=== PATIENT | female | born 1935 | race Caucasian/White ===

== ENCOUNTER 2016-11-23 20:03 | Inpatient (IN) ==
--- NOTE | 2016-11-23 20:34 | Emergency Department Note ---
Disposition Clinical Impression: Hyperkalemia, Hypoglycemia Syncope Qualifiers: Syncope type: unspecified Qualified Code(s): R55 - Syncope and collapse Closed head injury Qualifiers: Encounter type: initial encounter Qualified Code(s): S09.90XA - Unspecified injury of head, initial encounter Urinary tract infection Qualifiers: Urinary tract infection type: site unspecified Hematuria presence: without hematuria Qualified Code(s): N39.0 - Urinary tract infection, site not specified Disposition: Admitted As Inpatient Condition: Good Time of Disposition: 22:48 Fall HPI - General Chief Complaint: ED Fall Stated Complaint: fall Time Seen by Provider: 11/23/16 20:08 Source: patient, EMS Mode of arrival: ambulatory Limitations: no limitations Nursing Notes Reviewed: Yes Vital Signs Reviewed: Yes - History of Present Illness HPI Narrative: Patient presents emergency room by EMS for evaluation of a fall at home. Patient is a poor historian of the event here today. She has a large hematoma in the left side of her scalp. She denied any loss of consciousness EMS. She is unable to tell us the story of the events prior to and then directly after her fall. Otherwise patient has been stable throughout transport by EMS here to the emergency room. 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 From: standing Fall Witnessed: no Place Fall Occurred: home Loss of Consciousness: unsure Prolonged Down Time?: unclear Context: unknown Location of injury: head Location of injury - extremities: Left: shoulder Severity: moderate Severity scale (1-10): 4 Associated symptoms (after fall): Reports: headache - Related Data Home Medications Medication Instructions Recorded Confirmed Fluoxetine 05/19/16 Furosemide 05/19/16 GlyBURIDE 05/19/16 Isosorbide DInitrate 05/19/16 Levothyroxine 05/19/16 Lisinopril 05/19/16 Pravastatin Sodium 05/19/16 05/19/16 Previous Rx's Medication Instructions Recorded TraMADol [Ultram] 50 mg PO QID PRN #16 tablet 05/19/16 Allergies Allergy/AdvReac Type Severity Reaction Status Date / Time No Known Allergies Allergy Verified 05/19/16 14:53 All systems ED: reviewed and negative except as stated. Neurological: Reports: headache Fall PMH - Past Medical History Medical history: Reports: diabetes, hyperlipidemia, hypertension, thyroid disease Psychiatric history: Reports: depression - Social History Smoking Status: Former smoker Alcohol use: Reports: occasionally Drug use: Reports: none Physical Exam - General Limitations: no limitations General appearance: alert - Head Head exam: normocephalic - Eye Eye exam: Present: normal appearance, PERRL, EOMI - Neck Neck exam: Present: normal inspection, full ROM, trachea midline. Absent: tenderness, lymphadenopathy - Chest Chest inspection: Present: normal inspection, symmetric chest wall rise - Respiratory Respiratory exam: Present: normal lung sounds bilaterally - Cardiovascular Cardiovascular exam: Present: regular rate, normal rhythm, normal heart sounds - Extremities Exam Extremities exam: Present: normal inspection, full ROM. Absent: tenderness, pedal edema - Back Exam Back exam: Present: normal inspection, full ROM - Neurological Exam Neurological exam: Present: alert, oriented X3, CN II-XII intact, normal gait - Skin Skin exam: Present: warm, dry, intact, normal color Course Course Narrative: Patient seen and examined at the time of arrival. See history of present illness. 81-year-old female presents by EMS for a fall at home. Unknown whether is mechanical or syncopal. Accu-Chek on presentation was 50. Patient is on long-acting medication. Of note she has multiple other complaints. She has a large hematoma to the anterior aspect of left frontal head. Pupils appear symmetric with no pain with movement or deformity to the orbital ridges or bony anatomy. No midline tenderness to cervical thoracic or lumbar spine patient moves all 4 extremities purpose. She does have tenderness left shoulder. She has had a previous shoulder surgery. No gross deformity or injury. Pulses are intact. Patient is alert and oriented at this point. Is concerned that she is on aspirin with the dramatic head injury. CT of the head cervical spine and facial bones ordered. Unknown whether this is syncopal or hypoglycemic event. Patient had full syncopal workup including EKG troponin chest x-ray and labs and ECG imaging artifact previously discussed. Otherwise patient has no other acute findings. Lungs are clear heart is regular. She has scaling and dry skin to the lower extremities but no acute signs of deformity or injury. She was ambulatory in the emergency room on presentation by EMS. We will continue him on his workup and treatment course are completed. - Reevaluation(s) Reevaluation #1: CT imaging of the head and neck in excellent facial bones is negative. Patient is comfortable in the bed. Repeat Accu-Chek was 88. Labs all seem unremarkable at this time except for elevated potassium. Does not appear to be a hemolyzed sample. Because of the patient's new idioventricular delay as well as elevated potassium I have concern for possible conduction or electrophysiology related issue. Patient also has a new urinary tract infection. Multiple issues at this time are presenting themselves during patient treatment course. She is concerning secondary to syncopal event head injury infectious etiology as well as electrolyte and electrophysiology related issue on her EKG. I discussed this in great detail with the patient and offered admission. She is accommodating to this at this point. IV Rocephin ordered for urinary tract infection. I discussed the patient with the hospitalist Dr. matthew. Review the patient's presentation symptoms medical history and concern for syncopal event with other underlying etiology. His only recommendation at this time was normal saline at 100 mL per hour and potassium binding medication Kayexalate to be ordered at this time. Patient is stable comfortable with our plan has no other complaints or symptoms at this point. Will continue monitoring the emergency room to the admission process is completed. Time: 22:46 Vital Signs Temperature 97.4 F L 11/23/16 20:06 Pulse Rate 70 11/23/16 20:06 Respiratory Rate 20 11/23/16 20:06 Blood Pressure 170/111 11/23/16 20:06 O2 Sat by Pulse Oximetry 96 11/23/16 20:06 Temperature 97.4 F L 11/23/16 20:06 Pulse Rate 68 11/23/16 21:30 Respiratory Rate 20 11/23/16 21:30 Blood Pressure 147/80 11/23/16 21:30 O2 Sat by Pulse Oximetry 96 11/23/16 21:30 Oxygen Delivery Oxygen Delivery Nasal Cannula Fall - MDM Narrative Medical decision making narrative: Syncope, closed head injury, fall, elevated potassium, EKG abnormality - Medical Records Medical records reviewed: Yes I reviewed the patient's medical records. - Lab Data Lab results reviewed: Yes I reviewed the patient's lab results. Result diagrams: 11/23/16 21:13 11/23/16 21:13 Lab Results 11/23/16 11/23/16 11/23/16 Range/Units 20:14 21:13 21:13 WBC 7.7 (4.3-11.1) K/mcL RBC 4.37 (3.82-4.97) M/mcL Hgb 13.1 (11.5-15.4) g/dL Hct 42.5 (35.3-44.9) % MCV 97.3 (83.0-100.0) fL MCH 30.0 (28.0-33.3) pg MCHC 30.8 L (31.6-35.5) g/dL RDW 15.5 H (11.5-14.5) % Plt Count 182 (140-400) K/mcL MPV 11.2 (9.4-12.4) fL Immature Gran % 0.3 (0-4) % Seg Neutrophils % 86.7 % Lymphocytes % 5.3 % Monocytes % 6.7 % Eosinophils % 0.5 % Basophils % 0.5 % Neutrophils # 6.7 (1.6-8.9) K/mcL Lymphocytes # 0.4 L (0.6-4.6) K/mcL Monocytes # 0.5 (0.0-1.3) K/mcL Eosinophils # 0.0 (0.0-0.6) K/mcL Basophils # 0.0 (0.0-0.2) K/mcL PT 10.6 (9.4-12.1) Seconds INR 1.0 APTT 29.6 (26.0-36.0) Seconds Sodium (136-145) mEq/L Potassium (3.5-4.5) mEq/L Chloride (98-109) mEq/L Carbon Dioxide (19-29) mEq/L BUN (7-20) mg/dL Creatinine (0.57-1.11) mg/dL Est GFR ( Amer) (> 60) Est GFR (Non-Af Amer) (> 60) BUN/Creatinine Ratio (6-26) Glucose (70-99) mg/dL POC Glucose 52 L (58-89) Calculated Osmolality (280-300) Calcium (8.6-10.8) mg/dL Troponin I (0-0.03) ng/mL Urine Color (Yellow) Urine Clarity (Clear) Urine pH (5.0-8.0) pH Units Ur Specific Willow (1.010-1.025) Urine Protein (Neg-Trace) mg/dL Urine Glucose (UA) (Normal) mg/dL Urine Ketones (Negative) mg/dL Urine Blood (Negative) Urine Nitrite (Negative) Urine Bilirubin (Negative) Urine Urobilinogen (Normal) mg/dL Ur Leukocyte Esterase (Negative) Urine Microscopic RBC (0-3) per hpf Urine Microscopic WBC (0-3) per hpf Ur Squamous Epith Cells (None-Few) per lpf Urine Bacteria (None-Few) per hpf Hyaline Casts (None-Few) per lpf Urine Mucus (Few) Ur Culture Indicated? (NO) 11/23/16 11/23/16 11/23/16 Range/Units 21:13 21:13 21:52 WBC (4.3-11.1) K/mcL RBC (3.82-4.97) M/mcL Hgb (11.5-15.4) g/dL Hct (35.3-44.9) % MCV (83.0-100.0) fL MCH (28.0-33.3) pg MCHC (31.6-35.5) g/dL RDW (11.5-14.5) % Plt Count (140-400) K/mcL MPV (9.4-12.4) fL Immature Gran % (0-4) % Seg Neutrophils % % Lymphocytes % % Monocytes % % Eosinophils % % Basophils % % Neutrophils # (1.6-8.9) K/mcL Lymphocytes # (0.6-4.6) K/mcL Monocytes # (0.0-1.3) K/mcL Eosinophils # (0.0-0.6) K/mcL Basophils # (0.0-0.2) K/mcL PT (9.4-12.1) Seconds INR APTT (26.0-36.0) Seconds Sodium 144 (136-145) mEq/L Potassium 6.0 H (3.5-4.5) mEq/L Chloride 107 (98-109) mEq/L Carbon Dioxide 28 (19-29) mEq/L BUN 53 H (7-20) mg/dL Creatinine 1.50 H (0.57-1.11) mg/dL Est GFR ( Amer) 40 L (> 60) Est GFR (Non-Af Amer) 33 L (> 60) BUN/Creatinine Ratio 35 H (6-26) Glucose 102 H (70-99) mg/dL POC Glucose (58-89) Calculated Osmolality 313 H (280-300) Calcium 9.1 (8.6-10.8) mg/dL Troponin I 0.02 (0-0.03) ng/mL Urine Color Yellow (Yellow) Urine Clarity Cloudy A (Clear) Urine pH 6.0 (5.0-8.0) pH Units Ur Specific Willow 1.020 (1.010-1.025) Urine Protein 100 H (Neg-Trace) mg/dL Urine Glucose (UA) Normal (Normal) mg/dL Urine Ketones Negative (Negative) mg/dL Urine Blood Small H (Negative) Urine Nitrite Positive A (Negative) Urine Bilirubin Negative (Negative) Urine Urobilinogen Normal (Normal) mg/dL Ur Leukocyte Esterase Small H (Negative) Urine Microscopic RBC 0-3 (0-3) per hpf Urine Microscopic WBC 15-30 H (0-3) per hpf Ur Squamous Epith Cells Many H (None-Few) per lpf Urine Bacteria Many H (None-Few) per hpf Hyaline Casts None Seen (None-Few) per lpf Urine Mucus Few (Few) Ur Culture Indicated? YES A (NO) 11/23/16 Range/Units 22:21 WBC (4.3-11.1) K/mcL RBC (3.82-4.97) M/mcL Hgb (11.5-15.4) g/dL Hct (35.3-44.9) % MCV (83.0-100.0) fL MCH (28.0-33.3) pg MCHC (31.6-35.5) g/dL RDW (11.5-14.5) % Plt Count (140-400) K/mcL MPV (9.4-12.4) fL Immature Gran % (0-4) % Seg Neutrophils % % Lymphocytes % % Monocytes % % Eosinophils % % Basophils % % Neutrophils # (1.6-8.9) K/mcL Lymphocytes # (0.6-4.6) K/mcL Monocytes # (0.0-1.3) K/mcL Eosinophils # (0.0-0.6) K/mcL Basophils # (0.0-0.2) K/mcL PT (9.4-12.1) Seconds INR APTT (26.0-36.0) Seconds Sodium (136-145) mEq/L Potassium (3.5-4.5) mEq/L Chloride (98-109) mEq/L Carbon Dioxide (19-29) mEq/L BUN (7-20) mg/dL Creatinine (0.57-1.11) mg/dL Est GFR ( Amer) (> 60) Est GFR (Non-Af Amer) (> 60) BUN/Creatinine Ratio (6-26) Glucose (70-99) mg/dL POC Glucose 88 (58-89) Calculated Osmolality (280-300) Calcium (8.6-10.8) mg/dL Troponin I (0-0.03) ng/mL Urine Color (Yellow) Urine Clarity (Clear) Urine pH (5.0-8.0) pH Units Ur Specific Willow (1.010-1.025) Urine Protein (Neg-Trace) mg/dL Urine Glucose (UA) (Normal) mg/dL Urine Ketones (Negative) mg/dL Urine Blood (Negative) Urine Nitrite (Negative) Urine Bilirubin (Negative) Urine Urobilinogen (Normal) mg/dL Ur Leukocyte Esterase (Negative) Urine Microscopic RBC (0-3) per hpf Urine Microscopic WBC (0-3) per hpf Ur Squamous Epith Cells (None-Few) per lpf Urine Bacteria (None-Few) per hpf Hyaline Casts (None-Few) per lpf Urine Mucus (Few) Ur Culture Indicated? (NO) - Radiology Data Radiology results reviewed: Yes I reviewed the patient's radiology results. - EKG Data EKG attestation: Yes I reviewed and interpreted this EKG. EKG shows normal: sinus rhythm, axis, QRS complexes, ST-T waves Rate: normal Rhythm: NSR When compared to previous EKG there are: changes noted (Patient has new idioventricular but delayed no acute changes otherwise.) Interpretation: other (Patient has what appears to be new idioventricular conduction delay that is different from previous EKG on . No acute signs of ST segment elevation or myocardial infarction) Critical Care Time Critical Care Time: Yes Total Critical Care Time: 35 Attestation: Independent of procedures and medical management Attestation Statement - Attestation Attestation: I examined this patient and my medical decision-making was reviewed with the UTILITY WORKER DRIVER/PA/Advanced Practice Nurse/Resident Physician. I agree with the documented findings, disposition and treatment plan as described except to the extent set forth below. Patient presents to the emergency department with a chief complaint of a fall. Patient states that she was sitting on the toilet and "just fell." She does not remember it. Denies any chest pain or palpitations. No dizziness. The pain in the left side of her face and left arm. On examination she has a large area of swelling and ecchymosis around the left eye. Extraocular motion is intact. Tenderness over the left shoulder with no deformity. Plan. Pain control and imaging. Syncope workup. CTs unremarkable. Patient is hyperkalemic. Kayexalate is given. UTI. Admitted to medicine.
[2016-11-23 21:23] LABS: Basophils % 0.5 %; Eosinophils % 0.5 %; Hematocrit 42.5 % (35.3-44.9); Hemoglobin 13.1 g/dL (11.5-15.4); Immature Granulocytes % 0.3 % (0-4); Lymphocytes # 0.4 K/mcL (0.6-4.6); Lymphocytes % 5.3 %; Mean Corpuscular HGB Conc 30.8 g/dL (31.6-35.5); Mean Corpuscular Volume 97.3 fL (83.0-100.0); Mean Platelet Volume 11.2 fL (9.4-12.4); Monocytes # 0.5 K/mcL (0.0-1.3); Monocytes % 6.7 %; Neutrophils # 6.7 K/mcL (1.6-8.9); Platelet Count 182 K/mcL (140-400); Red Blood Count 4.37 M/mcL (3.82-4.97); Red Cell Distribution Width 15.5 % (11.5-14.5); Segmented Neutrophils % 86.7 %
[2016-11-23 21:29] LABS: Prothrombin Time 10.6 Seconds (9.4-12.1)
[2016-11-23 21:31] LABS: Activated Partial Thrombo Time 29.6 Seconds (26.0-36.0)
[2016-11-23 21:35] LABS: Calcium 9.1 mg/dL (8.6-10.8)
[2016-11-23 22:06] LABS: Bilirubin,Urine Negative (Negative); Blood,Urine Small (Negative); Clarity,Urine Cloudy (Clear); Color,Urine Yellow (Yellow); Glucose,Urine (UA) Normal (Normal); Ketones,Urine Negative (Negative); Leukocyte Esterase,Urine Small (Negative); Nitrite,Urine Positive (Negative); Protein,Urine 100 mg/dL (Neg-Trace); Urobilinogen,Urine Normal (Normal)
[2016-11-23 22:10] LABS: Bacteria,Urine Many per hpf (None-Few); Hyaline Casts,Urine None Seen per lpf (None-Few); Squamous Epithelial Cell,Urine Many per lpf (None-Few); WBC,Urine 15-30 per hpf (0-3)
[2016-11-23 22:14] LABS: Mucus,Urine Few (Few); RBC,Urine 0-3 per hpf (0-3)
[2016-11-23] MEDS ORDERED: 0.9 % Sodium Chloride 1,000 ML IVC SCH (22:45)
[2016-11-23] MEDS ORDERED: D5% in 0.9% NACL 1,000 ML IVC SCH (23:00)
[2016-11-24] MEDS ORDERED: traMADol 50 MG TABLET PO ONE (02:46)
[2016-11-24 04:58] LABS: Calcium 8.9 mg/dL (8.6-10.8); Potassium 4.6 mEq/L (3.5-4.5)
[2016-11-24] MEDS ORDERED: Acetaminophen 325 MG TABLET PO PRN (06:25)
[2016-11-24] MEDS ORDERED: Naloxone 0.4 MG/ML INJ IVP PRN (06:25)
--- NOTE | 2016-11-24 06:33 | Internal Med History&Physical ---
Date of Encounter: 11/24/16 Time of Encounter: 03:00 Assessment and Plan (1) Urinary tract infection Current visit: Yes Status: Acute Urinalysis is abnormal. Urine culture pending. Empirically treat with the ceftriaxone. Qualifiers: Urinary tract infection type: site unspecified Hematuria presence: without hematuria Qualified Code(s): N39.0 - Urinary tract infection, site not specified (2) Syncope Current visit: Yes Status: Acute Possibly due to hypoglycemia versus UTI. No Loss of consciousness reported. PT evaluation. check troponin Qualifiers: Syncope type: unspecified Qualified Code(s): R55 - Syncope and collapse (3) Hypoglycemia Current visit: Yes Status: Acute Patient denies missing meals or changing her diet. WIll hold hypoglycemic meds. Pt is now on IV D5W infusion and Q1H accuchecks. When the glucose level is stable, can switch to QACHS accuchecks and D/C D5W. Consider sliding scale insulin, when the blood glucose level is stable. Need to reduce the dose of home meds at D/C. check A1C (4) Hyperkalemia Current visit: Yes Status: Acute Likely secondary to CKD and lisinopril. Pt was given keyexalate in the ER and is also on D5W infusion. Monitor potassium level. Hold lisinopril (5) CKD (chronic kidney disease) stage 3, GFR 30-59 ml/min Current visit: Yes Status: Chronic Monitor renal function. avoid nephrotoxics. (6) Diabetes mellitus Current visit: Yes Status: Chronic On hyperglycemic medications, due to hypoglycemia. Check A1C and consider reducing the dose of oral hypoglycemics at discharge time. Qualifiers: Diabetes mellitus type: type 2 Diabetes mellitus complication status: with unspecified complications Diabetes mellitus exterminator insulin use: without fdc use Qualified Code(s): E11.8 - Type 2 diabetes mellitus with unspecified complications (7) Hypertension Current visit: Yes Status: Chronic BP stable at this time. Hold lisinopril due to hyperkalemia Qualifiers: Hypertension type: essential hypertension Qualified Code(s): I10 - Essential (primary) hypertension (8) Hypothyroidism Current visit: Yes Status: Chronic Continue synthoid Qualifiers: Hypothyroidism type: unspecified Qualified Code(s): E03.9 - Hypothyroidism , unspecified (9) Left arm pain Current visit: Yes Status: Acute Related to fall. Shoulder X-ray was negative for fracture. Will obtain the X- ray of the left elbow, to exclude injury to the lower humerus (10) Contusion Current visit: Yes Status: Acute Qualifiers: Encounter type: initial encounter Contusion area: head Contusion of head detail: orbital tissues Laterality: left Qualified Code(s): S05.12XA - Contusion of eyeball and orbital tissues, left eye, initial encounter Internal Medicine - H&P: HPI Chief complaint: Fall at home Admitted From: Emergency Dept Plans for Post Hospital Care: Home History of present illness: Ms. Pastor is a 81 year old female with history of diabetes, hyperlipidemia, hypertension, hypothyroidism presented to emergency room by EMS for evaluation of a fall at home. Patient apparently had a fall in the bathroom. She does not remember what happened before the fall. At the time of the fall she felt like she saw stars. She does not think she lost consciousness. She was not able to get up and had to crawl to the phone, to call for help. Fire squad was called in per their note - she had hematoma about the left eye. She was brought to the emergency department, imaging showed no acute fractures. She was apparently hypoglycemic, with blood glucose in the 50s. She had abnormal urinalysis in the emergency department and was given ceftriaxone. She had persistent hypoglycemia and hyperkalemia she is admitted to the hospitalist service for further w/u and management. Patient reports a left frontal pain, sharp 6/10, non radiating. Denies focal weakness of extremities. She also reports pain in the left arm, 8/10, with reduced movement due to pain. She denies chest pain, shortness of breath, cough , expectation, fever, chills, nausea, vomiting, abdominal pain, dysuria or hematuria. She reports frequent urination and some incontinence which has been chronic. Denies changes in bowel habits. Past Med Surg Social Fam HX - Past Medical History Medical history: diabetes, hyperlipidemia, hypertension, thyroid disease Psychiatric history: depression - Social History Smoking Status: Former smoker Smokeless Tobacco Status: No Alcohol use: occasionally Drug use: none - Family History Mother Living Status: Age at : 97 Cause of : Natural Hx Family Cardiac Disorders: No Hx Family Respiratory Disorders: No Hx Family Cancer: No Hx Family GI Disorders: Yes Hx Family Genitourinary Disorders: No Hx Family Endocrine Disorder: No Hx Family Musculoskeletal Disorders: No Hx Family Neuromuscular Disorders: No Hx Family Neurologic Disorders: No Hx Family HEENT Disorders: No Hx Family Autoimmune Disorders: No Hx Family Reproductive Disorders: No Hx Family Psychosocial Disorders: No Hx Family Medical Disorders: No Father Living Status: Age at : 70 Hx Family Cardiac Disorders: Yes Hx Family Respiratory Disorders: No Hx Family Cancer: No Hx Family GI Disorders: No Hx Family Genitourinary Disorders: No Hx Family Endocrine Disorder: Yes (DM) Hx Family Musculoskeletal Disorders: No Hx Family Neuromuscular Disorders: No Hx Family Neurologic Disorders: No Hx Family HEENT Disorders: No Hx Family Autoimmune Disorders: No Hx Family Reproductive Disorders: No Hx Family Psychosocial Disorders: No Hx Family Medical Disorders: No Internal Medicine - H&P: Meds Fluoxetine 05/19/16 [History] Furosemide 05/19/16 [History] GlyBURIDE 05/19/16 [History] Isosorbide DInitrate 05/19/16 [History] Levothyroxine 05/19/16 [History] Lisinopril 05/19/16 [History] Pravastatin Sodium 05/19/16 [History] TraMADol [Ultram] 50 mg PO QID PRN #16 tablet 05/19/16 [Rx] Allergies No Known Allergies Allergy (Verified 05/19/16 14:53) All Systems PM: A 10-system review of systems was performed and is negative for pertinent findings except as documented above in the HPI. - Constitutional Vitals: Temp Pulse Resp BP Pulse Ox 99.0 F 86 18 127/51 92 11/24/16 04:02 11/24/16 04:02 11/24/16 04:02 11/24/16 04:02 11/24/16 04:02 Exam: General: In mild distress at the time of my evaluation HEENT: Oral mucosa is moist. There is contusion over the left balaji-orbital area Neck: No obvious neck swellings Lungs: Clear to auscultation Cardiac: Regular rate and rhythm. Systolic murmur present Abdomen: Soft, non tender. Bowel sounds present Genitourinary: No rodriguez catheter Neurological: Alert and oriented. No gross localizing deficits Psych: Not aggressive or agitated Extremities: B/L leg edema; chronic erythema present Skin: No generalized rash Internal Med - H&P Results - Labs CBC & Chem 7: 11/23/16 21:13 11/24/16 04:09 Labs: BMP 11/24/16 04:09 Sodium 140 Potassium 4.6 H D Chloride 104 Carbon Dioxide 27 BUN 47 H Creatinine 1.27 H Glucose 97 Calcium 8.9 - EKG Data -: EKG Interpreted by Myself EKG shows normal: sinus rhythm - EKG Data EKG comments: Q wave in III; QTc: 478 ms 11/24/16 06:33 - Impressions ITS Impressions Chest X-Ray 11/23/16 20:10 IMPRESSION: 1. No acute cardiopulmonary abnormality. 2. Stable small chronic right pleural effusion versus chronic pleural thickening with right base atelectasis. D/ / Fercho Mooney MD / Fercho Mooney MD Interpreting Provider: Fercho Mooney MD Cervical Spine CT 11/23/16 20:11 IMPRESSION: Limited exam due to patient body habitus. Minimal anterolisthesis at C4-5 may be degenerative. No gross acute fracture. D/ / Andrew Cain MD / Andrew Cain MD Interpreting Provider: Andrew Cain MD Head CT 11/23/16 20:11 IMPRESSION: 1. No acute intracranial abnormality. 2. Left frontal scalp hematoma. D/ / Carlo Gomez MD / Carlo Gomez MD Interpreting Provider: Carlo Gomez MD Shoulder X-Ray 11/23/16 20:12 IMPRESSION: 1. No acute osseous abnormality of the left shoulder. 2. Prior left shoulder arthroplasty with intact hardware. D/ / Fercho Mooney MD / Fercho Mooney MD Interpreting Provider: Fercho Mooney MD Face CT 11/23/16 20:24 IMPRESSION: 1. No acute maxillofacial fracture or intraorbital injury. 2. Left supraorbital soft tissue hematoma. D/ / Fercho Mooney MD / Fercho Mooney MD Interpreting Provider: Fercho Mooney MD
[2016-11-24] MEDS ORDERED: traMADol 50 MG TABLET PO PRN (07:07)
[2016-11-24 07:15] LABS: Basophils % 0.6 %; Eosinophils # 0.3 K/mcL (0.0-0.6); Eosinophils % 3.9 %; Hematocrit 41.5 % (35.3-44.9); Immature Granulocytes % 0.3 % (0-4); Lymphocytes # 0.6 K/mcL (0.6-4.6); Lymphocytes % 9.1 %; Mean Corpuscular HGB Conc 31.3 g/dL (31.6-35.5); Mean Corpuscular Hemoglobin 30.2 pg (28.0-33.3); Mean Corpuscular Volume 96.3 fL (83.0-100.0); Mean Platelet Volume 11.5 fL (9.4-12.4); Monocytes # 0.8 K/mcL (0.0-1.3); Neutrophils # 5.3 K/mcL (1.6-8.9); Platelet Count 181 K/mcL (140-400); Red Blood Count 4.31 M/mcL (3.82-4.97); Red Cell Distribution Width 15.4 % (11.5-14.5); Segmented Neutrophils % 75.1 %
[2016-11-24 07:52] LABS: Thyroid Stimulating Hormone 1.023 mcIU/mL (0.350-4.840)
[2016-11-24 07:53] LABS: Hemoglobin A1C 5.5 %
[2016-11-24] MEDS ORDERED: *HR* Morphine 2 MG/ML SYRINGE IVP PRN (13:01)
--- NOTE | 2016-11-24 13:08 | Event Note ---
Date of Encounter: 11/24/16 Time of Encounter: 10:00 Patient seen and examined. On examination, patient sitting upright in her wheelchair conversing with her daughter. Patient complaining of severe pain to her left upper arm and left elbow area. Left arm neurovascularly intact. She has a large hematoma to left periorbital region. No vision changes, EOMI. PERRLA. Chest x-ray negative. Cervical spine CT negative. Head CT negative. Shoulder x-ray negative. Face CT negative. Elbow x-ray unremarkable. Urinary tract infection noted, continue ceftriaxone with sensitivities pending. Patient stating her pain is currently uncontrolled, we will give her dose of IV pain medication now, then continue oral medications as she needs them. Glucose has been stable since admission. Patient is alert and oriented 3 and is requesting to go home. She needs to be observed overnight to ensure glucose stability and to wait for her urine sensitivity results. Renal functioning stable at the low end of her normal so we will hold her lisinopril today. The rest of her home medications have been resumed. OT and PT consultations are pending. Likely cause of her fall/syncopal episode hypoglycemia compounded with urinary tract infection. Possible discharge tomorrow pending clinical outcomes. ITS Impressions Chest X-Ray 11/23/16 20:10 IMPRESSION: 1. No acute cardiopulmonary abnormality. 2. Stable small chronic right pleural effusion versus chronic pleural thickening with right base atelectasis. D/ / Fercho Mooney MD / Fercho Mooney MD Interpreting Provider: Fercho Mooney MD Cervical Spine CT 11/23/16 20:11 IMPRESSION: Limited exam due to patient body habitus. Minimal anterolisthesis at C4-5 may be degenerative. No gross acute fracture. D/ / Andrew Cain MD / Andrew Cain MD Interpreting Provider: Andrew Cain MD Head CT 11/23/16 20:11 IMPRESSION: 1. No acute intracranial abnormality. 2. Left frontal scalp hematoma. D/ / Carlo Gomez MD / Carlo Gomez MD Interpreting Provider: Carlo Gomez MD Shoulder X-Ray 11/23/16 20:12 IMPRESSION: 1. No acute osseous abnormality of the left shoulder. 2. Prior left shoulder arthroplasty with intact hardware. D/ / Fercho Mooney MD / Fercho Mooney MD Interpreting Provider: Fercho Mooney MD Face CT 11/23/16 20:24 IMPRESSION: 1. No acute maxillofacial fracture or intraorbital injury. 2. Left supraorbital soft tissue hematoma. D/ / Fercho Mooney MD / Fercho Mooney MD Interpreting Provider: Fercho Mooney MD Elbow X-Ray 11/24/16 06:48 IMPRESSION: 1. No convincing acute osseous finding to account for patient's left elbow pain. Linear lucency in the distal humerus, seen on one view only, is favored to be artifact. If patient has persistent left elbow pain, consider CT for further evaluation. 2. Moderate radiocapitellar degenerative changes. D/ / Usama Garsia MD / Usama Garsia MD Interpreting Provider: Usama Garsia MD
[2016-11-24] MEDS ORDERED: Dextrose Gel 15 GM PO PRN ×2 (13:26)
[2016-11-24] MEDS ORDERED: D5% in Water 1,000 ML IVC PRN (13:26)
[2016-11-24] MEDS ORDERED: *HR* Dextrose 50 % in Water (Syg) 50 ML SYRINGE IVP PRN (13:26)
[2016-11-24] MEDS: FLUoxetine 20 MG CAPSULE PO SCH ×2 (13:38→22:20)
[2016-11-24] MEDS: hydroCHLOROthiazide 25 MG TABLET PO SCH (13:38)
[2016-11-24] MEDS: Aspirin Enteric Coated 81 MG Tablet PO SCH (13:38)
[2016-11-24] MEDS: Furosemide 20 MG TABLET PO SCH (13:38)
[2016-11-24] MEDS: *HR* HYDROcodone/Acet 5/325 mg TABLET PO PRN ×2 (13:39→19:51)
[2016-11-24] MEDS: Insulin LISPRO 300 UNITS/3 ML VIAL SQ SCH (16:48)
--- NOTE | 2016-11-24 18:28 | Electrocardiograph Report ---
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
[2016-11-24] MEDS ORDERED: Insulin LISPRO 300 UNITS/3 ML VIAL SQ SCH (21:00)
[2016-11-25] MEDS: *HR* HYDROcodone/Acet 5/325 mg TABLET PO PRN (04:17)
[2016-11-25 05:59] LABS: Calcium 8.5 mg/dL (8.6-10.8); Potassium 4.5 mEq/L (3.5-4.5)
[2016-11-25] MEDS: Insulin LISPRO 300 UNITS/3 ML VIAL SQ SCH (08:40)
[2016-11-25] MEDS: FLUoxetine 20 MG CAPSULE PO SCH (08:48)
[2016-11-25] MEDS: Aspirin Enteric Coated 81 MG Tablet PO SCH (08:48)
[2016-11-25] MEDS: Furosemide 20 MG TABLET PO SCH (08:48)
[2016-11-25] MEDS: hydroCHLOROthiazide 25 MG TABLET PO SCH (08:48)
[2016-11-25] MEDS ORDERED: Isosorbide MONOnitrate (24 HR) 30 MG TAB.ER.24H PO SCH (09:00)
--- NOTE | 2016-11-25 10:32 | Discharge Summary ---
Date of Encounter: 11/25/16 Time of Encounter: 10:29 - Discharge Diagnosis (1) Hypoglycemia Priority: Primary Status: Acute (2) Closed head injury Priority: Primary Status: Acute Qualifiers: Encounter type: initial encounter Qualified Code(s): S09.90XA - Unspecified injury of head, initial encounter (3) CKD (chronic kidney disease) stage 3, GFR 30-59 ml/min Priority: Secondary Status: Chronic (4) Diabetes mellitus Priority: Secondary Status: Chronic Qualifiers: Diabetes mellitus type: type 2 Diabetes mellitus complication status: with unspecified complications Diabetes mellitus residential insulin use: without residential use Qualified Code(s): E11.8 - Type 2 diabetes mellitus with unspecified complications - Discharge Medications Home Medications: FLUoxetine HCl [Prozac] 20 mg PO BID 05/19/16 [History] Furosemide [Lasix] 20 mg PO DAILY 05/19/16 [History] Isosorbide DInitrate [Isosorbide Dinitrate] 30 mg PO DAILY 05/19/16 [History] Levothyroxine [Synthroid] 50 mcg PO DAILY 05/19/16 [History] Pravastatin Sodium 10 mg PO DAILY 05/19/16 [History] Aspirin Enteric Coated [Aspirin EC] 81 mg PO DAILY 11/24/16 [History] Hydrochlorothiazide 25 mg PO DAILY 11/24/16 [History] Allergies/Adverse Reactions: Allergies No Known Allergies Allergy (Verified 05/19/16 14:53) Date of admission: 11/24/16 06:33 Primary care physician: Goran Hicks MD Consults: 11/24/16 11:26 Consult to [employer] History Teacher [CONS] Routine Reason for SW Consult: rehab vs. home health. Pt currently has private aid services. 11/24/16 11:57 Consult to Occupational Therapy [CONS] Routine Comment: Evaluate, develop and implement POC - Patient Status Disposition: Home Health Service Condition: Good Functional capacity at discharge: uses cane/walker Overall status at discharge: patient is progressing back to baseline - Discharge Instructions Instructions: Urinary Tract Infection in Women (DC), Low Fat Diet (DC), Potassium Content of Foods List (DC), Seasoning Without Salt (DC), Syncope (DC) , Meal Planning with Diabetes Exchanges (DC), DASH Eating Plan (DC), Low Sodium Diet (DC) Follow Up With: Goran Hicks MD [Primary Care Provider] - 12/02/16 10:00 am () Additional Instructions: stop taking glyburide. check blood sugars before meals and at bedtime, bring numbers to doctors appointment check blood pressure twice daily, same time every day diet: low potassium, diabetic, low salt, low fat. - Diet and Activity Activity: ambulate only with your walker Diet: diabetic diet, low fat, low cholesterol, low salt diet, other (low potassium) Interval History: pt declines rehab placement. she agrees with PT/OT at home. she is doing okay and is eager to go home. Hospital course: Ms. Pastor is a 81 year old female with a past medical history of diabetes, hypertension and hypothyroidism who presented after a fall at home. Patient glucose level was 50s on admission. Her fall was likely secondary to hypoglycemia. Her home medication glyburide was stopped. She was instructed to check her blood sugars 4 times a day at home, make a log and bring it to her primary care physician appointment. Our physical therapist team recommended rehabilitation placement however patient declined. Plan: Follow-up with primary care physician in one week. Check blood sugars 4 times a day. Check blood pressure twice daily. - Time Spent with Patient Total time spent providing and/or coordinating discharge services: - Constitutional Vitals: Temp Pulse Resp BP Pulse Ox 97.9 F 71 17 132/78 92 11/25/16 07:30 11/25/16 07:30 11/25/16 07:30 11/25/16 07:30 11/25/16 07:30
--- NOTE | 2016-11-25 10:36 | Physician Discharge Referral ---
Home Health/Hosp Referral Info Transfer to: Home Health Attending Provider: perry Provider in Charge Post Discharge: PCP - Diagnosis (1) Syncope Status: Acute (2) Closed head injury Status: Acute (3) Hypoglycemia Status: Acute (4) Hyperkalemia Status: Acute (5) CKD (chronic kidney disease) stage 3, GFR 30-59 ml/min Status: Chronic (6) Diabetes mellitus Status: Chronic (7) Hypothyroidism Status: Chronic (8) Left arm pain Status: Acute - Respiratory Orders Smoking Cessation: Smoking cessation has been advised. For more information, call the [place] Tobacco Quit Line at 5-228-OGGF-NOW. - Diet/Nutrition Diet/Nutrition Orders: No Added Salt (JT), Cardiac, No Concentrated Sweets ( low potassium) - Activity Activity Orders: Walker - Services Needed Following services are medically necessary services: Home Health Aide, Physical Therapy, Occupational Therapy - Transfer Medications Home Medications: FLUoxetine HCl [Prozac] 20 mg PO BID 05/19/16 [History] Furosemide [Lasix] 20 mg PO DAILY 05/19/16 [History] Isosorbide DInitrate [Isosorbide Dinitrate] 30 mg PO DAILY 05/19/16 [History] Levothyroxine [Synthroid] 50 mcg PO DAILY 05/19/16 [History] Pravastatin Sodium 10 mg PO DAILY 05/19/16 [History] Aspirin Enteric Coated [Aspirin EC] 81 mg PO DAILY 11/24/16 [History] Hydrochlorothiazide 25 mg PO DAILY 11/24/16 [History] Allergies/Adverse Reactions: Allergies No Known Allergies Allergy (Verified 05/19/16 14:53) Certification: Further, I certify that my clinical findings support that this patient is homebound (i.e. absences from home require considerable and taxing effort and are for medical reasons or muslim services or infrequently or short duration when for other reasons) because: Homebound Reason: Patient requires assistance of a person or device to safely leave home, Leaving home requires considerable and taxing effort due to condition Attestation: My signature below is to certify that this patient is under my care and that I, or nurse practitioner, or a physician's therapist's assistant working with me, has a face-to -face encounter with this patient.
[2016-11-25 11:38] VITALS: BP 132/78
== END 2016-11-25 11:30 | disposition home health service (06) | DRG 638 ==
LOC: 3BNU 20:03 → EMEROO 20:03 → 3BNU 23:08
PROVIDERS: ADMIT Internal Medicine; ATTEND Nurse Practitioner Family

== ENCOUNTER 2017-08-15 22:26 | Inpatient (IN) ==
[~2017-08-15 22:26] MED LIST: *HR* Midazolam HCl 2 MG/2 ML VIAL IV ONE
[2017-08-15] MEDS ORDERED: methylPREDNISolone 125 MG/2 ML VIAL IVP ONE (22:28)
[2017-08-15] MEDS ORDERED: *HR* EPINEPHrine 1 MG/10 ML SYRINGE IVP ONE (22:28)
[2017-08-15] MEDS ORDERED: Famotidine 20 MG/2 ML VIAL IVP ONE (22:28)
[2017-08-15] MEDS ORDERED: Ketamine *HR* 500 MG/10 ML MDV IVP ONE (22:36)
[2017-08-15] MEDS ORDERED: *HR* Propofol 500 MG/50 ML BOTTLE IVP ONE (22:42)
[2017-08-15] MEDS ORDERED: Ketamine *HR* 500 MG/10 ML MDV ONE (22:42)
[2017-08-15] MEDS ORDERED: Lidocaine -MPF 4% 5 ML AMPUL INFILT ONE (22:45)
[2017-08-15 22:47] LABS: Basophils % 0.4 %; Eosinophils # 0.4 K/mcL (0.0-0.6); Hematocrit 47.4 % (35.3-44.9); Hemoglobin 14.9 g/dL (11.5-15.4); Immature Granulocytes % 0.4 % (0-4); Lymphocytes # 1.4 K/mcL (0.6-4.6); Lymphocytes % 15.5 %; Mean Corpuscular HGB Conc 31.4 g/dL (31.6-35.5); Mean Corpuscular Volume 98.5 fL (83.0-100.0); Monocytes # 0.7 K/mcL (0.0-1.3); Monocytes % 7.6 %; Neutrophils # 6.5 K/mcL (1.6-8.9); Platelet Count 199 K/mcL (140-400); Red Blood Count 4.81 M/mcL (3.82-4.97); Red Cell Distribution Width 14.2 % (11.5-14.5); Segmented Neutrophils % 72.1 %
[2017-08-15] MEDS ORDERED: Propofol 500 MG/50 ML INFUS..BTL ONE (22:47)
--- NOTE | 2017-08-15 22:50 | Emergency Department Note ---
Disposition Clinical Impression: Angioedema Qualifiers: Encounter type: initial encounter Qualified Code(s): T78.3XXA - Angioneurotic edema, initial encounter Respiratory failure Qualifiers: Chronicity: acute Respiratory failure complication: hypercapnia Qualified Code( s): J96.02 - Acute respiratory failure with hypercapnia Disposition: Admitted As Inpatient Condition: Critical Time of Disposition: 23:09 SOB HPI - General Chief Complaint: ED Shortness of Breath/Dyspnea Stated Complaint: ABISAI Time Seen by Provider: 08/15/17 22:28 Source: EMS Limitations: no limitations Nursing Notes Reviewed: Yes Vital Signs Reviewed: Yes - History of Present Illness 81-year-old female brought in by EMS, unable to talk but was able to write some of the history questions, they found her with her tongue swollen, difficulty breathing the placed on oxygen that she was having an allergic reaction or anaphylaxis. The patient had swollen tongue. She was given 1 mg of epinephrine no IV access was obtained in route. Patient was writing down that she said the tongue swelling started at 7 PM. She did not take any new medications but after she started having swelling she did take 2 baby aspirin as prescribed. She states that her neck started swelling getting worse, and she was more short of breath, indolence was called to pick her up, she states that she is not sure if she fell. Again mostly history is taken by her writing on a piece paper and she has poor handwriting. There is a history is obtained from EMS. 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 Severity: mild Improves with: nothing Worsens with: nothing Known history of: diabetes, other (HTN no ACEI use) Associated symptoms: Reports: chest pain, cough Treatment prior to arrival: oxygen, other (Epinephrine) Cough present: No - Related Data Home Medications Medication Instructions Recorded Confirmed FLUoxetine HCl [Prozac] 20 mg PO BID 05/19/16 11/24/16 Furosemide [Lasix] 20 mg PO DAILY 05/19/16 11/24/16 Isosorbide DInitrate [Isosorbide 30 mg PO DAILY 05/19/16 11/24/16 Dinitrate] Levothyroxine [Synthroid] 50 mcg PO DAILY 05/19/16 11/24/16 Pravastatin Sodium 10 mg PO DAILY 05/19/16 11/24/16 Aspirin Enteric Coated [Aspirin EC] 81 mg PO DAILY 11/24/16 11/24/16 hydroCHLOROthiazide 25 mg PO DAILY 11/24/16 11/24/16 [Hydrochlorothiazide] Allergies Allergy/AdvReac Type Severity Reaction Status Date / Time No Known Allergies Allergy Verified 05/19/16 14:53 Limitations: ROS unobtainable due to patients medical condition Past Medical History - Past Medical History Attestation: Yes The following information was validated with the patient. Source: patient Medical history: Reports: diabetes, hyperlipidemia, hypertension, thyroid disease Psychiatric history: Reports: depression - Social History Smoking Status: Former smoker Smokeless Tobacco Status: No Alcohol use: Reports: occasionally Drug use: Reports: none Physical Exam Constitutional: Obese female in acute respiratory distress sudden 75% on nonrebreather Eyes: PERRLA, sclera anicteric ENT & Mouth: severely enlarged tongue with left sided hematoma with some bleeding, Mallampati IV, unable to visualize uvula, MM dry, Neck: normal inspection, neck is edematous Resp: Coarse rhonchi bilaterally CV: tachycardia, no m/g/r +3 edema GI: normal inspection, soft, no guarding or rigidity Neuro: A&O3, CNII-XII grossly intact, DHILLON Skin: +3 pitting lower extremities - General Limitations: no limitations General appearance: alert, in distress Course Course Narrative: 22:30 81-year-old female in severe respiratory distress with angioedema, unclear ZONIA inhibitor related or not, although her medical history does not show an ZONIA inhibitor. She was initially hypoxic in the 70% range, with placed on a vent on a nonrebreather as well as nasal cannula maximum flow, we then alerted anesthesia who arrived in the emergency department please see their documentation as well as, H1 and H2 blockers were prescribed famotidine, Benadryl 550 mg was given, additional 1 mg of epinephrine was given, it was clear that this was to be emergent airway, the RSI and intubation materials were prepared at bedside, cricothyrotomy was also repaired at bedside although she would very poor landmarks given very edematous neck. 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 Diaz patient for admission to the ICU, she was hemodynamic stable on propofol drip did require 5 g of vecuronium for additional paralysis and propofolo gtt titrated to affect. She was transferred to the ICU in hemodynamically stable but serious condition, intubated, Pressley placed, x-ray confirmed good placement, propofol drip, ICU transfer completed safely with patient stable throughout. at ));45 Vital Signs Temperature 97.9 F 08/15/17 22:27 Pulse Rate 98 08/15/17 22:27 Respiratory Rate 30 08/15/17 22:27 Blood Pressure 197/120 08/15/17 22:27 O2 Sat by Pulse Oximetry 98 08/15/17 22:27 Temperature 97.9 F 08/15/17 22:27 Pulse Rate 89 08/16/17 00:19 Respiratory Rate 14 08/16/17 00:19 Blood Pressure 120/64 08/16/17 00:19 O2 Sat by Pulse Oximetry 100 08/16/17 00:19 Oxygen Delivery Oxygen Delivery Ventilator Shortness of Breath/Dyspnea - Differential Diagnosis Likely: acute exacerbation of chronic obstructive airways disease, congestive heart failure - Medical Records Medical records reviewed: Yes I reviewed the patient's medical records. - Lab Data Lab results reviewed: Yes I reviewed the patient's lab results. Result diagrams: 08/15/17 23:36 Lab Results 08/15/17 08/15/17 08/15/17 Range/Units 22:40 22:40 22:40 WBC 9.0 (4.3-11.1) K/mcL RBC 4.81 (3.82-4.97) M/mcL Hgb 14.9 (11.5-15.4) g/dL Hct 47.4 H (35.3-44.9) % MCV 98.5 (83.0-100.0) fL MCH 31.0 (28.0-33.3) pg MCHC 31.4 L (31.6-35.5) g/dL RDW 14.2 (11.5-14.5) % Plt Count 199 (140-400) K/mcL MPV 11.0 (9.4-12.4) fL Immature Gran % 0.4 (0-4) % Seg Neutrophils % 72.1 % Lymphocytes % 15.5 % Monocytes % 7.6 % Eosinophils % 4.0 % Basophils % 0.4 % Neutrophils # 6.5 (1.6-8.9) K/mcL Lymphocytes # 1.4 (0.6-4.6) K/mcL Monocytes # 0.7 (0.0-1.3) K/mcL Eosinophils # 0.4 (0.0-0.6) K/mcL Basophils # 0.0 (0.0-0.2) K/mcL Lactic Acid 2.0 (0.5-2.2) mmol/L Troponin I < 0.03 (< 0.04) ng/mL B-Natriuretic Peptide (Less than 100) pg/mL 08/15/17 Range/Units 22:40 WBC (4.3-11.1) K/mcL RBC (3.82-4.97) M/mcL Hgb (11.5-15.4) g/dL Hct (35.3-44.9) % MCV (83.0-100.0) fL MCH (28.0-33.3) pg MCHC (31.6-35.5) g/dL RDW (11.5-14.5) % Plt Count (140-400) K/mcL MPV (9.4-12.4) fL Immature Gran % (0-4) % Seg Neutrophils % % Lymphocytes % % Monocytes % % Eosinophils % % Basophils % % Neutrophils # (1.6-8.9) K/mcL Lymphocytes # (0.6-4.6) K/mcL Monocytes # (0.0-1.3) K/mcL Eosinophils # (0.0-0.6) K/mcL Basophils # (0.0-0.2) K/mcL Lactic Acid (0.5-2.2) mmol/L Troponin I (< 0.04) ng/mL B-Natriuretic Peptide 173 H (Less than 100) pg/mL - Radiology Data Radiology results reviewed: Yes I reviewed the patient's radiology results. Chest X-Ray 08/15/17 22:28 IMPRESSION: Appropriate positioning of endotracheal tube. Asymmetric ground-glass opacities in the right lower lung zone may represent pulmonary edema or ARDS. D/ / Carlo Gomez MD / Carlo Gomez MD Interpreting Provider: Carlo Gomez MD - EKG Data EKG attestation: Yes I reviewed and interpreted this EKG. EKG results narrative: Sinus tachycardia rate of 107 CA 158 QRS 114 QTC 433 no evidence of ischemic changes sinus tachycardia unchanged from previous EKG in November 2016 EKG shows normal: Reports: sinus rhythm
--- NOTE | 2017-08-15 22:53 | Emergency Department Note ---
START Narrative - START START: I examined this patient and my medical decision-making was reviewed with the emergency medicine resident. I agree with the documented findings, disposition and treatment plan as described except to the extent set forth below. Patient seen with emergency medicine resident Dr. Jimi Trujillo, Please see a copy of his note for details of the H&P, ED evaluation, management and disposition. I have independently evaluated the patient and confirmed appropriate portions of the history and physical exam. Briefly: A 81-year-old female brought in by EMS for "anaphylaxis and tongue swelling". Patient unable to give us any verbal information she has a prophylactic neck with angioedema tongue protruding out of mouth 1 mg epinephrine given in field and in the ED with the quick emergent bedside assessment we knew that airway management was critical anesthesia was patient emergently arrived at bedside within 2 minutes. Using fiber optic scope fiberoptic intubation with her said a week which was confirmed on first pass. Patient to be admitted to the intensive care unit for anaphylaxis/angioedema/ respiratory failure. Labs and chest x-ray are pending. Hospitalist has been paged. We have provided 45 minutes of critical care services for this patient.
[2017-08-15] MEDS ORDERED: Glycopyrrolate 0.2 MG/ML VIAL IVP ONE (23:00)
--- NOTE | 2017-08-15 23:03 | Anesthesia Procedures ---
Date of Encounter: 08/15/17 Time of Encounter: 22:40 Procedures: Anesthesia - Intubation Time out performed: No (emergency) Sedative: Ketamine, Versed Amount Sedative given: ketamine 100 mg total, versed 2 mg Paralytic: other (none) Laryngoscope: fiber optic ET Tube Size: 7 ET tube uncuffed: No Tube secured depth (cm): 24 Tube secured location: lips Tube Placement Confirmation: visualized tube passing through cords, equal breath sounds bilaterally, confirmation by capnometry Patient tolerated procedure: other (patient lost conciousness prior to intubation; patient was apneic prior to sedation (patient was imminently decompensating prior to all medications being available); hypertensive with intubation) Additional comments: Patient was in severe respiratory distress in ED. Neck and tongue were severely swollen. Patient was drooling. No ENT coverage was available. Patient started obstructing and deteriorating immediately. Ketamine 50 mg and midazolam 1 mg were administered just prior to attempting FOB. Jovan Smith immediately visualized vocal cords and was able to pass ETT through cords. Bilateral breath sounds were auscultated. Patient was hypertensive pre- and post- intubated. Otherwise, patient tolerated the procedure reasonable well given the emergent and less than ideal circumstances.
[2017-08-15] MEDS ORDERED: 0.9 % Sodium Chloride 500 ML IVC ONE (23:33)
[2017-08-15] MEDS ORDERED: 0.9 % Sodium Chloride 500 ML ONE (23:33)
[2017-08-15] MEDS ORDERED: *HR* Vecuronium 10 MG VIAL IVP ONE (23:40)
[2017-08-15 23:44] LABS: Basophils % 0.4 %; Eosinophils # 0.2 K/mcL (0.0-0.6); Eosinophils % 1.6 %; Hematocrit 44.2 % (35.3-44.9); Hemoglobin 13.7 g/dL (11.5-15.4); Immature Granulocytes % 0.3 % (0-4); Immature Platelets 5.8 % (1.1-6.1); Lymphocytes # 0.8 K/mcL (0.6-4.6); Lymphocytes % 7.5 %; Mean Platelet Volume 10.8 fL (9.4-12.4); Monocytes # 0.6 K/mcL (0.0-1.3); Monocytes % 5.7 %; Neutrophils # 9.4 K/mcL (1.6-8.9); Platelet Count 176 K/mcL (140-400); Red Blood Count 4.42 M/mcL (3.82-4.97); Segmented Neutrophils % 84.5 %
[2017-08-15] MEDS ORDERED: *HR* Vecuronium 10 MG VIAL ONE (23:45)
[2017-08-15] MEDS ORDERED: Naloxone 0.4 MG/ML INJ IVP PRN (23:53)
[2017-08-15] MEDS ORDERED: Acetaminophen 325 MG TABLET PO PRN (23:53)
[2017-08-15] MEDS ORDERED: Lacri-Lube 3.5 GM TUBE BOTH EYES PRN (23:58)
[2017-08-16] MEDS ORDERED: D5% in Water 1,000 ML IVC PRN (00:03)
[2017-08-16] MEDS ORDERED: Dextrose Gel 15 GM/37.5 ML TUBE PO PRN ×2 (00:03)
[2017-08-16] MEDS ORDERED: *HR* Dextrose 50 % in Water (Syg) 50 ML SYRINGE IVP PRN (00:03)
[2017-08-16] MEDS: Propofol 500 MG/50 ML INFUS..BTL IVC SCH ×5 (00:17→12:10)
[2017-08-16 00:22] LABS: ABG Base Excess 3 mEq/L (-2 to 3); ABG HCO3 33 mEq/L (21-27); ABG Oxygen Saturation 100 % (95-98); ABG PCO2 77 mmHg (35-45); ABG PH 7.24 pH Units (7.32-7.45); ABG PO2 310 mmHg (85-104); ABG TCO2 35 mEq/L (20-26)
[2017-08-16 00:28] LABS: Calcium 8.2 mg/dL (8.6-10.3); Potassium 4.3 mEq/L (3.5-5.1)
[2017-08-16] MEDS: Lacri-Lube 3.5 GM TUBE BOTH EYES SCH ×6 (01:22→20:51)
--- NOTE | 2017-08-16 01:36 | Internal Med History&Physical ---
Date of Encounter: 08/16/17 Time of Encounter: 01:25 Assessment and Plan (1) Acute respiratory failure with hypercapnia Current visit: Yes Status: Acute Patient is currently intubated and mechanically ventilated. High risk for complications. We will continue sedation with propofol. Monitor vital signs closely. Treat underlying conditions. (2) Angioedema Current visit: Yes Status: Acute Uncertain etiology. Will treat symptomatically with intravenous steroids, H1 and H2 blockers. Monitor vital signs closely. Qualifiers: Encounter type: initial encounter Qualified Code(s): T78.3XXA - Angioneurotic edema, initial encounter (3) CKD (chronic kidney disease) stage 3, GFR 30-59 ml/min Current visit: Yes Status: Chronic Creatinine is at baseline. Avoid nephrotoxic agents if possible. (4) Diabetes mellitus Current visit: Yes Status: Chronic Patient has history of prediabetes. Most recent A1c was 5.7%. We will monitor blood sugars. Expect rising blood sugars due to steroid use. Place on low correctional insulin coverage. Qualifiers: Diabetes mellitus type: type 2 Diabetes mellitus complication status: with unspecified complications Diabetes mellitus detention insulin use: without detention use Qualified Code(s): E11.8 - Type 2 diabetes mellitus with unspecified complications (5) Hypertension Current visit: Yes Status: Chronic Well-controlled at this time. Patient takes hydrochlorothiazide at home. We will hold for now. Given her chronic kidney disease, this medication may need to be stopped. Resume Lasix in a.m. if patient's blood pressure remains normal. Qualifiers: Hypertension type: essential hypertension Qualified Code(s): I10 - Essential (primary) hypertension Internal Medicine - H&P: HPI Chief complaint: Angioedema Admitted From: Emergency Dept Plans for Post Hospital Care: Home History of present illness: Ms. Pastor is a 81 year old female patient with history of hypertension, hyperlipidemia, thyroid disease and prediabetes was evaluated in the ER after being brought by EMS with complaints of swelling of her mouth and tongue. Patient is currently not able to provide history as she is intubated and sedated. History has been obtained through review of ED records. Patient apparently began to have swelling of her tongue at around 7 PM. She had not been started on any new medications. She is not on any ZONIA inhibitor or ARB. No new medications. She did take some aspirin when her symptoms first started. In the ER, she was noted to be dyspneic and was struggling to breathe and so was intubated. She is presently intubated and is on mechanical ventilation and sedation. Past Med Surg Social Fam HX - Past Medical History Source: old records reviewed Medical history: diabetes, hyperlipidemia, hypertension, thyroid disease Psychiatric history: depression - Social History Smoking Status: Former smoker Smokeless Tobacco Status: No Alcohol use: occasionally Drug use: none - Family History Mother Living Status: Hx Family Cardiac Disorders: No Hx Family Respiratory Disorders: No Hx Family Cancer: No Hx Family GI Disorders: Yes Hx Family Endocrine Disorder: No Hx Family Neuromuscular Disorders: No Hx Family Neurologic Disorders: No Hx Family HEENT Disorders: No Hx Family Autoimmune Disorders: No Father Living Status: Hx Family Cardiac Disorders: Yes Hx Family Respiratory Disorders: No Hx Family Cancer: No Hx Family GI Disorders: No Hx Family Endocrine Disorder: Yes (DM) Hx Family Neuromuscular Disorders: No Hx Family Neurologic Disorders: No Hx Family HEENT Disorders: No Hx Family Autoimmune Disorders: No Internal Medicine - H&P: Meds FLUoxetine HCl [Prozac] 20 mg PO BID 05/19/16 [History] Furosemide [Lasix] 20 mg PO DAILY 05/19/16 [History] Isosorbide DInitrate [Isosorbide Dinitrate] 30 mg PO DAILY 05/19/16 [History] Levothyroxine [Synthroid] 50 mcg PO DAILY 05/19/16 [History] Pravastatin Sodium 10 mg PO DAILY 05/19/16 [History] Aspirin Enteric Coated [Aspirin EC] 81 mg PO DAILY 11/24/16 [History] hydroCHLOROthiazide [Hydrochlorothiazide] 25 mg PO DAILY 11/24/16 [History] 3 Allergy/AdvReac Type Severity Reaction Status Date / Time No Known Allergies Allergy Verified 05/19/16 14:53 ROS unobtainable: due to endotracheal tube, due to mental status All Systems PM: A 10-system review of systems was performed and is negative for pertinent findings except as documented above in the HPI. - Constitutional Vitals: Temp Pulse Resp BP Pulse Ox 97.9 F 89 14 120/64 100 08/15/17 22:27 08/16/17 00:19 08/16/17 00:19 08/16/17 00:19 08/16/17 00:19 General appearance: Present: morbidly obese, severe distress Exam: Patient is currently sedated - ENT Additional comments: ET tube and OG tube are in place. Perioral edema and tongue swelling present. - Respiratory Respiratory exam: Absent: accessory muscle use, rales, rhonchi, wheezes Additional comments: Coarse breath sounds bilaterally - Cardiovascular Cardiovascular exam: Present: RRR, +S1, +S2. Absent: diastolic murmur, gallop, rubs, systolic murmur - GI/Abdominal GI/Abdominal exam: Present: normal bowel sounds, soft, no peritoneal signs. Absent: distended, tenderness - Extremities Exam Extremities exam: Present: pedal edema (Bilateral), warm, radial pulses palpable and symmetrical. Absent: calf tenderness, cyanotic Additional comments: Bilateral stasis dermatitis in lower extremities - Neurological Exam Neurological exam: Present: altered. Absent: facial droop - Skin Skin exam: Present: dry, intact Internal Med - H&P Results - Labs CBC & Chem 7: 08/15/17 23:36 08/15/17 23:36 Labs: Short CBC 08/15/17 Range/Units 23:36 WBC 11.2 H (4.3-11.1) K/mcL Hgb 13.7 (11.5-15.4) g/dL Hct 44.2 (35.3-44.9) % Plt Count 176 (140-400) K/mcL Neutrophils # 9.4 H (1.6-8.9) K/mcL BMP 08/15/17 23:36 Sodium 141 Potassium 4.3 Chloride 106 Carbon Dioxide 27 BUN 36 H Creatinine 1.30 H Glucose 174 H Calcium 8.2 L - ABG Interpretation ABG results: 08/16/17 00:18 ABG pH 7.24 L ABG pCO2 77 H* ABG pO2 310 H ABG HCO3 33 H ABG Total CO2 35 H ABG O2 Saturation 100 H ABG Base Excess 3 - EKG Data -: EKG Interpreted by Myself EKG shows normal: sinus rhythm (With intraventricular conduction delay)
[2017-08-16] MEDS ORDERED: Insulin LISPRO 300 UNITS/3 ML VIAL SQ SCH (06:00)
[2017-08-16] MEDS ORDERED: *HR* Enoxaparin 40 MG/0.4 ML SYRINGE SQ SCH (06:00)
[2017-08-16] MEDS: Famotidine 20 MG/2 ML VIAL IVP SCH ×2 (06:00→18:45)
[2017-08-16] MEDS: Pantoprazole 40 MG VIAL IVP SCH (06:00)
[2017-08-16] MEDS: *HR* Heparin 5,000 UNIT/ML VIAL SQ SCH ×2 (06:03→18:46)
[2017-08-16] MEDS: Insulin LISPRO 300 UNITS/3 ML VIAL SQ SCH ×3 (06:45→18:42)
--- NOTE | 2017-08-16 06:54 | Pulmonology Consult Note ---
Date of Encounter: 08/16/17 Time of Encounter: 06:54 Assessment and Plan (1) Angioedema Current Visit: Yes Status: Acute Patient presenting with acute tongue (throat swelling likely secondary to angioedema and suspected related to ZONIA inhibitor use this is been stopped patient is receiving H1 and H2 blockers along with systemic steroids currently not candidate for extubation because of continued upper airway swelling. Qualifiers: Encounter type: initial encounter Qualified Code(s): T78.3XXA - Angioneurotic edema, initial encounter (2) Respiratory failure Current Visit: Yes Status: Acute Patient had to be emergently intubated for airway management because of angioedema. She is on the vent with was noted hypercapnic respiratory failure for which respiratory rate was increased while on the vent. repeat ABG pending. She does have a mild leukocytosis which I think is related to steroid use without any clear clinical or radiographic evidence of pneumonia. Qualifiers: Chronicity: acute Respiratory failure complication: hypercapnia Qualified Code(s): J96.02 - Acute respiratory failure with hypercapnia (3) CKD (chronic kidney disease) stage 3, GFR 30-59 ml/min Current Visit: Yes Status: Chronic Stable serum creatinine continue to monitor urine output she is on maintenance fluid for this (4) Diabetes mellitus Current Visit: Yes Status: Chronic We will continue to trend glucose suspect steroid-induced hyperglycemia will ensue Qualifiers: Diabetes mellitus type: type 2 Diabetes mellitus complication status: with unspecified complications Diabetes mellitus snf insulin use: without snf use Qualified Code(s): E11.8 - Type 2 diabetes mellitus with unspecified complications (5) Hypertension Current Visit: Yes Status: Chronic Blood pressure stable avoiding use of ZONIA inhibitor in the future Qualifiers: Hypertension type: essential hypertension Qualified Code(s): I10 - Essential (primary) hypertension (6) Hypothyroidism Current Visit: No Status: Chronic She is on home Synthroid Qualifiers: Hypothyroidism type: unspecified Qualified Code(s): E03.9 - Hypothyroidism , unspecified History of Present Illness Consult date: 08/16/17 Requesting physician: Kin Wilkerson Reason for consult: other Chief complaint: Tongue Swelling History of present illness: This is a pleasant 81-year-old patient who was admitted the ICU after noted tongue swelling and throat swelling prompting emergent intubation in the emergency department. There is concern for angioedema. History was obtained from the medical record as the patient is currently intubated and unable to provide complete medical information but per the record she said that she had throat swelling yesterday around 7 PM denies taking any new medication blood medical record says that she is prescribed lisinopril. In route the EMS gave 1 mg epinephrine . Overnight she she was given H1/H2 sari and steroids and has been stable on ventilator and remains alert and able to follow commands. Per the medical record and the patient there is no history of antecedent rash or ingestion of new food prior to symptoms. Her past medical history includes diabetes hyperlipidemia hypertension and hypothyroidism She is a former smoker now in remission Physical history of underlying depression without mention of suicide attempt Family history is noncontributory Past Med Surg Social Fam HX - Past Medical History Medical history: diabetes, hyperlipidemia, hypertension, thyroid disease Psychiatric history: depression - Social History Smoking Status: Former smoker Smokeless Tobacco Status: No Alcohol use: occasionally Drug use: none - Family History Mother Living Status: Hx Family Cardiac Disorders: No Hx Family Respiratory Disorders: No Hx Family Cancer: No Hx Family GI Disorders: Yes Hx Family Endocrine Disorder: No Hx Family Neuromuscular Disorders: No Hx Family Neurologic Disorders: No Hx Family HEENT Disorders: No Hx Family Autoimmune Disorders: No Father Living Status: Hx Family Cardiac Disorders: Yes Hx Family Respiratory Disorders: No Hx Family Cancer: No Hx Family GI Disorders: No Hx Family Endocrine Disorder: Yes (DM) Hx Family Neuromuscular Disorders: No Hx Family Neurologic Disorders: No Hx Family HEENT Disorders: No Hx Family Autoimmune Disorders: No Medications and Allergies FLUoxetine HCl [Prozac] 20 mg PO BID 05/19/16 [History] Furosemide [Lasix] 20 mg PO DAILY 05/19/16 [History] Levothyroxine [Synthroid] 150 mcg PO DAILY 05/19/16 [History] Pravastatin Sodium 10 mg PO DAILY 05/19/16 [History] Aspirin Enteric Coated [Aspirin EC] 81 mg PO DAILY 11/24/16 [History] hydroCHLOROthiazide [Hydrochlorothiazide] 25 mg PO DAILY 11/24/16 [History] Isosorbide MONOnitrate (24 HR) [Imdur] 15 mg PO DAILY 08/16/17 [History] Lisinopril [Zestril] 40 mg PO DAILY 08/16/17 [History] glyBURIDE [GlyBURIDE] 5 mg PO DAILY 08/16/17 [History] 3 Allergy/AdvReac Type Severity Reaction Status Date / Time No Known Allergies Allergy Verified 05/19/16 14:53 All Systems: A 10-system review of systems was performed and is negative for pertinent findings except as documented above in the HPI. Physical Examination Vital Signs: Vital Signs, Last 4 Hours Temp Pulse Resp BP Pulse Ox 08/16/17 06:00 89 16 136/80 98 08/16/17 05:46 79 16 128/66 98 08/16/17 05:22 16 97 08/16/17 05:00 80 08/16/17 04:30 79 18 146/94 100 08/16/17 04:00 98.6 F 08/16/17 03:00 75 16 127/80 96 General appearance: no acute distress (She is receiving sedation event but easily arousable follows all commands) Eyes: nonicteric ENT: other (Tongue is swollen and protuberant as are her lips) Neck: supple Effort: normal Auscultation: bilateral: clear Cardiovascular: regular rate and rhythm Gastrointestinal: normoactive bowel sounds, soft, non-tender Integumentary: normal Extremities: no cyanosis, no edema, no clubbing, pink and warm, other (No evidence of rash or erythema) Musculoskeletal: no deformities normal mental status, non-focal exam mood appropriate Ventilator Settings Ventilator Settings: Ventilator Settings, Last 8 Hours Ventilator Mode VC+ Ventilator Mode VC+ Ventilator Mode VC+ Ventilator Mode VC+ Ventilator Mode VC+ Ventilator Mode VC+ Ventilator Mode VC+ Ventilator Mode VC+ Ventilator Mode VC+ Ventilator Tidal Volume 500 Setting Ventilator Tidal Volume 500 Setting Ventilator Tidal Volume 500 Setting Ventilator Tidal Volume 500 Setting Ventilator Tidal Volume 500 Setting Ventilator Tidal Volume 500 Setting Ventilator Tidal Volume 500 Setting Ventilator Tidal Volume 500 Setting Ventilator Tidal Volume 500 Setting Ventilator Respiratory Rate 16 Setting Ventilator Respiratory Rate 16 Setting Ventilator Respiratory Rate 16 Setting Ventilator Respiratory Rate 16 Setting Ventilator Respiratory Rate 16 Setting Ventilator Respiratory Rate 16 Setting Ventilator Respiratory Rate 16 Setting Ventilator Respiratory Rate 16 Setting Ventilator Respiratory Rate 16 Setting Actual Respiratory Rate 16 Actual Respiratory Rate 16 Actual Respiratory Rate 16 Actual Respiratory Rate 18 Actual Respiratory Rate 16 Actual Respiratory Rate 16 Actual Respiratory Rate 16 Actual Respiratory Rate 16 Actual Respiratory Rate 16 Positive End Expiratory 5 Pressure Positive End Expiratory 5 Pressure Positive End Expiratory 5 Pressure Positive End Expiratory 5 Pressure Positive End Expiratory 5 Pressure Positive End Expiratory 5 Pressure Positive End Expiratory 5 Pressure Positive End Expiratory 5 Pressure Positive End Expiratory 5 Pressure Peak Inspiratory Airway 25 Pressure Peak Inspiratory Airway 28 Pressure Peak Inspiratory Airway 23 Pressure Peak Inspiratory Airway 24 Pressure Peak Inspiratory Airway 28 Pressure Peak Inspiratory Airway 28 Pressure Peak Inspiratory Airway 26 Pressure Peak Inspiratory Airway 28 Pressure Peak Inspiratory Airway 26 Pressure Results - Laboratory Findings CBC and BMP: 08/15/17 23:36 08/15/17 23:36 ABG ABG pH 7.24 pH Units (7.32-7.45) L 08/16/17 00:18 ABG pCO2 77 mmHg (35-45) H* 08/16/17 00:18 ABG pO2 310 mmHg (85-104) H 08/16/17 00:18 ABG O2 Saturation 100 % (95-98) H 08/16/17 00:18 Abnormal lab findings: Abnormal lab results WBC 11.2 K/mcL (4.3-11.1) H 08/15/17 23:36 MCHC 31.0 g/dL (31.6-35.5) L 08/15/17 23:36 Neutrophils # 9.4 K/mcL (1.6-8.9) H 08/15/17 23:36 ABG pH 7.24 pH Units (7.32-7.45) L 08/16/17 00:18 ABG pCO2 77 mmHg (35-45) H* 08/16/17 00:18 ABG pO2 310 mmHg (85-104) H 08/16/17 00:18 ABG HCO3 33 mEq/L (21-27) H 08/16/17 00:18 ABG Total CO2 35 mEq/L (20-26) H 08/16/17 00:18 ABG O2 Saturation 100 % (95-98) H 08/16/17 00:18 BUN 36 mg/dL (8-23) H 08/15/17 23:36 Creatinine 1.30 mg/dL (0.60-1.20) H 08/15/17 23:36 Est GFR ( Amer) 48 (> 60) L 08/15/17 23:36 Est GFR (Non-Af Amer) 39 (> 60) L 08/15/17 23:36 BUN/Creatinine Ratio 28 (6-26) H 08/15/17 23:36 Glucose 174 mg/dL (70-105) H 08/15/17 23:36 Calculated Osmolality 305 (280-300) H 08/15/17 23:36 Calcium 8.2 mg/dL (8.6-10.3) L 08/15/17 23:36 B-Natriuretic Peptide 173 pg/mL (Less than 100) H 08/15/17 22:40 - Diagnostic Findings Chest x-ray: report reviewed, image reviewed - Clinical Findings Intake & Output: Intake & Output 08/15/17 08/15/17 08/16/17 15:59 23:59 07:59 Intake Total 156.2 / 156.2 Output Total 300 / 300 Balance -143.8 / -143.8 Weight 114 kg Consult Discharge Plan - Plan Referrals: Goran Hicks MD [Primary Care Provider] -
[2017-08-16] MEDS ORDERED: methylPREDNISolone 125 MG/2 ML VIAL IVP SCH (08:00)
[2017-08-16] MEDS: Chlorhexidine Rinse 15 ML MOUTHWASH MM SCH ×2 (08:25→20:51)
[2017-08-16 13:23] LABS: ABG Base Excess 5 mEq/L (-2 to 3); ABG HCO3 29 mEq/L (21-27); ABG Oxygen Saturation 97 % (95-98); ABG PCO2 39 mmHg (35-45); ABG PH 7.48 pH Units (7.32-7.45); ABG PO2 83 mmHg (85-104); ABG TCO2 30 mEq/L (20-26); Blood Gas Modality ASSIST CONTROL; Blood Gas PEEP 5 cm H2O; Blood Gas VT 500 cc
[2017-08-16] MEDS: FentaNYL (PF) 1,000 MCG in 0.9 % Sodium Chloride 80 ML IVC SCH (16:13)
[2017-08-16] MEDS: MethylPREDNISolone 40 MG/ML VIAL IVP SCH (18:45)
[2017-08-17] MEDS: Insulin LISPRO 300 UNITS/3 ML VIAL SQ SCH ×4 (01:00→18:18)
[2017-08-17] MEDS: Lacri-Lube 3.5 GM TUBE BOTH EYES SCH ×6 (01:01→20:08)
[2017-08-17 03:25] LABS: Basophils % 0.1 %; Hemoglobin 13.5 g/dL (11.5-15.4); Immature Granulocytes % 0.4 % (0-4); Lymphocytes # 0.4 K/mcL (0.6-4.6); Lymphocytes % 4.5 %; Mean Corpuscular HGB Conc 32.1 g/dL (31.6-35.5); Mean Corpuscular Hemoglobin 30.9 pg (28.0-33.3); Mean Corpuscular Volume 96.1 fL (83.0-100.0); Mean Platelet Volume 11.1 fL (9.4-12.4); Monocytes # 0.7 K/mcL (0.0-1.3); Monocytes % 7.1 %; Neutrophils # 8.3 K/mcL (1.6-8.9); Platelet Count 173 K/mcL (140-400); Red Blood Count 4.37 M/mcL (3.82-4.97); Red Cell Distribution Width 14.1 % (11.5-14.5); Segmented Neutrophils % 87.9 %
[2017-08-17 03:38] LABS: Calcium 8.5 mg/dL (8.6-10.3); Potassium 4.1 mEq/L (3.5-5.1)
[2017-08-17] MEDS: *HR* Heparin 5,000 UNIT/ML VIAL SQ SCH ×2 (05:24→18:14)
[2017-08-17] MEDS: MethylPREDNISolone 40 MG/ML VIAL IVP SCH ×2 (05:24→18:14)
[2017-08-17] MEDS: Famotidine 20 MG/2 ML VIAL IVP SCH ×2 (05:24→18:14)
[2017-08-17] MEDS: Pantoprazole 40 MG VIAL IVP SCH (05:24)
--- NOTE | 2017-08-17 06:48 | Pulmonology Progress Note ---
Date of Encounter: 08/17/17 Time of Encounter: 06:48 Assessment and Plan (1) Angioedema Current Visit: Yes Status: Acute This is likely secondary to lisinopril use. This is been stopped continue steroid and H1/H2 sari. Still has not seen resolution in upper airway swelling precluding extubation Qualifiers: Encounter type: initial encounter Qualified Code(s): T78.3XXA - Angioneurotic edema, initial encounter (2) Respiratory failure Current Visit: Yes Status: Acute Stable gas exchange on vent. Continue to monitor Qualifiers: Chronicity: acute Respiratory failure complication: hypercapnia Qualified Code(s): J96.02 - Acute respiratory failure with hypercapnia (3) CKD (chronic kidney disease) stage 3, GFR 30-59 ml/min Current Visit: Yes Status: Chronic Slight increase in serum creatinine and overnight I started a low dose of maintenance infusion of crystalloid while nothing by mouth on vent (4) Diabetes mellitus Current Visit: Yes Status: Chronic She is on sliding scale coverage with acceptable blood glucose readings Qualifiers: Diabetes mellitus type: type 2 Diabetes mellitus complication status: with unspecified complications Diabetes mellitus clinical sociologist insulin use: without [facility] use Qualified Code(s): E11.8 - Type 2 diabetes mellitus with unspecified complications (5) Hypertension Current Visit: Yes Status: Chronic She is normotensive on sedation Qualifiers: Hypertension type: essential hypertension Qualified Code(s): I10 - Essential (primary) hypertension (6) Hypothyroidism Current Visit: No Status: Chronic Plan to restart home Synthroid Qualifiers: Hypothyroidism type: unspecified Qualified Code(s): E03.9 - Hypothyroidism , unspecified Subjective Principal diagnosis: Angioedema Interval history: Patient had an uneventful night. Continues to have clear evidence of tongue/ lip swelling. Sedation is such that she is very comfortable on the vent but able to open eyes and speak very easily and says that she is comfortable Objective PUL Vital signs: Last Vital Signs Temp 98.4 F 08/17/17 03:00 Pulse 69 08/17/17 06:00 Resp 16 08/17/17 06:00 BP 124/73 08/17/17 06:00 Pulse Ox 98 08/17/17 06:00 General appearance: no acute distress Eyes: nonicteric ENT: other (Lip and tongue edematous and protruding) Neck: no JVD Auscultation: bilateral: clear Cardiovascular: regular rate and rhythm Extremities: other (Chronic changes of lower extremity edema) non-focal exam, pupils equal and round Ventilator Settings Ventilator Settings: Ventilator Settings, Last 8 Hours Ventilator Mode VC+ Ventilator Mode VC+ Ventilator Mode VC+ Ventilator Mode VC+ Ventilator Mode VC+ Ventilator Mode VC+ Ventilator Mode VC+ Ventilator Mode VC+ Ventilator Mode VC+ Ventilator Mode VC+ Ventilator Mode VC+ Ventilator Mode VC+ Ventilator Tidal Volume 500 Setting Ventilator Tidal Volume 500 Setting Ventilator Tidal Volume 500 Setting Ventilator Tidal Volume 500 Setting Ventilator Tidal Volume 500 Setting Ventilator Tidal Volume 500 Setting Ventilator Tidal Volume 500 Setting Ventilator Tidal Volume 500 Setting Ventilator Tidal Volume 500 Setting Ventilator Tidal Volume 500 Setting Ventilator Tidal Volume 500 Setting Ventilator Tidal Volume 500 Setting Ventilator Respiratory Rate 16 Setting Ventilator Respiratory Rate 16 Setting Ventilator Respiratory Rate 16 Setting Ventilator Respiratory Rate 16 Setting Ventilator Respiratory Rate 16 Setting Ventilator Respiratory Rate 16 Setting Ventilator Respiratory Rate 16 Setting Ventilator Respiratory Rate 16 Setting Ventilator Respiratory Rate 16 Setting Ventilator Respiratory Rate 16 Setting Ventilator Respiratory Rate 16 Setting Ventilator Respiratory Rate 16 Setting Actual Respiratory Rate 16 Actual Respiratory Rate 16 Actual Respiratory Rate 16 Actual Respiratory Rate 16 Actual Respiratory Rate 16 Actual Respiratory Rate 16 Actual Respiratory Rate 16 Actual Respiratory Rate 16 Actual Respiratory Rate 16 Actual Respiratory Rate 16 Actual Respiratory Rate 16 Actual Respiratory Rate 16 Positive End Expiratory 5 Pressure Positive End Expiratory 5 Pressure Positive End Expiratory 5 Pressure Positive End Expiratory 5 Pressure Positive End Expiratory 5 Pressure Positive End Expiratory 5 Pressure Positive End Expiratory 5 Pressure Positive End Expiratory 5 Pressure Positive End Expiratory 5 Pressure Positive End Expiratory 5 Pressure Positive End Expiratory 5 Pressure Positive End Expiratory 5 Pressure Peak Inspiratory Airway 29 Pressure Peak Inspiratory Airway 28 Pressure Peak Inspiratory Airway 27 Pressure Peak Inspiratory Airway 30 Pressure Peak Inspiratory Airway 32 Pressure Peak Inspiratory Airway 32 Pressure Peak Inspiratory Airway 33 Pressure Peak Inspiratory Airway 26 Pressure Peak Inspiratory Airway 25 Pressure Peak Inspiratory Airway 25 Pressure Peak Inspiratory Airway 25 Pressure Peak Inspiratory Airway 25 Pressure Results - Laboratory Findings CBC and BMP: 08/17/17 02:44 08/17/17 02:44 ABG ABG pH 7.48 pH Units (7.32-7.45) H 08/16/17 13:20 ABG pCO2 39 mmHg (35-45) 08/16/17 13:20 ABG pO2 83 mmHg (85-104) L 08/16/17 13:20 ABG O2 Saturation 97 % (95-98) 08/16/17 13:20 Abnormal lab findings: Abnormal lab results Lymphocytes # 0.4 K/mcL (0.6-4.6) L 08/17/17 02:44 ABG pH 7.48 pH Units (7.32-7.45) H 08/16/17 13:20 ABG pO2 83 mmHg (85-104) L 08/16/17 13:20 ABG HCO3 29 mEq/L (21-27) H 08/16/17 13:20 ABG Total CO2 30 mEq/L (20-26) H 08/16/17 13:20 ABG Base Excess 5 mEq/L (-2 to 3) H 08/16/17 13:20 BUN 33 mg/dL (8-23) H 08/17/17 02:44 Creatinine 1.50 mg/dL (0.60-1.20) H 08/17/17 02:44 Est GFR ( Amer) 40 (> 60) L 08/17/17 02:44 Est GFR (Non-Af Amer) 33 (> 60) L 08/17/17 02:44 Glucose 148 mg/dL (70-105) H 08/17/17 02:44 POC Glucose 131 (58-89) H 08/16/17 23:12 Calcium 8.5 mg/dL (8.6-10.3) L 08/17/17 02:44 B-Natriuretic Peptide 173 pg/mL (Less than 100) H 08/15/17 22:40 - Microbiology Findings Microbiology Findings: Microbiology, Last 48 Hours 08/16/17 08:34 Blood Culture - Preliminary Peripheral Venipuncture No growth. 08/15/17 23:36 Blood Culture - Preliminary Peripheral Venipuncture No growth. - Clinical Findings Intake & Output: Intake & Output 08/16/17 08/16/17 08/17/17 15:59 23:59 07:59 Intake Total 93.8 / 93.8 100 / 100 100 / 100 Output Total 400 / 400 500 / 500 125 / 125 Balance -306.2 / -306.2 -400 / -400 -25 / -25 Weight 111.4 kg Consult Discharge Plan - Plan Referrals: Goran Hicks MD [Primary Care Provider] -
[2017-08-17] MEDS: Chlorhexidine Rinse 15 ML MOUTHWASH MM SCH ×2 (08:38→20:31)
[2017-08-17 09:32] LABS: ABG Base Excess 3 mEq/L (-2 to 3); ABG HCO3 29 mEq/L (21-27); ABG Oxygen Saturation 99 % (95-98); ABG PCO2 46 mmHg (35-45); ABG PH 7.41 pH Units (7.32-7.45); ABG PO2 158 mmHg (85-104); ABG TCO2 30 mEq/L (20-26)
[2017-08-17] MEDS ORDERED: Ringers Solution, Lactated 1,000 ML ONE (09:54)
[2017-08-17] MEDS: Ringers Solution, Lactated 1,000 ML IVC SCH ×2 (10:00→21:43)
[2017-08-17] MEDS: FentaNYL (PF) 1,000 MCG in 0.9 % Sodium Chloride 80 ML IVC SCH (18:16)
[2017-08-18] MEDS: Lacri-Lube 3.5 GM TUBE BOTH EYES SCH ×7 (00:16→23:33)
[2017-08-18] MEDS: Insulin LISPRO 300 UNITS/3 ML VIAL SQ SCH ×5 (00:16→23:33)
[2017-08-18] MEDS: MethylPREDNISolone 40 MG/ML VIAL IVP SCH (06:10)
[2017-08-18] MEDS: Famotidine 20 MG/2 ML VIAL IVP SCH ×2 (06:10→17:48)
[2017-08-18] MEDS: Pantoprazole 40 MG VIAL IVP SCH (06:10)
[2017-08-18] MEDS: *HR* Heparin 5,000 UNIT/ML VIAL SQ SCH ×2 (06:10→17:49)
[2017-08-18 07:14] LABS: Calcium 8.1 mg/dL (8.6-10.3); Potassium 4.2 mEq/L (3.5-5.1)
[2017-08-18 07:46] LABS: Basophils % 0.1 %; Hematocrit 39.6 % (35.3-44.9); Hemoglobin 12.7 g/dL (11.5-15.4); Immature Granulocytes % 0.1 % (0-4); Lymphocytes # 0.6 K/mcL (0.6-4.6); Lymphocytes % 6.9 %; Mean Corpuscular HGB Conc 32.1 g/dL (31.6-35.5); Mean Corpuscular Hemoglobin 30.3 pg (28.0-33.3); Mean Corpuscular Volume 94.5 fL (83.0-100.0); Mean Platelet Volume 11.5 fL (9.4-12.4); Monocytes # 0.8 K/mcL (0.0-1.3); Monocytes % 9.5 %; Neutrophils # 7.3 K/mcL (1.6-8.9); Platelet Count 160 K/mcL (140-400); Red Blood Count 4.19 M/mcL (3.82-4.97); Red Cell Distribution Width 14.4 % (11.5-14.5); Segmented Neutrophils % 83.4 %
--- NOTE | 2017-08-18 09:11 | Pulmonology Progress Note ---
<Aashish Byrne - Last Filed: 08/18/17 14:07> Date of Encounter: 08/18/17 Time of Encounter: 09:11 Assessment and Plan (1) Respiratory failure Current Visit: Yes Status: Resolved - Resolved - Secondary to angioedema thought to be due to lisinopril use - Swelling has significantly decreased, will attempt extubation this morning. Plan - Currently tolerating 8 L O2 via oxymask with SpO2 in low 90s on reevaluation - May be baseline, has underlying lung disease with known COPD and former smoker , quit 20 years ago - Encouraged sitting up, incentive spirometer - Discontinue protonix as she is already on famotidine. Decrease steroids to prednisone 40mg Qday - Continue to monitor for additional day in ICU Qualifiers: Chronicity: acute Respiratory failure complication: hypercapnia Qualified Code(s): J96.02 - Acute respiratory failure with hypercapnia (2) Angioedema Current Visit: Yes Status: Acute - Observed on arrival, thought to be secondary to lisinopril use - Resolved. - Extubated this AM. - Bedside swallow today then can restart diet. Qualifiers: Encounter type: initial encounter Qualified Code(s): T78.3XXA - Angioneurotic edema, initial encounter (3) Hypertension Current Visit: Yes Status: Chronic - Has been running moderately high since holding lisinopril. - Will continue oral medications as she is able to swallow. - Continue to monitor. Qualifiers: Hypertension type: essential hypertension Qualified Code(s): I10 - Essential (primary) hypertension (4) Hypothyroidism Current Visit: Yes Status: Chronic - Will resume home synthroid once able to tolerate PO meds. Qualifiers: Hypothyroidism type: unspecified Qualified Code(s): E03.9 - Hypothyroidism , unspecified (5) CKD (chronic kidney disease) stage 3, GFR 30-59 ml/min Current Visit: Yes Status: Chronic BUN/Cr at baseline levels. 34/1.24 Plan Continue to monitor Start diet this evening Avoid nephrotoxic medications. Subjective Principal diagnosis: Angioedema Interval history: Pt was seen and examined this morning. At time of interview, she is still intubated however is able to express simple requests and answer yes or no questions. She reports that she feels the same however she feels as if her swelling is much improved. She has no other complaints and feels that she is ready for extubation. Objective PUL Vital signs: Last Vital Signs Temp 98.0 F 08/18/17 07:43 Pulse 57 08/18/17 07:30 Resp 12 08/18/17 07:30 BP 166/98 08/18/17 07:30 Pulse Ox 98 08/18/17 07:30 General appearance: no acute distress, alert Effort: normal Auscultation: bilateral: wheezes, rhonchi Cardiovascular: regular rate and rhythm Gastrointestinal: normoactive bowel sounds, soft, non-tender Integumentary: normal, other (excoriations in skin folds. ) Extremities: no cyanosis, no edema, no clubbing, pink and warm Ventilator Settings Ventilator Settings: Ventilator Settings, Last 8 Hours Ventilator Mode CPAP Ventilator Mode VC+ Ventilator Mode VC+ Ventilator Mode VC+ Ventilator Mode VC+ Ventilator Mode VC+ Ventilator Mode VC+ Ventilator Mode VC+ Ventilator Mode VC+ Ventilator Tidal Volume 500 Setting Ventilator Tidal Volume 500 Setting Ventilator Tidal Volume 500 Setting Ventilator Tidal Volume 500 Setting Ventilator Tidal Volume 500 Setting Ventilator Tidal Volume 500 Setting Ventilator Tidal Volume 500 Setting Ventilator Tidal Volume 500 Setting Ventilator Respiratory Rate 16 Setting Ventilator Respiratory Rate 16 Setting Ventilator Respiratory Rate 16 Setting Ventilator Respiratory Rate 16 Setting Ventilator Respiratory Rate 16 Setting Ventilator Respiratory Rate 16 Setting Ventilator Respiratory Rate 16 Setting Ventilator Respiratory Rate 16 Setting Actual Respiratory Rate 12 Actual Respiratory Rate 16 Actual Respiratory Rate 16 Actual Respiratory Rate 16 Actual Respiratory Rate 16 Actual Respiratory Rate 16 Actual Respiratory Rate 16 Actual Respiratory Rate 16 Actual Respiratory Rate 16 Positive End Expiratory 5 Pressure Positive End Expiratory 5 Pressure Positive End Expiratory 5 Pressure Positive End Expiratory 5 Pressure Positive End Expiratory 5 Pressure Positive End Expiratory 5 Pressure Positive End Expiratory 5 Pressure Positive End Expiratory 5 Pressure Positive End Expiratory 5 Pressure Peak Inspiratory Airway 15 Pressure Peak Inspiratory Airway 32 Pressure Peak Inspiratory Airway 33 Pressure Peak Inspiratory Airway 32 Pressure Peak Inspiratory Airway 36 Pressure Peak Inspiratory Airway 36 Pressure Peak Inspiratory Airway 35 Pressure Peak Inspiratory Airway 32 Pressure Peak Inspiratory Airway 34 Pressure Results - Laboratory Findings CBC and BMP: 08/18/17 06:16 08/18/17 06:16 ABG ABG pH 7.41 pH Units (7.32-7.45) 08/17/17 09:07 ABG pCO2 46 mmHg (35-45) H 08/17/17 09:07 ABG pO2 158 mmHg (85-104) H 08/17/17 09:07 ABG O2 Saturation 99 % (95-98) H 08/17/17 09:07 Abnormal lab findings: Abnormal lab results ABG pCO2 46 mmHg (35-45) H 08/17/17 09:07 ABG pO2 158 mmHg (85-104) H 08/17/17 09:07 ABG HCO3 29 mEq/L (21-27) H 08/17/17 09:07 ABG Total CO2 30 mEq/L (20-26) H 08/17/17 09:07 ABG O2 Saturation 99 % (95-98) H 08/17/17 09:07 BUN 34 mg/dL (8-23) H 08/18/17 06:16 Creatinine 1.24 mg/dL (0.60-1.20) H 08/18/17 06:16 Est GFR ( Amer) 50 (> 60) L 08/18/17 06:16 Est GFR (Non-Af Amer) 42 (> 60) L 08/18/17 06:16 BUN/Creatinine Ratio 27 (6-26) H 08/18/17 06:16 Glucose 116 mg/dL (70-105) H 08/18/17 06:16 POC Glucose 114 (58-89) H 08/18/17 06:13 Calcium 8.1 mg/dL (8.6-10.3) L 08/18/17 06:16 B-Natriuretic Peptide 173 pg/mL (Less than 100) H 08/15/17 22:40 - Microbiology Findings Microbiology Findings: Microbiology, Last 48 Hours 08/16/17 08:34 Blood Culture - Preliminary Peripheral Venipuncture No growth. 08/15/17 23:36 Blood Culture - Preliminary Peripheral Venipuncture No growth. - Clinical Findings Intake & Output: Intake & Output 08/17/17 08/18/17 08/18/17 23:59 07:59 15:59 Intake Total 1300 / 1300 100 / 100 Output Total 450 / 450 400 / 400 Balance 850 / 850 -300 / -300 Weight 106.8 kg Consult Discharge Plan - Plan Referrals: Goran Hicks MD [Primary Care Provider] - <Chanell Noriega - Last Filed: 08/18/17 16:34> Date of Encounter: 08/18/17 Objective PUL Vital signs: Last Vital Signs Temp 98.6 F 08/18/17 16:00 Pulse 80 08/18/17 14:15 Resp 22 08/18/17 14:15 BP 145/79 08/18/17 16:09 Pulse Ox 94 08/18/17 16:09 Results - Laboratory Findings CBC and BMP: 08/18/17 06:16 08/18/17 06:16 ABG ABG pH 7.41 pH Units (7.32-7.45) 08/17/17 09:07 ABG pCO2 46 mmHg (35-45) H 08/17/17 09:07 ABG pO2 158 mmHg (85-104) H 08/17/17 09:07 ABG O2 Saturation 99 % (95-98) H 08/17/17 09:07 Abnormal lab findings: Abnormal lab results ABG pCO2 46 mmHg (35-45) H 08/17/17 09:07 ABG pO2 158 mmHg (85-104) H 08/17/17 09:07 ABG HCO3 29 mEq/L (21-27) H 08/17/17 09:07 ABG Total CO2 30 mEq/L (20-26) H 08/17/17 09:07 ABG O2 Saturation 99 % (95-98) H 08/17/17 09:07 BUN 34 mg/dL (8-23) H 08/18/17 06:16 Creatinine 1.24 mg/dL (0.60-1.20) H 08/18/17 06:16 Est GFR ( Amer) 50 (> 60) L 08/18/17 06:16 Est GFR (Non-Af Amer) 42 (> 60) L 08/18/17 06:16 BUN/Creatinine Ratio 27 (6-26) H 08/18/17 06:16 Glucose 116 mg/dL (70-105) H 08/18/17 06:16 POC Glucose 114 (58-89) H 08/18/17 06:13 Calcium 8.1 mg/dL (8.6-10.3) L 08/18/17 06:16 B-Natriuretic Peptide 173 pg/mL (Less than 100) H 08/15/17 22:40 - Microbiology Findings Microbiology Findings: Microbiology, Last 48 Hours 08/16/17 08:34 Blood Culture - Preliminary Peripheral Venipuncture No growth. 08/15/17 23:36 Blood Culture - Preliminary Peripheral Venipuncture No growth. - Clinical Findings Intake & Output: Intake & Output 08/18/17 08/18/17 08/18/17 07:59 15:59 23:59 Intake Total 100 / 100 1085 / 1085 Output Total 400 / 400 325 / 325 600 / 600 Balance -300 / -300 760 / 760 -600 / -600 Weight 106.8 kg - Attending Attestation I examined this patient and my medical decision-making was reviewed with the Resident Physician. I agree with the documented findings, disposition and treatment plan as described except to the extent set forth below. Patient seen and examined. Labs, radiology, chart personally reviewed. 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 Patient will be on high flow oxygen and suspect underlying lung disease and she may need high resolution CT his chest later on. Incentive spirometry and noninvasive ventilation if her oxygenation deteriorated further then will plan for intubation. Patient needs to stay in ICU for close monitoring and wean off her systemic steroid and bronchodilators. Cardiovascular: stable GI: Nutrition per dietary and GI prophylaxis per routine Heme: DVT prophylaxis per routine ID: Continue antibiotics and plan to de-escalation Renal; urine out put and renal funtion reviewed Endorcine: blood glucose is monitored Lines: all lines checked and no evidence of infections Skin: skin care to prevent pressure ulcers per nursing routine care I spent 35 min of Critical Care time with this patient. It involved decision making of high complexity to assess, manipulate, and support vital organ system failure and/or to prevent further life threatening deterioration of the patient' s condition. The time involved in the performance of separately reportable procedures was not counted toward critical care time.
[2017-08-18] MEDS: Ringers Solution, Lactated 1,000 ML IVC SCH ×2 (11:30→23:36)
--- NOTE | 2017-08-18 16:03 | Electrocardiograph Report ---
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
--- NOTE | 2017-08-18 16:05 | Electrocardiograph Report ---
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
[2017-08-18] MEDS: FLUoxetine 20 MG CAPSULE PO SCH (20:02)
[2017-08-19] MEDS: Lacri-Lube 3.5 GM TUBE BOTH EYES SCH ×2 (03:41→17:08)
[2017-08-19 04:33] LABS: Basophils % 0.3 %; Eosinophils % 0.1 %; Hemoglobin 13.2 g/dL (11.5-15.4); Immature Granulocytes % 0.8 % (0-4); Lymphocytes # 0.8 K/mcL (0.6-4.6); Lymphocytes % 10.6 %; Mean Corpuscular HGB Conc 30.7 g/dL (31.6-35.5); Mean Corpuscular Hemoglobin 30.6 pg (28.0-33.3); Mean Corpuscular Volume 99.8 fL (83.0-100.0); Monocytes % 13.3 %; Neutrophils # 5.8 K/mcL (1.6-8.9); Platelet Count 158 K/mcL (140-400); Red Blood Count 4.31 M/mcL (3.82-4.97); Red Cell Distribution Width 14.6 % (11.5-14.5); Segmented Neutrophils % 74.9 %
[2017-08-19] MEDS: Insulin LISPRO 300 UNITS/3 ML VIAL SQ SCH ×3 (05:37→17:53)
[2017-08-19] MEDS: Famotidine 20 MG/2 ML VIAL IVP SCH (05:37)
[2017-08-19] MEDS: *HR* Heparin 5,000 UNIT/ML VIAL SQ SCH ×2 (05:37→17:54)
[2017-08-19 05:48] LABS: Calcium 8.1 mg/dL (8.6-10.3); Potassium 4.4 mEq/L (3.5-5.1)
--- NOTE | 2017-08-19 08:19 | Pulmonology Progress Note ---
<Aashish Byrne - Last Filed: 08/19/17 10:49> Date of Encounter: 08/19/17 Time of Encounter: 08:19 Assessment and Plan (1) Respiratory failure Current Visit: Yes Status: Resolved - Secondary to angioedema thought to be due to lisinopril use possible underlying lung disease including COPD - Pt states that her PCP told her she may have COPD but has never been formally diagnosed. - Currently tolerating 2L via NC - Swelling has resolved. Plan - Currently tolerating 2 L O2 via NC with SpO2 in mid 90s - May be baseline, has underlying lung disease with known COPD and former smoker , quit 20 years ago - Encouraged sitting up, incentive spirometer - CT chest pending to further evaluate for underlying lung disease. - PT/OT consult. - Discontinue famotidine, steroids, benadryl. Swelling resolved. - Anticipate transfer to med/surg floor today. Qualifiers: Chronicity: acute Respiratory failure complication: hypercapnia Qualified Code(s): J96.02 - Acute respiratory failure with hypercapnia (2) Angioedema Current Visit: Yes Status: Acute - Observed on arrival, thought to be secondary to lisinopril use - Resolved. - Extubated on 08/18/16 - Tolerating diet without complaints. Qualifiers: Encounter type: initial encounter Qualified Code(s): T78.3XXA - Angioneurotic edema, initial encounter (3) Hypertension Current Visit: Yes Status: Chronic - Has been running moderately high since holding lisinopril. - Will continue oral medications. Will need medication adjustment on discharge after stopping lisinopril. - Continue to monitor. Qualifiers: Hypertension type: essential hypertension Qualified Code(s): I10 - Essential (primary) hypertension (4) Hypothyroidism Current Visit: Yes Status: Chronic - Resume home synthroid once able to tolerate PO meds. Qualifiers: Hypothyroidism type: unspecified Qualified Code(s): E03.9 - Hypothyroidism , unspecified (5) CKD (chronic kidney disease) stage 3, GFR 30-59 ml/min Current Visit: Yes Status: Chronic BUN/Cr at baseline levels. 34/1.41 Plan Continue to monitor Avoid nephrotoxic medications. (6) Diabetes mellitus Current Visit: Yes Status: Chronic - BS has been well controlled during admission. - A1c in march of 5.7% - On glyburide at home. - Low dose SSI while inpatient. 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 Subjective Principal diagnosis: Angioedema Interval history: Pt was seen and examined this morning. Patient states she isshort of breath this morning after tolerating 2 L of oxygen via nasal cannula without complication yesterday. She was also complaining of a mild headache this morning however she does state that she drinks a lot of coffee and has not had any in multiple days. During time of interview, patient was currently receiving breathing treatment and was encouraged to take deep breaths. Oxygen saturation was 100% at time. Objective PUL Vital signs: Last Vital Signs Temp 98.7 F 08/19/17 07:40 Pulse 75 08/19/17 07:37 Resp 20 08/19/17 07:37 BP 129/85 08/19/17 07:37 Pulse Ox 92 08/19/17 07:37 General appearance: no acute distress Eyes: nonicteric ENT: oropharynx moist Effort: normal Auscultation: bilateral: wheezes (expiratory) Cardiovascular: regular rate and rhythm Gastrointestinal: normoactive bowel sounds, soft, non-tender Integumentary: normal, erythema (right lower extremity consistent with previous exam) Extremities: no cyanosis, no edema, no clubbing, pink and warm normal mental status Results - Laboratory Findings CBC and BMP: 08/19/17 04:22 08/19/17 05:27 ABG ABG pH 7.41 pH Units (7.32-7.45) 08/17/17 09:07 ABG pCO2 46 mmHg (35-45) H 08/17/17 09:07 ABG pO2 158 mmHg (85-104) H 08/17/17 09:07 ABG O2 Saturation 99 % (95-98) H 08/17/17 09:07 Abnormal lab findings: Abnormal lab results MCHC 30.7 g/dL (31.6-35.5) L 08/19/17 04:22 RDW 14.6 % (11.5-14.5) H 08/19/17 04:22 ABG pCO2 46 mmHg (35-45) H 08/17/17 09:07 ABG pO2 158 mmHg (85-104) H 08/17/17 09:07 ABG HCO3 29 mEq/L (21-27) H 08/17/17 09:07 ABG Total CO2 30 mEq/L (20-26) H 08/17/17 09:07 ABG O2 Saturation 99 % (95-98) H 08/17/17 09:07 Carbon Dioxide 31 mEq/L (23-29) H 08/19/17 05:27 BUN 34 mg/dL (8-23) H 08/19/17 05:27 Creatinine 1.41 mg/dL (0.60-1.20) H 08/19/17 05:27 Est GFR ( Amer) 43 (> 60) L 08/19/17 05:27 Est GFR (Non-Af Amer) 36 (> 60) L 08/19/17 05:27 Calcium 8.1 mg/dL (8.6-10.3) L 08/19/17 05:27 B-Natriuretic Peptide 173 pg/mL (Less than 100) H 08/15/17 22:40 - Microbiology Findings Microbiology Findings: Microbiology, Last 48 Hours 08/16/17 08:34 Blood Culture - Preliminary Peripheral Venipuncture No growth. 08/15/17 23:36 Blood Culture - Preliminary Peripheral Venipuncture No growth. - Clinical Findings Intake & Output: Intake & Output 08/18/17 08/19/17 08/19/17 23:59 07:59 15:59 Intake Total 1360 / 1360 Output Total 1100 / 1100 900 / 900 Balance 260 / 260 -900 / -900 Weight 112.1 kg Consult Discharge Plan - Plan Referrals: Goran Hicks MD [Primary Care Provider] - <Chanell Noriega - Last Filed: 08/19/17 15:42> Date of Encounter: 08/19/17 Objective PUL Vital signs: Last Vital Signs Temp 99.0 F 08/19/17 15:16 Pulse 92 08/19/17 14:21 Resp 22 08/19/17 14:21 BP 155/87 08/19/17 14:21 Pulse Ox 88 08/19/17 14:21 Results - Laboratory Findings CBC and BMP: 08/19/17 04:22 08/19/17 05:27 ABG ABG pH 7.41 pH Units (7.32-7.45) 08/17/17 09:07 ABG pCO2 46 mmHg (35-45) H 08/17/17 09:07 ABG pO2 158 mmHg (85-104) H 08/17/17 09:07 ABG O2 Saturation 99 % (95-98) H 08/17/17 09:07 Abnormal lab findings: Abnormal lab results MCHC 30.7 g/dL (31.6-35.5) L 08/19/17 04:22 RDW 14.6 % (11.5-14.5) H 08/19/17 04:22 ABG pCO2 46 mmHg (35-45) H 08/17/17 09:07 ABG pO2 158 mmHg (85-104) H 08/17/17 09:07 ABG HCO3 29 mEq/L (21-27) H 08/17/17 09:07 ABG Total CO2 30 mEq/L (20-26) H 08/17/17 09:07 ABG O2 Saturation 99 % (95-98) H 08/17/17 09:07 Carbon Dioxide 31 mEq/L (23-29) H 08/19/17 05:27 BUN 34 mg/dL (8-23) H 08/19/17 05:27 Creatinine 1.41 mg/dL (0.60-1.20) H 08/19/17 05:27 Est GFR ( Amer) 43 (> 60) L 08/19/17 05:27 Est GFR (Non-Af Amer) 36 (> 60) L 08/19/17 05:27 Calcium 8.1 mg/dL (8.6-10.3) L 08/19/17 05:27 B-Natriuretic Peptide 173 pg/mL (Less than 100) H 08/15/17 22:40 - Clinical Findings Intake & Output: Intake & Output 08/18/17 08/19/17 08/19/17 23:59 07:59 15:59 Intake Total 1360 / 1360 600 / 600 Output Total 1100 / 1100 900 / 900 350 / 350 Balance 260 / 260 -900 / -900 250 / 250 Weight 112.1 kg - Attending Attestation I examined this patient and my medical decision-making was reviewed with the Resident Physician. I agree with the documented findings, disposition and treatment plan as described except to the extent set forth below. Patient seen and examined. Labs, radiology, chart personally reviewed. 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 I still suspect patient has underlying lung disease and will need CT chest which hopefully will give more information and she will need outpatient workup for pulmonary function test. Bronchodilators and wean off oxygen as tolerated. She needs to be mobilized and physical therapy. Cardiovascular: stable. Patient will need outpatient adjustment of her blood pressure medication. GI: Nutrition per dietary and GI prophylaxis per routine Heme: DVT prophylaxis per routine Renal; urine out put and renal funtion reviewed Endorcine: blood glucose is monitored Lines: all lines checked and no evidence of infections Skin: skin care to prevent pressure ulcers per nursing routine care
[2017-08-19] MEDS ORDERED: Ipratropium/Albuterol Neb 3 ML ONE (08:25)
[2017-08-19] MEDS ORDERED: Ipratropium/Albuterol Neb 3 ML IH PRN (08:37)
[2017-08-19] MEDS ORDERED: Ipratropium/Albuterol Neb 3 ML IH ONE (08:37)
[2017-08-19] MEDS: FLUoxetine 20 MG CAPSULE PO SCH ×2 (08:45→21:13)
[2017-08-19] MEDS ORDERED: predniSONE 20 MG TABLET PO SCH (09:00)
[2017-08-19] MEDS ORDERED: Lacri-Lube 3.5 GM TUBE BOTH EYES PRN (10:52)
[2017-08-19] MEDS ORDERED: Dextrose Gel 15 GM/37.5 ML TUBE PO PRN ×2 (10:52)
[2017-08-19] MEDS ORDERED: Acetaminophen 325 MG TABLET PO PRN (10:52)
[2017-08-19] MEDS ORDERED: D5% in Water 1,000 ML IVC PRN (10:52)
[2017-08-19] MEDS ORDERED: Naloxone 0.4 MG/ML INJ IVP PRN (10:52)
[2017-08-19] MEDS ORDERED: *HR* Dextrose 50 % in Water (Syg) 50 ML SYRINGE IVP PRN (10:52)
[2017-08-19] MEDS: Ipratropium/Albuterol Neb 3 ML IH PRN ×2 (14:09→21:32)
[2017-08-19] MEDS: Acetaminophen/Aspirin/Caffeine TABLET PO PRN (17:54)
[2017-08-20] MEDS: Insulin LISPRO 300 UNITS/3 ML VIAL SQ SCH ×5 (04:31→22:12)
[2017-08-20 04:38] LABS: Basophils % 0.1 %; Eosinophils % 0.4 %; Hematocrit 39.4 % (35.3-44.9); Hemoglobin 12.6 g/dL (11.5-15.4); Immature Granulocytes % 0.4 % (0-4); Lymphocytes # 0.7 K/mcL (0.6-4.6); Mean Corpuscular Hemoglobin 30.8 pg (28.0-33.3); Mean Corpuscular Volume 96.3 fL (83.0-100.0); Mean Platelet Volume 11.5 fL (9.4-12.4); Monocytes # 0.9 K/mcL (0.0-1.3); Monocytes % 12.2 %; Neutrophils # 5.4 K/mcL (1.6-8.9); Platelet Count 148 K/mcL (140-400); Red Blood Count 4.09 M/mcL (3.82-4.97); Red Cell Distribution Width 14.4 % (11.5-14.5); Segmented Neutrophils % 76.9 %
[2017-08-20 05:07] LABS: Calcium 8.3 mg/dL (8.6-10.3); Potassium 4.9 mEq/L (3.5-5.1)
[2017-08-20] MEDS: *HR* Heparin 5,000 UNIT/ML VIAL SQ SCH ×2 (05:20→17:19)
[2017-08-20] MEDS: FLUoxetine 20 MG CAPSULE PO SCH ×2 (07:56→22:12)
--- NOTE | 2017-08-20 11:15 | Internal Med Progress Note ---
Date of Encounter: 08/20/17 Time of Encounter: 11:13 - Assessment and plan (1) Acute respiratory failure with hypercapnia Current Visit: Yes Status: Acute Assessment and plan: Patient presented in respiratory failure secondary to angioedema. Angioedema resolved but patient currently having complaints of dyspnea. -She has questionable history of undiagnosed COPD. There are significant wheezing with tight breath sounds on my exam. -Most likely has heart failure; She has rales on exam with cardiomegaly on chest x-ray, dyspnea with ordinary exertion, orthopnea. -Recent CT chest findings and clinical picture consistent with pneumonia. Plan: - Resume Solu Medrol, give duo nebs scheduled. - IV Lasix now and monitor UO tonight. Will continue if needed in the AM. - Echocardiogram - Continue treatment of pneumonia (2) Pneumonia Current Visit: Yes Status: Acute Assessment and plan: As seen on CT chest on 08/19/17 showing bilateral lower lobe infiltrates. She had a chest x-ray on admission that showed ground glass opacities in right lower lung zone. -Emperically treat with Vanc/Zosyn/Levaquin and de-escalate therapy as able. -Obtain sputum culture, blood culture, procalcitonin, urinary antigens Qualifiers: Pneumonia type: due to unspecified organism Laterality: bilateral Lung location: lower lobe of lung Qualified Code(s): J18.9 - Pneumonia, unspecified organism (3) CKD (chronic kidney disease) stage 3, GFR 30-59 ml/min Current Visit: Yes Status: Chronic (4) Diabetes mellitus Current Visit: Yes Status: Chronic Qualifiers: Diabetes mellitus type: type 2 Diabetes mellitus complication status: with unspecified complications Diabetes mellitus usp insulin use: without usp use Qualified Code(s): E11.8 - Type 2 diabetes mellitus with unspecified complications (5) Hypertension Current Visit: Yes Status: Chronic Qualifiers: Hypertension type: essential hypertension Qualified Code(s): I10 - Essential (primary) hypertension (6) Angioedema Current Visit: Yes Status: Acute Qualifiers: Encounter type: initial encounter Qualified Code(s): T78.3XXA - Angioneurotic edema, initial encounter - Subjective Interval history: Patient has persistent dyspnea. Though she says she feels much better and swelling in her throat is gone. She denies fevers/chills, chest pain, n/v, diarrhea. - Constitutional Vitals: Temp Pulse Resp BP Pulse Ox 98.6 F 82 18 125/81 93 08/20/17 10:53 08/20/17 10:53 08/20/17 10:53 08/20/17 10:53 08/20/17 10:53 General appearance: Present: mild distress, A&O X 3, morbidly obese - Respiratory Respiratory exam: Present: accessory muscle use, rales, wheezes - Extremities Exam Extremities exam: Present: pedal edema (trace), warm, radial pulses palpable and symmetrical. Absent: calf tenderness, cyanotic Internal Medicine: Result - Labs CBC & Chem 7: 08/20/17 04:04 08/20/17 04:04 Labs: Short CBC 08/20/17 Range/Units 04:04 WBC 7.0 (4.3-11.1) K/mcL Hgb 12.6 (11.5-15.4) g/dL Hct 39.4 (35.3-44.9) % Plt Count 148 (140-400) K/mcL Neutrophils # 5.4 (1.6-8.9) K/mcL BMP 08/20/17 04:04 Sodium 141 Potassium 4.9 Chloride 108 H Carbon Dioxide 25 BUN 34 H Creatinine 1.23 H Glucose 91 Calcium 8.3 L - ABG Interpretation ABG results: ABG ABG pH 7.41 pH Units (7.32-7.45) 08/17/17 09:07 ABG pCO2 46 mmHg (35-45) H 08/17/17 09:07 ABG pO2 158 mmHg (85-104) H 08/17/17 09:07 ABG O2 Saturation 99 % (95-98) H 08/17/17 09:07 - Impressions Impressions Chest CT 08/19/17 11:30 IMPRESSION: Small to moderate bilateral pleural effusions, layering on the left and partially loculated on the right. Patchy bilateral airspace disease, greatest within the lower lobes, suggestive of atelectasis or pneumonia. Follow-up to resolution recommended. Atherosclerosis, including coronary artery calcification. D/ / Eliezer Cisse MD / Eliezer Cisse MD Interpreting Provider: Eliezer Cisse MD Consult Discharge Plan - Plan Referrals: Goran Hicks MD [Primary Care Provider] -
[2017-08-20] MEDS ORDERED: Vancomycin 1,750 MG in D5% in Water 250 ML IVPB SCH (12:00)
[2017-08-20] MEDS: Acetaminophen/Aspirin/Caffeine TABLET PO PRN (13:05)
[2017-08-20] MEDS: MethylPREDNISolone 40 MG/ML VIAL IVP SCH ×2 (15:26→23:16)
[2017-08-20] MEDS: Piperacillin/Tazobactam 3.375 GM/200 ML BAG IVPB SCH ×2 (15:29→23:17)
[2017-08-20] MEDS ORDERED: Furosemide 40 MG/4 ML VIAL IVP STA (16:28)
[2017-08-20] MEDS: Ipratropium/Albuterol Neb 3 ML IH PRN (16:46)
[2017-08-20] MEDS: Ipratropium/Albuterol Neb 3 ML IH SCH (23:26)
[2017-08-21] MEDS: Ipratropium/Albuterol Neb 3 ML IH SCH ×6 (04:05→23:18)
[2017-08-21] MEDS: *HR* Heparin 5,000 UNIT/ML VIAL SQ SCH ×2 (05:24→17:26)
[2017-08-21 06:47] LABS: Basophils % 0.1 %; Hematocrit 44.4 % (35.3-44.9); Hemoglobin 13.9 g/dL (11.5-15.4); Immature Granulocytes % 0.5 % (0-4); Lymphocytes # 0.3 K/mcL (0.6-4.6); Lymphocytes % 3.5 %; Mean Corpuscular HGB Conc 31.3 g/dL (31.6-35.5); Mean Corpuscular Hemoglobin 30.8 pg (28.0-33.3); Mean Corpuscular Volume 98.4 fL (83.0-100.0); Mean Platelet Volume 11.3 fL (9.4-12.4); Monocytes # 0.2 K/mcL (0.0-1.3); Monocytes % 2.9 %; Neutrophils # 7.2 K/mcL (1.6-8.9); Platelet Count 167 K/mcL (140-400); Red Blood Count 4.51 M/mcL (3.82-4.97); Red Cell Distribution Width 14.1 % (11.5-14.5)
[2017-08-21 07:12] LABS: Calcium 8.6 mg/dL (8.6-10.3)
[2017-08-21] MEDS: FLUoxetine 20 MG CAPSULE PO SCH ×2 (09:16→22:31)
[2017-08-21] MEDS: Piperacillin/Tazobactam 3.375 GM/200 ML BAG IVPB SCH ×2 (09:17→17:26)
[2017-08-21] MEDS: Insulin LISPRO 300 UNITS/3 ML VIAL SQ SCH ×4 (09:17→21:34)
[2017-08-21] MEDS: MethylPREDNISolone 40 MG/ML VIAL IVP SCH ×2 (09:17→17:26)
[2017-08-21] MEDS: Levofloxacin 750 MG/150 ML 750 MG/150 ML BAG IVPB SCH (11:54)
[2017-08-21] MEDS ORDERED: Furosemide 40 MG/4 ML VIAL IVP ONE (12:03)
--- NOTE | 2017-08-21 18:48 | Internal Med Progress Note ---
Date of Encounter: 08/21/17 Time of Encounter: 18:45 - Assessment and plan (1) Acute respiratory failure with hypercapnia Current Visit: Yes Status: Acute Assessment and plan: Patient presented in respiratory failure secondary to angioedema. Angioedema resolved but patient currently having complaints of dyspnea with notable labored breathing. -She has questionable history of undiagnosed COPD. There are significant wheezing with tight breath sounds on my exam. -Diastolic heart failure; She has rales on exam, cardiomegaly on chest x-ray, elevated BNP, extreme dyspnea with regular exertion. Currently cannot get to bedside commode without dyspnea. -Recent CT chest findings and clinical picture consistent with pneumonia. Plan: - Resume Solu Medrol, give duo nebs scheduled. - IV Lasix now and monitor UO tonight. Will continue if needed in the AM. - Echocardiogram - Continue treatment of pneumonia (2) Pneumonia Current Visit: Yes Status: Acute Assessment and plan: As seen on CT chest on 08/19/17 showing bilateral lower lobe infiltrates. She had a chest x-ray on admission that showed ground glass opacities in right lower lung zone. -Recently intubated, emperically treat with Vanc/Zosyn/Levaquin and de-escalate therapy as able. -Obtain sputum culture, blood culture, procalcitonin, urinary antigens Qualifiers: Pneumonia type: due to unspecified organism Laterality: bilateral Lung location: lower lobe of lung Qualified Code(s): J18.9 - Pneumonia, unspecified organism (3) CKD (chronic kidney disease) stage 3, GFR 30-59 ml/min Current Visit: Yes Status: Chronic (4) Diabetes mellitus Current Visit: Yes Status: Chronic Qualifiers: Diabetes mellitus type: type 2 Diabetes mellitus complication status: with unspecified complications Diabetes mellitus mcc insulin use: without exterminator termite use Qualified Code(s): E11.8 - Type 2 diabetes mellitus with unspecified complications (5) Hypertension Current Visit: Yes Status: Chronic Qualifiers: Hypertension type: essential hypertension Qualified Code(s): I10 - Essential (primary) hypertension (6) Angioedema Current Visit: Yes Status: Acute Qualifiers: Encounter type: initial encounter Qualified Code(s): T78.3XXA - Angioneurotic edema, initial encounter - Subjective Interval history: She is still labored but much better than yesterday. Did not require bipap. States that Lasix provided relief. She denies fevers/chills, chest pain, n/v, diarrhea. - Constitutional Vitals: Temp Pulse Resp BP Pulse Ox 100.1 F H 90 17 136/76 92 08/21/17 13:50 08/21/17 13:50 08/21/17 14:58 08/21/17 13:50 08/21/17 14:58 General appearance: Present: mild distress, A&O X 3, morbidly obese Exam: - Respiratory Respiratory exam: Present: accessory muscle use, rales, wheezes - Extremities Exam Extremities exam: Present: pedal edema (trace), warm, radial pulses palpable and symmetrical. Absent: calf tenderness, cyanotic Internal Medicine: Result - Labs CBC & Chem 7: 08/21/17 05:22 08/21/17 05:22 Labs: Short CBC 08/21/17 Range/Units 05:22 WBC 7.7 (4.3-11.1) K/mcL Hgb 13.9 (11.5-15.4) g/dL Hct 44.4 (35.3-44.9) % Plt Count 167 (140-400) K/mcL Neutrophils # 7.2 (1.6-8.9) K/mcL BMP 08/21/17 05:22 Sodium 142 Potassium 5.0 Chloride 102 Carbon Dioxide 31 H BUN 34 H Creatinine 1.42 H Glucose 157 H Calcium 8.6 - ABG Interpretation ABG results: ABG ABG pH 7.41 pH Units (7.32-7.45) 08/17/17 09:07 ABG pCO2 46 mmHg (35-45) H 08/17/17 09:07 ABG pO2 158 mmHg (85-104) H 08/17/17 09:07 ABG O2 Saturation 99 % (95-98) H 08/17/17 09:07 - Impressions Impressions Echocardiogram 08/20/17 16:29 Impressions: LVEF 60-65%. Normal LV chamber size and function. Mild concentric left ventricular hypertrophy. Mild left ventricular diastolic dysfunction. Normal right ventricular structure and function. Moderate pulmonary hypertension. Estimated RVSP is 42 mmHg. No significant valvular dysfunction. Left Ventricular Wall Motion: Rest Echo Findings All wall segments showed normal motion. Findings: Study Quality * Technically adequate exam. ECG Findings * Normal sinus rhythm. Left Ventricle * LVEF 60-65%. * Normal LV chamber size and function. * Mild concentric left ventricular hypertrophy. * Mild left ventricular diastolic dysfunction. Right Ventricle * Normal right ventricular structure and function. Left Atrium * Mildly dilated left atrium. Right Atrium * Mildly dilated right atrium. Interatrial Septum * No evidence of PFO by color Doppler. Aortic Valve * Aortic valve not well visualized. * Grossly the aortic valve appears mildly calcified. * No aortic regurgitation. * No aortic stenosis. Mitral Valve * Mild mitral annular calcification. * No mitral regurgitation. * No mitral stenosis. Tricuspid Valve * Normal tricuspid valve structure and function. * Trace tricuspid regurgitation. * Moderate pulmonary hypertension. * Estimated RVSP is 42 mmHg. * Estimated RA pressure is 5 mmHg. Pulmonic Valve * Pulmonic valve not well visualized. Aorta * Normally sized aortic root. Pericardium * The pericardium appears normal. IVC * Normal IVC dimensions and inspiratory collapse. Pulmonary Artery * Normal visualized portions of the main pulmonary artery. Consult Discharge Plan - Plan Referrals: Goran Hicks MD [Primary Care Provider] -
[2017-08-21] MEDS ORDERED: Levofloxacin 750 MG/150 ML 750 MG/150 ML BAG IVPB SCH (20:45)
[2017-08-22] MEDS: Piperacillin/Tazobactam 3.375 GM/200 ML BAG IVPB SCH ×3 (00:37→18:00)
[2017-08-22] MEDS: MethylPREDNISolone 40 MG/ML VIAL IVP SCH ×3 (00:39→16:04)
[2017-08-22] MEDS: Ipratropium/Albuterol Neb 3 ML IH SCH ×5 (04:20→19:54)
[2017-08-22] MEDS: Acetaminophen/Aspirin/Caffeine TABLET PO PRN (06:36)
[2017-08-22] MEDS: *HR* Heparin 5,000 UNIT/ML VIAL SQ SCH ×2 (06:36→18:36)
[2017-08-22 06:51] LABS: Basophils % 0.1 %; Hematocrit 40.5 % (35.3-44.9); Hemoglobin 12.8 g/dL (11.5-15.4); Immature Granulocytes % 0.4 % (0-4); Lymphocytes # 0.3 K/mcL (0.6-4.6); Lymphocytes % 2.7 %; Mean Corpuscular HGB Conc 31.6 g/dL (31.6-35.5); Mean Corpuscular Hemoglobin 30.6 pg (28.0-33.3); Mean Corpuscular Volume 96.9 fL (83.0-100.0); Monocytes # 0.4 K/mcL (0.0-1.3); Monocytes % 4.1 %; Neutrophils # 8.9 K/mcL (1.6-8.9); Platelet Count 187 K/mcL (140-400); Red Blood Count 4.18 M/mcL (3.82-4.97); Segmented Neutrophils % 92.7 %
[2017-08-22 07:39] LABS: Calcium 8.4 mg/dL (8.6-10.3); Potassium 4.3 mEq/L (3.5-5.1)
[2017-08-22] MEDS: FLUoxetine 20 MG CAPSULE PO SCH ×2 (08:14→21:56)
[2017-08-22] MEDS: Insulin LISPRO 300 UNITS/3 ML VIAL SQ SCH ×4 (08:15→22:24)
[2017-08-22] MEDS ORDERED: Furosemide 40 MG/4 ML VIAL IVP ONE (09:13)
--- NOTE | 2017-08-22 13:37 | Internal Med Progress Note ---
Date of Encounter: 08/22/17 Time of Encounter: 13:34 - Assessment and plan (1) Acute respiratory failure with hypercapnia Current Visit: Yes Status: Acute Assessment and plan: Patient presented in respiratory failure secondary to angioedema. Angioedema resolved but patient currently having complaints of dyspnea with notable labored breathing. She has questionable history of undiagnosed COPD. There are significant wheezing with tight breath sounds on my exam. Diastolic heart failure; She has rales on exam, cardiomegaly on chest x-ray, elevated BNP, extreme dyspnea with regular exertion. Currently cannot get to bedside commode without dyspnea. Recent CT chest findings and clinical picture consistent with pneumonia. 08/22: some improvement but still not at her baseline. - V/Q scan evaluate rule out PE - stat ABG - Continue IV lasix diuresis, monitor I/O - continue treatment of pneumonia with Pseudomonas coverage; Vanc, Zosyn, Levaquin (2) Pneumonia Current Visit: Yes Status: Acute Assessment and plan: As seen on CT chest on 08/19/17 showing bilateral lower lobe infiltrates. She had a chest x-ray on admission that showed ground glass opacities in right lower lung zone. -Recently intubated, emperically treat with Vanc/Zosyn/Levaquin and de-escalate therapy as able. -Obtain sputum culture, blood culture, procalcitonin, urinary antigens Qualifiers: Pneumonia type: due to unspecified organism Laterality: bilateral Lung location: lower lobe of lung Qualified Code(s): J18.9 - Pneumonia, unspecified organism (3) CKD (chronic kidney disease) stage 3, GFR 30-59 ml/min Current Visit: Yes Status: Chronic Assessment and plan: Avoid nephrotoxic medications, medications are renally dosed. (4) Diabetes mellitus Current Visit: Yes Status: Chronic Qualifiers: Diabetes mellitus type: type 2 Diabetes mellitus complication status: with unspecified complications Diabetes mellitus rn long term care insulin use: without senior living use Qualified Code(s): E11.8 - Type 2 diabetes mellitus with unspecified complications (5) Hypertension Current Visit: Yes Status: Chronic Assessment and plan: Hydralazine IV prn SBP>160. Will resume Imdur if BP elevates. Qualifiers: Hypertension type: essential hypertension Qualified Code(s): I10 - Essential (primary) hypertension (6) Angioedema Current Visit: Yes Status: Resolved Qualifiers: Encounter type: initial encounter Qualified Code(s): T78.3XXA - Angioneurotic edema, initial encounter - Subjective Interval history: States she is much better with continued diaphoresis. She denies fevers/chills , chest pain, n/v, diarrhea. - Constitutional Vitals: Temp Pulse Resp BP Pulse Ox 99.6 F 84 18 145/83 96 08/22/17 11:50 08/22/17 11:50 08/22/17 11:50 08/22/17 11:50 08/22/17 11:50 General appearance: Present: mild distress, A&O X 3, morbidly obese - Respiratory Respiratory exam: Present: rales, respiratory distress Additional comments: Respiratory medina, she is only slightly better on my exam today. - Cardiovascular Cardiovascular exam: Present: RRR Internal Medicine: Result - Labs CBC & Chem 7: 08/22/17 06:32 08/22/17 06:32 Labs: Short CBC 08/22/17 Range/Units 06:32 WBC 9.6 (4.3-11.1) K/mcL Hgb 12.8 (11.5-15.4) g/dL Hct 40.5 (35.3-44.9) % Plt Count 187 (140-400) K/mcL Neutrophils # 8.9 (1.6-8.9) K/mcL BMP 08/22/17 06:32 Sodium 141 Potassium 4.3 Chloride 101 Carbon Dioxide 30 H BUN 43 H Creatinine 1.42 H Glucose 171 H Calcium 8.4 L - ABG Interpretation ABG results: ABG ABG pH 7.41 pH Units (7.32-7.45) 08/17/17 09:07 ABG pCO2 46 mmHg (35-45) H 08/17/17 09:07 ABG pO2 158 mmHg (85-104) H 08/17/17 09:07 ABG O2 Saturation 99 % (95-98) H 08/17/17 09:07 Consult Discharge Plan - Plan Referrals: Goran Hicks MD [Primary Care Provider] -
[2017-08-22] MEDS ORDERED: Vancomycin 1,500 MG in D5% in Water 250 ML IVPB SCH (15:00)
[2017-08-22] MEDS: amLODIPine 5 MG TABLET PO SCH (16:04)
[2017-08-22] MEDS: Furosemide 40 MG/4 ML VIAL IVP SCH (16:05)
[2017-08-23] MEDS: Ipratropium/Albuterol Neb 3 ML IH SCH ×7 (00:33→23:17)
[2017-08-23] MEDS: *HR* Heparin 5,000 UNIT/ML VIAL SQ SCH ×2 (05:38→17:26)
[2017-08-23 06:04] LABS: Basophils % 0.1 %; Lymphocytes # 0.3 K/mcL (0.6-4.6); Lymphocytes % 3.4 %; Mean Corpuscular HGB Conc 31.7 g/dL (31.6-35.5); Mean Corpuscular Volume 97.9 fL (83.0-100.0); Mean Platelet Volume 11.1 fL (9.4-12.4); Monocytes # 0.4 K/mcL (0.0-1.3); Monocytes % 3.8 %; Neutrophils # 8.5 K/mcL (1.6-8.9); Platelet Count 202 K/mcL (140-400); Red Blood Count 4.19 M/mcL (3.82-4.97); Red Cell Distribution Width 14.3 % (11.5-14.5); Segmented Neutrophils % 91.7 %
[2017-08-23 06:15] LABS: Calcium 8.5 mg/dL (8.6-10.3); Potassium 4.5 mEq/L (3.5-5.1)
[2017-08-23] MEDS: amLODIPine 5 MG TABLET PO SCH (09:36)
[2017-08-23] MEDS: FLUoxetine 20 MG CAPSULE PO SCH ×2 (09:36→22:07)
[2017-08-23] MEDS: Furosemide 40 MG/4 ML VIAL IVP SCH ×2 (09:36→17:12)
[2017-08-23] MEDS: Piperacillin/Tazobactam 3.375 GM/200 ML BAG IVPB SCH ×3 (09:40→17:13)
[2017-08-23] MEDS: Insulin LISPRO 300 UNITS/3 ML VIAL SQ SCH ×4 (09:40→22:07)
--- NOTE | 2017-08-23 09:46 | Pulmonology Progress Note ---
Date of Encounter: 08/23/17 Time of Encounter: 08:10 Assessment and Plan (1) Acute respiratory failure with hypoxia and hypercapnia Current Visit: Yes Status: Resolved This patient is feeling much better today and after taking more history from the patient she has strong history of smoking tobacco for many years and I suspect underlying COPD with obstructive hypoventilation and on top of that she has evidence of pneumonia which could have been aspiration and she has been qualified for BiPAP and explained to her she would need to use oxygen at this time with a noninvasive ventilation and discussed with primary team patient can follow-up as outpatient in about one month And repeat the images and also will need a pulmonary function test. Continue incentive spirometry with mobilization. (2) COPD exacerbation Current Visit: Yes Status: Acute Patient is on bronchodilator and I will add Symbicort as outpatient and she will need to have pulmonary function test and also when she is discharged then she will need to taper systemic steroid. (3) Suspected sleep apnea Current Visit: Yes Status: Suspected Clinically patient has symptoms of snoring and also related to obesity, but she is not interested in the sleep study. Patient is being qualified for BiPAP and she would need to use it. (4) Obesity hypoventilation syndrome Current Visit: Yes Status: Suspected (5) Loculated pleural effusion Current Visit: Yes Status: Acute Since clinically patient is improving and due to location of the effusion and the size, recommend to de-escalate antibiotics and oral Levaquin for 10-14 days with taper steroid and follow-up images since patient has history of smoking and she asked for malignancies. This was discussed with primary team thank you Subjective Principal diagnosis: Angioedema Interval history: Patient is feeling much better today and her breathing has improved significantly Objective PUL Vital signs: Last Vital Signs Temp 98.0 F 08/23/17 07:05 Pulse 85 08/23/17 07:05 Resp 22 08/23/17 07:05 BP 152/90 08/23/17 07:05 Pulse Ox 99 08/23/17 07:05 General appearance: no acute distress Eyes: nonicteric ENT: oropharynx moist Mallampati (class): 3 Neck: supple, no lymphadenopathy Effort: normal Auscultation: bilateral: diminished breath sounds (Mainly in the bases), wheezes (Scattered) Percussion: left: not dull, right: dull Cardiovascular: regular rate and rhythm Gastrointestinal: normoactive bowel sounds, non-distended Extremities: no cyanosis, edema normal mental status, non-focal exam mood appropriate Results - Laboratory Findings CBC and BMP: 08/23/17 05:15 08/23/17 05:15 ABG ABG pH 7.41 pH Units (7.32-7.45) 08/17/17 09:07 ABG pCO2 46 mmHg (35-45) H 08/17/17 09:07 ABG pO2 158 mmHg (85-104) H 08/17/17 09:07 ABG O2 Saturation 99 % (95-98) H 08/17/17 09:07 Abnormal lab findings: Abnormal lab results Lymphocytes # 0.3 K/mcL (0.6-4.6) L 08/23/17 05:15 ABG pCO2 46 mmHg (35-45) H 08/17/17 09:07 ABG pO2 158 mmHg (85-104) H 08/17/17 09:07 ABG HCO3 29 mEq/L (21-27) H 08/17/17 09:07 ABG Total CO2 30 mEq/L (20-26) H 08/17/17 09:07 ABG O2 Saturation 99 % (95-98) H 08/17/17 09:07 BUN 49 mg/dL (8-23) H 08/23/17 05:15 Creatinine 1.47 mg/dL (0.60-1.20) H 08/23/17 05:15 Est GFR ( Amer) 41 (> 60) L 08/23/17 05:15 Est GFR (Non-Af Amer) 34 (> 60) L 08/23/17 05:15 BUN/Creatinine Ratio 33 (6-26) H 08/23/17 05:15 Glucose 167 mg/dL (70-105) H 08/23/17 05:15 POC Glucose 142 (58-89) H 08/23/17 07:10 Calculated Osmolality 303 (280-300) H 08/23/17 05:15 Calcium 8.5 mg/dL (8.6-10.3) L 08/23/17 05:15 B-Natriuretic Peptide 536 pg/mL (Less than 100) H 08/21/17 05:22 - Microbiology Findings Microbiology Findings: Microbiology, Last 48 Hours 08/20/17 12:24 Blood Culture - Preliminary Peripheral Venipuncture No growth. 08/20/17 12:24 Blood Culture - Preliminary Peripheral Venipuncture No growth. 08/16/17 08:34 Blood Culture - Final Peripheral Venipuncture No growth. 08/15/17 23:36 Blood Culture - Final Peripheral Venipuncture No growth. - Diagnostic Findings Chest x-ray: report reviewed, image reviewed CT scan - chest: report reviewed, image reviewed - Clinical Findings Intake & Output: Intake & Output 08/22/17 08/23/17 08/23/17 23:59 07:59 15:59 Intake Total 640 / 640 440 / 440 Output Total 1000 / 1000 2100 / 2100 Balance -360 / -360 -1660 / -1660 Consult Discharge Plan - Plan Referrals: Goran Hicks MD [Primary Care Provider] -
[2017-08-23] MEDS: Budesonide/Formoterol 160/4.5 MDI IH SCH ×2 (11:36→19:59)
[2017-08-23] MEDS: Levofloxacin 750 MG/150 ML 750 MG/150 ML BAG IVPB SCH (13:18)
--- NOTE | 2017-08-23 15:35 | Internal Med Progress Note ---
Date of Encounter: 08/23/17 Time of Encounter: 15:32 - Assessment and plan (1) Acute respiratory failure with hypercapnia Current Visit: Yes Status: Acute Assessment and plan: Patient presented in respiratory failure secondary to angioedema. Angioedema resolved but patient currently having complaints of dyspnea with notable labored breathing. She has questionable history of undiagnosed COPD. There are significant wheezing with tight breath sounds on my exam. Diastolic heart failure; She has rales on exam, cardiomegaly on chest x-ray, elevated BNP, extreme dyspnea with regular exertion. Currently cannot get to bedside commode without dyspnea. Recent CT chest findings and clinical picture consistent with pneumonia. 08/22: some improvement but still not at her baseline. V/Q scan negative for PE. Pulmonology consulted, antibiotics will be de-escalated to Levaquin. Likely discharge home tomorrow if continues to improve. Taper steroids, DC with Levaquin. Repeat CT of chest in a few weeks as outpatient. - Home with home O2 - Home with PT services. (2) Pneumonia Current Visit: Yes Status: Acute Assessment and plan: As seen on CT chest on 08/19/17 showing bilateral lower lobe infiltrates. She had a chest x-ray on admission that showed ground glass opacities in right lower lung zone. De-escalate therapy to Levaquin -follow-up sputum culture, blood culture, procalcitonin, urinary antigens Qualifiers: Pneumonia type: due to unspecified organism Laterality: bilateral Lung location: lower lobe of lung Qualified Code(s): J18.9 - Pneumonia, unspecified organism (3) CKD (chronic kidney disease) stage 3, GFR 30-59 ml/min Current Visit: Yes Status: Chronic Assessment and plan: Avoid nephrotoxic medications, medications are renally dosed. (4) Diabetes mellitus Current Visit: Yes Status: Chronic Qualifiers: Diabetes mellitus type: type 2 Diabetes mellitus complication status: with unspecified complications Diabetes mellitus ad terminal makeup operator insulin use: without detention use Qualified Code(s): E11.8 - Type 2 diabetes mellitus with unspecified complications (5) Hypertension Current Visit: Yes Status: Chronic Assessment and plan: Hydralazine IV prn SBP>160. Will resume Imdur if BP elevates. Qualifiers: Hypertension type: essential hypertension Qualified Code(s): I10 - Essential (primary) hypertension (6) Angioedema Current Visit: Yes Status: Resolved Qualifiers: Encounter type: initial encounter Qualified Code(s): T78.3XXA - Angioneurotic edema, initial encounter - Subjective Interval history: Patient states she is better than yesterday, but this time notes that she is able to sit upright without becoming extremely short of breath. Denies fevers/ chills, chest pain, n/v, diarrhea. - Constitutional Vitals: Temp Pulse Resp BP Pulse Ox 98.1 F 82 16 143/76 96 08/23/17 10:55 08/23/17 10:55 08/23/17 11:36 08/23/17 10:55 08/23/17 11:36 General appearance: Present: mild distress, A&O X 3, morbidly obese Internal Medicine: Result - Labs CBC & Chem 7: 08/23/17 05:15 08/23/17 05:15 Labs: Short CBC 08/23/17 Range/Units 05:15 WBC 9.2 (4.3-11.1) K/mcL Hgb 13.0 (11.5-15.4) g/dL Hct 41.0 (35.3-44.9) % Plt Count 202 (140-400) K/mcL Neutrophils # 8.5 (1.6-8.9) K/mcL BMP 08/23/17 05:15 Sodium 138 Potassium 4.5 Chloride 100 Carbon Dioxide 29 BUN 49 H Creatinine 1.47 H Glucose 167 H Calcium 8.5 L - ABG Interpretation ABG results: ABG ABG pH 7.41 pH Units (7.32-7.45) 08/17/17 09:07 ABG pCO2 46 mmHg (35-45) H 08/17/17 09:07 ABG pO2 158 mmHg (85-104) H 08/17/17 09:07 ABG O2 Saturation 99 % (95-98) H 08/17/17 09:07 Consult Discharge Plan - Plan Referrals: Goran Hicks MD [Primary Care Provider] -
[2017-08-23] MEDS: MethylPREDNISolone 40 MG/ML VIAL IVP SCH ×3 (17:12→17:14)
[2017-08-23] MEDS ORDERED: Vancomycin 1 EACH in D5% in Water 250 ML IVPB SCH (20:00)
[2017-08-24] MEDS: Piperacillin/Tazobactam 3.375 GM/200 ML BAG IVPB SCH ×3 (00:45→17:20)
[2017-08-24] MEDS: Ipratropium/Albuterol Neb 3 ML IH SCH ×5 (03:41→20:21)
[2017-08-24 04:53] LABS: Calcium 8.3 mg/dL (8.6-10.3); Potassium 4.3 mEq/L (3.5-5.1)
[2017-08-24 05:00] LABS: Basophils % 0.1 %; Hematocrit 40.3 % (35.3-44.9); Hemoglobin 12.9 g/dL (11.5-15.4); Immature Granulocytes % 1.6 % (0-4); Lymphocytes # 0.6 K/mcL (0.6-4.6); Lymphocytes % 6.6 %; Mean Corpuscular Hemoglobin 30.7 pg (28.0-33.3); Mean Platelet Volume 10.9 fL (9.4-12.4); Monocytes # 0.7 K/mcL (0.0-1.3); Neutrophils # 7.2 K/mcL (1.6-8.9); Platelet Count 213 K/mcL (140-400); Red Cell Distribution Width 14.2 % (11.5-14.5); Segmented Neutrophils % 83.7 %
[2017-08-24] MEDS: *HR* Heparin 5,000 UNIT/ML VIAL SQ SCH ×2 (06:17→17:24)
[2017-08-24] MEDS: MethylPREDNISolone 40 MG/ML VIAL IVP SCH (06:17)
[2017-08-24 06:46] LABS: Vancomycin,Random 14.9 mcg/mL
[2017-08-24 07:48] LABS: Procalcitonin 0.15 ng/mL (<=0.10)
[2017-08-24 07:56] LABS: Mycoplasma pneumoniae IgG 0.56 U/L (<=0.09)
[2017-08-24] MEDS: Budesonide/Formoterol 160/4.5 MDI IH SCH ×2 (08:01→21:49)
[2017-08-24] MEDS: FLUoxetine 20 MG CAPSULE PO SCH ×2 (08:53→21:56)
[2017-08-24] MEDS: amLODIPine 5 MG TABLET PO SCH (08:53)
[2017-08-24] MEDS: Furosemide 40 MG/4 ML VIAL IVP SCH (08:54)
[2017-08-24] MEDS: Insulin LISPRO 300 UNITS/3 ML VIAL SQ SCH ×4 (08:55→21:55)
--- NOTE | 2017-08-24 09:55 | Pulmonology Progress Note ---
Date of Encounter: 08/24/17 Time of Encounter: 09:30 Assessment and Plan (1) Acute respiratory failure with hypoxia and hypercapnia Current Visit: Yes Status: Resolved Patient most likely has underlying COPD which is in exacerbation due to pneumonia will need PFTS as an outpatient after 6-8 weeks of discharge . On discharge patient should go on Albuterol prn , Symbicort BID , 12 day prednisone taper with 8 week follow up in pulmonary clinic . (2) COPD exacerbation Current Visit: Yes Status: Acute Plan as above under acute respiratory failure (3) Suspected sleep apnea Current Visit: Yes Status: Suspected Patient qualified for BIPAP counseled about the importance of using BIPAP . (4) Loculated pleural effusion Current Visit: Yes Status: Acute Patient clinically getting better will repeat imaging 8 weeks during the follow up in pulmonary clinic . To send her home on 14 days of Levaquin . will sign off and call with questions. Subjective Principal diagnosis: Angioedema Interval history: Patient is symptomatic lot better sitting on chair having her lunch , cough and sputum at baseline , shortness of breadth on sitting is at baseline treated for pneumonia and COPD exacerbation. Objective PUL Vital signs: Last Vital Signs Temp 98.5 F 08/24/17 08:34 Pulse 89 08/24/17 08:34 Resp 16 08/24/17 08:34 BP 160/83 08/24/17 08:34 Pulse Ox 95 08/24/17 09:01 Auscultation: bilateral: diminished breath sounds Results - Laboratory Findings CBC and BMP: 08/24/17 04:30 08/24/17 04:30 ABG ABG pH 7.41 pH Units (7.32-7.45) 08/17/17 09:07 ABG pCO2 46 mmHg (35-45) H 08/17/17 09:07 ABG pO2 158 mmHg (85-104) H 08/17/17 09:07 ABG O2 Saturation 99 % (95-98) H 08/17/17 09:07 Abnormal lab findings: Abnormal lab results ABG pCO2 46 mmHg (35-45) H 08/17/17 09:07 ABG pO2 158 mmHg (85-104) H 08/17/17 09:07 ABG HCO3 29 mEq/L (21-27) H 08/17/17 09:07 ABG Total CO2 30 mEq/L (20-26) H 08/17/17 09:07 ABG O2 Saturation 99 % (95-98) H 08/17/17 09:07 Chloride 95 mEq/L (98-107) L 08/24/17 04:30 Carbon Dioxide 33 mEq/L (23-29) H 08/24/17 04:30 BUN 60 mg/dL (8-23) H 08/24/17 04:30 Creatinine 1.95 mg/dL (0.60-1.20) H 08/24/17 04:30 Est GFR ( Amer) 30 (> 60) L 08/24/17 04:30 Est GFR (Non-Af Amer) 25 (> 60) L 08/24/17 04:30 BUN/Creatinine Ratio 31 (6-26) H 08/24/17 04:30 Glucose 158 mg/dL (70-105) H 08/24/17 04:30 POC Glucose 114 (58-89) H 08/24/17 08:38 Calculated Osmolality 302 (280-300) H 08/24/17 04:30 Calcium 8.3 mg/dL (8.6-10.3) L 08/24/17 04:30 B-Natriuretic Peptide 536 pg/mL (Less than 100) H 08/21/17 05:22 Procalcitonin 0.15 ng/mL (<=0.10) H 08/20/17 12:24 Mycoplasma pneumon IgG 0.56 U/L (<=0.09) H 08/20/17 12:24 - Microbiology Findings Microbiology Findings: Microbiology, Last 48 Hours 08/20/17 12:24 Blood Culture - Preliminary Peripheral Venipuncture No growth. 08/20/17 12:24 Blood Culture - Preliminary Peripheral Venipuncture No growth. - Clinical Findings Intake & Output: Intake & Output 08/23/17 08/24/17 08/24/17 23:59 07:59 15:59 Intake Total 920 / 920 600 / 600 360 / 360 Output Total 1800 / 1800 1800 / 1800 0 / 0 Balance -880 / -880 -1200 / -1200 360 / 360 Weight 109.769 kg Consult Discharge Plan - Plan Referrals: Goran Hicks MD [Primary Care Provider] -
[2017-08-24] MEDS ORDERED: Vancomycin 1,000 MG in D5% in Water 250 ML IVPB SCH (12:00)
[2017-08-24] MEDS ORDERED: 0.9 % Sodium Chloride 250 ML IVC ONE (15:05)
--- NOTE | 2017-08-24 17:51 | Internal Med Progress Note ---
Date of Encounter: 08/24/17 Time of Encounter: 17:49 - Assessment and plan (1) Acute respiratory failure with hypercapnia Current Visit: Yes Status: Acute Assessment and plan: Patient presented in respiratory failure secondary to angioedema. Angioedema resolved but patient currently having complaints of dyspnea with notable labored breathing. She has questionable history of undiagnosed COPD. There are significant wheezing with tight breath sounds on my exam. Diastolic heart failure; She has rales on exam, cardiomegaly on chest x-ray, elevated BNP, extreme dyspnea with regular exertion. Currently cannot get to bedside commode without dyspnea. Recent CT chest findings and clinical picture consistent with pneumonia. 08/22: some improvement but still not at her baseline. V/Q scan negative for PE. Pulmonology consulted, antibiotics will be de-escalated to Levaquin. Raise the head of the bed and use bipap at night tonight. Patient is agreeable to this. Likely discharge home tomorrow if continues to improve. - Taper steroids, DC with Levaquin. - Repeat CT of chest in a few weeks as outpatient. - Home with home O2 - Home with PT services. (2) Pneumonia Current Visit: Yes Status: Acute Assessment and plan: As seen on CT chest on 08/19/17 showing bilateral lower lobe infiltrates. She had a chest x-ray on admission that showed ground glass opacities in right lower lung zone. De-escalate therapy to Levaquin -follow-up sputum culture, blood culture, procalcitonin, urinary antigens Qualifiers: Pneumonia type: due to unspecified organism Laterality: bilateral Lung location: lower lobe of lung Qualified Code(s): J18.9 - Pneumonia, unspecified organism (3) Diastolic heart failure Current Visit: Yes Status: Acute Qualifiers: Heart failure chronicity: acute on chronic Qualified Code(s): I50.33 - Acute on chronic diastolic (congestive) heart failure (4) CKD (chronic kidney disease) stage 3, GFR 30-59 ml/min Current Visit: Yes Status: Chronic Assessment and plan: Avoid nephrotoxic medications, medications are renally dosed. Creatinine increased 1/8 likely from diuretics. Lasix will be held, will give 250 ml IVF and recheck in AM. (5) Diabetes mellitus Current Visit: Yes Status: Chronic Qualifiers: Diabetes mellitus type: type 2 Diabetes mellitus complication status: with unspecified complications Diabetes mellitus snf insulin use: without snf use Qualified Code(s): E11.8 - Type 2 diabetes mellitus with unspecified complications (6) Hypertension Current Visit: Yes Status: Chronic Assessment and plan: Hydralazine IV prn SBP>160. Will resume Imdur if BP elevates. Qualifiers: Hypertension type: essential hypertension Qualified Code(s): I10 - Essential (primary) hypertension (7) Angioedema Current Visit: Yes Status: Resolved Qualifiers: Encounter type: initial encounter Qualified Code(s): T78.3XXA - Angioneurotic edema, initial encounter - Subjective Interval history: Patient went back to being extremely dyspneic in the AM. She does admit to sleeping laying flat and not using bipap as recommended. - Constitutional Vitals: Temp Pulse Resp BP Pulse Ox 98.1 F 93 18 122/73 93 08/24/17 15:55 08/24/17 15:55 08/24/17 16:16 08/24/17 15:55 08/24/17 16:16 Exam: Gen: Conversationally dyspneic, AAOx3 CVS: RRR Lungs: diminished breath sounds at lung bases, course crackles throughout, end expiratory wheezing. Ext: 1+ bipedal pitting edema Internal Medicine: Result - Labs CBC & Chem 7: 08/24/17 04:30 08/24/17 04:30 Labs: Short CBC 08/24/17 Range/Units 04:30 WBC 8.6 (4.3-11.1) K/mcL Hgb 12.9 (11.5-15.4) g/dL Hct 40.3 (35.3-44.9) % Plt Count 213 (140-400) K/mcL Neutrophils # 7.2 (1.6-8.9) K/mcL BMP 08/24/17 04:30 Sodium 136 Potassium 4.3 Chloride 95 L Carbon Dioxide 33 H BUN 60 H Creatinine 1.95 H Glucose 158 H Calcium 8.3 L - ABG Interpretation ABG results: ABG ABG pH 7.41 pH Units (7.32-7.45) 08/17/17 09:07 ABG pCO2 46 mmHg (35-45) H 08/17/17 09:07 ABG pO2 158 mmHg (85-104) H 08/17/17 09:07 ABG O2 Saturation 99 % (95-98) H 08/17/17 09:07 Consult Discharge Plan - Plan Referrals: Goran Hicks MD [Primary Care Provider] -
[2017-08-25] MEDS: Ipratropium/Albuterol Neb 3 ML IH SCH ×6 (00:12→20:29)
[2017-08-25] MEDS: Piperacillin/Tazobactam 3.375 GM/200 ML BAG IVPB SCH ×2 (00:47→11:01)
[2017-08-25 04:13] LABS: Basophils % 0.5 %; Eosinophils # 0.1 K/mcL (0.0-0.6); Eosinophils % 0.6 %; Hematocrit 41.9 % (35.3-44.9); Hemoglobin 13.1 g/dL (11.5-15.4); Immature Granulocytes % 3.8 % (0-4); Mean Corpuscular HGB Conc 31.3 g/dL (31.6-35.5); Mean Corpuscular Hemoglobin 30.4 pg (28.0-33.3); Mean Corpuscular Volume 97.2 fL (83.0-100.0); Mean Platelet Volume 10.6 fL (9.4-12.4); Monocytes # 1.1 K/mcL (0.0-1.3); Monocytes % 12.4 %; Neutrophils # 6.2 K/mcL (1.6-8.9); Platelet Count 218 K/mcL (140-400); Red Blood Count 4.31 M/mcL (3.82-4.97); Red Cell Distribution Width 14.3 % (11.5-14.5); Segmented Neutrophils % 70.7 %
[2017-08-25 04:39] LABS: Potassium 4.2 mEq/L (3.5-5.1)
[2017-08-25] MEDS: *HR* Heparin 5,000 UNIT/ML VIAL SQ SCH ×2 (05:56→17:21)
[2017-08-25] MEDS: Budesonide/Formoterol 160/4.5 MDI IH SCH ×2 (08:03→20:29)
[2017-08-25] MEDS ORDERED: levoFLOXacin 750 MG TABLET PO SCH (10:00)
[2017-08-25] MEDS: Insulin LISPRO 300 UNITS/3 ML VIAL SQ SCH ×4 (10:46→22:03)
[2017-08-25] MEDS: amLODIPine 5 MG TABLET PO SCH (11:00)
[2017-08-25] MEDS: FLUoxetine 20 MG CAPSULE PO SCH ×2 (11:00→22:03)
[2017-08-25] MEDS: Isosorbide MONOnitrate (24 HR) 30 MG TAB.ER.24H PO SCH (11:00)
[2017-08-25] MEDS: predniSONE 20 MG TABLET PO SCH (11:00)
--- NOTE | 2017-08-25 15:50 | Internal Med Progress Note ---
Date of Encounter: 08/25/17 Time of Encounter: 11:00 - Assessment and plan (1) Acute respiratory failure with hypercapnia Current Visit: Yes Status: Acute Assessment and plan: Continue O2 supplementation. Patient continues to require nasal cannula. Will evaluate for home oxygen prior to discharge. Overall, patient is clinically getting better. Continue to treat underlying conditions. (2) Angioedema Current Visit: Yes Status: Resolved Qualifiers: Encounter type: initial encounter Qualified Code(s): T78.3XXA - Angioneurotic edema, initial encounter (3) CKD (chronic kidney disease) stage 3, GFR 30-59 ml/min Current Visit: Yes Status: Chronic Assessment and plan: With acute worsening of renal function. Creatinine 2.07 today. Continue to hold Lasix. Follow renal function closely. (4) Diabetes mellitus Current Visit: Yes Status: Chronic Assessment and plan: Well-controlled. Continue current insulin regimen Qualifiers: Diabetes mellitus type: type 2 Diabetes mellitus complication status: with unspecified complications Diabetes mellitus terminal gauger insulin use: without intermediate use Qualified Code(s): E11.8 - Type 2 diabetes mellitus with unspecified complications (5) Hypertension Current Visit: Yes Status: Chronic Assessment and plan: Well-controlled. Continue current medications Qualifiers: Hypertension type: essential hypertension Qualified Code(s): I10 - Essential (primary) hypertension (6) Pneumonia Current Visit: Yes Status: Acute Assessment and plan: Per pulmonology recommendations, will complete 10-14 day course with Levaquin. Stop Zosyn. Qualifiers: Pneumonia type: due to unspecified organism Laterality: bilateral Lung location: lower lobe of lung Qualified Code(s): J18.9 - Pneumonia, unspecified organism (7) Diastolic heart failure Current Visit: Yes Status: Acute Assessment and plan: Improving. Lasix on hold due to worsening renal function. Qualifiers: Heart failure chronicity: acute on chronic Qualified Code(s): I50.33 - Acute on chronic diastolic (congestive) heart failure - Subjective Interval history: Patient is sitting up in bed. Feels better compared to yesterday. Does report some dyspnea. Although it is improved compared to yesterday. No chest pain. No palpitations. - Constitutional Vitals: Temp Pulse Resp BP Pulse Ox 98.2 F 89 18 118/55 94 08/25/17 14:45 08/25/17 14:45 08/25/17 14:45 08/25/17 14:45 08/25/17 14:45 General appearance: Present: mild distress, A&O X 3, morbidly obese, answers questions appropriately - Respiratory Respiratory exam: Present: prolonged expiratory phase. Absent: accessory muscle use, rales, rhonchi, wheezes - Cardiovascular Cardiovascular exam: Present: RRR, +S1, +S2. Absent: diastolic murmur, gallop, rubs, systolic murmur - GI/Abdominal GI/Abdominal exam: Present: normal bowel sounds, soft, no peritoneal signs. Absent: distended, tenderness - Extremities Exam Extremities exam: Present: pedal edema, warm, radial pulses palpable and symmetrical. Absent: calf tenderness, cyanotic - Neurological Exam Neurological exam: Present: CN II-XII intact, oriented X3, no focal deficits. Absent: facial droop, speech deficit - Skin Skin exam: Present: dry, intact Internal Medicine: Result - Labs CBC & Chem 7: 08/25/17 03:55 08/25/17 03:55 Labs: Short CBC 08/25/17 Range/Units 03:55 WBC 8.7 (4.3-11.1) K/mcL Hgb 13.1 (11.5-15.4) g/dL Hct 41.9 (35.3-44.9) % Plt Count 218 (140-400) K/mcL Neutrophils # 6.2 (1.6-8.9) K/mcL BMP 08/25/17 03:55 Sodium 137 Potassium 4.2 Chloride 99 Carbon Dioxide 31 H BUN 67 H Creatinine 2.07 H Glucose 100 Calcium 8.0 L - ABG Interpretation ABG results: ABG ABG pH 7.41 pH Units (7.32-7.45) 08/17/17 09:07 ABG pCO2 46 mmHg (35-45) H 08/17/17 09:07 ABG pO2 158 mmHg (85-104) H 08/17/17 09:07 ABG O2 Saturation 99 % (95-98) H 08/17/17 09:07 Consult Discharge Plan - Plan Referrals: Goran Hicks MD [Primary Care Provider] -
[2017-08-25] MEDS ORDERED: Aminoglycoside Consult 1 EACH MC ONE (16:19)
[2017-08-26] MEDS: Ipratropium/Albuterol Neb 3 ML IH SCH ×5 (03:59→15:50)
[2017-08-26 05:01] LABS: Potassium 5.1 mEq/L (3.5-5.1)
[2017-08-26 05:08] LABS: Basophils % 0.3 %; Eosinophils % 0.2 %; Hematocrit 38.1 % (35.3-44.9); Hemoglobin 11.9 g/dL (11.5-15.4); Lymphocytes # 0.5 K/mcL (0.6-4.6); Lymphocytes % 5.3 %; Mean Corpuscular HGB Conc 31.2 g/dL (31.6-35.5); Mean Corpuscular Hemoglobin 30.4 pg (28.0-33.3); Mean Corpuscular Volume 97.4 fL (83.0-100.0); Mean Platelet Volume 11.1 fL (9.4-12.4); Monocytes # 0.8 K/mcL (0.0-1.3); Monocytes % 9.1 %; Neutrophils # 7.4 K/mcL (1.6-8.9); Platelet Count 178 K/mcL (140-400); Red Blood Count 3.91 M/mcL (3.82-4.97); Red Cell Distribution Width 14.6 % (11.5-14.5); Segmented Neutrophils % 83.1 %
[2017-08-26] MEDS: *HR* Heparin 5,000 UNIT/ML VIAL SQ SCH (06:31)
[2017-08-26] MEDS: Insulin LISPRO 300 UNITS/3 ML VIAL SQ SCH ×2 (07:30→12:04)
[2017-08-26] MEDS: Isosorbide MONOnitrate (24 HR) 30 MG TAB.ER.24H PO SCH (07:58)
[2017-08-26] MEDS: predniSONE 20 MG TABLET PO SCH (08:00)
[2017-08-26] MEDS: amLODIPine 5 MG TABLET PO SCH (08:00)
[2017-08-26] MEDS: FLUoxetine 20 MG CAPSULE PO SCH (08:01)
[2017-08-26] MEDS: Budesonide/Formoterol 160/4.5 MDI IH SCH (08:24)
[2017-08-26 12:06] VITALS: BP 131/64
--- NOTE | 2017-08-26 13:26 | Discharge Summary ---
Date of Encounter: 08/26/17 Time of Encounter: 13:21 - Discharge Diagnosis (1) Acute respiratory failure with hypercapnia Priority: Primary Status: Acute (2) Angioedema Priority: Secondary Status: Resolved Qualifiers: Encounter type: initial encounter Qualified Code(s): T78.3XXA - Angioneurotic edema, initial encounter (3) CKD (chronic kidney disease) stage 3, GFR 30-59 ml/min Priority: Secondary Status: Chronic (4) Diabetes mellitus Priority: Secondary Status: Chronic Qualifiers: Diabetes mellitus type: type 2 Diabetes mellitus complication status: with unspecified complications Diabetes mellitus rat exterminator insulin use: without rat exterminator use Qualified Code(s): E11.8 - Type 2 diabetes mellitus with unspecified complications (5) Hypertension Priority: Secondary Status: Chronic Qualifiers: Hypertension type: essential hypertension Qualified Code(s): I10 - Essential (primary) hypertension (6) Pneumonia Priority: Secondary Status: Acute Qualifiers: Pneumonia type: due to unspecified organism Laterality: bilateral Lung location: lower lobe of lung Qualified Code(s): J18.9 - Pneumonia, unspecified organism (7) Diastolic heart failure Priority: Secondary Status: Acute Qualifiers: Heart failure chronicity: acute on chronic Qualified Code(s): I50.33 - Acute on chronic diastolic (congestive) heart failure - Discharge Medications Prescriptions: Budesonide/Formoterol 160/4.5 [Symbicort 160/4.5] 2 puff IH BIDR #1 inhaler levoFLOXacin [Levaquin] 750 mg PO Q48H #4 tablet predniSONE [PredniSONE] 10 mg PO DAILY 6 Days tablet Home Medications: FLUoxetine HCl [Prozac] 20 mg PO BID 05/19/16 [History] Furosemide [Lasix] 20 mg PO DAILY 05/19/16 [History] Levothyroxine [Synthroid] 150 mcg PO DAILY 05/19/16 [History] Pravastatin Sodium 10 mg PO DAILY 05/19/16 [History] Aspirin Enteric Coated [Aspirin EC] 81 mg PO DAILY 11/24/16 [History] Isosorbide MONOnitrate (24 HR) [Imdur] 15 mg PO DAILY 08/16/17 [History] glyBURIDE [GlyBURIDE] 5 mg PO DAILY 08/16/17 [History] Budesonide/Formoterol 160/4.5 [Symbicort 160/4.5] 2 puff IH BIDR #1 inhaler 06/03 [Rx] amLODIPine [Norvasc] 5 mg PO DAILY tablet 08/26/17 [Rx] levoFLOXacin [Levaquin] 750 mg PO Q48H #4 tablet 08/26/17 [Rx] predniSONE [PredniSONE] 10 mg PO DAILY 6 Days tablet 08/26/17 [Rx] Allergies/Adverse Reactions: 3 Allergy/AdvReac Type Severity Reaction Status Date / Time lisinopril Allergy Swelling Verified 08/18/17 10:50 of Lip/Tongue/Throat Date of admission: 08/15/17 23:27 Primary care physician: Goran Hicks MD Consults: 08/19/17 10:37 Consult to Occupational Therapy [CONS] Routine Comment: Evaluate, develop and implement POC Reason for Consult: SOB, weakness Consult to Physical Therapy [CONS] Routine Comment: Evaluate, develop and implement POC Reason for Consult: SOB, weakness 08/21/17 12:54 Consult to PICC team [Consult to Invasive Line Access Team] [CONS] Routine Reason for Consult: Unable to access peripheral veins Line Type: EPIV 08/22/17 14:15 Consult to Pulmonology [CONS] Routine Consulting Provider: [facility] [place] Reason for Consult: Dyspnea Call Completed: Yes 08/15/17 23:56 Consult to Pulmonology [CONS] Routine Consulting Provider: [facility] [place] Reason for Consult: Intensive care management Call Completed: Yes Discharging clinician: Kin Wilkerson Anticipated date of discharge: 08/26/17 - Patient Status Disposition: Home Health Service Condition: Good Functional capacity at discharge: uses cane/walker Overall status at discharge: patient is progressing back to baseline - Ambulatory Orders Ambulatory Orders: XR chest 2V [XR] Time Frame: 4 Weeks, Facility: [facility], Location: Radiology Basic Metabolic Panel [CHEM] Time Frame: 1 Week, Facility: [facility], Location: Lab - Discharge Instructions Instructions: Acute Respiratory Distress Syndrome (DC), Hypothyroidism (DC), Diabetes Mellitus Type 2 in Adults (DC), Chronic Obstructive Pulmonary Disease ( DC), Chronic Hypertension (DC) Follow Up With: Chanell Noriega MD [Partnered Physician] - (in 3-4 weeks Office will call with appointment.) Goran Hicks MD [Primary Care Provider] - 09/02/17 10:40 am (in 1-2 weeks) - Diet and Activity Activity: as per physical therapy, wear oxygen at all times Diet: diabetic diet, low fat, low cholesterol, low salt diet Hospital course: Ms. Pastor is a 81 year old female patient with history of diabetes, hypertension, hyperlipidemia and thyroid disease. Hospitalized initially with acute respiratory failure resulting from angioedema. She required endotracheal intubation and was on mechanical ventilation and admitted to the ICU initially. Her episode of angioedema suspected to be due to use of lisinopril. This medication has now been added to the patient's medical allergy list. She was intubated and treated with IV Solu-Medrol, H 1 and 2 blockers. She improved with this treatment plan and was then extubated and transferred out of ICU. She did develop pneumonia which could be due to aspiration or healthcare associated and she was treated for this with broad-spectrum antibiotics. She also developed acute exacerbation of her diastolic heart failure and was treated with Lasix. Her renal function worsened with Lasix use and so Lasix was held. Her renal function has since improved and is back close to her baseline. She is not doing well overall and wishes to go home. She was evaluated by physical therapy and recommended placement to skilled rehabilitation. She however wants to go home with home health. This will be arranged for her. She has qualified for home oxygen and this is also being arranged for her. She is stable to be discharged today. She may resume taking Lasix at her home dose of 20 mg per day. She will also be discharged on steroid taper and Symbicort inhaler along with a course of levfloxacin to complete treatment for pneumonia. - Time Spent with Patient Total time spent providing and/or coordinating discharge services: Greater than 30 minutes (45 min) - Constitutional Vitals: Temp Pulse Resp BP Pulse Ox 97.9 F 84 12 131/64 96 08/26/17 12:05 08/26/17 12:05 08/26/17 12:08/26/17 12:08/26/17 12:25 General appearance: Present: cooperative, A&O X 3, morbidly obese, answers questions appropriately - Respiratory Respiratory exam: Present: prolonged expiratory phase, wheezes. Absent: accessory muscle use, rales, rhonchi - Cardiovascular Cardiovascular exam: Present: RRR, +S1, +S2. Absent: diastolic murmur, gallop, rubs, systolic murmur - GI/Abdominal GI/Abdominal exam: Present: normal bowel sounds, soft, no peritoneal signs. Absent: distended, tenderness - Extremities Exam Extremities exam: Present: warm, radial pulses palpable and symmetrical. Absent : calf tenderness, cyanotic, pedal edema
--- NOTE | 2017-08-26 13:30 | Physician Discharge Referral ---
Home Health/Hosp Referral Info Transfer to: Home Health Provider in Charge Post Discharge: PCP - Diagnosis (1) Acute respiratory failure with hypercapnia Priority: Primary Status: Acute (2) Angioedema Priority: Secondary Status: Resolved (3) CKD (chronic kidney disease) stage 3, GFR 30-59 ml/min Priority: Secondary Status: Chronic (4) Diabetes mellitus Priority: Secondary Status: Chronic (5) Hypertension Priority: Secondary Status: Chronic (6) Pneumonia Priority: Secondary Status: Acute (7) Diastolic heart failure Priority: Secondary Status: Acute - Respiratory Orders Oxygen / L per min (2) Smoking Cessation: Smoking cessation has been advised. For more information, call the [place] Tobacco Quit Line at 1-951-WEST-NOW. - Diet/Nutrition Diet/Nutrition Orders: Cardiac (Fluid restriction to 1.5L/24 hrs), No Concentrated Sweets (diabetic) - Activity Activity Orders: Walker - Services Needed Following services are medically necessary services: Nursing, Physical Therapy, Occupational Therapy - Transfer Medications Prescriptions: Budesonide/Formoterol 160/4.5 [Symbicort 160/4.5] 2 puff IH BIDR #1 inhaler levoFLOXacin [Levaquin] 750 mg PO Q48H #4 tablet predniSONE [PredniSONE] 10 mg PO DAILY 6 Days tablet Home Medications: FLUoxetine HCl [Prozac] 20 mg PO BID 05/19/16 [History] Furosemide [Lasix] 20 mg PO DAILY 05/19/16 [History] Levothyroxine [Synthroid] 150 mcg PO DAILY 05/19/16 [History] Pravastatin Sodium 10 mg PO DAILY 05/19/16 [History] Aspirin Enteric Coated [Aspirin EC] 81 mg PO DAILY 11/24/16 [History] Isosorbide MONOnitrate (24 HR) [Imdur] 15 mg PO DAILY 08/16/17 [History] glyBURIDE [GlyBURIDE] 5 mg PO DAILY 08/16/17 [History] Budesonide/Formoterol 160/4.5 [Symbicort 160/4.5] 2 puff IH BIDR #1 inhaler 06/03 [Rx] amLODIPine [Norvasc] 5 mg PO DAILY tablet 08/26/17 [Rx] levoFLOXacin [Levaquin] 750 mg PO Q48H #4 tablet 08/26/17 [Rx] predniSONE [PredniSONE] 10 mg PO DAILY 6 Days tablet 08/26/17 [Rx] Allergies/Adverse Reactions: 3 Allergy/AdvReac Type Severity Reaction Status Date / Time lisinopril Allergy Swelling Verified 08/18/17 10:50 of Lip/Tongue/Throat Certification: Further, I certify that my clinical findings support that this patient is homebound (i.e. absences from home require considerable and taxing effort and are for medical reasons or congregation services or infrequently or short duration when for other reasons) because: Homebound Reason: Patient requires assistance of a person or device to safely leave home, Severity of cardiac or pulmonary status limits activity tolerance Attestation: My signature below is to certify that this patient is under my care and that I, or nurse practitioner, or a physician's special education teaching assistant working with me, has a face-to -face encounter with this patient.
== END 2017-08-26 16:20 | disposition home health service (06) | DRG 915 ==
LOC: EMEROO 22:26 → ICNU 23:27 → SUATTDRO 23:27 → ICNU 08-16 00:44 → 3ANU 08-19 19:57
PROVIDERS: ADMIT Internal Medicine; ATTEND Internal Medicine

== ENCOUNTER 2018-09-18 19:19 | Inpatient (IN) ==
[2018-09-18 20:45] LABS: Basophils % 0.7 %; Eosinophils % 0.6 %; Hematocrit 39.8 % (35.3-44.9); Hemoglobin 11.1 g/dL (11.5-15.4); Immature Granulocytes % 0.9 % (0-4); Lymphocytes # 0.4 K/mcL (0.6-4.6); Lymphocytes % 6.9 %; Mean Corpuscular HGB Conc 27.9 g/dL (31.6-35.5); Mean Corpuscular Volume 107.6 fL (83.0-100.0); Mean Platelet Volume 10.7 fL (9.4-12.4); Monocytes # 0.5 K/mcL (0.0-1.3); Neutrophils # 4.4 K/mcL (1.6-8.9); Nucleated Red Blood Cells 0.9 /100 WBC (0); Platelet Count 136 K/mcL (140-400); Red Cell Distribution Width 14.9 % (11.5-14.5); Segmented Neutrophils % 80.9 %
[2018-09-18 21:06] LABS: Calcium 9.1 mg/dL (8.6-10.3); Potassium 5.3 mEq/L (3.5-5.1)
[2018-09-18 21:08] LABS: Bilirubin,Urine Negative (Negative); Blood,Urine Small (Negative); Clarity,Urine Cloudy (Clear); Color,Urine Yellow (Yellow); Glucose,Urine (UA) Normal (Normal); Ketones,Urine Negative (Negative); Leukocyte Esterase,Urine Trace (Negative); Nitrite,Urine Negative (Negative); PH,Urine 5.5 pH Units (5.0-8.0); Protein,Urine >=1000 mg/dL (Neg-Trace); Specific Gravity,Urine 1.025 (1.010-1.025); Urobilinogen,Urine Normal (Normal)
[2018-09-18 21:10] LABS: Bacteria,Urine None Seen per hpf (None-Few); Hyaline Casts,Urine Moderate per lpf (None-Few); Squamous Epithelial Cell,Urine Many per lpf (None-Few); WBC,Urine 15-30 per hpf (0-3)
[2018-09-18] MEDS ORDERED: Ipratropium/Albuterol Neb 3 ML IH ONE (21:33)
[2018-09-18] MEDS ORDERED: Furosemide 40 MG/4 ML VIAL IVP ONE (21:34)
--- NOTE | 2018-09-18 21:51 | Emergency Department Note ---
Disposition Clinical Impression: Shortness of breath, Hypoxia, Pleural effusion CHF exacerbation Qualifiers: Heart failure type: unspecified Qualified Code(s): I50.9 - Heart failure, unspecified Disposition: Admitted As Inpatient Condition: Fair Referrals: Goran Hicks MD [Primary Care Provider] - Forms: ED Satisfaction Letter Time of Disposition: 22:03 General Adult HPI - General Chief complaint: ED Urogenital-Female Stated complaint: UTI/swelling/rash Time Seen by Provider: 09/18/18 19:22 Source: patient, EMS Mode of arrival: EMS Limitations: no limitations Nursing Notes Reviewed: Yes Vital Signs Reviewed: Yes - History of Present Illness HPI Narrative: 82-year-old female who is a poor historian with significant past medical history of COPD currently on 2 L nasal cannula presenting to the emergency department chief complaint shortness of breath. Patient states for the past few days she has had increasing shortness of breath. Patient denies any chest pain, nausea, vomiting or abdominal pain. Apparently EMS was called to her home twice today. The first time was for shortness of breath that she declined transport to the emergency department. The second time EMS was called she stated she was concerned she had a urinary tract infection and agreed to be brought to the emergency department further evaluation. At this time patient's only complaint shortness of breath. Denies any other complaints. Patient is mildly dyspneic in conversation. Pain Scale: 7 - Related Data Home Medications Medication Instructions Recorded Confirmed FLUoxetine HCl [Prozac] 20 mg PO BID 05/19/16 09/18/18 Furosemide [Lasix] 20 mg PO BID 05/19/16 09/18/18 Levothyroxine [Synthroid] 150 mcg PO DAILY 05/19/16 09/18/18 Pravastatin Sodium 10 mg PO DAILY 05/19/16 09/18/18 Aspirin Enteric Coated [Aspirin EC] 81 mg PO DAILY 11/24/16 09/18/18 Isosorbide MONOnitrate (24 HR) 30 mg PO DAILY 08/16/17 09/18/18 [Imdur] glyBURIDE [GlyBURIDE] 5 mg PO DAILY 08/16/17 09/18/18 Previous Rx's Medication Instructions Recorded Budesonide/Formoterol 160/4.5 2 puff IH BIDR #1 inhaler 08/26/17 [Symbicort 160/4.5] Allergies Allergy/AdvReac Type Severity Reaction Status Date / Time lisinopril Allergy Swelling Verified 08/18/17 10:50 of Lip/Tongue/Throat All systems ED: reviewed and negative except as stated. Constitutional: Denies: fever Eyes: Reports: as per HPI ENT ED: Reports: as per HPI Cardiovascular: Denies: chest pain Respiratory: Reports: dyspnea Gastrointestinal: Denies: abdominal pain Genitourinary: Reports: as per HPI Musculoskeletal: Reports: as per HPI Integumentary: Reports: as per HPI Neurological: Reports: as per HPI Psychiatric: Reports: as per HPI Endocrine: Reports: as per HPI Hematological/Lymphatic: Reports: as per HPI Allergic/Immunologic: Reports: as per HPI Past Medical History - Past Medical History Attestation: Yes The following information was validated with the patient. Medical history: Reports: CHF, diabetes, hyperlipidemia, hypertension, thyroid disease Psychiatric history: Reports: depression - Social History Smoking Status: Former smoker Smokeless Tobacco Status: No Alcohol use: Reports: occasionally Drug use: Reports: none Physical Exam - General Limitations: no limitations General appearance: alert, in no apparent distress - Head Head exam: atraumatic, normocephalic, normal inspection - Eye Eye exam: Absent: scleral icterus - ENT ENT exam: mucous membranes dry - Neck Neck exam: Present: full ROM - Chest Chest inspection: Present: symmetric chest wall rise - Respiratory Respiratory exam: Present: other (Coarse breath sounds throughout. Rhonchi in the bilateral bases). Absent: respiratory distress, accessory muscle use - Cardiovascular Cardiovascular exam: Present: regular rate - Abdominal Exam Abdominal exam: Present: soft, Non-Tender. Absent: distention, guarding, rebound - Extremities Exam Extremities exam: Present: other (Bilateral lower extremities 3+ pitting edema) - Neurological Exam Neurological exam: Present: alert - Psychiatric Psychiatric exam: Present: normal affect, normal mood - Skin Skin exam: Present: warm Course Course Narrative: 82-year-old female presenting for shortness of breath worsening over the past f ew days. In the room she is alert and oriented 3. She is dyspneic and conversation. When she talks she does become mildly hypoxic. Patient normally wears 2 L nasal cannula at home to be bumped up to 4L to remain oxygen saturation in the 90s. Concern for COPD exacerbation versus fluid overload due to patient's significant bilateral lower extremity swelling. Physical exam is otherwise benign. At this time will obtain basic laboratory analysis, urine analysis and chest x-ray. Disposition most likely admission due to hypoxia but pending results. Patient agrees with this plan. - Reevaluation(s) Reevaluation #1: Patient's laboratory analysis mostly unchanged from baseline. Chest x-ray does show bilateral pleural effusions significantly increased from previous. At this time will plan to admit the patient for hypoxia, bilateral pleural effusions and fluid overload. Patient remains alert and oriented and hemodynamically stable. I spoke with the hospitalist it application development manager Dr. Spangler who agrees to accept the patient. We will provide the patient with IV Lasix and a breathing treatment. Vital Signs Temperature 97.4 F L 09/18/18 19:23 Pulse Rate 73 09/18/18 19:23 Respiratory Rate 24 09/18/18 19:23 Blood Pressure 158/90 09/18/18 19:23 O2 Sat by Pulse Oximetry 92 09/18/18 19:23 Temperature 97.4 F L 09/18/18 19:23 Pulse Rate 81 09/18/18 21:30 Respiratory Rate 18 09/18/18 21:12 Blood Pressure 115/97 09/18/18 21:30 O2 Sat by Pulse Oximetry 98 09/18/18 21:30 Oxygen Delivery Oxygen Delivery Nasal Cannula Medical Decision Making - Lab Data Result diagrams: 09/18/18 20:29 09/18/18 20:29 Lab Results 09/18/18 09/18/18 09/18/18 Range/Units 20:22 20:29 20:29 WBC 5.4 (4.3-11.1) K/mcL RBC 3.70 L (3.82-4.97) M/mcL Hgb 11.1 L (11.5-15.4) g/dL Hct 39.8 (35.3-44.9) % MCV 107.6 H (83.0-100.0) fL MCH 30.0 (28.0-33.3) pg MCHC 27.9 L (31.6-35.5) g/dL RDW 14.9 H (11.5-14.5) % Plt Count 136 L (140-400) K/mcL MPV 10.7 (9.4-12.4) fL Immature Gran % 0.9 (0-4) % Seg Neutrophils % 80.9 % Lymphocytes % 6.9 % Monocytes % 10.0 % Eosinophils % 0.6 % Basophils % 0.7 % Neutrophils # 4.4 (1.6-8.9) K/mcL Lymphocytes # 0.4 L (0.6-4.6) K/mcL Monocytes # 0.5 (0.0-1.3) K/mcL Eosinophils # 0.0 (0.0-0.6) K/mcL Basophils # 0.0 (0.0-0.2) K/mcL Nucleated RBCs/100 WBC 0.9 H (0) /100 WBC Platelet Estimate Slight Decrease L (Normal) Hypochromasia Present A (Not Present) Sodium 143 (136-145) mEq/L Potassium 5.3 H (3.5-5.1) mEq/L Chloride 100 (98-107) mEq/L Carbon Dioxide 38 H (23-29) mEq/L BUN 45 H (8-23) mg/dL Creatinine 1.27 H (0.60-1.20) mg/dL Est GFR ( Amer) 49 L (> 60) Est GFR (Non-Af Amer) 40 L (> 60) BUN/Creatinine Ratio 35 H (6-26) Glucose 110 H (70-105) mg/dL Calculated Osmolality 308 H (280-300) Lactic Acid (0.5-2.2) mmol/L Calcium 9.1 (8.6-10.3) mg/dL Troponin I (< 0.04) ng/mL B-Natriuretic Peptide (Less than 100) pg/mL Urine Color Yellow (Yellow) Urine Clarity Cloudy A (Clear) Urine pH 5.5 (5.0-8.0) pH Units Ur Specific [place] 1.025 (1.010-1.025) Urine Protein >=1000 H (Neg-Trace) mg/dL Urine Glucose (UA) Normal (Normal) mg/dL Urine Ketones Negative (Negative) mg/dL Urine Blood Small H (Negative) Urine Nitrite Negative (Negative) Urine Bilirubin Negative (Negative) Urine Urobilinogen Normal (Normal) mg/dL Ur Leukocyte Esterase Trace H (Negative) Urine Microscopic RBC 3-5 H (0-3) per hpf Urine Microscopic WBC 15-30 H (0-3) per hpf Ur Squamous Epith Cells Many H (None-Few) per lpf Urine Bacteria None Seen (None-Few) per hpf Hyaline Casts Moderate H (None-Few) per lpf Ur Culture Indicated? NO. A (NO) 09/18/18 09/18/18 09/18/18 Range/Units 20:29 20:29 20:29 WBC (4.3-11.1) K/mcL RBC (3.82-4.97) M/mcL Hgb (11.5-15.4) g/dL Hct (35.3-44.9) % MCV (83.0-100.0) fL MCH (28.0-33.3) pg MCHC (31.6-35.5) g/dL RDW (11.5-14.5) % Plt Count (140-400) K/mcL MPV (9.4-12.4) fL Immature Gran % (0-4) % Seg Neutrophils % % Lymphocytes % % Monocytes % % Eosinophils % % Basophils % % Neutrophils # (1.6-8.9) K/mcL Lymphocytes # (0.6-4.6) K/mcL Monocytes # (0.0-1.3) K/mcL Eosinophils # (0.0-0.6) K/mcL Basophils # (0.0-0.2) K/mcL Nucleated RBCs/100 WBC (0) /100 WBC Platelet Estimate (Normal) Hypochromasia (Not Present) Sodium (136-145) mEq/L Potassium (3.5-5.1) mEq/L Chloride (98-107) mEq/L Carbon Dioxide (23-29) mEq/L BUN (8-23) mg/dL Creatinine (0.60-1.20) mg/dL Est GFR ( Amer) (> 60) Est GFR (Non-Af Amer) (> 60) BUN/Creatinine Ratio (6-26) Glucose (70-105) mg/dL Calculated Osmolality (280-300) Lactic Acid 0.8 (0.5-2.2) mmol/L Calcium (8.6-10.3) mg/dL Troponin I < 0.03 (< 0.04) ng/mL B-Natriuretic Peptide 576 H (Less than 100) pg/mL Urine Color (Yellow) Urine Clarity (Clear) Urine pH (5.0-8.0) pH Units Ur Specific [place] (1.010-1.025) Urine Protein (Neg-Trace) mg/dL Urine Glucose (UA) (Normal) mg/dL Urine Ketones (Negative) mg/dL Urine Blood (Negative) Urine Nitrite (Negative) Urine Bilirubin (Negative) Urine Urobilinogen (Normal) mg/dL Ur Leukocyte Esterase (Negative) Urine Microscopic RBC (0-3) per hpf Urine Microscopic WBC (0-3) per hpf Ur Squamous Epith Cells (None-Few) per lpf Urine Bacteria (None-Few) per hpf Hyaline Casts (None-Few) per lpf Ur Culture Indicated? (NO) - EKG Data EKG #1 EKG attestation: Yes I reviewed and interpreted this EKG. EKG results narrative: Sinus rhythm. Right bundle branch block. 76 bpm. UT interval 187, QRS 144, QTC 505. No sign of acute ST segment elevation or ischemia. Significant artifact. Compared to previous EKG completed on 08/16/2017 no significant changes noted Attestation Statement - Attestation Attestation: I, Goran Stout, examined this patient and my medical decision-making was reviewed with the VALUE STREAM LEADER/PA/Advanced Practice Nurse/Resident Physician. I agree with the documented findings, disposition and treatment plan as described except to the extent set forth below. 82-year-old female presents emergency Department with concerns of altered mental status, possible urinary tract infection, hypoxia. Patient called EMS twice a day for evaluation of her difficulty breathing however she turned them away at her door. On the second time they arrived they strongly requested she be evaluated emergency department. Patient had apparently been letting her depends dry out and then was reusing them after being incontinent of urine. During evaluation the patient became hypoxic, she does describe having some difficulty of breathing. Chest x-ray shows vascular congestion. She has a history of congestive heart failure. She has swelling the bilateral lower extremities. She was given Lasix in the emergency department. She will be admitted for further care and evaluation.
[2018-09-18 21:53] LABS: Hypochromasia Present (Not Present); Platelet Estimate Slight Decrease (Normal)
[2018-09-18 23:38] LABS: ABG Base Excess 9 mEq/L (-2 to 3); ABG HCO3 43 mEq/L (21-27); ABG Oxygen Saturation 72 % (95-98); ABG PCO2 127 mmHg (35-45); ABG PH 7.14 pH Units (7.32-7.45); ABG PO2 53 mmHg (85-104); ABG TCO2 47 mEq/L (20-26)
--- NOTE | 2018-09-19 00:22 | Internal Med History&Physical ---
Date of Encounter: 09/19/18 Time of Encounter: 00:09 Internal Medicine - H&P: HPI Chief complaint: Dyspnea History of present illness: Ms. aPstor is a 82 year old morbidly obese female with a past medical history of hypertension, hyperlipidemia, severe COPD on 2 L nasal cannula at home, and heart failure with preserved ejection fraction presents with progressive short ness of breath over the past few days. Per report, EMS had been called to her home twice today. The first time for shortness of breath for which she subsequently declined transport. EMS was called and the second time due to concern for UTI. Patient apparently has been reusing her depends, by letting him dry out and then reusing them again. On arrival the patient was afebrile mildly hypertensive in normal sinus rhythm. Initially requiring 2 L nasal cannula maintaining O2 saturations at 92%. However her respiratory status began to decline over the next hour requiring increasing levels of oxygen, subsequently dropping to 84%. Patient was placed on BiPAP. An ABG was performed which showed hypoxia (PO2 53) and significant hypercapnia with a PCO2 of 127. Chest x-ray was obtained which showed cardiomegaly with pulmonary vascular congestion and bilateral pleural effusions. Laboratory workup was notable for a normal WBC, mild hyperkalemia and mildly elevated creatinine which appears to be at her baseline. Lactic acid was within normal limits as well as troponin. Her BNP was found to be elevated at 576. UA was unremarkable. Past Med Surg Social Fam HX - Past Medical History Medical history: CHF, diabetes, hyperlipidemia, hypertension, thyroid disease Psychiatric history: depression - Past Surgical History Additional surgical history: Hernia sx, - Social History Smoking Status: Former smoker Smokeless Tobacco Status: No Alcohol use: occasionally Drug use: none - Family History Mother Living Status: Hx Family Cardiac Disorders: No Hx Family Respiratory Disorders: No Hx Family Cancer: No Hx Family GI Disorders: Yes Hx Family Endocrine Disorder: No Hx Family Neuromuscular Disorders: No Hx Family Neurologic Disorders: No Hx Family HEENT Disorders: No Hx Family Autoimmune Disorders: No Father Living Status: Hx Family Cardiac Disorders: Yes Hx Family Respiratory Disorders: No Hx Family Cancer: No Hx Family GI Disorders: No Hx Family Endocrine Disorder: Yes (DM) Hx Family Neuromuscular Disorders: No Hx Family Neurologic Disorders: No Hx Family HEENT Disorders: No Hx Family Autoimmune Disorders: No Internal Medicine - H&P: Meds FLUoxetine HCl [Prozac] 20 mg PO BID 05/19/16 [History] Furosemide [Lasix] 20 mg PO BID 05/19/16 [History] Levothyroxine [Synthroid] 150 mcg PO DAILY 05/19/16 [History] Pravastatin Sodium 10 mg PO DAILY 05/19/16 [History] Aspirin Enteric Coated [Aspirin EC] 81 mg PO DAILY 11/24/16 [History] Isosorbide MONOnitrate (24 HR) [Imdur] 30 mg PO DAILY 08/16/17 [History] glyBURIDE [GlyBURIDE] 5 mg PO DAILY 08/16/17 [History] Budesonide/Formoterol 160/4.5 [Symbicort 160/4.5] 2 puff IH BIDR #1 inhaler [Rx] Allergy/AdvReac Type Severity Reaction Status Date / Time lisinopril Allergy Swelling Verified 08/18/17 10:50 of Lip/Tongue/Throat All Systems PM: A 10-system review of systems was performed and is negative for pertinent findings except as documented above in the HPI. - Constitutional Constitutional: no chills, no fever(s), no night sweats - EENT Eyes: no change in vision, no discharge, no pain, no photophobia Ears: no ear discharge, no ear pain, no tinnitus Nose, mouth and throat: no dysphagia, no nasal discharge, no neck pain, no sore throat - Cardiovascular Cardiovascular ROS IM: no chest pain, no diaphoresis, no dyspnea, no lighthead edness, no palpitations, no syncope - Respiratory Respiratory: no cough, no dyspnea, no wheezing, no excessive phlegm production - Gastrointestinal Gastrointestinal: no abdominal pain, no diarrhea, no hematemesis, no hemat ochezia, no melena, no nausea, no vomiting - Genitourinary Genitourinary: no change in urinary stream, no dysuria, no flank pain, no hematuria - Musculoskeletal Musculoskeletal ROS IM: no numbness, no tingling - Integumentary Integumentary IM: no rash, no unusual bruising - Neurological Neurological ROS: no confusion, no convulsions, no focal weakness, no numbness, no tingling, no tremor(s) - Hematologic/Lymphatic Hematologic/Lymphatic: no easy bruising - Constitutional Vitals: Temp Pulse Resp BP Pulse Ox 97.4 F L 73 15 115/97 84 09/18/18 19:23 09/18/18 23:07 09/18/18 23:50 09/18/18 21:30 09/18/18 23:50 Exam: General: Alert and oriented Skin:Normal color, no rash, no lesions. HEENT:EOM, pupils equal, round and reactive. Cardiovascular:Normal S1 & S2, no rubs, murmurs or gallops. No JVD. Pulse regular. Lungs:Normal breath sounds, no wheezes or crackles. Abdomen:Soft, non-tender, no rigidity. Extremities:No deformity, no edema or tenderness, no joint swelling or clubbing. Neurological:Normal cognition and motor skills. Pulses:Carotid and radial pulses normal +2. Rest of the physical exam is non contributory Internal Med - H&P Results - Labs CBC & Chem 7: 09/18/18 20:29 09/18/18 20:29 Labs: Short CBC 09/18/18 Range/Units 20:29 WBC 5.4 (4.3-11.1) K/mcL Hgb 11.1 L (11.5-15.4) g/dL Hct 39.8 (35.3-44.9) % Plt Count 136 L (140-400) K/mcL Neutrophils # 4.4 (1.6-8.9) K/mcL BMP 09/18/18 20:29 Sodium 143 Potassium 5.3 H Chloride 100 Carbon Dioxide 38 H BUN 45 H Creatinine 1.27 H Glucose 110 H Calcium 9.1 Cardiac Enzymes 09/18/18 Range/Units 20:29 Troponin I < 0.03 (< 0.04) ng/mL Urine 09/18/18 Range/Units 20:22 Urine Color Yellow (Yellow) Urine Clarity Cloudy A (Clear) Urine pH 5.5 (5.0-8.0) pH Units Ur Specific [place] 1.025 (1.010-1.025) Urine Protein >=1000 H (Neg-Trace) mg/dL Urine Glucose (UA) Normal (Normal) mg/dL - ABG Interpretation ABG results: 09/18/18 23:32 ABG pH 7.14 L* ABG pCO2 127 H* ABG pO2 53 L ABG HCO3 43 H ABG Total CO2 47 H ABG O2 Saturation 72 L ABG Base Excess 9 H - Impressions ITS Impressions Chest X-Ray 09/18/18 20:05 IMPRESSION: Cardiomegaly with pulmonary vascular congestion. Bilateral pleural effusions and dense airspace opacification is new in the right lower lung zone. Pattern may represent asymmetric edema. Underlying atelectasis or pneumonia can not be excluded. D/ / Carlo Gomez MD / Carlo Gomez MD Interpreting Provider: Carlo Gomez MD - Assessment and plan (1) Shortness of breath Current Visit: Yes Status: Acute Assessment and plan: Patient presents with shortness of breath over the past 2 days likely secondary to fluid overload/CHF exacerbation. Currently on BiPAP and mentating well without any evidence of respiratory distress. -We will continue with judicious diuresis in the setting of moderates pulmonary hypertension -Duo nebs (2) Acute respiratory failure with hypercapnia Current Visit: No Status: Acute Assessment and plan: Acute hypoxic hypercapnic respiratory failure in the setting of history of severe COPD and evidence of volume overload. Initial ABG: PH 7.41, PCO2 127, PO2 53, bicarbonate 43. Previous PCO2 has been in the 30s and 40s. Patient has evidence of moderate pulmonary hypertension on echo from early August. -Continue with BiPAP at bedtime and when necessary. We will reassess ABG -Patient received Lasix in the ED. We will continue with 40 mg a day -Plus or minus COPD exacerbation. We will schedule DuoNeb's for now -Consider pulmonary consult (3) CHF exacerbation Current Visit: Yes Status: Acute Assessment and plan: Patient presents with dyspnea with concern for fluid overload in the setting of lower extremity edema. Chest x-ray findings show cardiomegaly with pulmonary vascular congestion. Bilateral pleural effusions. Had an elevated BNP over 500. Patient had a recent echo performed in August which showed a EF of 60-65% with mild concentric left ventricular hypertrophy and diastolic dysfunction. We will treat for CHF exacerbation -Strict I's and O's; daily weights -We will start patient on 40 mg IV push daily in the setting of moderate pulmonary hypertension and concern for dropping the patient's blood pressure. -Consider cardiology consultation Qualifiers: Heart failure type: diastolic Qualified Code(s): I50.33 - Acute on chronic diastolic (congestive) heart failure (4) Pleural effusion Current Visit: Yes Status: Acute Assessment and plan: Bilateral pleural effusions on chest x-ray likely secondary to CHF exacerbation. We will treat for CHF and reassess. (5) COPD (chronic obstructive pulmonary disease) Current Visit: Yes Status: Acute Assessment and plan: Patient has a history of COPD. Unclear if there is an acute exacerbation in addition to patient's CHF. No wheezing was appreciated on lung examination. -We will treat with scheduled DuoNeb's for now. Qualifiers: Emphysema type: unspecified Qualified Code(s): J43.9 - Emphysema, unspecified (6) DVT prophylaxis Current Visit: Yes Status: Acute Assessment and plan: Heparin subcutaneous - Time Spent With Patient Total time spent is greater than 50% in coordination of care (as documented) at patient's floor/unit and/or counseling patient:
[2018-09-19] MEDS ORDERED: *HR* Dextrose 50 % in Water (Syg) 50 ML SYRINGE IVP PRN (00:28)
[2018-09-19] MEDS ORDERED: Dextrose Gel 15 GM/37.5 ML TUBE PO PRN ×2 (00:28)
[2018-09-19] MEDS ORDERED: D5% in Water 1,000 ML IVC PRN (00:28)
[2018-09-19] MEDS ORDERED: Naloxone 0.4 MG/ML INJ IVP PRN (00:37)
[2018-09-19] MEDS: Insulin LISPRO 300 UNITS/3 ML VIAL SQ SCH ×4 (01:08→16:49)
[2018-09-19] MEDS: Nystatin POWDER 30 GM BOTTLE TP SCH ×3 (01:30→13:30)
[2018-09-19] MEDS: Insulin DETEMIR 100 UNIT/ML X5UNITS SQ SCH ×2 (01:46→20:03)
[2018-09-19] MEDS: *HR* Heparin 5,000 UNIT/ML VIAL SQ SCH ×4 (01:47→20:02)
[2018-09-19] MEDS: Ipratropium/Albuterol Neb 3 ML IH SCH ×5 (03:57→20:25)
[2018-09-19 04:57] LABS: ABG Base Excess 13 mEq/L (-2 to 3); ABG HCO3 43 mEq/L (21-27); ABG Oxygen Saturation 86 % (95-98); ABG PCO2 94 mmHg (35-45); ABG PH 7.27 pH Units (7.32-7.45); ABG PO2 63 mmHg (85-104); ABG TCO2 46 mEq/L (20-26); Blood Gas VT 500 cc
--- NOTE | 2018-09-19 07:58 | Internal Med Progress Note ---
Hospitalist Progress Note - Encounter Date of Encounter: 09/19/18 Time of Encounter: 07:52 - Subjective Interval History: Ms. Pastor is a 82 year old morbidly obese female with a past medical history of hypertension, hyperlipidemia, severe COPD on 2 L nasal cannula at home, and heart failure with preserved ejection fraction presents with progressive alexa rtness of breath over the past few days. Per report, EMS had been called to her home twice today. The first time for shortness of breath for which she subsequently declined transport. EMS was called and the second time due to concern for UTI. Patient apparently has been reusing her depends, by letting him dry out and then reusing them again. On arrival the patient was afebrile mildly hypertensive in normal sinus rhythm. Initially requiring 2 L nasal cannula maintaining O2 saturations at 92%. However her respiratory status began to decline over the next hour requiring increasing levels of oxygen, subsequently dropping to 84%. Patient was placed on BiPAP. An ABG was performed which showed hypoxia (PO2 53) and significant hypercapnia with a PCO2 of 127. Chest x-ray was obtained which showed cardiomegaly with pulmonary vascular congestion and bilateral pleural effusions. Laboratory workup was notable for a normal WBC, mild hyperkalemia and mildly elevated creatinine which appears to be at her baseline. Lactic acid was within normal limits as well as troponin. Her BNP was found to be elevated at 576. UA was unremarkable. Patient was admitted earlier today, doing better on BIPAP, she is alert and oriented to3, she said she has chronic cellulitis to b/l LE, lbut got worse recently, she was on 2 l NC at home, but no BIPAP 1. Acute on chronic hypoxic hypercapnic respiratory failure, continue BIPAP 2. Acute on chronic diastolic CHF exacerbation, will increase IV lasix to 40 mg BID 3. Stage III kidney disease CKD III 4. morbid obesity with BMI 50 5. Diabetes type 2 with hypoglycemia holding metformin 6. COPD and chronic hypoxic respiratory fialure on 2 L NC 7. acute on Chronic b/l low ext cellulitis, will doxycyline and zosyn - Exam Vitals: Temp Pulse Resp BP Pulse Ox 96.6 F L 69 17 143/76 90 09/19/18 07:26 09/19/18 07:26 09/19/18 07:26 09/19/18 07:26 09/19/18 07:26 Exam: General: Alert and oriented Skin: b/l lower ext cellulitis, right > left, upper to the inner thigh. HEENT:EOM, pupils equal, round and reactive. Cardiovascular:Normal S1 & S2, no rubs, murmurs or gallops. No JVD. Pulse regular. Lungs:Normal breath sounds, no wheezes or crackles. Abdomen:Soft, non-tender, no rigidity. Extremities:No deformity, ++ edema or tenderness,or clubbing. Neurological:Normal cognition and motor skills. Pulses:Carotid and radial pulses normal +2. Rest of the physical exam is non contributory DVT Prophylaxis: heparin SC - Summary of Assessment and Plan Summary of Assessment and Plan: Ms. Pastor is a 82 year old morbidly obese female with a past medical history of hypertension, hyperlipidemia, severe COPD on 2 L nasal cannula at home, and heart failure with preserved ejection fraction presents with progressive shortness of breath over the past few days. Per report, EMS had been called to her home twice today. The first time for shortness of breath for which she subsequently declined transport. EMS was called and the second time due to concern for UTI. Patient apparently has been reusing her depends, by letting him dry out and then reusing them again. On arrival the patient was afebrile mildly hypertensive in normal sinus rhythm. Initially requiring 2 L nasal cannula maintaining O2 saturations at 92%. However her respiratory status began to decline over the next hour requiring increasing levels of oxygen, subsequently dropping to 84%. Patient was placed on BiPAP. An ABG was performed which showed hypoxia (PO2 53) and significant hypercapnia with a PCO2 of 127. Chest x-ray was obtained which showed cardiomegaly with pulmonary vascular congestion and bilateral pleural effusions. Laboratory workup was notable for a normal WBC, mild hyperkalemia and mildly elevated creatinine which appears to be at her baseline. Lactic acid was within normal limits as well as troponin. Her BNP was found to be elevated at 576. UA was unremarkable. Patient was admitted earlier today, doing better on BIPAP, she is alert and oriented to3, she said she has chronic cellulitis to b/l LE, lbut got worse recently, she was on 2 l NC at home, but no BIPAP 1. Acute on chronic hypoxic hypercapnic respiratory failure, continue BIPAP 2. Acute on chronic diastolic CHF exacerbation, will increase IV lasix to 40 mg BID 3. Stage III kidney disease CKD III 4. morbid obesity with BMI 50 5. Diabetes type 2 with hypoglycemia holding glipizide 6. COPD and chronic hypoxic respiratory fialure on 2 L NC 7. acute on Chronic b/l low ext cellulitis, will doxycyline and zosyn 8. B/L pleural effusion, is likley from CHF will increase lasix dose - Time Spent with Patient Total time spent is greater than 50% in coordination of care (as documented) at patient's floor/unit and/or counseling patient: 25 - 35 minutes Plan of Care Discussed with: patient Internal Medicine: Result - Labs CBC & Chem 7: 09/18/18 20:29 09/18/18 20:29 Labs: Short CBC 09/18/18 Range/Units 20:29 WBC 5.4 (4.3-11.1) K/mcL Hgb 11.1 L (11.5-15.4) g/dL Hct 39.8 (35.3-44.9) % Plt Count 136 L (140-400) K/mcL Neutrophils # 4.4 (1.6-8.9) K/mcL BMP 09/18/18 20:29 Sodium 143 Potassium 5.3 H Chloride 100 Carbon Dioxide 38 H BUN 45 H Creatinine 1.27 H Glucose 110 H Calcium 9.1 Cardiac Enzymes 09/18/18 Range/Units 20:29 Troponin I < 0.03 (< 0.04) ng/mL Urine 09/18/18 Range/Units 20:22 Urine Color Yellow (Yellow) Urine Clarity Cloudy A (Clear) Urine pH 5.5 (5.0-8.0) pH Units Ur Specific [place] 1.025 (1.010-1.025) Urine Protein >=1000 H (Neg-Trace) mg/dL Urine Glucose (UA) Normal (Normal) mg/dL - ABG Interpretation ABG results: ABG ABG pH 7.27 pH Units (7.32-7.45) L D 09/19/18 04:52 ABG pCO2 94 mmHg (35-45) H* D 09/19/18 04:52 ABG pO2 63 mmHg (85-104) L 09/19/18 04:52 ABG O2 Saturation 86 % (95-98) L 09/19/18 04:52 - Impressions Impressions Chest X-Ray 09/18/18 20:05 IMPRESSION: Cardiomegaly with pulmonary vascular congestion. Bilateral pleural effusions and dense airspace opacification is new in the right lower lung zone. Pattern may represent asymmetric edema. Underlying atelectasis or pneumonia can not be excluded. D/ / Carlo Gomez MD / Carlo Gomez MD Interpreting Provider: Carlo Gomez MD Consult Discharge Plan - Plan Referrals: Goran Hicks MD [Primary Care Provider] -
[2018-09-19] MEDS: Budesonide/Formoterol 160/4.5 1 PUFF INH IH SCH ×2 (08:27→20:25)
[2018-09-19] MEDS: Piperacillin/Tazobactam 3.375 GM in 0.9 % Sodium Chloride Mini Bag 100 ML IVPB SCH ×2 (08:59→15:52)
[2018-09-19] MEDS ORDERED: Furosemide 20 MG/2 ML VIAL IVP SCH (09:00)
[2018-09-19] MEDS: Isosorbide MONOnitrate (24 HR) 30 MG TAB.ER.24H PO SCH (09:00)
[2018-09-19] MEDS: Furosemide 20 MG/2 ML VIAL IVP SCH ×2 (09:00→15:52)
[2018-09-19] MEDS: Doxycycline 100 MG in 0.9 % Sodium Chloride Mini Bag 100 ML IVPB SCH ×2 (09:00→17:39)
[2018-09-19] MEDS ORDERED: *HR* GlyBURIDE 5 MG TABLET PO SCH (09:00)
[2018-09-19] MEDS: Aspirin Enteric Coated 81 MG Tablet PO SCH (09:00)
[2018-09-19] MEDS: FLUoxetine 20 MG CAPSULE PO SCH ×2 (09:00→20:02)
--- NOTE | 2018-09-19 10:42 | Pulmonology Consult Note ---
Date of Encounter: 09/19/18 Time of Encounter: 10:40 Assessment and Plan (1) Acute respiratory failure with hypoxia and hypercapnia Current Visit: No Status: Resolved In conclusion this is a pleasant 82-year-old woman who presents with acute on chronic hypoxic hypercapnic respiratory failure secondary to decompensated heart failure with preserved ejection fraction she has a history of of advanced COPD and respiratory failure requiring 2 L of oxygen however I do not feel that her obstructive lung disease is acutely responsible for her decompensation and there is no clear evidence of infectious process. She has underlying pulmonary hypertension which is a combination of primarily pulmonary venous hypertension from heart failure with preserved ejection fraction complicated by underlying WHO Group 3 disease owing to COPD and chronic respiratory failure along with suspected undiagnosed sleep-disordered breathing complciated by obesity hypoventilation syndrome (OSAS). Recs: -Agree with noninvasive ventilation on a continuous basis for the next 24 hours patient should be nothing by mouth during this time. -Continue diuresis as tolerated by kidney function she will need daily monitoring of creatinine recommend a 1-1.5 L negative over the next 24 hours would also do a special attention to her blood pressure make sure that this is optimized to systolic blood pressure less than 140 and heart rate is also controlled -Would schedule bronchodilators such as duo nebs every 6 hours and Symbicort 160/4.52 puffs twice a day -She appears stable for continued monitoring on 2NE does have some risk of further deterioration I am reassured by her improving arterial blood gas. -Would recommend obtaining VBG or ABG tomorrow morning or ABG emergently if any change in mental status -Given decompensated heart failure and hypoventilation recommend checking TSH I have ordered this and the primary medicine service can follow-up -If develops fever or other evidence of infectious process would have low threshold for starting empiric antimicrobials -We will need qualification prior to discharge for BiPAP for chronic hypercapnic respiratory failure recommend formal consultation in the outpatient pulmonary clinic and formal polysomnogram for sleep-disordered breathing - she has been scheduled in the past in our pulmonary clinic however she failed make her appointment I reinforced the need to do so. Pulmonary will sign off at this time thank you for the consultation Do not hesitate to call me with any questions or concerns Jose Calixto [phone] (2) Pulmonary hypertension Current Visit: Yes Status: Acute (3) Suspected sleep apnea Current Visit: No Status: Suspected (4) Obesity hypoventilation syndrome Current Visit: No Status: Suspected (5) Diastolic heart failure Current Visit: No Status: Acute Qualifiers: Heart failure chronicity: acute on chronic Qualified Code(s): I50.33 - Acute on chronic diastolic (congestive) heart failure (6) Pleural effusion Current Visit: Yes Status: Acute History of Present Illness Consult date: 09/19/18 Requesting physician: Linwood Cruz Reason for consult: hypoxemia Chief complaint: Difficulty in Breathing History of present illness: This is an 82-year-old woman who presented to the emergency department via EMS after she complained of shortness of breath prior to admission. Found to have acute on chronic hypoxic hypercapnic respiratory failure suspected secondary to CHF with elevated BNP and bilateral evidence of volume overload. She has a history of COPD and has chronic respiratory failure on 2 L nasal cannula O2. She has been on noninvasive ventilation and receiving diuretics since admission with overall improvement gas exchange. Pulmonary was consulted for further evaluation of acute on chronic respiratory failure. She does have a history of diabetes and hypothyroidism She is a former smoker of most of her life but now in remission Past Med Surg Social Fam HX - Past Medical History Medical history: CHF, diabetes, hyperlipidemia, hypertension, thyroid disease Psychiatric history: depression - Past Surgical History Additional surgical history: Hernia sx, - Social History Smoking Status: Former smoker Smokeless Tobacco Status: No Alcohol use: occasionally Drug use: none - Family History Mother Living Status: Hx Family Cardiac Disorders: No Hx Family Respiratory Disorders: No Hx Family Cancer: No Hx Family GI Disorders: Yes Hx Family Endocrine Disorder: No Hx Family Neuromuscular Disorders: No Hx Family Neurologic Disorders: No Hx Family HEENT Disorders: No Hx Family Autoimmune Disorders: No Father Living Status: Hx Family Cardiac Disorders: Yes Hx Family Respiratory Disorders: No Hx Family Cancer: No Hx Family GI Disorders: No Hx Family Endocrine Disorder: Yes (DM) Hx Family Neuromuscular Disorders: No Hx Family Neurologic Disorders: No Hx Family HEENT Disorders: No Hx Family Autoimmune Disorders: No Medications and Allergies FLUoxetine HCl [Prozac] 20 mg PO BID 05/19/16 [History] Furosemide [Lasix] 20 mg PO BID 05/19/16 [History] Levothyroxine [Synthroid] 150 mcg PO DAILY 05/19/16 [History] Pravastatin Sodium 10 mg PO DAILY 05/19/16 [History] Aspirin Enteric Coated [Aspirin EC] 81 mg PO DAILY 11/24/16 [History] Isosorbide MONOnitrate (24 HR) [Imdur] 30 mg PO DAILY 08/16/17 [History] glyBURIDE [GlyBURIDE] 5 mg PO DAILY 08/16/17 [History] Budesonide/Formoterol 160/4.5 [Symbicort 160/4.5] 2 puff IH BIDR #1 inhaler 08/26/17 [Rx] Allergy/AdvReac Type Severity Reaction Status Date / Time lisinopril Allergy Swelling Verified 08/18/17 10:50 of Lip/Tongue/Throat All Systems: The remainder of the systems were reviewed and are negative Physical Examination Vital Signs: Vital Signs, Last 4 Hours Temp Pulse Resp BP Pulse Ox 09/19/18 08:27 22 88 09/19/18 07:43 16 143/76 87 09/19/18 07:26 96.6 F L 69 17 143/76 90 General appearance: appears uncomfortable, other (patient has rapid pressured speech but generally he is alert and oriented and able to answer all questions) Eyes: nonicteric Neck: supple, JVD Effort: mildly labored Auscultation: bilateral: diminished breath sounds, wheezes (Faint bilateral expiratory wheeze) Cardiovascular: regular rate and rhythm Gastrointestinal: normoactive bowel sounds, soft Integumentary: other (Chronic erythema related to lower extremity edema) Extremities: no cyanosis, pink and warm, pulses normal, edema (Bilateral pitting symmetric lower extremity edema) Musculoskeletal: no deformities non-focal exam, pupils equal and round anxious Ventilator Settings Ventilator Settings: Ventilator Settings, Last 8 Hours Ventilator Tidal Volume 500 Setting Results - Laboratory Findings CBC and BMP: 09/18/18 20:29 09/18/18 20:29 ABG ABG pH 7.27 pH Units (7.32-7.45) L D 09/19/18 04:52 ABG pCO2 94 mmHg (35-45) H* D 09/19/18 04:52 ABG pO2 63 mmHg (85-104) L 09/19/18 04:52 ABG O2 Saturation 86 % (95-98) L 09/19/18 04:52 Abnormal lab findings: Abnormal lab results RBC 3.70 M/mcL (3.82-4.97) L 09/18/18 20:29 Hgb 11.1 g/dL (11.5-15.4) L 09/18/18 20:29 MCV 107.6 fL (83.0-100.0) H 09/18/18 20:29 MCHC 27.9 g/dL (31.6-35.5) L 09/18/18 20:29 RDW 14.9 % (11.5-14.5) H 09/18/18 20:29 Plt Count 136 K/mcL (140-400) L 09/18/18 20:29 Lymphocytes # 0.4 K/mcL (0.6-4.6) L 09/18/18 20:29 Nucleated RBCs/100 WBC 0.9 /100 WBC (0) H 09/18/18 20:29 Platelet Estimate Slight Decrease (Normal) L 09/18/18 20:29 Hypochromasia Present (Not Present) A 09/18/18 20:29 ABG pH 7.27 pH Units (7.32-7.45) L D 09/19/18 04:52 ABG pCO2 94 mmHg (35-45) H* D 09/19/18 04:52 ABG pO2 63 mmHg (85-104) L 09/19/18 04:52 ABG HCO3 43 mEq/L (21-27) H 09/19/18 04:52 ABG Total CO2 46 mEq/L (20-26) H 09/19/18 04:52 ABG O2 Saturation 86 % (95-98) L 09/19/18 04:52 ABG Base Excess 13 mEq/L (-2 to 3) H 09/19/18 04:52 Potassium 5.3 mEq/L (3.5-5.1) H 09/18/18 20: Carbon Dioxide 38 mEq/L (23-29) H 09/18/18 20:29 BUN 45 mg/dL (8-23) H 09/18/18 20:29 Creatinine 1.27 mg/dL (0.60-1.20) H 09/18/18 20:29 Est GFR ( Amer) 49 (> 60) L 09/18/18 20:29 Est GFR (Non-Af Amer) 40 (> 60) L 09/18/18 20:29 BUN/Creatinine Ratio 35 (6-26) H 09/18/18 20:29 Glucose 110 mg/dL (70-105) H 09/18/18 20:29 Calculated Osmolality 308 (280-300) H 09/18/18 20:29 B-Natriuretic Peptide 576 pg/mL (Less than 100) H 09/18/18 20:29 Urine Clarity Cloudy (Clear) A 09/18/18 20:22 Urine Protein >=1000 mg/dL (Neg-Trace) H 09/18/18 20:22 Urine Blood Small (Negative) H 09/18/18 20:22 Ur Leukocyte Esterase Trace (Negative) H 09/18/18 20:22 Urine Microscopic RBC 3-5 per hpf (0-3) H 09/18/18 20:22 Urine Microscopic WBC 15-30 per hpf (0-3) H 09/18/18 20:22 Ur Squamous Epith Cells Many per lpf (None-Few) H 09/18/18 20:22 Hyaline Casts Moderate per lpf (None-Few) H 09/18/18 20:22 Ur Culture Indicated? NO. (NO) A 09/18/18 20:22 - Diagnostic Findings Chest x-ray: report reviewed, image reviewed - Clinical Findings Intake & Output: Intake & Output 09/18/18 09/19/18 09/19/18 23:59 07:59 15:59 Weight 124.284 kg 120.7 kg Consult Discharge Plan - Plan Referrals: Goran Hicks MD [Primary Care Provider] -
[2018-09-19] MEDS: ALPRAZolam 0.25 MG TABLET PO PRN ×2 (13:30→20:02)
[2018-09-19 13:47] LABS: Basophils % 0.8 %; Eosinophils # 0.1 K/mcL (0.0-0.6); Hematocrit 33.2 % (35.3-44.9); Hemoglobin 9.8 g/dL (11.5-15.4); Immature Granulocytes % 0.4 % (0-4); Lymphocytes # 0.5 K/mcL (0.6-4.6); Lymphocytes % 9.8 %; Mean Corpuscular HGB Conc 29.5 g/dL (31.6-35.5); Mean Corpuscular Hemoglobin 30.7 pg (28.0-33.3); Mean Corpuscular Volume 104.1 fL (83.0-100.0); Mean Platelet Volume 10.8 fL (9.4-12.4); Monocytes # 0.6 K/mcL (0.0-1.3); Monocytes % 11.5 %; Neutrophils # 3.9 K/mcL (1.6-8.9); Nucleated Red Blood Cells 1.2 /100 WBC (0); Platelet Count 137 K/mcL (140-400); Red Blood Count 3.19 M/mcL (3.82-4.97); Red Cell Distribution Width 14.9 % (11.5-14.5); Segmented Neutrophils % 76.5 %
[2018-09-19 14:06] LABS: Albumin 3.3 g/dL (3.5-5.7); Albumin/Globulin Ratio 1.1 (1.1-2.2); Bilirubin,Total 0.5 mg/dL (0.3-1.0); Calcium 8.7 mg/dL (8.6-10.3); Magnesium 2.3 mg/dL (1.6-2.6); Potassium 5.4 mEq/L (3.5-5.1); Total Protein 6.3 g/dL (6.4-8.9)
[2018-09-19 14:21] LABS: Thyroid Stimulating Hormone 16.618 mcIU/mL (0.340-5.600)
[2018-09-20] MEDS: Ipratropium/Albuterol Neb 3 ML IH SCH ×6 (00:06→19:37)
[2018-09-20] MEDS: Piperacillin/Tazobactam 3.375 GM in 0.9 % Sodium Chloride Mini Bag 100 ML IVPB SCH ×3 (00:22→15:18)
[2018-09-20] MEDS: Nystatin POWDER 30 GM BOTTLE TP SCH ×4 (00:22→22:03)
[2018-09-20 05:45] LABS: Calcium 8.5 mg/dL (8.6-10.3); Magnesium 2.2 mg/dL (1.6-2.6); Potassium 5.2 mEq/L (3.5-5.1)
[2018-09-20] MEDS: Doxycycline 100 MG in 0.9 % Sodium Chloride Mini Bag 100 ML IVPB SCH (06:02)
[2018-09-20] MEDS: *HR* Heparin 5,000 UNIT/ML VIAL SQ SCH ×3 (06:03→22:02)
[2018-09-20] MEDS: Budesonide/Formoterol 160/4.5 1 PUFF INH IH SCH ×2 (07:35→19:37)
[2018-09-20] MEDS: Insulin LISPRO 300 UNITS/3 ML VIAL SQ SCH ×3 (09:47→16:58)
[2018-09-20] MEDS: Furosemide 20 MG/2 ML VIAL IVP SCH ×2 (10:51→17:45)
[2018-09-20] MEDS: Isosorbide MONOnitrate (24 HR) 30 MG TAB.ER.24H PO SCH (10:51)
[2018-09-20] MEDS: Aspirin Enteric Coated 81 MG Tablet PO SCH (10:52)
[2018-09-20] MEDS: FLUoxetine 20 MG CAPSULE PO SCH ×2 (10:52→22:02)
--- NOTE | 2018-09-20 17:56 | Internal Med Progress Note ---
Hospitalist Progress Note - Encounter Date of Encounter: 09/20/18 Time of Encounter: 17:53 - Subjective Interval History: Pt states " I am lucid". She states she does not respond to questions quickly. She appears to be hallucinating. She reported Putin, [employer] and [employer] came to the hospital 09/19/18. She also stated someone had next door. Nurses denies any patient passing away next door. She otherwise denies, fever, chills, N/V, constipation, or diarrhea, chest pain or SOB. - Exam Vitals: Temp Pulse Resp BP Pulse Ox 98.2 F 84 16 147/82 89 09/20/18 16:13 09/20/18 16:13 09/20/18 16:13 09/20/18 16:13 09/20/18 16:13 Exam: Exam: General: Alert and oriented Skin: Normal color, no rash, no lesions. HEENT: EOM, pupils equal, round and reactive. Cardiovascular: Normal S1 & S2, no rubs, murmurs or gallops. No JVD. Pulse regular. Lungs: Positive conversational dyspnea and decreased breath sounds B/L, no wheezes or crackles. Abdomen: Soft, non-tender, no rigidity. Extremities: No deformity, no edema or tenderness, no joint swelling or clubbing. Neurological: Normal cognition and motor skills. Pulses: Carotid and radial pulses normal +2. - Assessment and Plan (1) Acute respiratory failure with hypoxia and hypercapnia Current Visit: No Status: Resolved Assessment and Plan: Acute hypoxic hypercapnic respiratory failure in the setting of history of severe COPD and evidence of volume overload. Initial ABG: PH 7.41, PCO2 127, PO2 53, bicarbonate 43. Previous PCO2 has been in the 30s and 40s. - Patient has evidence of moderate pulmonary hypertension on echo from early August. - Continue with BiPAP at bedtime and PRN. - Patient received Lasix in the ED. Will continue with lasix 40 mg IV BID. - Will continue scheduled DuoNeb's for now. - Pulmonary consulting. (2) Obesity hypoventilation syndrome Current Visit: No Status: Suspected Assessment and Plan: Pt will need evaluation/qualified for BiPAP prior to discharge. (3) CHF exacerbation Current Visit: Yes Status: Acute Assessment and Plan: acute on chronic diastolic CHF. Patient presents with dyspnea with concern for fluid overload in the setting of lower extremity edema. Chest x-ray findings shows cardiomegaly with pulmonary vascular congestion. RVSP on echo 42 mmHg. Bilateral pleural effusions on chest x ray. Had an elevated BNP over 500. Patient had a recent echo performed in August which showed a EF of 60-65% with mild concentric left ventricular hypertrophy and diastolic dysfunction. -Strict I's and O's and daily weights -Lasix 40 mg IV push BID - (4) Shortness of breath Current Visit: Yes Status: Acute Assessment and Plan: Patient presents with shortness of breath over the past 2 days likely secondary to fluid overload/CHF exacerbation. On Lasix 40 mg IV BID. Strict I and O's and daily weights Chest x ray XR/XR chest 1V portable IMPRESSION: Cardiomegaly with pulmonary vascular congestion. Bilateral pleural effusions and dense airspace opacification is new in the right lower lung zone. Pattern may represent asymmetric edema. Underlying atelectasis or pneumonia can not be excluded. (5) Pleural effusion Current Visit: Yes Status: Acute Assessment and Plan: Bilateral pleural effusions on chest x-ray likely secondary to CHF exacerbation. We will treat for CHF and reassess. (6) COPD (chronic obstructive pulmonary disease) Current Visit: Yes Status: Acute Assessment and Plan: Patient has a history of COPD. Unclear if there is an acute exacerbation in addition to patient's CHF. We continue with scheduled DuoNeb's for now as well as Symbicort . (7) Cellulitis Current Visit: Yes Status: Acute Assessment and Plan: on Cefdinir (8) Chronic respiratory failure Current Visit: Yes Status: Acute Assessment and Plan: on 2L NC 09/03 (9) CKD (chronic kidney disease) stage 3, GFR 30-59 ml/min Current Visit: No Status: Chronic Assessment and Plan: Will monitor BMP (10) Hallucination Current Visit: Yes Status: Acute Assessment and Plan: No documented history of psych problems and pt is not on psych medication. Unclear of history of underlying dementia. Pt lives alone. (11) Type II diabetes mellitus Current Visit: Yes Status: Acute Assessment and Plan: Metformin on hold for now. 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 Pastor is a 82 year old morbidly obese female with a past medical history of hypertension, hyperlipidemia, severe COPD on 2 L nasal cannula at home, and h eart failure with preserved ejection fraction presents with progressive shortness of breath over the past few days. Per report, EMS had been called to her home twice today. The first time for shortness of breath for which she subsequently declined transport. EMS was called and the second time due to concern for UTI. Patient apparently has been reusing her depends, by letting him dry out and then reusing them again. On arrival the patient was afebrile mildly hypertensive in normal sinus rhythm. Initially requiring 2 L nasal cannula maintaining O2 saturations at 92%. However her respiratory status began to decline over the next hour requiring increasing levels of oxygen, subsequently dropping to 84%. Patient was placed on BiPAP. An ABG was performed which showed hypoxia (PO2 53) and significant hypercapnia with a PCO2 of 127. Chest x-ray was obtained which showed cardiomegaly with pulmonary vascular congestion and bilateral pleural effusions. Laboratory workup was notable for a normal WBC, mild hyperkalemia and mildly elevated creatinine which appears to be at her baseline. Lactic acid was within normal limits as well as troponin. Her BNP was found to be elevated at 576. UA was unremarkable. - Time Spent with Patient Total time spent is greater than 50% in coordination of care (as documented) at patient's floor/unit and/or counseling patient: less than 15 minutes Plan of Care Discussed with: patient Internal Medicine: Result - Labs CBC & Chem 7: 09/19/18 13:16 09/20/18 04:56 Labs: BMP 09/20/18 04:56 Sodium 141 Potassium 5.2 H Chloride 97 L Carbon Dioxide 38 H BUN 49 H Creatinine 1.70 H Glucose 65 L Calcium 8.5 L - ABG Interpretation ABG results: ABG ABG pH 7.27 pH Units (7.32-7.45) L D 09/19/18 04:52 ABG pCO2 94 mmHg (35-45) H* D 09/19/18 04:52 ABG pO2 63 mmHg (85-104) L 09/19/18 04:52 ABG O2 Saturation 86 % (95-98) L 09/19/18 04:52 PT/INR, D-dimer PT 11.0 Seconds (9.4-12.1) 09/19/18 13:16 Consult Discharge Plan - Plan Referrals: Goran Hicks MD [Primary Care Provider] - (3) CHF exacerbation Qualifiers: Heart failure type: diastolic Qualified Code(s): I50.33 - Acute on chronic diastolic (congestive) heart failure (6) COPD (chronic obstructive pulmonary disease) Qualifiers: Emphysema type: unspecified Qualified Code(s): J43.9 - Emphysema, unspecified
[2018-09-20] MEDS: Cefdinir 300 MG CAPSULE PO SCH (22:02)
[2018-09-20 23:14] LABS: ABG Base Excess 17 mEq/L (-2 to 3); ABG HCO3 46 mEq/L (21-27); ABG Oxygen Saturation 91 % (95-98); ABG PCO2 87 mmHg (35-45); ABG PH 7.33 pH Units (7.32-7.45); ABG PO2 71 mmHg (85-104); ABG TCO2 49 mEq/L (20-26)
[2018-09-21] MEDS: Ipratropium/Albuterol Neb 3 ML IH SCH ×6 (00:16→19:48)
[2018-09-21] MEDS: *HR* Heparin 5,000 UNIT/ML VIAL SQ SCH ×3 (05:36→21:29)
[2018-09-21] MEDS: Budesonide/Formoterol 160/4.5 1 PUFF INH IH SCH ×3 (07:26→19:55)
[2018-09-21] MEDS: FLUoxetine 20 MG CAPSULE PO SCH ×2 (08:23→21:30)
[2018-09-21] MEDS: Furosemide 20 MG/2 ML VIAL IVP SCH (08:27)
[2018-09-21] MEDS: Aspirin Enteric Coated 81 MG Tablet PO SCH (08:27)
[2018-09-21] MEDS: Isosorbide MONOnitrate (24 HR) 30 MG TAB.ER.24H PO SCH (08:27)
[2018-09-21] MEDS: Insulin LISPRO 300 UNITS/3 ML VIAL SQ SCH ×3 (08:29→16:55)
[2018-09-21] MEDS: Cefdinir 300 MG CAPSULE PO SCH ×2 (08:40→21:29)
--- NOTE | 2018-09-21 12:20 | Internal Med Progress Note ---
Hospitalist Progress Note - Encounter Date of Encounter: 09/21/18 Time of Encounter: 12:20 - Subjective Interval History: Pt tearful when informed she ma be confused/hallucinating due to high CO2 levels. She insists someone had next door 09/19/18. Nurses deny any patient passing away next door. She otherwise denies, fever, chills, N/V, constipation, or diarrhea, or chest pain. She does appear to have conversational dyspnea but SOB slowly improving. - Exam Vitals: Temp Pulse Resp BP Pulse Ox 97.5 F L 73 16 106/72 95 09/21/18 11:24 09/21/18 11:24 09/21/18 11:24 09/21/18 11:24 09/21/18 11:24 Exam: Exam: General: Alert and oriented, morbidly obese. Skin: Normal color, no rash, no lesions. HEENT: EOM, pupils equal, round and reactive. Cardiovascular: Normal S1 & S2, no rubs, murmurs or gallops. No JVD. Pulse regular. Lungs: Positive conversational dyspnea and decreased breath sounds B/L. HEart sounds also distant due to body habitus. No wheezes or crackles. Abdomen: Soft, non-tender, no rigidity. Umbilical and ventral hernia. Extremities: No deformity, no edema or tenderness, no joint swelling or clubbing. Neurological: Normal cognition and motor skills. Pulses: Carotid and radial pulses normal +2. - Assessment and Plan (1) Acute respiratory failure with hypoxia and hypercapnia Current Visit: No Status: Resolved Assessment and Plan: Acute hypoxic hypercapnic respiratory failure in the setting of history of severe COPD and evidence of volume overload. Initial ABG: PH 7.41, PCO2 127, PO2 53, bicarbonate 43. Previous PCO2 has been in the 30s and 40s. - Patient has evidence of moderate pulmonary hypertension on echo from early August. - Continue with BiPAP at bedtime and PRN. Pt refusing to stay on BiPAP. - Patient received Lasix in the ED. Will continue with lasix 40 mg IV BID but will hold 09/21/18 due to Cr trending up. - Will continue scheduled DuoNeb's for now. - Pulmonary consulting and recommends qualify pt for BiPAP. - Will obtain night time pulse oximetry (2) Obesity hypoventilation syndrome Current Visit: No Status: Suspected Assessment and Plan: Pt will need evaluation/qualified for BiPAP prior to discharge as stated above. (3) CHF exacerbation Current Visit: Yes Status: Acute Assessment and Plan: acute on chronic diastolic CHF. Patient presents with dyspnea with concern for fluid overload in the setting of lower extremity edema. Chest x-ray findings shows cardiomegaly with pulmonary vascular congestion. RVSP on echo 42 mmHg. Bilateral pleural effusions on chest x ray. Had an elevated BNP over 500. Patient had a recent echo performed in August which showed a EF of 60-65% with mild concentric left ventricular hypertrophy and diastolic dysfunction. - Strict I's and O's and daily weights - Lasix 40 mg IV push BID but will hold 09/21/18 due to Cr trending up. - Will recheck Cr in am. - (4) Shortness of breath Current Visit: Yes Status: Acute Assessment and Plan: Patient presents with shortness of breath over the past 2 days likely secondary to fluid overload/CHF exacerbation. On Lasix 40 mg IV BID but will hold 09/21/18 due to Cr trending up. Strict I and O's and daily weights Chest x ray XR/XR chest 1V portable IMPRESSION: Cardiomegaly with pulmonary vascular congestion. Bilateral pleural effusions and dense airspace opacification is new in the right lower lung zone. Pattern may represent asymmetric edema. Underlying atelectasis or pneumonia can not be excluded. (5) Pleural effusion Current Visit: Yes Status: Acute Assessment and Plan: Bilateral pleural effusions on chest x-ray likely secondary to CHF exacerbation. We will treat for CHF and reassess. (6) COPD (chronic obstructive pulmonary disease) Current Visit: Yes Status: Acute Assessment and Plan: Patient has a history of COPD. Unclear if there is an acute exacerbation in addition to patient's CHF. We continue with scheduled DuoNeb's for now as well as Symbicort. Will add prednisone taper short course. (7) Cellulitis Current Visit: Yes Status: Acute Assessment and Plan: on Cefdinir (8) Chronic respiratory failure Current Visit: Yes Status: Acute Assessment and Plan: on 2L NC 09/03 (9) CKD (chronic kidney disease) stage 3, GFR 30-59 ml/min Current Visit: No Status: Chronic Assessment and Plan: Will monitor BMP (10) Hallucination Current Visit: Yes Status: Acute Assessment and Plan: No documented history of psych problems and pt is not on psych medication. Unclear of history of underlying dementia. Pt lives alone. Discussed with social work and will likely attempt to reach pt's son. (11) Type II diabetes mellitus Current Visit: Yes Status: Acute Assessment and Plan: Metformin on hold for now. SSI and basal insulin (12) Suspected sleep apnea Current Visit: No Status: Suspected Assessment and Plan: Recommending out pt sleep study. Pt not tolerating BiPAP mask in hospital but if insurance allows, she may be a candidate for nasal pillow. 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 Per report, EMS had been called to her home twice today. The first time for shortness of breath for which she subsequently declined transport. EMS was called and the second time due to concern for UTI. Patient apparently has been reusing her depends, by letting him dry out and then reusing them again. On arrival the patient was afebrile mildly hypertensive in normal sinus rhythm. Initially requiring 2 L nasal cannula maintaining O2 saturations at 92%. However her respiratory status began to decline over the next hour requiring increasing levels of oxygen, subsequently dropping to 84%. Patient was placed on BiPAP. An ABG was performed which showed hypoxia (PO2 53) and significant hypercapnia with a PCO2 of 127. Chest x-ray was obtained which showed cardiomegaly with pulmonary vascular congestion and bilateral pleural effusions. Laboratory workup was notable for a normal WBC, mild hyperkalemia and mildly elevated creatinine which appears to be at her baseline. Lactic acid was within normal limits as well as troponin. Her BNP was found to be elevated at 576. UA was unremarkable. - Time Spent with Patient Total time spent is greater than 50% in coordination of care (as documented) at patient's floor/unit and/or counseling patient: less than 15 minutes Plan of Care Discussed with: patient Internal Medicine: Result - Labs CBC & Chem 7: 09/19/18 13:16 09/20/18 04:56 - ABG Interpretation ABG results: ABG ABG pH 7.33 pH Units (7.32-7.45) 09/20/18 23:06 ABG pCO2 87 mmHg (35-45) H* 09/20/18 23:06 ABG pO2 71 mmHg (85-104) L 09/20/18 23:06 ABG O2 Saturation 91 % (95-98) L 09/20/18 23:06 PT/INR, D-dimer PT 11.0 Seconds (9.4-12.1) 09/19/18 13:16 Consult Discharge Plan - Plan Referrals: Goran Hicks MD [Primary Care Provider] - Norbert Calixto MD [Partnered Physician] - 10/06/18 10:00 am (3) CHF exacerbation Qualifiers: Heart failure type: diastolic Qualified Code(s): I50.33 - Acute on chronic diastolic (congestive) heart failure (6) COPD (chronic obstructive pulmonary disease) Qualifiers: Emphysema type: unspecified Qualified Code(s): J43.9 - Emphysema, unspecified
[2018-09-21] MEDS: Nystatin POWDER 30 GM BOTTLE TP SCH ×3 (12:59→21:30)
[2018-09-21 17:56] LABS: Basophils % 0.4 %; Eosinophils # 0.6 K/mcL (0.0-0.6); Eosinophils % 8.8 %; Hematocrit 31.7 % (35.3-44.9); Hemoglobin 9.6 g/dL (11.5-15.4); Immature Granulocytes % 0.7 % (0-4); Lymphocytes # 0.6 K/mcL (0.6-4.6); Lymphocytes % 8.8 %; Mean Corpuscular HGB Conc 30.3 g/dL (31.6-35.5); Mean Corpuscular Volume 99.1 fL (83.0-100.0); Mean Platelet Volume 11.1 fL (9.4-12.4); Monocytes # 0.8 K/mcL (0.0-1.3); Monocytes % 11.3 %; Neutrophils # 4.7 K/mcL (1.6-8.9); Platelet Count 134 K/mcL (140-400); Red Cell Distribution Width 15.3 % (11.5-14.5)
[2018-09-21 18:09] LABS: Calcium 8.4 mg/dL (8.6-10.3); Potassium 4.9 mEq/L (3.5-5.1)
[2018-09-21] MEDS: ALPRAZolam 0.25 MG TABLET PO PRN (21:30)
--- NOTE | 2018-09-21 23:01 | Electrocardiograph Report ---
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
[2018-09-22] MEDS: Ipratropium/Albuterol Neb 3 ML IH SCH ×6 (00:21→20:16)
[2018-09-22] MEDS: *HR* Heparin 5,000 UNIT/ML VIAL SQ SCH ×3 (05:13→21:20)
[2018-09-22 05:58] LABS: Basophils % 0.3 %; Eosinophils # 0.9 K/mcL (0.0-0.6); Eosinophils % 13.6 %; Hematocrit 31.1 % (35.3-44.9); Hemoglobin 9.5 g/dL (11.5-15.4); Immature Granulocytes % 0.5 % (0-4); Lymphocytes # 0.6 K/mcL (0.6-4.6); Lymphocytes % 10.1 %; Mean Corpuscular HGB Conc 30.5 g/dL (31.6-35.5); Mean Corpuscular Hemoglobin 30.4 pg (28.0-33.3); Mean Corpuscular Volume 99.7 fL (83.0-100.0); Mean Platelet Volume 10.9 fL (9.4-12.4); Monocytes # 0.7 K/mcL (0.0-1.3); Monocytes % 11.7 %; Platelet Count 129 K/mcL (140-400); Red Blood Count 3.12 M/mcL (3.82-4.97); Red Cell Distribution Width 15.4 % (11.5-14.5); Segmented Neutrophils % 63.8 %
[2018-09-22 06:19] LABS: Calcium 8.2 mg/dL (8.6-10.3); Potassium 4.8 mEq/L (3.5-5.1)
[2018-09-22] MEDS: Budesonide/Formoterol 160/4.5 1 PUFF INH IH SCH ×2 (07:41→20:16)
[2018-09-22] MEDS: Insulin LISPRO 300 UNITS/3 ML VIAL SQ SCH ×3 (07:48→16:55)
[2018-09-22] MEDS: Aspirin Enteric Coated 81 MG Tablet PO SCH (10:12)
[2018-09-22] MEDS: Isosorbide MONOnitrate (24 HR) 30 MG TAB.ER.24H PO SCH (10:12)
[2018-09-22] MEDS: FLUoxetine 20 MG CAPSULE PO SCH ×2 (10:12→21:20)
[2018-09-22] MEDS: Nystatin POWDER 30 GM BOTTLE TP SCH ×3 (10:13→21:21)
[2018-09-22] MEDS: Cefdinir 300 MG CAPSULE PO SCH (10:14)
--- NOTE | 2018-09-22 17:04 | Internal Med Progress Note ---
Hospitalist Progress Note - Encounter Date of Encounter: 09/22/18 Time of Encounter: 17:03 - Subjective Interval History: Pt tearful when informed she may be confused/hallucinating due to high CO2 levels. She insists someone had next door 09/19/18. Nurses deny any patient passing away next door. Pt is now agreeable to using BiPAP machine. She otherwise denies, fever, chills, N/V, constipation, or diarrhea, or chest pain. She does appear to have conversational dyspnea but SOB slowly improving. - Exam Vitals: Temp Pulse Resp BP Pulse Ox 98.2 F 79 18 128/76 93 09/22/18 04:38 09/22/18 16:16 09/22/18 15:25 09/22/18 16:16 09/22/18 16:16 Exam: Exam: General: Alert and oriented, morbidly obese. Skin: Normal color, no rash, no lesions. HEENT: EOM, pupils equal, round and reactive. Cardiovascular: Normal S1 & S2, no rubs, murmurs or gallops. No JVD. Pulse regular. Lungs: Positive conversational dyspnea and decreased breath sounds B/L. HEart sounds also distant due to body habitus. No wheezes or crackles. Abdomen: Soft, non-tender, no rigidity. Umbilical and ventral hernia. Extremities: No deformity, no edema or tenderness, no joint swelling or clubb ing. Neurological: Normal cognition and motor skills. Pulses: Carotid and radial pulses normal +2. - Assessment and Plan (1) Obesity hypoventilation syndrome Current Visit: No Status: Suspected Assessment and Plan: Pt was qualified for BiPAP prior to discharge. (2) COPD exacerbation Current Visit: No Status: Acute Assessment and Plan: Patient has a history of COPD. We continue with scheduled DuoNeb's for now as well as Symbicort. Will add prednisone taper short course. (3) CHF exacerbation Current Visit: Yes Status: Acute Assessment and Plan: Acute on chronic diastolic CHF. Patient presents with dyspnea with concern for fluid overload in the setting of lower extremity edema. Chest x-ray findings showeed cardiomegaly with pulmonary vascular congestion. RVSP on echo 42 mmHg. Bilateral pleural effusions on chest x ray. Had an elevated BNP over 500. Patient had a recent echo performed in August which showed a EF of 60-65% with mild concentric left ventricular hypertrophy and diastolic dysfunction. - Strict I's and O's and daily weights - Lasix 40 mg IV push BID but held 09/21/18 due to Cr trending up. - Repeat chest x ray shows stable small bilateral pleural effusions and bibasilar opacities. - Will check chest CT to further assess. (4) Shortness of breath Current Visit: Yes Status: Acute Assessment and Plan: Multifactorial due to body habitus, COPD, ?sleep apnea, and volume overload. Shortness of breath over the past 2 days likely worsened fluid overload/CHF ex acerbation. On Lasix 40 mg IV BID but will hold 09/21/18 due to Cr trending up. will reassess Cr in am. Strict I and O's and daily weights Chest x ray XR/XR chest 1V portable IMPRESSION: Cardiomegaly with pulmonary vascular congestion. Bilateral pleural effusions and dense airspace opacification is new in the right lower lung zone. Pattern may represent asymmetric edema. Underlying atelectasis or pneumonia can not be excluded. (5) Pleural effusion Current Visit: Yes Status: Acute Assessment and Plan: Bilateral pleural effusions on chest x-ray likely secondary to CHF exacerbation. Will continue to treat for CHF and COPD (6) Cellulitis Current Visit: Yes Status: Acute Assessment and Plan: on Cefdinir (7) Chronic respiratory failure Current Visit: Yes Status: Acute Assessment and Plan: on 2L NC 09/03 (8) CKD (chronic kidney disease) stage 3, GFR 30-59 ml/min Current Visit: No Status: Chronic Assessment and Plan: Will monitor BMP (9) Hallucination Current Visit: Yes Status: Acute Assessment and Plan: No documented history of psych problems and pt is not on psych medication. Unclear of history of underlying dementia. Pt lives alone but does have self pay personal caregiver. Pt states she does not communicate much with her son. States after he left [employer] unexpectedly, he resorted to heavy ETOH use. (10) Type II diabetes mellitus Current Visit: Yes Status: Acute Assessment and Plan: Metformin on hold for now. SSI and basal insulin (11) Suspected sleep apnea Current Visit: No Status: Suspected Assessment and Plan: Recommending out pt sleep study. Pt now agreeable to using BiPAP in hospital. Qualified for home BiPAP. If insurance allows, she may benefit from consideration for nasal pillow. 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 Per report, EMS had been called to her home twice today. The first time for shortness of breath for which she subsequently declined transport. EMS was called and the second time due to concern for UTI. Patient apparently has been reusing her depends, by letting him dry out and then reusing them again. On arrival the patient was afebrile mildly hypertensive in normal sinus rhythm. Initially requiring 2 L nasal cannula maintaining O2 saturations at 92%. However her respiratory status began to decline over the next hour requiring increasing levels of oxygen, subsequently dropping to 84%. Patient was placed on BiPAP. An ABG was performed which showed hypoxia (PO2 53) and significant hypercapnia with a PCO2 of 127. Chest x-ray was obtained which showed cardiomegaly with pulmonary vascular congestion and bilateral pleural effusions. Laboratory workup was notable for a normal WBC, mild hyperkalemia and mildly elevated creatinine which appears to be at her baseline. Lactic acid was within normal limits as well as troponin. Her BNP was found to be elevated at 576. UA was unremarkable. - Time Spent with Patient Total time spent is greater than 50% in coordination of care (as documented) at patient's floor/unit and/or counseling patient: less than 15 minutes Plan of Care Discussed with: patient Internal Medicine: Result - Labs CBC & Chem 7: 09/22/18 04:54 09/22/18 04:54 Labs: Short CBC 09/21/18 09/22/18 Range/Units 17:28 04:54 WBC 6.7 6.3 (4.3-11.1) K/mcL Hgb 9.6 L 9.5 L (11.5-15.4) g/dL Hct 31.7 L 31.1 L (35.3-44.9) % Plt Count 134 L 129 L (140-400) K/mcL Neutrophils # 4.7 4.0 (1.6-8.9) K/mcL BMP 09/21/18 09/22/18 17:28 04:54 Sodium 139 142 Potassium 4.9 4.8 Chloride 92 L 94 L Carbon Dioxide 40 H* 40 H* BUN 56 H 55 H Creatinine 2.01 H 2.12 H Glucose 121 H 88 Calcium 8.4 L 8.2 L - ABG Interpretation ABG results: ABG ABG pH 7.33 pH Units (7.32-7.45) 09/20/18 23:06 ABG pCO2 87 mmHg (35-45) H* 09/20/18 23:06 ABG pO2 71 mmHg (85-104) L 09/20/18 23:06 ABG O2 Saturation 91 % (95-98) L 09/20/18 23:06 PT/INR, D-dimer PT 11.0 Seconds (9.4-12.1) 09/19/18 13:16 - Impressions Impressions Chest X-Ray 09/22/18 12:39 IMPRESSION: Stable small bilateral pleural effusions and bibasilar opacities, likely combination of atelectasis and pulmonary edema. Pneumonia remains an important differential consideration. D/ / Trevor Monroe MD / Trevor Monroe MD Interpreting Provider: Trevor Monroe MD Consult Discharge Plan - Plan Referrals: Goran Hicks MD [Primary Care Provider] - Norbert Calixto MD [Partnered Physician] - 10/06/18 10:00 am (3) CHF exacerbation Qualifiers: Heart failure type: diastolic Qualified Code(s): I50.33 - Acute on chronic diastolic (congestive) heart failure
[2018-09-23] MEDS: Ipratropium/Albuterol Neb 3 ML IH SCH ×7 (00:26→23:37)
[2018-09-23 04:32] LABS: Basophils % 0.4 %; Eosinophils # 0.8 K/mcL (0.0-0.6); Hematocrit 33.3 % (35.3-44.9); Hemoglobin 9.7 g/dL (11.5-15.4); Immature Granulocytes % 0.4 % (0-4); Lymphocytes # 0.5 K/mcL (0.6-4.6); Lymphocytes % 10.2 %; Mean Corpuscular HGB Conc 29.1 g/dL (31.6-35.5); Mean Corpuscular Hemoglobin 30.1 pg (28.0-33.3); Mean Corpuscular Volume 103.4 fL (83.0-100.0); Mean Platelet Volume 11.1 fL (9.4-12.4); Monocytes # 0.6 K/mcL (0.0-1.3); Monocytes % 12.5 %; Neutrophils # 2.8 K/mcL (1.6-8.9); Platelet Count 117 K/mcL (140-400); Red Blood Count 3.22 M/mcL (3.82-4.97); Red Cell Distribution Width 15.3 % (11.5-14.5); Segmented Neutrophils % 59.5 %
[2018-09-23 04:50] LABS: Calcium 8.1 mg/dL (8.6-10.3); Potassium 5.1 mEq/L (3.5-5.1)
[2018-09-23] MEDS: *HR* Heparin 5,000 UNIT/ML VIAL SQ SCH ×3 (06:08→20:54)
[2018-09-23] MEDS: Insulin LISPRO 300 UNITS/3 ML VIAL SQ SCH ×3 (07:36→17:25)
[2018-09-23] MEDS: Aspirin Enteric Coated 81 MG Tablet PO SCH (07:43)
[2018-09-23] MEDS: Isosorbide MONOnitrate (24 HR) 30 MG TAB.ER.24H PO SCH (07:44)
[2018-09-23] MEDS: FLUoxetine 20 MG CAPSULE PO SCH ×2 (07:44→20:53)
[2018-09-23] MEDS: Cefdinir 300 MG CAPSULE PO SCH ×2 (07:47→20:53)
[2018-09-23] MEDS: Budesonide/Formoterol 160/4.5 1 PUFF INH IH SCH ×2 (08:09→19:37)
[2018-09-23] MEDS: Nystatin POWDER 30 GM BOTTLE TP SCH ×3 (09:33→20:54)
--- NOTE | 2018-09-23 13:04 | Internal Med Progress Note ---
Hospitalist Progress Note - Encounter Date of Encounter: 09/23/18 Time of Encounter: 13:02 - Subjective Interval History: Pt is now agreeable to using BiPAP machine. She otherwise denies, fever, chills, N/V, constipation, or diarrhea, or chest pain. She conversational dyspnea improving and SOB slowly improving. - Exam Vitals: Temp Pulse Resp BP Pulse Ox 98.2 F 67 18 149/75 94 09/23/18 06:29 09/23/18 06:29 09/23/18 11:08 09/23/18 11:08 09/23/18 11:08 Exam: Exam: General: Alert and oriented, morbidly obese. Skin: Normal color, no rash, no lesions. HEENT: EOM, pupils equal, round and reactive. Cardiovascular: Normal S1 & S2, no rubs, murmurs or gallops. No JVD. Pulse regular. Lungs: Positive conversational dyspnea and decreased breath sounds B/L. HEart sounds also distant due to body habitus. No wheezes or crackles. Abdomen: Soft, non-tender, no rigidity. Umbilical and ventral hernia. Extremities: No deformity, no edema or tenderness, no joint swelling or clubbing. Neurological: Normal cognition and motor skills. Pulses: Carotid and radial pulses normal +2. - Assessment and Plan (1) Obesity hypoventilation syndrome Current Visit: No Status: Suspected Assessment and Plan: Pt was qualified for BiPAP prior to discharge. (2) COPD exacerbation Current Visit: No Status: Acute Assessment and Plan: Patient has a history of COPD. We continue with scheduled DuoNeb's for now as well as Symbicort. Added prednisone taper short course. (3) CHF exacerbation Current Visit: Yes Status: Acute Assessment and Plan: Acute on chronic diastolic CHF. Patient presents with dyspnea with concern for fluid overload in the setting of lower extremity edema. Chest x-ray findings showed cardiomegaly with pulmonary vascular congestion. RVSP on echo 42 mmHg. Bilateral pleural effusions on chest x ray. Had an elevated BNP over 500. Patient had a recent echo performed in August which showed a EF of 60-65% with mild concentric left ventricular hypertrophy and diastolic dysfunction. - Strict I's and O's and daily weights - Lasix 40 mg IV push BID but held 09/21/18 due to Cr trending up. - Repeat chest x ray shows stable small bilateral pleural effusions and bibasilar opacities. Will give trial of bumex 1 mg IV BID today. If Cr level continues to worsen, will consider nephrology consult due to -Chest CT shows CT/CT chest wo con IMPRESSION: Redemonstration of bilateral pleural effusions, mainly loculated on the right and layering on the left, which are mildly increased in size when compared to the previous exam. Interlobular septal thickening with hazy ground-glass opacity within both lungs, which suggests probable pulmonary edema. More focal patchy opacity is again identified at the right lung base, atelectasis versus pneumonia/aspiration, similar to decreased when compared to the previous exam. (4) Shortness of breath Current Visit: Yes Status: Acute Assessment and Plan: Multifactorial due to body habitus, COPD, ?sleep apnea, and volume overload. Shortness of breath over the past 2 days likely worsened fluid overload/CHF exacerbation. On Lasix 40 mg IV BID but will hold 09/21/18 due to Cr trending up. Will try pt on umex Will reassess Cr in am. Strict I and O's and daily weights Chest x ray XR/XR chest 1V portable IMPRESSION: Cardiomegaly with pulmonary vascular congestion. Bilateral pleural effusions and dense airspace opacification is new in the right lower lung zone. Pattern may represent asymmetric edema. Underlying atelectasis or pneumonia can not be excluded. (5) Pleural effusion Current Visit: Yes Status: Acute Assessment and Plan: Bilateral pleural effusions on chest x-ray likely secondary to CHF exacerbation. Will continue to treat for CHF and COPD (6) Cellulitis Current Visit: Yes Status: Acute Assessment and Plan: on Cefdinir (7) Chronic respiratory failure Current Visit: Yes Status: Acute Assessment and Plan: on 2L NC 09/03 (8) CKD (chronic kidney disease) stage 3, GFR 30-59 ml/min Current Visit: No Status: Chronic Assessment and Plan: Will monitor BMP (9) Hallucination Current Visit: Yes Status: Acute Assessment and Plan: Pt denies any recent hallucinations. No documented history of psych problems and pt is not on psych medication. Unclear of history of underlying dementia. Pt lives alone but does have self pay intensive care nurse. Pt states she does not communicate much with her son. States after he left [employer] unexpectedly, he resorted to heavy ETOH use. (10) Type II diabetes mellitus Current Visit: Yes Status: Acute Assessment and Plan: Metformin on hold for now. SSI and basal insulin (11) Suspected sleep apnea Current Visit: No Status: Suspected Assessment and Plan: Recommending out pt sleep study. Pt now agreeable to using BiPAP in hospital. Qualified for home BiPAP. If insurance allows, she may benefit from consideration for nasal pillow. 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 Per report, EMS had been called to her home twice today. The first time for shortness of breath for which she subsequently declined transport. EMS was called and the second time due to concern for UTI. Patient apparently has been reusing her depends, by letting him dry out and then reusing them again. On arrival the patient was afebrile mildly hypertensive in normal sinus rhythm. Initially requiring 2 L nasal cannula maintaining O2 saturations at 92%. However her respiratory status began to decline over the next hour requiring increasing levels of oxygen, subsequently dropping to 84%. Patient was placed on BiPAP. An ABG was performed which showed hypoxia (PO2 53) and significant hypercapnia with a PCO2 of 127. Chest x-ray was obtained which showed cardiomegaly with pulmonary vascular congestion and bilateral pleural effusions. Laboratory workup was notable for a normal WBC, mild hyperkalemia and mildly elevated creatinine which appears to be at her baseline. Lactic acid was within normal limits as well as troponin. Her BNP was found to be elevated at 576. UA was unremarkable. - Time Spent with Patient Total time spent is greater than 50% in coordination of care (as documented) at patient's floor/unit and/or counseling patient: less than 15 minutes Plan of Care Discussed with: patient Internal Medicine: Result - Labs CBC & Chem 7: 09/23/18 04:00 09/23/18 04:00 Labs: Short CBC 09/23/18 Range/Units 04:00 WBC 4.7 (4.3-11.1) K/mcL Hgb 9.7 L (11.5-15.4) g/dL Hct 33.3 L (35.3-44.9) % Plt Count 117 L (140-400) K/mcL Neutrophils # 2.8 (1.6-8.9) K/mcL BMP 09/23/18 04:00 Sodium 145 Potassium 5.1 Chloride 99 Carbon Dioxide 41 H* BUN 46 H Creatinine 1.70 H Glucose 95 Calcium 8.1 L - ABG Interpretation ABG results: ABG ABG pH 7.33 pH Units (7.32-7.45) 09/20/18 23:06 ABG pCO2 87 mmHg (35-45) H* 09/20/18 23:06 ABG pO2 71 mmHg (85-104) L 09/20/18 23:06 ABG O2 Saturation 91 % (95-98) L 09/20/18 23:06 PT/INR, D-dimer PT 11.0 Seconds (9.4-12.1) 09/19/18 13:16 - Impressions Impressions Chest X-Ray 09/22/18 12:39 IMPRESSION: Stable small bilateral pleural effusions and bibasilar opacities, likely combination of atelectasis and pulmonary edema. Pneumonia remains an important differential consideration. D/ / Trevor Monroe MD / Trevor Monroe MD Interpreting Provider: Trevor Monroe MD Chest CT 09/22/18 19:30 IMPRESSION: Redemonstration of bilateral pleural effusions, mainly loculated on the right and layering on the left, which are mildly increased in size when compared to the previous exam. Interlobular septal thickening with hazy ground-glass opacity within both lungs, which suggests probable pulmonary edema. More focal patchy opacity is again identified at the right lung base, atelectasis versus pneumonia/aspiration, similar to decreased when compared to the previous exam. D/ / Austin Noriega MD / Austin Noriega MD Interpreting Provider: Austin Noriega MD Consult Discharge Plan - Plan Referrals: Goran Hicks MD [Primary Care Provider] - Norbert Calixto MD [Partnered Physician] - 10/06/18 10:00 am (3) CHF exacerbation Qualifiers: Heart failure type: diastolic Qualified Code(s): I50.33 - Acute on chronic diastolic (congestive) heart failure
[2018-09-23] MEDS ORDERED: Albumin 25% 25gram/100mL 25 GM/100 ML IV.SOLN IVPB ONE (16:22)
[2018-09-23] MEDS: Bumetanide 1 MG/4 ML VIAL IVP SCH (18:22)
[2018-09-24] MEDS: Ipratropium/Albuterol Neb 3 ML IH SCH ×5 (03:48→19:51)
[2018-09-24] MEDS: *HR* Heparin 5,000 UNIT/ML VIAL SQ SCH ×3 (05:13→21:31)
[2018-09-24 05:19] LABS: Calcium 8.6 mg/dL (8.6-10.3); Potassium 5.2 mEq/L (3.5-5.1)
[2018-09-24 06:44] LABS: Basophils % 0.4 %; Eosinophils # 0.7 K/mcL (0.0-0.6); Hemoglobin 9.4 g/dL (11.5-15.4); Immature Granulocytes % 0.2 % (0-4); Lymphocytes # 0.4 K/mcL (0.6-4.6); Lymphocytes % 8.1 %; Mean Corpuscular HGB Conc 29.4 g/dL (31.6-35.5); Mean Corpuscular Hemoglobin 30.6 pg (28.0-33.3); Mean Corpuscular Volume 104.2 fL (83.0-100.0); Mean Platelet Volume 10.8 fL (9.4-12.4); Monocytes # 0.6 K/mcL (0.0-1.3); Monocytes % 12.7 %; Neutrophils # 3.1 K/mcL (1.6-8.9); Platelet Count 122 K/mcL (140-400); Red Blood Count 3.07 M/mcL (3.82-4.97); Red Cell Distribution Width 15.1 % (11.5-14.5); Segmented Neutrophils % 63.6 %
[2018-09-24] MEDS: Budesonide/Formoterol 160/4.5 1 PUFF INH IH SCH ×2 (07:34→19:49)
[2018-09-24] MEDS: Insulin LISPRO 300 UNITS/3 ML VIAL SQ SCH ×3 (08:17→15:56)
[2018-09-24] MEDS: FLUoxetine 20 MG CAPSULE PO SCH ×2 (08:19→21:31)
[2018-09-24] MEDS: Isosorbide MONOnitrate (24 HR) 30 MG TAB.ER.24H PO SCH (08:19)
[2018-09-24] MEDS: Aspirin Enteric Coated 81 MG Tablet PO SCH (08:19)
[2018-09-24] MEDS: Bumetanide 1 MG/4 ML VIAL IVP SCH ×2 (08:20→17:42)
[2018-09-24] MEDS: Cefdinir 300 MG CAPSULE PO SCH ×2 (08:20→21:31)
[2018-09-24] MEDS: Nystatin POWDER 30 GM BOTTLE TP SCH ×3 (08:24→21:31)
--- NOTE | 2018-09-24 17:44 | Internal Med Progress Note ---
Hospitalist Progress Note - Encounter Date of Encounter: 09/24/18 Time of Encounter: 17:42 - Subjective Interval History: Patient seen and examined at bedside. Patient states that overall she feels better. She feels like her breathing is improved. She does feel like she occasionally has a cough that is nonproductive. She denies chest pain. - Exam Vitals: Temp Pulse Resp BP Pulse Ox 98.1 F 78 20 127/65 96 09/24/18 15:36 09/24/18 15:36 09/24/18 15:58 09/24/18 15:36 09/24/18 15:58 Exam: Gen.: Alert and oriented 3, no acute distress Heart: Regular rate and rhythm, no murmurs, rubs, gallops Lungs: Mild rales bibasilar, no rales or rhonchi Extremities, mild erythema bilaterally to lower extremities bilaterally, trace lotion twice a day edema - Assessment and Plan (1) Obesity hypoventilation syndrome Current Visit: No Status: Suspected Assessment and Plan: Patient has qualified for BiPAP, will set up as outpatient. Encouraged to use nightly. (2) CKD (chronic kidney disease) stage 3, GFR 30-59 ml/min Current Visit: No Status: Chronic Assessment and Plan: Creatinine overall stable today. Good urine output. Continue IV diuresis and closely monitor renal function. (3) COPD exacerbation Current Visit: No Status: Chronic Assessment and Plan: Resolved. Does not appear to be in acute exacerbation. Continue bronchodilators (4) Shortness of breath Current Visit: Yes Status: Acute (5) Pleural effusion Current Visit: Yes Status: Acute Assessment and Plan: Bilateral, likely a result of heart failure. Continued diuresis (6) CHF exacerbation Current Visit: Yes Status: Acute Assessment and Plan: Acute diastolic heart failure exacerbation. Appears to be improving. Continue IV diuresis. (7) Cellulitis Current Visit: Yes Status: Acute Assessment and Plan: This point I feel like her lower extremity erythema is related to chronic venous stasis and edema. She has not had leukocytosis or fever this hospitalization. We will discontinue cefdinir and closely monitor (8) Chronic respiratory failure Current Visit: Yes Status: Acute Assessment and Plan: Encourage BiPAP at night (9) Type II diabetes mellitus Current Visit: Yes Status: Acute Assessment and Plan: Blood sugars under good control. Continue sliding scale insulin. - Time Spent with Patient Total time spent is greater than 50% in coordination of care (as documented) at patient's floor/unit and/or counseling patient: Internal Medicine: Result - Labs CBC & Chem 7: 09/24/18 06:34 09/24/18 04:50 Labs: Short CBC 09/24/18 Range/Units 06:34 WBC 4.8 (4.3-11.1) K/mcL Hgb 9.4 L (11.5-15.4) g/dL Hct 32.0 L (35.3-44.9) % Plt Count 122 L (140-400) K/mcL Neutrophils # 3.1 (1.6-8.9) K/mcL BMP 09/24/18 04:50 Sodium 139 Potassium 5.2 H Chloride 97 L Carbon Dioxide 39 H BUN 40 H Creatinine 1.75 H Glucose 82 Calcium 8.6 - ABG Interpretation ABG results: ABG ABG pH 7.33 pH Units (7.32-7.45) 09/20/18 23:06 ABG pCO2 87 mmHg (35-45) H* 09/20/18 23:06 ABG pO2 71 mmHg (85-104) L 09/20/18 23:06 ABG O2 Saturation 91 % (95-98) L 09/20/18 23:06 PT/INR, D-dimer PT 11.0 Seconds (9.4-12.1) 09/19/18 13:16 Consult Discharge Plan - Plan Referrals: Goran Hicks MD [Primary Care Provider] - Norbert Calixto MD [Partnered Physician] - 10/06/18 10:00 am (6) CHF exacerbation Qualifiers: Heart failure type: diastolic Qualified Code(s): I50.33 - Acute on chronic diastolic (congestive) heart failure (7) Cellulitis Qualifiers: Site of cellulitis: extremity Site of cellulitis of extremity: lower extremity Laterality: unspecified laterality Qualified Code(s): L03.119 - Cellulitis of unspecified part of limb (8) Chronic respiratory failure Qualifiers: Respiratory failure complication: hypercapnia Qualified Code(s): J96.12 - Chronic respiratory failure with hypercapnia (9) Type II diabetes mellitus Qualifiers: Diabetes mellitus halfway insulin use: without local intermodal truck driver use Diabetes mellitus complication status: with unspecified complications Qualified Code(s): E11.8 - Type 2 diabetes mellitus with unspecified complications
[2018-09-25] MEDS: Ipratropium/Albuterol Neb 3 ML IH SCH ×7 (00:28→23:36)
[2018-09-25 03:10] LABS: Basophils % 0.4 %; Hematocrit 32.5 % (35.3-44.9); Mean Corpuscular Hemoglobin 30.2 pg (28.0-33.3); Red Cell Distribution Width 14.9 % (11.5-14.5)
[2018-09-25 03:11] LABS: Eosinophils # 0.5 K/mcL (0.0-0.6); Eosinophils % 9.6 %; Hemoglobin 9.4 g/dL (11.5-15.4); Immature Granulocytes % 0.4 % (0-4); Lymphocytes # 0.3 K/mcL (0.6-4.6); Lymphocytes % 5.9 %; Mean Corpuscular HGB Conc 28.9 g/dL (31.6-35.5); Mean Corpuscular Volume 104.5 fL (83.0-100.0); Mean Platelet Volume 11.1 fL (9.4-12.4); Monocytes # 0.7 K/mcL (0.0-1.3); Monocytes % 13.2 %; Neutrophils # 3.7 K/mcL (1.6-8.9); Platelet Count 120 K/mcL (140-400); Red Blood Count 3.11 M/mcL (3.82-4.97); Segmented Neutrophils % 70.5 %
[2018-09-25 03:26] LABS: Macrocytosis Present (Not Present); Platelet Estimate Slight Decrease (Normal)
[2018-09-25 03:29] LABS: Calcium 8.5 mg/dL (8.6-10.3); Magnesium 2.2 mg/dL (1.6-2.6); Potassium 5.1 mEq/L (3.5-5.1)
[2018-09-25] MEDS: *HR* Heparin 5,000 UNIT/ML VIAL SQ SCH ×3 (06:23→21:33)
[2018-09-25] MEDS: Budesonide/Formoterol 160/4.5 1 PUFF INH IH SCH ×2 (07:29→19:35)
[2018-09-25] MEDS: Insulin LISPRO 300 UNITS/3 ML VIAL SQ SCH ×3 (07:47→16:34)
[2018-09-25] MEDS: Cefdinir 300 MG CAPSULE PO SCH (07:48)
[2018-09-25] MEDS: Bumetanide 1 MG/4 ML VIAL IVP SCH ×2 (07:48→15:49)
[2018-09-25] MEDS: Isosorbide MONOnitrate (24 HR) 30 MG TAB.ER.24H PO SCH (07:48)
[2018-09-25] MEDS: FLUoxetine 20 MG CAPSULE PO SCH ×2 (07:48→21:33)
[2018-09-25] MEDS: Aspirin Enteric Coated 81 MG Tablet PO SCH (07:48)
[2018-09-25] MEDS: Nystatin POWDER 30 GM BOTTLE TP SCH ×3 (07:49→21:32)
--- NOTE | 2018-09-25 18:40 | Internal Med Progress Note ---
Hospitalist Progress Note - Encounter Date of Encounter: 09/25/18 Time of Encounter: 17:45 - Subjective Interval History: Patient seen and examined at bedside. Patient states that overall she ok. Patient states that she is tired today but has no other specific complaints. Feels like her breathing is improved. - Exam Vitals: Temp Pulse Resp BP Pulse Ox 98.3 F 77 16 139/77 139 09/25/18 15:18 09/25/18 15:18 09/25/18 15:42 09/25/18 15:18 09/25/18 15:42 Exam: Gen.: Alert and oriented 3, no acute distress Heart: Regular rate and rhythm, no murmurs, rubs, gallops Lungs: Mildly diminished at bases, no rales or rhonchi appreciated Extremities: mild erythema bilaterally to lower extremities bilaterally, trace pitting edema - Assessment and Plan (1) Obesity hypoventilation syndrome Current Visit: No Status: Suspected Assessment and Plan: Patient has qualified for BiPAP, will set up as outpatient. Encouraged to use nightly. (2) CKD (chronic kidney disease) stage 3, GFR 30-59 ml/min Current Visit: No Status: Chronic Assessment and Plan: Creatinine improved today. Good urine output. Continue IV diuresis and closely monitor renal function. (3) COPD exacerbation Current Visit: No Status: Chronic Assessment and Plan: Resolved. Does not appear to be in acute exacerbation. Continue bronchodilators (4) Pleural effusion Current Visit: Yes Status: Acute Assessment and Plan: Bilateral, likely a result of heart failure. Continued diuresis (5) CHF exacerbation Current Visit: Yes Status: Acute Assessment and Plan: Acute diastolic heart failure exacerbation. Appears to be improving. Good urine output, creatinine improving Continue IV diuresis. (6) Cellulitis Current Visit: Yes Status: Acute Assessment and Plan: This point I feel like her lower extremity erythema is related to chronic venous stasis and edema. She has not had leukocytosis or fever this hospitalization. discontinue cefdinir and closely monitor (7) Chronic respiratory failure Current Visit: Yes Status: Acute Assessment and Plan: Encourage BiPAP at night (8) Type II diabetes mellitus Current Visit: Yes Status: Acute Assessment and Plan: Blood sugars remain under good control. Continue sliding scale insulin. - Time Spent with Patient Total time spent is greater than 50% in coordination of care (as documented) at patient's floor/unit and/or counseling patient: Internal Medicine: Result - Labs CBC & Chem 7: 09/25/18 02:24 09/25/18 02:24 Labs: Short CBC 09/25/18 Range/Units 02:24 WBC 5.3 (4.3-11.1) K/mcL Hgb 9.4 L (11.5-15.4) g/dL Hct 32.5 L (35.3-44.9) % Plt Count 120 L (140-400) K/mcL Neutrophils # 3.7 (1.6-8.9) K/mcL BMP 09/25/18 02:24 Sodium 140 Potassium 5.1 Chloride 94 L Carbon Dioxide 41 H* BUN 39 H Creatinine 1.40 H Glucose 104 Calcium 8.5 L - ABG Interpretation ABG results: ABG ABG pH 7.33 pH Units (7.32-7.45) 09/20/18 23:06 ABG pCO2 87 mmHg (35-45) H* 09/20/18 23:06 ABG pO2 71 mmHg (85-104) L 09/20/18 23:06 ABG O2 Saturation 91 % (95-98) L 09/20/18 23:06 PT/INR, D-dimer PT 11.0 Seconds (9.4-12.1) 09/19/18 13:16 Consult Discharge Plan - Plan Referrals: Goran Hicks MD [Primary Care Provider] - Norbert Calixto MD [Partnered Physician] - 10/06/18 10:00 am (5) CHF exacerbation Qualifiers: Heart failure type: diastolic Qualified Code(s): I50.33 - Acute on chronic diastolic (congestive) heart failure (6) Cellulitis Qualifiers: Site of cellulitis: extremity Site of cellulitis of extremity: lower extremity Laterality: unspecified laterality Qualified Code(s): L03.119 - Cellulitis of unspecified part of limb (7) Chronic respiratory failure Qualifiers: Respiratory failure complication: hypercapnia Qualified Code(s): J96.12 - Chronic respiratory failure with hypercapnia (8) Type II diabetes mellitus Qualifiers: Diabetes mellitus senior living insulin use: without middle or intermediate school principal use Diabetes mellitus complication status: with unspecified complications Qualified Code(s): E11.8 - Type 2 diabetes mellitus with unspecified complications
[2018-09-26] MEDS: Ipratropium/Albuterol Neb 3 ML IH SCH ×6 (03:33→23:53)
[2018-09-26] MEDS: *HR* Heparin 5,000 UNIT/ML VIAL SQ SCH ×3 (05:05→21:12)
[2018-09-26] MEDS: Budesonide/Formoterol 160/4.5 1 PUFF INH IH SCH ×2 (07:22→19:56)
[2018-09-26 07:31] LABS: Immature Granulocytes % 0.3 % (0-4)
[2018-09-26 07:33] LABS: Basophils % 0.3 %; Eosinophils # 0.3 K/mcL (0.0-0.6); Eosinophils % 4.2 %; Hematocrit 32.9 % (35.3-44.9); Hemoglobin 9.4 g/dL (11.5-15.4); Lymphocytes # 0.4 K/mcL (0.6-4.6); Lymphocytes % 5.6 %; Mean Corpuscular HGB Conc 28.6 g/dL (31.6-35.5); Mean Corpuscular Hemoglobin 30.1 pg (28.0-33.3); Mean Corpuscular Volume 105.4 fL (83.0-100.0); Monocytes # 0.8 K/mcL (0.0-1.3); Monocytes % 12.5 %; Neutrophils # 5.1 K/mcL (1.6-8.9); Platelet Count 131 K/mcL (140-400); Red Blood Count 3.12 M/mcL (3.82-4.97); Red Cell Distribution Width 14.7 % (11.5-14.5); Segmented Neutrophils % 77.1 %
[2018-09-26 07:34] LABS: Hypochromasia Present (Not Present); Platelet Estimate Normal (Normal)
[2018-09-26 07:46] LABS: Magnesium 2.1 mg/dL (1.6-2.6); Potassium 5.2 mEq/L (3.5-5.1)
[2018-09-26] MEDS: Insulin LISPRO 300 UNITS/3 ML VIAL SQ SCH ×3 (08:03→16:59)
[2018-09-26] MEDS: Isosorbide MONOnitrate (24 HR) 30 MG TAB.ER.24H PO SCH (08:28)
[2018-09-26] MEDS: FLUoxetine 20 MG CAPSULE PO SCH ×2 (08:28→21:12)
[2018-09-26] MEDS: Aspirin Enteric Coated 81 MG Tablet PO SCH (08:29)
[2018-09-26] MEDS: Bumetanide 1 MG/4 ML VIAL IVP SCH ×2 (08:29→17:03)
[2018-09-26] MEDS: Nystatin POWDER 30 GM BOTTLE TP SCH ×3 (08:34→21:12)
[2018-09-26 10:17] LABS: Adenovirus Not Detected (Not Detect); Bordetella Pertussis Not Detected (Not Detect); Chlamydophila pneumoniae Not Detected (Not Detect); Coronavirus 229E Not Detected (Not Detect); Coronavirus HKU1 Not Detected (Not Detect); Coronavirus NL63 Not Detected (Not Detect); Coronavirus OC43 Not Detected (Not Detect); Human Metapneumovirus Not Detected (Not Detect); Human Rhinovirus/Enterovirus Not Detected (Not Detect); Influenza A Subtype 2009 H1 Not Detected (Not Detect); Influenza A Untypeable Not Detected (Not Detect); Influenza B Not Detected (Not Detect); Mycoplasma pneumoniae Not Detected (Not Detect); Parainfluenza Virus 1 Not Detected (Not Detect); Parainfluenza Virus 2 Not Detected (Not Detect); Parainfluenza Virus 3 Not Detected (Not Detect); Parainfluenza Virus 4 Not Detected (Not Detect); Respiratory Syncytial Virus Not Detected (Not Detect)
--- NOTE | 2018-09-26 13:42 | Internal Med Progress Note ---
Hospitalist Progress Note - Encounter Date of Encounter: 09/26/18 Time of Encounter: 13:39 - Exam Vitals: Temp Pulse Resp BP Pulse Ox 98.1 F 78 16 120/60 93 09/26/18 11:00 09/26/18 11:00 09/26/18 11:13 09/26/18 11:00 09/26/18 11:13 Exam: Gen.: Alert and oriented 3, no acute distress Heart: Regular rate and rhythm, no murmurs, rubs, gallops Lungs: Mildly diminished at bases, no rales or rhonchi appreciated Extremities: mild erythema bilaterally to lower extremities bilaterally, trace pitting edema DVT Prophylaxis: Heparin - Summary of Assessment and Plan Summary of Assessment and Plan: History of present illness: Dr. Cruz This is a 82 yof with acute on chornic hypercapnic resp faliure 1) acute on chornic hypercapnic resp faliure At this point, pt has ightly bipap, and recently abg is OK pt is not wheezing or have crackles Pt is doing well on xoygen no other issues await palcemnt 2)morbid obeisty: needs out pt work up 3)debility: PT/OT both followed the pt will need rehab 4) chornic loculated plerual effusion: I spoke with pulm, they feel it's chornic and feel that it probably should not be tapped at this point pt will need out pt follo wup pt is not septic or clinical has CAP at this point 5)dispo: Await placemnt Time: 35 min - Time Spent with Patient Total time spent is greater than 50% in coordination of care (as documented) at patient's floor/unit and/or counseling patient: 25 - 35 minutes Internal Medicine: Result - Labs CBC & Chem 7: 09/26/18 07:01 09/26/18 07:01 Labs: Short CBC 09/26/18 Range/Units 07:01 WBC 6.6 (4.3-11.1) K/mcL Hgb 9.4 L (11.5-15.4) g/dL Hct 32.9 L (35.3-44.9) % Plt Count 131 L (140-400) K/mcL Neutrophils # 5.1 (1.6-8.9) K/mcL BMP 09/26/18 07:01 Sodium 138 Potassium 5.2 H Chloride 91 L Carbon Dioxide 45 H* BUN 37 H Creatinine 1.72 H Glucose 99 Calcium 9.0 - ABG Interpretation ABG results: ABG ABG pH 7.33 pH Units (7.32-7.45) 09/20/18 23:06 ABG pCO2 87 mmHg (35-45) H* 09/20/18 23:06 ABG pO2 71 mmHg (85-104) L 09/20/18 23:06 ABG O2 Saturation 91 % (95-98) L 09/20/18 23:06 PT/INR, D-dimer PT 11.0 Seconds (9.4-12.1) 09/19/18 13:16 Consult Discharge Plan - Plan Referrals: Goran Hicks MD [Primary Care Provider] - Norbert Calixto MD [Partnered Physician] - 10/06/18 10:00 am
[2018-09-27] MEDS: Ipratropium/Albuterol Neb 3 ML IH SCH ×4 (03:17→16:03)
[2018-09-27 04:22] LABS: Basophils % 0.6 %; Eosinophils # 0.4 K/mcL (0.0-0.6); Eosinophils % 7.6 %; Hematocrit 29.4 % (35.3-44.9); Hemoglobin 8.8 g/dL (11.5-15.4); Immature Granulocytes % 0.2 % (0-4); Lymphocytes # 0.6 K/mcL (0.6-4.6); Lymphocytes % 11.5 %; Mean Corpuscular HGB Conc 29.9 g/dL (31.6-35.5); Mean Corpuscular Hemoglobin 30.9 pg (28.0-33.3); Mean Corpuscular Volume 103.2 fL (83.0-100.0); Mean Platelet Volume 10.9 fL (9.4-12.4); Monocytes # 0.7 K/mcL (0.0-1.3); Monocytes % 13.8 %; Neutrophils # 3.6 K/mcL (1.6-8.9); Platelet Count 134 K/mcL (140-400); Red Blood Count 2.85 M/mcL (3.82-4.97); Red Cell Distribution Width 14.5 % (11.5-14.5); Segmented Neutrophils % 66.3 %
[2018-09-27 04:42] LABS: BUN/Creatinine Ratio 26 (6-26); Blood Urea Nitrogen 43 mg/dL (8-23); Calcium 8.8 mg/dL (8.6-10.3); Carbon Dioxide > 45 mEq/L (23-29); Chloride 90 mEq/L (98-107); Glucose 91 mg/dL (70-105); Magnesium 2.1 mg/dL (1.6-2.6); Osmolality,Calculated 302 (280-300); Potassium 4.9 mEq/L (3.5-5.1); Sodium 141 mEq/L (136-145); eGFR For Non-African Americans 29 (> 60)
[2018-09-27] MEDS: *HR* Heparin 5,000 UNIT/ML VIAL SQ SCH ×2 (05:36→14:19)
[2018-09-27] MEDS: Budesonide/Formoterol 160/4.5 1 PUFF INH IH SCH (07:42)
[2018-09-27] MEDS: Insulin LISPRO 300 UNITS/3 ML VIAL SQ SCH ×2 (08:24→12:41)
[2018-09-27] MEDS: Bumetanide 1 MG/4 ML VIAL IVP SCH (09:17)
[2018-09-27] MEDS: Aspirin Enteric Coated 81 MG Tablet PO SCH (09:18)
[2018-09-27] MEDS: FLUoxetine 20 MG CAPSULE PO SCH (09:18)
[2018-09-27] MEDS: Nystatin POWDER 30 GM BOTTLE TP SCH ×2 (09:19→14:19)
[2018-09-27] MEDS: Isosorbide MONOnitrate (24 HR) 30 MG TAB.ER.24H PO SCH (09:20)
[2018-09-27 11:10] VITALS: BP 158/87
--- NOTE | 2018-09-27 11:43 | Discharge Summary ---
- NOTES TO OUTPATIENT PROVIDER Notes to Outpatient Provider: PCP in 2-4 days, pulm in 4-6 wks Orders not resulted at time of discharge: Pending orders 09/28/18 04:00 Basic Metabolic Panel AM 0400 Complete Blood Count [HEME] AM 0400 Magnesium AM 0400 09/29/18 04:00 Basic Metabolic Panel AM 0400 Complete Blood Count [HEME] AM 0400 Magnesium AM 0400 Date of Encounter: 09/27/18 Time of Encounter: 11:37 - Discharge Diagnosis (1) Acute hypercapnic respiratory failure Priority: Primary Status: Acute Hospital course: Ms. Pastor is a 82 year old morbidly obese female with a past medical history of hypertension, hyperlipidemia, severe COPD on 2 L nasal cannula at home, and heart failure with preserved ejection fraction presents with progressive shortness of breath over the past few days. Per report, EMS had been called to her home twice today. The first time for shortness of breath for which she subsequently declined transport. EMS was called and the second time due to concern for UTI. Patient apparently has been reusing her depends, by letting him dry out and then reusing them again. On arrival the patient was afebrile mildly hypertensive in normal sinus rhythm. Initially requiring 2 L nasal cannula maintaining O2 saturations at 92%. However her respiratory status began to decline over the next hour requiring increasing levels of oxygen, subsequently dropping to 84%. Patient was placed on BiPAP. An ABG was performed which showed hypoxia (PO2 53) and significant hypercapnia with a PCO2 of 127. Chest x-ray was obtained which showed cardiomegaly with pulmonary vascular congestion and bilateral pleural effusions. Laboratory workup was notable for a normal WBC, mild hyperkalemia and mildly elevated creatinine which appears to be at her baseline. Lactic acid was within normal limits as well as troponin. Her BNP was found to be elevated at 576. Pt was kept in the hospital and pt was seen by pulm and thought pt has layered effusion due to the fact that pt has crhonic CHF and not advising to tap it. Pt was put on bipap and pt improved, then pt was using nightly bipap only, pt is being set up with bipap at home and pt mihgt had component of COPDE as well. Pt will need out pt follow up. No fruther issues, pt deemed stable enough to be dsicharged to rehab. - Time Spent with Patient Total time spent providing and/or coordinating discharge services: - Discharge Medications Home Medications: FLUoxetine HCl [Prozac] 20 mg PO BID 05/19/16 [History] Furosemide [Lasix] 40 mg PO BID 05/19/16 [History] Levothyroxine [Synthroid] 150 mcg PO 0630 05/19/16 [History] Pravastatin Sodium 10 mg PO HS 05/19/16 [History] Aspirin Enteric Coated [Aspirin EC] 81 mg PO DAILY 11/24/16 [History] Isosorbide MONOnitrate (24 HR) [Imdur] 15 mg PO HS 08/16/17 [History] glyBURIDE [GlyBURIDE] 2.5 mg PO DAILY 08/16/17 [History] Cetirizine HCl [Zyrtec] 10 mg PO DAILY 09/20/18 [History] Ergocalciferol (VITAMIN D2) [Vitamin D2] 2,000 unit PO DAILY 09/20/18 [History] Albuterol Sulfate [Albuterol Inhaler] 2 puff IH Q4HR 09/27/18 [History] Budesonide [Pulmicort Flexhaler 180mcg] 180 mcg IH 09/27/18 [History] Doxycycline 100 mg PO BID 09/27/18 [History] predniSONE [PredniSONE] See Protocol PO DAILY 09/27/18 [History] Allergies/Adverse Reactions: Allergy/AdvReac Type Severity Reaction Status Date / Time lisinopril Allergy Swelling Verified 09/20/18 16:32 of Lip/Tongue/Throat Date of admission: 09/19/18 00:37 Primary care physician: Goran Hicks MD Consults: 09/19/18 03:16 Consult to Voting Machine Repairer [CONS] Routine Reason for SW Consult: Pt lives alone, states she has somebody who comes once a week under the table. Pt came into ER solied and unkept. 09/19/18 06:07 Consult to Pulmonology [CONS] Routine Consulting Provider: Pulm Crit Care & Sleep Xochitl Reason for Consult: Hypoxic hypercapnic respiratory failure. PCO2 125 Call Completed: No 09/20/18 09:52 Consult to Nurse Navigator [CONS] Routine Comment: Severe COPD; CHF exac 09/21/18 12:13 Consult to Respiratory Therapy [CONS] Routine Reason for Consult: nocturnal SpO2 for BiPAP qualification. Call Completed: Yes 09/23/18 16:50 Consult to Occupational Therapy [CONS] Routine Comment: Evaluate, develop and implement POC Reason for Consult: decondintioning Does patient have active BEDREST order?: No Is patient medically & hemodynamically stable?: Yes Patient assessed for mobility or mobilized this visit?: No Consult to Physical Therapy [CONS] Routine Comment: Evaluate, develop and implement POC Reason for Consult: deconditioning Does patient have active BEDREST order?: No Is patient medically & hemodynamically stable?: Yes Patient assessed for mobility or mobilized this visit?: No - Constitutional Vitals: Temp Pulse Resp BP Pulse Ox 98.2 F 85 16 158/87 89 09/27/18 11:09 09/27/18 09:56 09/27/18 11:09 09/27/18 11:09 09/27/18 11:09 Exam: Gen.: Alert and oriented 3, no acute distress Heart: Regular rate and rhythm, no murmurs, rubs, gallops Lungs: Mildly diminished at bases, no rales or rhonchi appreciated Extremities: mild erythema bilaterally to lower extremities bilaterally, trace pitting edema - Patient Status Disposition: Transfer SNF Condition: Fair - Discharge Instructions Follow Up With: Goran Hicks MD [Primary Care Provider] - Norbert Calixto MD [Partnered Physician] - 10/06/18 10:00 am
--- NOTE | 2018-09-27 13:13 | Physician Discharge Referral ---
ExtendedCare Referral Info Transfer To: snf Provider in Charge after Transfer: PCP Institutional Level of Care: Skilled - Diagnosis (1) Acute hypercapnic respiratory failure Priority: Primary Status: Acute - Transfer Medications Prescriptions: Albuterol Sulfate [Albuterol Inhaler] 2 puff IH Q4HR #2 hfa.[email or web address] Budesonide [Pulmicort Flexhaler 180mcg] 180 mcg IH BID #1 aer.[email or web address] Doxycycline 100 mg PO BID #10 capsule predniSONE [PredniSONE] 10 mg PO DAILY #50 tablet Home Medications: FLUoxetine HCl [Prozac] 20 mg PO BID 05/19/16 [History] Furosemide [Lasix] 40 mg PO BID 05/19/16 [History] Levothyroxine [Synthroid] 150 mcg PO 0630 05/19/16 [History] Pravastatin Sodium 10 mg PO HS 05/19/16 [History] Aspirin Enteric Coated [Aspirin EC] 81 mg PO DAILY 11/24/16 [History] Isosorbide MONOnitrate (24 HR) [Imdur] 15 mg PO HS 08/16/17 [History] glyBURIDE [GlyBURIDE] 2.5 mg PO DAILY 08/16/17 [History] Cetirizine HCl [Zyrtec] 10 mg PO DAILY 09/20/18 [History] Ergocalciferol (VITAMIN D2) [Vitamin D2] 2,000 unit PO DAILY 09/20/18 [History] Albuterol Sulfate [Albuterol Inhaler] 2 puff IH Q4HR 09/27/18 [History] Albuterol Sulfate [Albuterol Inhaler] 2 puff IH Q4HR #2 hfa.[email or web address] 09/27/18 [Rx] Budesonide [Pulmicort Flexhaler 180mcg] 180 mcg IH 09/27/18 [History] Budesonide [Pulmicort Flexhaler 180mcg] 180 mcg IH BID #1 aer.pow.ba 09/27/18 [Rx] Doxycycline 100 mg PO BID 09/27/18 [History] Doxycycline 100 mg PO BID #10 capsule 09/27/18 [Rx] predniSONE [PredniSONE] 10 mg PO DAILY #50 tablet 09/27/18 [Rx] predniSONE [PredniSONE] See Protocol PO DAILY 09/27/18 [History] Allergies/Adverse Reactions: Allergy/AdvReac Type Severity Reaction Status Date / Time lisinopril Allergy Swelling Verified 09/20/18 16:32 of Lip/Tongue/Throat - Respiratory Orders Smoking Cessation: Smoking cessation has been advised. For more information, call the [place] Tobacco Quit Line at 2-651-KTVINOW. CERTIFICATION: I certify that the transfer of the above named patient to an Extended Care Facility is necessary for the continuing treatment of the diagnosis listed. The above information is true and accurate reflection of patient's current condition. Confidential - Redisclosure prohibited without a patient's written consent.
== END 2018-09-27 16:42 | DRG 291 ==
LOC: 2NENU 19:19 → EMEROOARM 19:19 → 2NENU 22:58 → SUATTDRO 09-19 00:37
PROVIDERS: ADMIT Internal Medicine; ATTEND Internal Medicine

== ENCOUNTER 2019-05-03 14:45 | Inpatient (IN) ==
--- NOTE | 2019-05-03 15:17 | Emergency Department Note ---
Disposition Clinical Impression: Pneumatosis coli Disposition: Admitted As Inpatient Condition: Good Time of Disposition: 17:09 Abdominal Pain HPI - General Chief Complaint: ED Abdominal Pain Stated Complaint: abdominal pain Time Seen by Provider: 05/03/19 14:51 Source: patient, EMS, other Mode of arrival: EMS Limitations: physical limitation Nursing Notes Reviewed: Yes Vital Signs Reviewed: Yes - History of Present Illness HPI Narrative: 83 yo woman who first noticed red protuberant swelling at umbilicus last Thursday (7 days ago). Since then the redness and swelling have worsened and the area is also painful described as "tenderness". Pain currently at 6/10, intermittent, worse with motion and touch. Patient has not tried taking any medications for relief. She had 1 episode "explosive diarrhea" that Thursday. She has also had nausea, but no vomiting. Last BM on Thursday although she is passing gas today. Eating and drinking as usual. PO intake does not make her symptoms worse. She also said her vision began worsening at the same time to the point where she can no longer read the newspaper. She endorses increasing SOB and a "tightness" in her chest that is somewhat worse than baseline. She denies fever, diaphoresis, weakness/numbness worse than baseline, LOC, falling, head trauma, peripheral edema/erythema worse than baseline, AMS, dysuria, hematemesis, or melena. PMH includes CHF, COPD, CKD, T2DM, hypothyroid, agoraphobia. She is on 2.5-3L O2 at home. She states she does not check her blood sugar at home. She had a hernia repaired in the same area as the current swelling in 1983. Patient is scheduled for cataract surgery on Thursday. Pain Scale: 8 - Related Data Home Medications Medication Instructions Recorded Confirmed FLUoxetine HCl [Prozac] 20 mg PO BID 05/19/16 05/03/19 Furosemide [Lasix] 20 mg PO BID 05/19/16 05/03/19 Levothyroxine [Synthroid] 150 mcg PO 0630 05/19/16 05/03/19 Pravastatin Sodium 10 mg PO HS 05/19/16 05/03/19 Aspirin Enteric Coated [Aspirin EC] 81 mg PO DAILY 11/24/16 05/03/19 Cetirizine HCl [Zyrtec] 10 mg PO DAILY 09/20/18 05/03/19 Ergocalciferol (VITAMIN D2) 2,000 unit PO DAILY 09/20/18 05/03/19 [Vitamin D2] Albuterol Sulfate [Albuterol 2 puff IH Q4HR PRN 05/03/19 05/03/19 Inhaler] Budesonide [Pulmicort Flexhaler 1 puff IH BID 05/03/19 05/03/19 180mcg] Isosorbide MONOnitrate [Isosorbide 10 mg PO BID 05/03/19 05/03/19 Mononitrate] Ranitidine HCl [Acid Procurement Technician] 150 mg PO DAILY 05/03/19 05/03/19 Allergies Allergy/AdvReac Type Severity Reaction Status Date / Time lisinopril Allergy Swelling Verified 09/20/18 16:32 of Lip/Tongue/Throat All systems ED: reviewed and negative except as stated. Eyes: Reports: vision change Cardiovascular: Reports: other (Chest tightness) Respiratory: Reports: dyspnea Gastrointestinal: Reports: abdominal pain, nausea, diarrhea, other (Swelling at umbilicus) Abdominal Pain PMH - Past Medical History Medical history: Reports: CHF, COPD, diabetes, hyperlipidemia, hypertension, thyroid disease Female Surgical History: Reports: herniorrhaphy, orthopedic, other, Tonsillectomy, Adenoidectomy Psychiatric history: Reports: depression - Social History Smoking status: Former smoker Alcohol use: Reports: occasionally Drug use: Reports: none Physical Exam Gen: AOx3, NAD HEENT: No lymphadenopathy, no erythema, no edema. Pupils equal and reactive. Peripheral vision intact, normal EOM. Cardio: Regular rate and rhythm, no murmur, no peripheral edema, good perfusion to upper extremities, pulses palpable bilaterally on LE, no cyanosis Resp: Diminished breath sounds bilaterally, no wheeze, no cough, increased WIB if talking while not using NC. GI: Abdomen distended, diffusely erythema in BLQ, possible area of induration at umbilicus, tender to palpation, non-reducible. Diffuse multiple small nodules below main protuberance. : No suprapubic tenderness or distention MSK: Limited ROM at baseline, +stasis dermatitis BLE at baseline, Neuro: CNI-XII intact, strength and sensation at baseline Psych: Appropriate affect - General General appearance: alert, in no apparent distress Course Course Narrative: VS stable and WNL apart from T100.2F. History and exam concerning for incarcerated hernia vs cellulitis vs abscess vs SBO. CT abd/pelvis w/ contrast ordered, along with CBC, CMP, ESR, lactic acid, troponin, CXR, EKG, UA. - Reevaluation(s) Reevaluation #1: Patient SOB but denies other complaints. Discussed plan to admit; she agreed. Ordered breathing treatment and bipap. Time: 17:12 Vital Signs Temperature 100.2 F H 05/03/19 14:56 Pulse Rate 89 05/03/19 14:56 Respiratory Rate 20 05/03/19 14:56 Blood Pressure 165/81 05/03/19 14:56 O2 Sat by Pulse Oximetry 97 05/03/19 14:56 Temperature 97.9 F 05/04/19 14:38 Pulse Rate 80 05/04/19 14:38 Respiratory Rate 15 05/04/19 14:38 Blood Pressure 158/97 05/04/19 14:38 O2 Sat by Pulse Oximetry 95 05/04/19 14:38 Oxygen Delivery Oxygen Delivery Nasal Cannula Abdominal Pain - MDM Narrative Medical decision making narrative: Given CT findings of pneumatosis, incarcerated transverse colon per radiology, patient admitted and surgery consulted. Surgery agreed to see, hospitalist accepted admission. Zosyn started. Also ordered DuoNebs and BiPAP to address increasing shortness of breath. Patient agreed with plan. Also discussed widened aorta on scan. - Medical Records Medical records reviewed: Yes I reviewed the patient's medical records. - Lab Data Lab results reviewed: Yes I reviewed the patient's lab results. Result diagrams: 05/04/19 10:01 05/04/19 10:01 Lab Results 05/03/19 05/03/19 05/03/19 Range/Units 15:08 15:10 15:10 WBC 6.1 (4.3-11.1) K/mcL RBC 2.99 L (3.82-4.97) M/mcL Hgb 9.3 L (11.5-15.4) g/dL Hct 30.4 L (35.3-44.9) % MCV 101.7 H (83.0-100.0) fL MCH 31.1 (28.0-33.3) pg MCHC 30.6 L (31.6-35.5) g/dL RDW 13.8 (11.5-14.5) % Plt Count 197 (140-400) K/mcL MPV 10.7 (9.4-12.4) fL Immature Gran % 0.2 (0-4) % Seg Neutrophils % 76.6 % Lymphocytes % 8.3 % Monocytes % 10.8 % Eosinophils % 3.6 % Basophils % 0.5 % Neutrophils # 4.7 (1.6-8.9) K/mcL Lymphocytes # 0.5 L (0.6-4.6) K/mcL Monocytes # 0.7 (0.0-1.3) K/mcL Eosinophils # 0.2 (0.0-0.6) K/mcL Basophils # 0.0 (0.0-0.2) K/mcL ESR 76 H (0-15) mm/hr PT (9.4-12.1) Seconds INR APTT (26.0-36.0) Seconds Sodium (136-145) mEq/L Potassium (3.5-5.1) mEq/L Chloride (98-107) mEq/L Carbon Dioxide (23-29) mEq/L BUN (8-23) mg/dL Creatinine (0.60-1.20) mg/dL Est GFR ( Amer) (> 60) Est GFR (Non-Af Amer) (> 60) BUN/Creatinine Ratio (6-26) Glucose (70-105) mg/dL POC Glucose 109 H (70-99) mg/dL Calculated Osmolality (280-300) Lactic Acid (0.5-2.2) mmol/L Calcium (8.6-10.3) mg/dL Phosphorus (2.7-4.5) mg/dL Magnesium (1.6-2.6) mg/dL Total Bilirubin (0.3-1.0) mg/dL AST (13-39) Units/L ALT (7-52) Units/L Alkaline Phosphatase (34-104) Units/L Troponin I (< 0.04) ng/mL B-Natriuretic Peptide (Less than 100) pg/mL Serum Total Protein (6.4-8.9) g/dL Albumin (3.5-5.7) g/dL Globulin (2.4-3.5) g/dL Albumin/Globulin Ratio (1.1-2.2) Triglycerides (< 150) mg/dL Cholesterol (< 200) mg/dL LDL Cholesterol, Calc (0-99) mg/dL VLDL Cholesterol, Calc (< 31) mg/dL HDL Cholesterol (40-59) mg/dL Cholesterol/HDL Ratio (0-4.9) Urine Color (Yellow) Urine Clarity (Clear) Urine pH (5.0-8.0) pH Units Ur Specific [place] (1.010-1.025) Urine Protein (Neg-Trace) mg/dL Urine Glucose (UA) (Normal) mg/dL Urine Ketones (Negative) mg/dL Urine Blood (Negative) Urine Nitrite (Negative) Urine Bilirubin (Negative) Urine Urobilinogen (Normal) mg/dL Ur Leukocyte Esterase (Negative) Urine Microscopic RBC (0-3) per hpf Urine Microscopic WBC (0-3) per hpf Ur Squamous Epith Cells (None-Few) per lpf Urine Bacteria (None-Few) per hpf Hyaline Casts (None-Few) per lpf Ur Culture Indicated? (NO) 05/03/19 05/03/19 05/03/19 Range/Units 15:10 15:10 15:54 WBC (4.3-11.1) K/mcL RBC (3.82-4.97) M/mcL Hgb (11.5-15.4) g/dL Hct (35.3-44.9) % MCV (83.0-100.0) fL MCH (28.0-33.3) pg MCHC (31.6-35.5) g/dL RDW (11.5-14.5) % Plt Count (140-400) K/mcL MPV (9.4-12.4) fL Immature Gran % (0-4) % Seg Neutrophils % % Lymphocytes % % Monocytes % % Eosinophils % % Basophils % % Neutrophils # (1.6-8.9) K/mcL Lymphocytes # (0.6-4.6) K/mcL Monocytes # (0.0-1.3) K/mcL Eosinophils # (0.0-0.6) K/mcL Basophils # (0.0-0.2) K/mcL ESR (0-15) mm/hr PT (9.4-12.1) Seconds INR APTT (26.0-36.0) Seconds Sodium 141 (136-145) mEq/L Potassium 4.5 (3.5-5.1) mEq/L Chloride 99 (98-107) mEq/L Carbon Dioxide 37 H (23-29) mEq/L BUN 25 H (8-23) mg/dL Creatinine 1.27 H (0.60-1.20) mg/dL Est GFR ( Amer) 49 L (> 60) Est GFR (Non-Af Amer) 40 L (> 60) BUN/Creatinine Ratio 20 (6-26) Glucose 106 H (70-105) mg/dL POC Glucose (70-99) mg/dL Calculated Osmolality 297 (280-300) Lactic Acid 0.7 (0.5-2.2) mmol/L Calcium 8.1 L (8.6-10.3) mg/dL Phosphorus (2.7-4.5) mg/dL Magnesium (1.6-2.6) mg/dL Total Bilirubin 0.4 (0.3-1.0) mg/dL AST 12 L (13-39) Units/L ALT 6 L (7-52) Units/L Alkaline Phosphatase 35 (34-104) Units/L Troponin I < 0.03 (< 0.04) ng/mL B-Natriuretic Peptide (Less than 100) pg/mL Serum Total Protein 6.9 (6.4-8.9) g/dL Albumin 3.3 L (3.5-5.7) g/dL Globulin 3.6 H (2.4-3.5) g/dL Albumin/Globulin Ratio 0.9 L (1.1-2.2) Triglycerides (< 150) mg/dL Cholesterol (< 200) mg/dL LDL Cholesterol, Calc (0-99) mg/dL VLDL Cholesterol, Calc (< 31) mg/dL HDL Cholesterol (40-59) mg/dL Cholesterol/HDL Ratio (0-4.9) Urine Color Yellow (Yellow) Urine Clarity Clear (Clear) Urine pH 7.5 (5.0-8.0) pH Units Ur Specific [place] 1.017 (1.010-1.025) Urine Protein >=300 H (Neg-Trace) mg/dL Urine Glucose (UA) Normal (Normal) mg/dL Urine Ketones Negative (Negative) mg/dL Urine Blood Negative (Negative) Urine Nitrite Negative (Negative) Urine Bilirubin Negative (Negative) Urine Urobilinogen Normal (Normal) mg/dL Ur Leukocyte Esterase Negative (Negative) Urine Microscopic RBC 0-3 (0-3) per hpf Urine Microscopic WBC 5-15 H (0-3) per hpf Ur Squamous Epith Cells Many H (None-Few) per lpf Urine Bacteria None Seen (None-Few) per hpf Hyaline Casts None Seen (None-Few) per lpf Ur Culture Indicated? YES A (NO) 05/04/19 05/04/19 05/04/19 Range/Units 10:01 10:01 10:01 WBC 7.5 (4.3-11.1) K/mcL RBC 3.27 L (3.82-4.97) M/mcL Hgb 10.0 L (11.5-15.4) g/dL Hct 34.0 L (35.3-44.9) % MCV 104.0 H (83.0-100.0) fL MCH 30.6 (28.0-33.3) pg MCHC 29.4 L (31.6-35.5) g/dL RDW 13.7 (11.5-14.5) % Plt Count 237 (140-400) K/mcL MPV 10.8 (9.4-12.4) fL Immature Gran % (0-4) % Seg Neutrophils % % Lymphocytes % % Monocytes % % Eosinophils % % Basophils % % Neutrophils # (1.6-8.9) K/mcL Lymphocytes # (0.6-4.6) K/mcL Monocytes # (0.0-1.3) K/mcL Eosinophils # (0.0-0.6) K/mcL Basophils # (0.0-0.2) K/mcL ESR (0-15) mm/hr PT 11.2 (9.4-12.1) Seconds INR 1.0 APTT 31.2 (26.0-36.0) Seconds Sodium 141 (136-145) mEq/L Potassium 4.9 (3.5-5.1) mEq/L Chloride 99 (98-107) mEq/L Carbon Dioxide 34 H (23-29) mEq/L BUN 23 (8-23) mg/dL Creatinine 1.27 H (0.60-1.20) mg/dL Est GFR ( Amer) 49 L (> 60) Est GFR (Non-Af Amer) 40 L (> 60) BUN/Creatinine Ratio 18 (6-26) Glucose 130 H (70-105) mg/dL POC Glucose (70-99) mg/dL Calculated Osmolality 297 (280-300) Lactic Acid (0.5-2.2) mmol/L Calcium 8.1 L (8.6-10.3) mg/dL Phosphorus 4.5 (2.7-4.5) mg/dL Magnesium 2.1 (1.6-2.6) mg/dL Total Bilirubin 0.3 (0.3-1.0) mg/dL AST 15 (13-39) Units/L ALT 9 (7-52) Units/L Alkaline Phosphatase 38 (34-104) Units/L Troponin I < 0.03 (< 0.04) ng/mL B-Natriuretic Peptide (Less than 100) pg/mL Serum Total Protein 7.3 (6.4-8.9) g/dL Albumin 3.4 L (3.5-5.7) g/dL Globulin 3.9 H (2.4-3.5) g/dL Albumin/Globulin Ratio 0.9 L (1.1-2.2) Triglycerides 91 (< 150) mg/dL Cholesterol 159 (< 200) mg/dL LDL Cholesterol, Calc 84 (0-99) mg/dL VLDL Cholesterol, Calc 18 (< 31) mg/dL HDL Cholesterol 57 (40-59) mg/dL Cholesterol/HDL Ratio 2.8 (0-4.9) Urine Color (Yellow) Urine Clarity (Clear) Urine pH (5.0-8.0) pH Units Ur Specific [place] (1.010-1.025) Urine Protein (Neg-Trace) mg/dL Urine Glucose (UA) (Normal) mg/dL Urine Ketones (Negative) mg/dL Urine Blood (Negative) Urine Nitrite (Negative) Urine Bilirubin (Negative) Urine Urobilinogen (Normal) mg/dL Ur Leukocyte Esterase (Negative) Urine Microscopic RBC (0-3) per hpf Urine Microscopic WBC (0-3) per hpf Ur Squamous Epith Cells (None-Few) per lpf Urine Bacteria (None-Few) per hpf Hyaline Casts (None-Few) per lpf Ur Culture Indicated? (NO) 05/04/19 Range/Units 10:01 WBC (4.3-11.1) K/mcL RBC (3.82-4.97) M/mcL Hgb (11.5-15.4) g/dL Hct (35.3-44.9) % MCV (83.0-100.0) fL MCH (28.0-33.3) pg MCHC (31.6-35.5) g/dL RDW (11.5-14.5) % Plt Count (140-400) K/mcL MPV (9.4-12.4) fL Immature Gran % (0-4) % Seg Neutrophils % % Lymphocytes % % Monocytes % % Eosinophils % % Basophils % % Neutrophils # (1.6-8.9) K/mcL Lymphocytes # (0.6-4.6) K/mcL Monocytes # (0.0-1.3) K/mcL Eosinophils # (0.0-0.6) K/mcL Basophils # (0.0-0.2) K/mcL ESR (0-15) mm/hr PT (9.4-12.1) Seconds INR APTT (26.0-36.0) Seconds Sodium (136-145) mEq/L Potassium (3.5-5.1) mEq/L Chloride (98-107) mEq/L Carbon Dioxide (23-29) mEq/L BUN (8-23) mg/dL Creatinine (0.60-1.20) mg/dL Est GFR ( Amer) (> 60) Est GFR (Non-Af Amer) (> 60) BUN/Creatinine Ratio (6-26) Glucose (70-105) mg/dL POC Glucose (70-99) mg/dL Calculated Osmolality (280-300) Lactic Acid (0.5-2.2) mmol/L Calcium (8.6-10.3) mg/dL Phosphorus (2.7-4.5) mg/dL Magnesium (1.6-2.6) mg/dL Total Bilirubin (0.3-1.0) mg/dL AST (13-39) Units/L ALT (7-52) Units/L Alkaline Phosphatase (34-104) Units/L Troponin I (< 0.04) ng/mL B-Natriuretic Peptide 642 H (Less than 100) pg/mL Serum Total Protein (6.4-8.9) g/dL Albumin (3.5-5.7) g/dL Globulin (2.4-3.5) g/dL Albumin/Globulin Ratio (1.1-2.2) Triglycerides (< 150) mg/dL Cholesterol (< 200) mg/dL LDL Cholesterol, Calc (0-99) mg/dL VLDL Cholesterol, Calc (< 31) mg/dL HDL Cholesterol (40-59) mg/dL Cholesterol/HDL Ratio (0-4.9) Urine Color (Yellow) Urine Clarity (Clear) Urine pH (5.0-8.0) pH Units Ur Specific [place] (1.010-1.025) Urine Protein (Neg-Trace) mg/dL Urine Glucose (UA) (Normal) mg/dL Urine Ketones (Negative) mg/dL Urine Blood (Negative) Urine Nitrite (Negative) Urine Bilirubin (Negative) Urine Urobilinogen (Normal) mg/dL Ur Leukocyte Esterase (Negative) Urine Microscopic RBC (0-3) per hpf Urine Microscopic WBC (0-3) per hpf Ur Squamous Epith Cells (None-Few) per lpf Urine Bacteria (None-Few) per hpf Hyaline Casts (None-Few) per lpf Ur Culture Indicated? (NO) - Radiology Data Radiology results reviewed: Yes I reviewed the patient's radiology results. Chest X-Ray 05/03/19 15:23 IMPRESSION: Small effusions with right lower lobe atelectasis. D/ / 05/03/2019 16:18:27 Jorden Mann MD / agustín Interpreting Provider: Jorden Mann MD Abdomen/Pelvis CT 05/03/19 16:37 IMPRESSION: 1. Thickened right colon with evidence of pneumatosis raises concern for bowel ischemia and possible infarction. 2. Abdominal aortic aneurysm without rupture measuring 5.6 cm. 3. Ventral hernia containing mostly fat which appears thickened and a small portion of the transverse colon. This is not associated with bowel obstruction however. Diverticulosis but no acute diverticulitis. 4. Bilateral hyperdense renal nodules with the largest on the right measuring 2.8 cm and the largest on the left measuring 2.2 cm. Follow-up is recommended. 5. Findings discussed with Dr. Villanueva from the ER department on 05/03/2019 at 4:45 p.m. RECOMMENDATIONS: General surgery consult D/ 05/03/2019 17:04:50 Iris Klein MD / [email or web address] Interpreting Provider: Iris Klein MD - EKG Data EKG attestation: Yes I reviewed and interpreted this EKG. [place]/QRS: RBBB When compared to previous EKG there are: no significant changes Interpretation: unchanged when compared to prior tracing (date) (09/18/18) Attestation Statement - Attestation Attestation: I, Goran Stout, examined this patient and my medical decision-making was reviewed with the LEAD GENERATION REPRESENTATIVE/PA/Advanced Practice Nurse/Resident Physician. I agree with the documented findings, disposition and treatment plan as described except to the extent set forth below. 83-year-old female presents emergency Department with concerns of abdominal pain. Patient states she has had sparse bowel movements for the past few days. She has a CT today which shows inflammation of the colon concerning for pneumatosis and bowel ischemia secondary to umbilical hernia. She also has an abdominal aortic aneurysm of 5.6 cm. Gen. surgery was consult did and vascular surgery consult it from the emergency department. Patient started on antibio tics and will be admitted to the hospitalist for further care and evaluation. Vital signs stable in emergency department. She denies vomiting prior to arrival and has not vomited in the emergency department.
[2019-05-03] MEDS ORDERED: Isovue-370 500 ML BOTTLE IVP ONE (15:18)
[2019-05-03 15:36] LABS: White Blood Count 6.1 K/mcL (4.3-11.1)
[2019-05-03 15:37] LABS: Basophils % 0.5 %; Eosinophils # 0.2 K/mcL (0.0-0.6); Eosinophils % 3.6 %; Hematocrit 30.4 % (35.3-44.9); Hemoglobin 9.3 g/dL (11.5-15.4); Immature Granulocytes % 0.2 % (0-4); Lymphocytes # 0.5 K/mcL (0.6-4.6); Lymphocytes % 8.3 %; Mean Corpuscular HGB Conc 30.6 g/dL (31.6-35.5); Mean Corpuscular Hemoglobin 31.1 pg (28.0-33.3); Mean Corpuscular Volume 101.7 fL (83.0-100.0); Mean Platelet Volume 10.7 fL (9.4-12.4); Monocytes # 0.7 K/mcL (0.0-1.3); Monocytes % 10.8 %; Neutrophils # 4.7 K/mcL (1.6-8.9); Platelet Count 197 K/mcL (140-400); Red Blood Count 2.99 M/mcL (3.82-4.97); Red Cell Distribution Width 13.8 % (11.5-14.5); Segmented Neutrophils % 76.6 %
[2019-05-03 15:59] LABS: Alanine Aminotransferase 6 Units/L (7-52); Albumin 3.3 g/dL (3.5-5.7); Albumin/Globulin Ratio 0.9 (1.1-2.2); Alkaline Phosphatase 35 Units/L (34-104); Aspartate Amino Transferase 12 Units/L (13-39); BUN/Creatinine Ratio 20 (6-26); Bilirubin,Total 0.4 mg/dL (0.3-1.0); Blood Urea Nitrogen 25 mg/dL (8-23); Calcium 8.1 mg/dL (8.6-10.3); Carbon Dioxide 37 mEq/L (23-29); Chloride 99 mEq/L (98-107); Globulin 3.6 g/dL (2.4-3.5); Glucose 106 mg/dL (70-105); Osmolality,Calculated 297 (280-300); Potassium 4.5 mEq/L (3.5-5.1); Sodium 141 mEq/L (136-145); Total Protein 6.9 g/dL (6.4-8.9); Troponin I < 0.03 ng/mL (< 0.04); eGFR For African Americans 49 (> 60); eGFR For Non-African Americans 40 (> 60)
[2019-05-03 16:09] LABS: Bilirubin,Urine Negative (Negative); Blood,Urine Negative (Negative); Clarity,Urine Clear (Clear); Color,Urine Yellow (Yellow); Glucose,Urine (UA) Normal (Normal); Ketones,Urine Negative (Negative); Leukocyte Esterase,Urine Negative (Negative); Nitrite,Urine Negative (Negative); PH,Urine 7.5 pH Units (5.0-8.0); Protein,Urine >=300 mg/dL (Neg-Trace); Specific Gravity,Urine 1.017 (1.010-1.025); Urobilinogen,Urine Normal (Normal)
[2019-05-03 16:24] LABS: Bacteria,Urine None Seen per hpf (None-Few); Hyaline Casts,Urine None Seen per lpf (None-Few); RBC,Urine 0-3 per hpf (0-3); Squamous Epithelial Cell,Urine Many per lpf (None-Few)
[2019-05-03] MEDS ORDERED: Piperacillin/Tazobactam 3.375 GM in Water for inj. (sterile) 20 ML IVP ONE (16:49)
[2019-05-03] MEDS ORDERED: Ipratropium/Albuterol Neb 3 ML IH ONE (17:04)
--- NOTE | 2019-05-03 18:50 | Internal Med History&Physical ---
<Shelton Camp I - Last Filed: 05/03/19 19:06> Date of Encounter: 05/03/19 Time of Encounter: 06:20 Internal Medicine - H&P: HPI History of present illness: Ms. Pastor is a 83 year old female with PMH of CHF, COPD on 3 liter oxygen , diabetes, hyperlipidemia, hypertension presented to ED due to abdonminal swelling and tenderness . she state last Thursday she start to have some abd ominal swelling and explosive diarrhea with generalized abdominal pain and hardness .Later pain start to get more localized in her lower abdomen she also nitices increase bulging redness and warm sesnsation in her usual protruded umbilical hernia site . she had nausea but no vomiting , she had chest pain localized in middle of her chest , aggravated by coughing and taking deep breath .she had no fever, no chills . no change in urination .She had a hernia repaired in the same area as the current swelling in 1983.and since then she had the protuberrence but no any abdominal pain swelling or change in bowel movements . on admission vitals showes T 100.2 , HR 89. RR20 . BP 165/81 , WBC 6. HB 9.3 , CREATININE 1.27. GLUCOSE [address] abdomen showes Thickened right colon with evidence of pneumatosis raises concern for bowel ischemia and possible infarction. Abdominal aortic aneurysm without rupture measuring 5.6 cm. , vascular and general surgeon are consulted Past Med Surg Social Fam HX - Past Medical History Medical history: CHF, COPD, diabetes, hyperlipidemia, hypertension, thyroid disease Psychiatric history: depression - Past Surgical History Additional surgical history: Hernia sx, - Social History Smoking Status: Former smoker Smokeless Tobacco Status: No Alcohol use: occasionally Drug use: none - Family History Mother Living Status: Hx Family Cardiac Disorders: No Hx Family Respiratory Disorders: No Hx Family Cancer: No Hx Family GI Disorders: Yes Hx Family Endocrine Disorder: No Hx Family Neuromuscular Disorders: No Hx Family Neurologic Disorders: No Hx Family HEENT Disorders: No Hx Family Autoimmune Disorders: No Father Living Status: Hx Family Cardiac Disorders: Yes Hx Family Respiratory Disorders: No Hx Family Cancer: No Hx Family GI Disorders: No Hx Family Endocrine Disorder: Yes (DM) Hx Family Neuromuscular Disorders: No Hx Family Neurologic Disorders: No Hx Family HEENT Disorders: No Hx Family Autoimmune Disorders: No Internal Medicine - H&P: Meds FLUoxetine HCl [Prozac] 20 mg PO BID 05/19/16 [History] Furosemide [Lasix] 20 mg PO BID 05/19/16 [History] Levothyroxine [Synthroid] 150 mcg PO 0630 05/19/16 [History] Pravastatin Sodium 10 mg PO HS 05/19/16 [History] Aspirin Enteric Coated [Aspirin EC] 81 mg PO DAILY 11/24/16 [History] Cetirizine HCl [Zyrtec] 10 mg PO DAILY 09/20/18 [History] Ergocalciferol (VITAMIN D2) [Vitamin D2] 2,000 unit PO DAILY 09/20/18 [History] Albuterol Sulfate [Albuterol Inhaler] 2 puff IH Q4HR PRN 05/03/19 [History] Budesonide [Pulmicort Flexhaler 180mcg] 1 puff IH BID 05/03/19 [History] Isosorbide MONOnitrate [Isosorbide Mononitrate] 10 mg PO BID 05/03/19 [History] Ranitidine HCl [Acid On Car Supervisor] 150 mg PO DAILY 05/03/19 [History] Allergy/AdvReac Type Severity Reaction Status Date / Time lisinopril Allergy Swelling Verified 09/20/18 16:32 of Lip/Tongue/Throat All Systems PM: A 10-system review of systems was performed and is negative for pertinent findings except as documented above in the HPI. - Constitutional Vitals: Temp Pulse Resp BP Pulse Ox 100.2 F H 85 20 168/100 100 05/03/19 14:56 05/03/19 17:25 05/03/19 17:20 05/03/19 17:25 05/03/19 17:25 Exam: General: no acute distress , A&AX3 HEENT: Atraumatic, Normocephaly, sclera unicteric Neck: supple , Full ROM , trachea midline Cardiac: RRR , S1+. S2+ Lungs: decrease Breath Sounds Bilaterally, + ve Wheeze No Rales, Rhonchi Abdomen: SHard , tender distended , -ve bowel sounds Extremities: bilateral LL swelling and stasis dermatitis , Normal Pulses Skin : intact , Normal color Psychiatric : normal affect, normal mood Nuero : alert, normal gait, oriented X3 Internal Med - H&P Results - Labs CBC & Chem 7: 05/03/19 15:10 05/03/19 15:10 Labs: Short CBC 05/03/19 Range/Units 15:10 WBC 6.1 (4.3-11.1) K/mcL Hgb 9.3 L (11.5-15.4) g/dL Hct 30.4 L (35.3-44.9) % Plt Count 197 (140-400) K/mcL Neutrophils # 4.7 (1.6-8.9) K/mcL BMP 05/03/19 15:10 Sodium 141 Potassium 4.5 Chloride 99 Carbon Dioxide 37 H BUN 25 H Creatinine 1.27 H Glucose 106 H Calcium 8.1 L Cardiac Enzymes 05/03/19 Range/Units 15:10 Troponin I < 0.03 (< 0.04) ng/mL Liver Function 05/03/19 Range/Units 15:10 Total Bilirubin 0.4 (0.3-1.0) mg/dL AST 12 L (13-39) Units/L ALT 6 L (7-52) Units/L Alkaline Phosphatase 35 (34-104) Units/L Albumin 3.3 L (3.5-5.7) g/dL Urine 05/03/19 Range/Units 15:54 Urine Color Yellow (Yellow) Urine Clarity Clear (Clear) Urine pH 7.5 (5.0-8.0) pH Units Ur Specific [place] 1.017 (1.010-1.025) Urine Protein >=300 H (Neg-Trace) mg/dL Urine Glucose (UA) Normal (Normal) mg/dL - Impressions ITS Impressions Chest X-Ray 05/03/19 15:23 IMPRESSION: Small effusions with right lower lobe atelectasis. D/ / 05/03/2019 16:18:27 Jorden Mann MD / [facility] Interpreting Provider: Jorden Mann MD Abdomen/Pelvis CT 05/03/19 16:37 IMPRESSION: 1. Thickened right colon with evidence of pneumatosis raises concern for bowel ischemia and possible infarction. 2. Abdominal aortic aneurysm without rupture measuring 5.6 cm. 3. Ventral hernia containing mostly fat which appears thickened and a small portion of the transverse colon. This is not associated with bowel obstruction however. Diverticulosis but no acute diverticulitis. 4. Bilateral hyperdense renal nodules with the largest on the right measuring 2.8 cm and the largest on the left measuring 2.2 cm. Follow-up is recommended. 5. Findings discussed with Dr. Villanueva from the ER department on 05/03/2019 at 4:45 p.m. RECOMMENDATIONS: General surgery consult D/ /03/2019 17:04:50 Iris Klein MD / [facility] Interpreting Provider: Iris Klein MD - Assessment and Plan (1) Ischemia, bowel Current Visit: Yes Status: Acute Assessment and plan: patient presented with abdiminal pain , swelling hardness and tenderness vitals stable , clinically stable CT of abdomen : hickened right colon with evidence of pneumatosis raises concern for bowel ischemia and possible infarction. plan : IV zosin pain control NPO antiemetic general surgery consult (2) COPD (chronic obstructive pulmonary disease) Current Visit: Yes Status: Acute Assessment and plan: Patient on 3 liter nasal canula at home clinically stable not in exacerbation Qualifiers: Qualified Code(s): J44.9 - Chronic obstructive pulmonary disease, unspecified (3) CHF (congestive heart failure) Current Visit: Yes Status: Acute Assessment and plan: not in exacerbation Qualifiers: Qualified Code(s): I50.22 - Chronic systolic (congestive) heart failure (4) AAA (abdominal aortic aneurysm) Current Visit: Yes Status: Acute Assessment and plan: CT scan of abdomen : . Abdominal aortic aneurysm without rupture measuring 5.6 cm. patient is clinically stable and asymptomatic vascular surgery consult NPO continue monitoring Qualifiers: Qualified Code(s): I71.4 - Abdominal aortic aneurysm, without rupture (5) Diabetes Current Visit: Yes Status: Acute Assessment and plan: patient is a known case of diabetic blood sugar 109 not on any home med slow SSI Qualifiers: Qualified Code(s): E11.9 - Type 2 diabetes mellitus without complications - Time Spent With Patient Total time spent is greater than 50% in coordination of care (as documented) at patient's floor/unit and/or counseling patient: <Kaiden Winchester - Last Filed: 05/03/19 21:34> Date of Encounter: 05/03/19 Internal Medicine - H&P: HPI History of present illness: Ms. Pastor is a 83 year old female All Systems PM: A 10-system review of systems was performed and is negative for pertinent findings except as documented above in the HPI. - Constitutional Vitals: Temp Pulse Resp BP Pulse Ox 98.9 F 83 20 151/84 97 05/03/19 19:44 05/03/19 19:44 05/03/19 19:44 05/03/19 19:44 05/03/19 19:44 Internal Med - H&P Results - Labs CBC & Chem 7: 05/03/19 15:10 05/03/19 15:10 Labs: Short CBC 05/03/19 Range/Units 15:10 WBC 6.1 (4.3-11.1) K/mcL Hgb 9.3 L (11.5-15.4) g/dL Hct 30.4 L (35.3-44.9) % Plt Count 197 (140-400) K/mcL Neutrophils # 4.7 (1.6-8.9) K/mcL BMP 05/03/19 15:10 Sodium 141 Potassium 4.5 Chloride 99 Carbon Dioxide 37 H BUN 25 H Creatinine 1.27 H Glucose 106 H Calcium 8.1 L Cardiac Enzymes 05/03/19 Range/Units 15:10 Troponin I < 0.03 (< 0.04) ng/mL Liver Function 05/03/19 Range/Units 15:10 Total Bilirubin 0.4 (0.3-1.0) mg/dL AST 12 L (13-39) Units/L ALT 6 L (7-52) Units/L Alkaline Phosphatase 35 (34-104) Units/L Albumin 3.3 L (3.5-5.7) g/dL Urine 05/03/19 Range/Units 15:54 Urine Color Yellow (Yellow) Urine Clarity Clear (Clear) Urine pH 7.5 (5.0-8.0) pH Units Ur Specific [place] 1.017 (1.010-1.025) Urine Protein >=300 H (Neg-Trace) mg/dL Urine Glucose (UA) Normal (Normal) mg/dL - Impressions ITS Impressions Chest X-Ray 05/03/19 15:23 IMPRESSION: Small effusions with right lower lobe atelectasis. D/ / 05/03/2019 16:18:27 Jorden Mann MD / [facility] Interpreting Provider: Jorden Mann MD Abdomen/Pelvis CT 05/03/19 16:37 IMPRESSION: 1. Thickened right colon with evidence of pneumatosis raises concern for bowel ischemia and possible infarction. 2. Abdominal aortic aneurysm without rupture measuring 5.6 cm. 3. Ventral hernia containing mostly fat which appears thickened and a small portion of the transverse colon. This is not associated with bowel obstruction however. Diverticulosis but no acute diverticulitis. 4. Bilateral hyperdense renal nodules with the largest on the right measuring 2.8 cm and the largest on the left measuring 2.2 cm. Follow-up is recommended. 5. Findings discussed with Dr. Villanueva from the ER department on 05/03/2019 at 4:45 p.m. RECOMMENDATIONS: General surgery consult D/ /03/2019 17:04:50 Iris Klein MD / [facility] Interpreting Provider: Iris Klein MD - Time Spent With Patient Total time spent is greater than 50% in coordination of care (as documented) at patient's floor/unit and/or counseling patient: - Attending Attestation I saw evaluated and examined this patient and reviewed objective data including labs and my medical decision-making was reviewed with the Resident Phys ician/Medical Student. I agree with the documented findings, disposition and treatment plan as described except to any changes set forth below. We independently had [id number] contact with the patient. 83 year old female with history of CHF, COPD, CKD, DM, chronic respiratory failure on 3L O2 presented to ED for abdominal pain. Gradually worsening for past week. She has a known umbilical hernia for several years that is now starting to become more painful. On exam, she is in no acute distress, non- toxic appearing. Lower abdominal quadrants are slightly erythematous and tender to touch There is no guarding or rebound rigidity. Abdomen is soft and non- distended. She has chronic lymphedema with venous stasis changes. VS: reviewed, hemodynamically stable, Tmax 100.2. Labs: reviewed: Lactic acid normal. Renal function at baseline, hemoglobin/hematocrit at baseline. CT abdomen/pelvis showed pneumatosis that could represent bowel ischemia/infarction, abdominal aortic aneurysm measure 5.6 cm without dissection. General Surgery has been consulted, Vascular Surgery consulted and notified in ED of patient. Await recommendations, keep NPO, continue supportive care, continue Zosyn.
[2019-05-03] MEDS ORDERED: Naloxone 0.4 MG/ML INJ IVP PRN (19:10)
[2019-05-03] MEDS ORDERED: *HR* OxyCODONE Immed Rel 5 MG TABLET PO PRN (19:20)
[2019-05-03] MEDS ORDERED: Ondansetron 4 MG/2 ML VIAL IVP PRN (19:20)
[2019-05-03] MEDS ORDERED: *HR* HYDROcodone/Acet 5/325 mg TABLET PO PRN (19:20)
[2019-05-03] MEDS ORDERED: Acetaminophen 325 MG TABLET PO PRN (19:20)
[2019-05-03] MEDS ORDERED: Dextrose Gel 15 GM/37.5 ML TUBE PO PRN ×2 (19:41)
[2019-05-03] MEDS ORDERED: D5% in Water 1,000 ML IVC PRN (19:41)
[2019-05-03] MEDS ORDERED: *HR* Dextrose 50 % in Water (Syg) 50 ML SYRINGE IVP PRN (19:41)
[2019-05-03] MEDS ORDERED: Insulin LISPRO 300 UNITS/3 ML VIAL SQ SCH (19:45)
[2019-05-03] MEDS: Insulin LISPRO 300 UNITS/3 ML VIAL SQ SCH ×2 (21:11→21:53)
[2019-05-03] MEDS ORDERED: 0.9 % Sodium Chloride 1,000 ML IVC ONE (23:14)
--- NOTE | 2019-05-03 23:58 | AcuteCare Surgery Consult Note ---
Date of Encounter: 05/04/19 Time of Encounter: 23:45 Assessment and Plan (1) Incarcerated ventral hernia Current Visit: Yes Status: Acute Discussed with patient the diagnosis of ventral hernia with incarcerated colon. Discussed with patient treatment options open surgery for repair and possible bowel resection or no treatment with observation. Pt opts for surgery for reduction of incarcearted bowel and possible bowel resection and possible colostomy. Procedure, risks and benefits are discussed with patient. Possible risks and complications include but are not limited to bleeding, infection, injury to small or large bowel. The patient understands. Surgery is scheduled. IV abx . NPO. IVF (2) Pneumatosis coli Current Visit: Yes Status: Acute (3) Type II diabetes mellitus Current Visit: No Status: Acute Qualifiers: Diabetes mellitus technician terminal and repeater insulin use: with technician terminal and repeater use Diabetes mellitus complication status: without complication Qualified Code(s): E11.9 - Type 2 diabetes mellitus without complications; Z79.4 - care home (current) use of insulin (4) COPD (chronic obstructive pulmonary disease) Current Visit: Yes Status: Acute Qualifiers: Qualified Code(s): J44.9 - Chronic obstructive pulmonary disease, unspecified (5) AAA (abdominal aortic aneurysm) Current Visit: Yes Status: Acute Qualifiers: Qualified Code(s): I71.4 - Abdominal aortic aneurysm, without rupture History of Present Illness Consult date: 05/03/19 Reason for consult: abdominal pain Requesting physician: Janelle Villanueva History of present illness: This 83 y/o pt presents to [facility] ED c/o severe abdominal pain and explosive diarrhea. Pt reports pain is predominantly in umbilical hernia bulge. Pain radiates to lower panniculus. . Pt reports pain has been present for a long while over bulge but, redness is new. He states that the chronic, intermittent low grade pain worsened to the point of intolerence today. Now, the pain is constant and severe at the umbilicus. Pt denies nausea and vomiting. Pt denies hematemesis or coffee ground emesis. Pt reports flatus and BM. BM have become loose today. Pt denies hematochezia or melena. Reports decreased appetite. Denies fever. Past Med Surg Social Fam HX - Past Medical History Medical history: CHF, COPD, diabetes, hyperlipidemia, hypertension, thyroid disease Psychiatric history: depression - Past Surgical History Additional surgical history: Hernia sx, - Social History Smoking Status: Former smoker Smokeless Tobacco Status: No Alcohol use: occasionally Drug use: none - Family History Mother Living Status: Hx Family Cardiac Disorders: No Hx Family Respiratory Disorders: No Hx Family Cancer: No Hx Family GI Disorders: Yes Hx Family Endocrine Disorder: No Hx Family Neuromuscular Disorders: No Hx Family Neurologic Disorders: No Hx Family HEENT Disorders: No Hx Family Autoimmune Disorders: No Father Living Status: Hx Family Cardiac Disorders: Yes Hx Family Respiratory Disorders: No Hx Family Cancer: No Hx Family GI Disorders: No Hx Family Endocrine Disorder: Yes (DM) Hx Family Neuromuscular Disorders: No Hx Family Neurologic Disorders: No Hx Family HEENT Disorders: No Hx Family Autoimmune Disorders: No Medications and Allergies FLUoxetine HCl [Prozac] 20 mg PO BID 05/19/16 [History] Furosemide [Lasix] 20 mg PO BID 05/19/16 [History] Levothyroxine [Synthroid] 150 mcg PO 0630 05/19/16 [History] Pravastatin Sodium 10 mg PO HS 05/19/16 [History] Aspirin Enteric Coated [Aspirin EC] 81 mg PO DAILY 11/24/16 [History] Cetirizine HCl [Zyrtec] 10 mg PO DAILY 09/20/18 [History] Ergocalciferol (VITAMIN D2) [Vitamin D2] 2,000 unit PO DAILY 09/20/18 [History] Albuterol Sulfate [Albuterol Inhaler] 2 puff IH Q4HR PRN 05/03/19 [History] Budesonide [Pulmicort Flexhaler 180mcg] 1 puff IH BID 05/03/19 [History] Isosorbide MONOnitrate [Isosorbide Mononitrate] 10 mg PO BID 05/03/19 [History] Ranitidine HCl [Acid Meeting Planner] 150 mg PO DAILY 05/03/19 [History] 3 Allergy/AdvReac Type Severity Reaction Status Date / Time lisinopril Allergy Swelling Verified 09/20/18 16:32 of Lip/Tongue/Throat Review of Systems All systems PM: The remainder of the systems were reviewed and are negative - Constitutional no anorexia, no chills, no excessive sweating, no fatigue, no fever(s), no night sweats, no weakness - EENT Nose, mouth and throat: no dizziness, no dry mouth, no dysphagia, no nasal congestion, no nasal discharge, no nasal obstruction, no sore throat, no throat swelling, no tongue swelling - Cardiovascular no chest pain, no diaphoresis, no dyspnea, no edema - Respiratory wheezing, no cough, no dyspnea - Gastrointestinal abdominal pain, belching, bloating, diarrhea, no constipation, no heartburn, no nausea, no vomiting - Genitourinary Genitourinary: no dysuria, no flank pain, no hematuria, no urinary urgency - Musculoskeletal no back pain, no joint swelling, no limited range of motion, no neck pain - Integumentary other (+ erythema associated with hernia bulge), no dry skin, no pruritus, no rash, no wounds, no jaundice - Neurological no confusion, no dizziness, no focal weakness, no weakness - Psychiatric no anxiety, no depression - Hematologic/Lymphatic no easy bleeding, no easy bruising General Surgery Exam Initial Vital Signs Temp Pulse Resp BP Pulse Ox 100.2 F H 89 20 165/81 97 05/03/19 14:56 05/03/19 14:56 05/03/19 14:56 05/03/19 14:56 05/03/19 14:56 - General physical appearance well developed, well nourished, no distress, moderate pain. negative: jaundice - Eyes PERRL, normal ocular movement. negative: icteric - ENT no congestion, dry mucosa. negative: nasal discharge - Neck no masses, trachea midline, no lymphadectomy, no venous distension - Respiratory normal respiratory effort, clear to auscultation - Cardiovascular Cardiovascular exam: Present: RRR. Absent: JVD - Abdomen Abdomen general surgery: Present: bowel sounds present, distended, tender, guarding Abdominal Tenderness: Present: diffusely Hernia: Present: incarcerated, umbilical - Genitourinary Present: normal external genitalia - Integumentary Integumentary general surgery: Present: warm and dry, other (eryhthema over umbilical bulge) - Neurologic Present: CN 2-12 grossly intact - Psychiatric Psychiatric general surgery: Present: A&Ox3, appropriate Exam Initial Vital Signs Temp Pulse Resp BP Pulse Ox 100.2 F H 89 20 165/81 97 05/03/19 14:56 05/03/19 14:56 05/03/19 14:56 05/03/19 14:56 05/03/19 14:56 Results - Labs 05/03/19 15:10 05/03/19 15:10 Abnormal lab results RBC 2.99 M/mcL (3.82-4.97) L 05/03/19 15:10 Hgb 9.3 g/dL (11.5-15.4) L 05/03/19 15:10 Hct 30.4 % (35.3-44.9) L 05/03/19 15:10 MCV 101.7 fL (83.0-100.0) H 05/03/19 15:10 MCHC 30.6 g/dL (31.6-35.5) L 05/03/19 15:10 Lymphocytes # 0.5 K/mcL (0.6-4.6) L 05/03/19 15:10 ESR 76 mm/hr (0-15) H 05/03/19 15:10 Carbon Dioxide 37 mEq/L (23-29) H 05/03/19 15:10 BUN 25 mg/dL (8-23) H 05/03/19 15:10 Creatinine 1.27 mg/dL (0.60-1.20) H 05/03/19 15:10 Est GFR ( Amer) 49 (> 60) L 05/03/19 15:10 Est GFR (Non-Af Amer) 40 (> 60) L 05/03/19 15:10 Glucose 106 mg/dL (70-105) H 05/03/19 15:10 POC Glucose 109 mg/dL (70-99) H 05/03/19 15:08 Calcium 8.1 mg/dL (8.6-10.3) L 05/03/19 15:10 AST 12 Units/L (13-39) L 05/03/19 15:10 ALT 6 Units/L (7-52) L 05/03/19 15:10 Albumin 3.3 g/dL (3.5-5.7) L 05/03/19 15:10 Globulin 3.6 g/dL (2.4-3.5) H 05/03/19 15:10 Albumin/Globulin Ratio 0.9 (1.1-2.2) L 05/03/19 15:10 Urine Protein >=300 mg/dL (Neg-Trace) H 05/03/19 15:54 Urine Microscopic WBC 5-15 per hpf (0-3) H 05/03/19 15:54 Ur Squamous Epith Cells Many per lpf (None-Few) H 05/03/19 15:54 Ur Culture Indicated? YES (NO) A 05/03/19 15:54 Diabetes panel 05/03/19 Range/Units 15:10 Sodium 141 (136-145) mEq/L Potassium 4.5 (3.5-5.1) mEq/L Chloride 99 (98-107) mEq/L Carbon Dioxide 37 H (23-29) mEq/L BUN 25 H (8-23) mg/dL Creatinine 1.27 H (0.60-1.20) mg/dL Glucose 106 H (70-105) mg/dL Calcium 8.1 L (8.6-10.3) mg/dL AST 12 L (13-39) Units/L ALT 6 L (7-52) Units/L Alkaline Phosphatase 35 (34-104) Units/L Albumin 3.3 L (3.5-5.7) g/dL Calcium panel 05/03/19 Range/Units 15:10 Calcium 8.1 L (8.6-10.3) mg/dL Albumin 3.3 L (3.5-5.7) g/dL Pituitary panel 05/03/19 Range/Units 15:10 Sodium 141 (136-145) mEq/L Potassium 4.5 (3.5-5.1) mEq/L Chloride 99 (98-107) mEq/L Carbon Dioxide 37 H (23-29) mEq/L BUN 25 H (8-23) mg/dL Creatinine 1.27 H (0.60-1.20) mg/dL Glucose 106 H (70-105) mg/dL Calcium 8.1 L (8.6-10.3) mg/dL Adrenal panel 05/03/19 Range/Units 15:10 Sodium 141 (136-145) mEq/L Potassium 4.5 (3.5-5.1) mEq/L Chloride 99 (98-107) mEq/L Carbon Dioxide 37 H (23-29) mEq/L BUN 25 H (8-23) mg/dL Creatinine 1.27 H (0.60-1.20) mg/dL Glucose 106 H (70-105) mg/dL Calcium 8.1 L (8.6-10.3) mg/dL Total Bilirubin 0.4 (0.3-1.0) mg/dL AST 12 L (13-39) Units/L ALT 6 L (7-52) Units/L Alkaline Phosphatase 35 (34-104) Units/L Albumin 3.3 L (3.5-5.7) g/dL All other labs normal. - Imaging CT scan - abdomen: image reviewed (incarcerated umbilical hernia and suggestion of ischemic colon; +pneumotosis coli) CT scan - pelvis: image reviewed Consult Discharge Plan - Plan Referrals: Goran Hicks MD [Primary Care Provider] -
[2019-05-04] MEDS ORDERED: *HR* Propofol 200 MG/20 ML VIAL IVP ONE (04:26)
[2019-05-04] MEDS ORDERED: *HR* FentaNYL (PF) 100 MCG/2 ML VIAL ONE (04:26)
[2019-05-04] MEDS ORDERED: Ondansetron 4 MG/2 ML VIAL ONE (04:27)
[2019-05-04] MEDS ORDERED: Lidocaine -MPF 2% 2 ML VIAL ONE (04:27)
[2019-05-04] MEDS ORDERED: *HR* Succinylcholine 200 MG/10 ML VIAL IVP ONE (04:27)
[2019-05-04] MEDS ORDERED: Dexamethasone 4 MG/ML VIAL ONE (04:27)
[2019-05-04] MEDS ORDERED: Lidocaine -MPF 4% 5 ML AMPUL ONE (04:28)
--- NOTE | 2019-05-04 04:34 | Anesthesia Evaluation PreOp ---
Date of Encounter: 05/04/19 Time of Encounter: 04:30 - Past History Planned Operation: Exploratory Lap Cardiac History: CHF, HTN, Hyperlipidemia, Other (AAA 5.6 cm without rupture) Pulmonary History: COPD (on home oxygen) MINING ENGINEER History: Denies Any Significant HX Other Medical History: Thyroid, Other (Depression Morbid Obesity) Anesthesia History: No Prior Anesthetic Complications Alcohol Use: occasionally Drug use: none Medications and Allergies FLUoxetine HCl [Prozac] 20 mg PO BID 05/19/16 [History] Furosemide [Lasix] 20 mg PO BID 05/19/16 [History] Levothyroxine [Synthroid] 150 mcg PO 0630 05/19/16 [History] Pravastatin Sodium 10 mg PO HS 05/19/16 [History] Aspirin Enteric Coated [Aspirin EC] 81 mg PO DAILY 11/24/16 [History] Cetirizine HCl [Zyrtec] 10 mg PO DAILY 09/20/18 [History] Ergocalciferol (VITAMIN D2) [Vitamin D2] 2,000 unit PO DAILY 09/20/18 [History] Albuterol Sulfate [Albuterol Inhaler] 2 puff IH Q4HR PRN 05/03/19 [History] Budesonide [Pulmicort Flexhaler 180mcg] 1 puff IH BID 05/03/19 [History] Isosorbide MONOnitrate [Isosorbide Mononitrate] 10 mg PO BID 05/03/19 [History] Ranitidine HCl [Acid Roll Shop Supervisor] 150 mg PO DAILY 05/03/19 [History] Allergy/AdvReac Type Severity Reaction Status Date / Time lisinopril Allergy Swelling Verified 09/20/18 16:32 of Lip/Tongue/Throat - Meds/Allergy Pre-op Review Medications Reviewed: Yes Allergies Reviewed: Yes Beta Blockers on Current Med List: No Anesthesia Results - Labs 05/03/19 15:10 05/03/19 15:10 - Imaging EKG: report reviewed (SR Rt BBB) Additional studies: ECHO 2018 EF 65%, moderate pulm htn Anesthesia Exam Vital Signs/O2 Sat/Glucose, Most Current Temp Pulse Resp BP Pulse Ox 05/04/19 03:32 98.5 F 72 18 172/98 96 Height: 5'1 Weight: 250 lbs NPO (# of Hours): MN Pain Scale: 0 - HEENT Pupil (Motor): Pupils equal, EOMI Mallampati: III Teeth: Normal Oral Opening: Less than or equal to 3 - MINING ENGINEER LOC: Oriented MINING ENGINEER Motor: Normal RUE, Normal LUE, Normal RLE, Normal LLE, Normal Face MINING ENGINEER Sensory: Normal: RUE, LUE, RLE, LLE, Face - Cardiac Rhythm: Regular Murmur: None JVD: No Carotid Bruit: No - Pulmonary Breath Sounds: bilateral Clear Respiratory Effort: Symmetrical Anesthesia Assess/Plan ASA Score: 4 (HTN COPD home oxygen DM MO) Level of consciousness: Cooperative, Oriented Anesthetic Plan: General Autologous Blood: No Monitoring Plan: Standard Monitors Recovery Plan: PACU (Discussed GA, possible post op ventilation, agrees to proceed)
[2019-05-04] MEDS ORDERED: Acetaminophen IV 1,000 MG/100 ML INFUS..BTL ONE (04:53)
[2019-05-04] MEDS ORDERED: Famotidine 20 MG/2 ML VIAL ONE (04:53)
[2019-05-04] MEDS ORDERED: CeFAZolin Syr 2,000MG/20 ML 2,000 MG/20 ML SYRINGE IVPB ONE ×3 (06:25→13:30)
--- NOTE | 2019-05-04 06:54 | Operative Note ---
Date of procedure: 05/04/19 Pre-op diagnosis: incarcerated ventral hernia with possible ischemic colon Post-op diagnosis: other (incarcerated ventral hernia without ischemic colon) Procedure: 1) Exploratory laparotomy with reduction of incarcerated colon and 2. Repair ventral umbilical hernia with mesh Complications: none Anesthesia: GETA Surgeon: Arsenio Sharma Was there an finance assistant present: No Estimated blood loss (cc): 20 Specimen: hernia sac and omentum Condition: stable Disposition: PACU Procedure in Detail: This 83 year-old female with multiple medical problems and incarcerated umbilical hernia is taken to the operating room and placed in the supine position. Anterior abdominal wall is prepped and draped in the usual sterile fashion. A midline incision is made over the palpable and nonreducible mass and is extended in both directions. Subcutaneous tissues are dissected down to rectus abdominus fascia. Hernia sac is undermined to the level of the neck of the hernia.. The hernia sac is opened.. The hernia sac contents of omentum are strangulated and excised. The accompanying transverse colon is reduced back into the intra-abdominal cavity through the defect. A [id number] composite mesh is placed in the hernial defect and sewn into position using 3-0 Prolene sutures aaround the entire periphery of the mesh. Next the fascia was closed over the mesh. Hemostasis is considered satisfactory. The fascia is injected with 0.5% marcaine. Subcutaneous tissues are irrigated. Subcutaneous tissues are reapproximated using 3-0 Vicryl sutures. Skin is reapproximated using brianna. Patient tolerated procedure well was taken to PACU in good condition.
[2019-05-04] MEDS ORDERED: *HR* Labetalol 20 MG/4 ML SYRINGE IVP PRN (07:13)
[2019-05-04] MEDS ORDERED: Ondansetron 4 MG/2 ML VIAL IVP ONE ×2 (07:13→09:30)
[2019-05-04] MEDS: Morphine Sulfate 2 MG/ML SYRINGE IVP PRN ×2 (07:19→07:31)
[2019-05-04] MEDS: *HR* HYDROmorphone (PF) 1 MG/ML SYRINGE IVP PRN ×4 (08:12→08:36)
--- NOTE | 2019-05-04 09:00 | Anesthesia Evaluation Post Op ---
Date of Encounter: 05/04/19 Time of Encounter: 08:59 - Vital Signs Vital Signs: Vital Signs/O2 Sat, Most Current Temp Pulse Resp BP Pulse Ox 99.6 F 71 16 153/82 97 05/04/19 08:44 05/04/19 08:44 05/04/19 08:44 05/04/19 08:44 05/04/19 08:44 - Lungs Lungs: Clear Ascult./Percussion - Airway Airway: Non-obstructed - Cardiovascular Regular Rate - Mental Status Mental Status: Asleep with brisk response to light stimulation - Pain Pain Scale: 7 Pain Scale used: Numeric (1 - 10) - Nausea Vomiting Nausea Vomiting: Not Present - Hydration Hydration: Ice chips, Pressley catheter - Discharge PostOp Status: Transfer Patient to floor
--- NOTE | 2019-05-04 09:11 | Internal Med Progress Note ---
<Kin Wilkerson - Last Filed: 05/04/19 12:23> Hospitalist Progress Note - Encounter Date of Encounter: 05/04/19 Time of Encounter: 09:30 - Exam Vitals: Temp Pulse Resp BP Pulse Ox 97.5 F L 74 14 138/84 96 05/04/19 11:36 05/04/19 11:58 05/04/19 11:58 05/04/19 11:58 05/04/19 11:58 - Assessment and Plan (1) Incarcerated ventral hernia Current Visit: Yes Status: Acute (2) AAA (abdominal aortic aneurysm) Current Visit: Yes Status: Acute (3) CHF (congestive heart failure) Current Visit: Yes Status: Chronic (4) COPD (chronic obstructive pulmonary disease) Current Visit: Yes Status: Chronic (5) Diabetes Current Visit: Yes Status: Chronic (6) CKD (chronic kidney disease) stage 3, GFR 30-59 ml/min Current Visit: No Status: Chronic - Time Spent with Patient Total time spent is greater than 50% in coordination of care (as documented) at patient's floor/unit and/or counseling patient: Internal Medicine: Result - Labs CBC & Chem 7: 05/04/19 10:01 05/04/19 10:01 Labs: Short CBC 05/03/19 05/04/19 Range/Units 15:10 10:01 WBC 6.1 7.5 (4.3-11.1) K/mcL Hgb 9.3 L 10.0 L (11.5-15.4) g/dL Hct 30.4 L 34.0 L (35.3-44.9) % Plt Count 197 237 (140-400) K/mcL Neutrophils # 4.7 (1.6-8.9) K/mcL BMP 05/03/19 05/04/19 15:10 10:01 Sodium 141 141 Potassium 4.5 4.9 Chloride 99 99 Carbon Dioxide 37 H 34 H BUN 25 H 23 Creatinine 1.27 H 1.27 H Glucose 106 H 130 H Calcium 8.1 L 8.1 L Cardiac Enzymes 05/03/19 05/04/19 Range/Units 15:10 10:01 Troponin I < 0.03 < 0.03 (< 0.04) ng/mL Liver Function 05/03/19 05/04/19 Range/Units 15:10 10:01 Total Bilirubin 0.4 0.3 (0.3-1.0) mg/dL AST 12 L 15 (13-39) Units/L ALT 6 L 9 (7-52) Units/L Alkaline Phosphatase 35 38 (34-104) Units/L Albumin 3.3 L 3.4 L (3.5-5.7) g/dL Urine 05/03/19 Range/Units 15:54 Urine Color Yellow (Yellow) Urine Clarity Clear (Clear) Urine pH 7.5 (5.0-8.0) pH Units Ur Specific Prince 1.017 (1.010-1.025) Urine Protein >=300 H (Neg-Trace) mg/dL Urine Glucose (UA) Normal (Normal) mg/dL - ABG Interpretation ABG results: PT/INR, D-dimer PT 11.2 Seconds (9.4-12.1) 05/04/19 10:01 - Impressions Impressions Chest X-Ray 05/03/19 15:23 IMPRESSION: Small effusions with right lower lobe atelectasis. D/ / 05/03/2019 16:18:27 Jorden Mann MD / bcarter Interpreting Provider: Jorden Mann MD Abdomen/Pelvis CT 05/03/19 16:37 IMPRESSION: 1. Thickened right colon with evidence of pneumatosis raises concern for bowel ischemia and possible infarction. 2. Abdominal aortic aneurysm without rupture measuring 5.6 cm. 3. Ventral hernia containing mostly fat which appears thickened and a small portion of the transverse colon. This is not associated with bowel obstruction however. Diverticulosis but no acute diverticulitis. 4. Bilateral hyperdense renal nodules with the largest on the right measuring 2.8 cm and the largest on the left measuring 2.2 cm. Follow-up is recommended. 5. Findings discussed with Dr. Villanueva from the ER department on 05/03/2019 at 4:45 p.m. RECOMMENDATIONS: General surgery consult D/ /03/2019 17:04:50 Iris Klein MD / lgray Interpreting Provider: Iris Klein MD Consult Discharge Plan - Plan Referrals: Goran Hicks MD [Primary Care Provider] - - Attending Attestation I saw evaluated and examined this patient and reviewed objective data including labs and my medical decision-making was reviewed with the Resident Physician, Shetlon Camp. I agree with the documented findings, disposition and treatment plan as described except to any changes set forth below. We independently had [id number] contact with the patient. Patient with incarcerated ventral hernia. Underwent surgery earlier this morning. Currently on CPAP. She is awake and alert but disoriented. Follow surgery recommendations. Vascular surgery also consulted as patient has 5.6 cm abdominal aortic aneurysm. Await recommendations. Continue diabetic regimen. Started on clear liquid diet. <Shelton Camp I - Last Filed: 05/04/19 17:06> Hospitalist Progress Note - Encounter Date of Encounter: 05/04/19 - Subjective Interval History: Patient is seen and examined this morning . Underwent surgery earlier this morning. Currently on CPAP. She is awake and alert but disoriented. Still having pain, pain is less, no flatus, no bowel movement, afebrile . - Exam Vitals: Temp Pulse Resp BP Pulse Ox 99.6 F 76 14 160/85 97 05/04/19 08:54 05/04/19 08:54 05/04/19 08:54 05/04/19 08:54 05/04/19 08:54 Exam: General: no acute distress , A&AX3 HEENT: Atraumatic, Normocephaly, sclera unicteric Neck: supple , Full ROM , trachea midline Cardiac: RRR , S1+. S2+ Lungs: decrease Breath Sounds Bilaterally, + ve Wheeze No Rales, Rhonchi Abdomen: soft , tender distended , + ve bowel sounds ,Umbilical incision with dressing intact with small amount of serosanguineous drainage noted Extremities: bilateral LL swelling and stasis dermatitis , Normal Pulses Skin : intact , Normal color Psychiatric : normal affect, normal mood Nuero : alert, normal gait, oriented X3 - Assessment and Plan (1) Incarcerated ventral hernia Current Visit: Yes Status: Acute Assessment and Plan: POD 0 - Patient underwent Exploratory laparotomy with reduction of incarcerated colon and Repair ventral umbilical hernia with mesh -still having pain, pain is less, no flatus, no bowel movement, afebrile -Vitals stable -Clear liquid diet - Supportive care and pain control (2) COPD (chronic obstructive pulmonary disease) Current Visit: Yes Status: Chronic Assessment and Plan: Patient on 3 liter nasal canula at home , currently on BIPAP clinically stable not in exacerbation (3) CHF (congestive heart failure) Current Visit: Yes Status: Chronic Assessment and Plan: not in exacerbation (4) AAA (abdominal aortic aneurysm) Current Visit: Yes Status: Chronic Assessment and Plan: CT scan of abdomen : . Abdominal aortic aneurysm without rupture measuring 5.6 cm. patient is clinically stable and asymptomatic vascular surgery consult NPO continue monitoring (5) Diabetes Current Visit: Yes Status: Chronic Assessment and Plan: patient is a known case of diabetic not on any home med -slow SSI - Time Spent with Patient Total time spent is greater than 50% in coordination of care (as documented) at patient's floor/unit and/or counseling patient: Internal Medicine: Result - Labs CBC & Chem 7: 05/04/19 10:01 05/04/19 10:01 Labs: Short CBC 05/03/19 Range/Units 15:10 WBC 6.1 (4.3-11.1) K/mcL Hgb 9.3 L (11.5-15.4) g/dL Hct 30.4 L (35.3-44.9) % Plt Count 197 (140-400) K/mcL Neutrophils # 4.7 (1.6-8.9) K/mcL BMP 05/03/19 15:10 Sodium 141 Potassium 4.5 Chloride 99 Carbon Dioxide 37 H BUN 25 H Creatinine 1.27 H Glucose 106 H Calcium 8.1 L Cardiac Enzymes 05/03/19 Range/Units 15:10 Troponin I < 0.03 (< 0.04) ng/mL Liver Function 05/03/19 Range/Units 15:10 Total Bilirubin 0.4 (0.3-1.0) mg/dL AST 12 L (13-39) Units/L ALT 6 L (7-52) Units/L Alkaline Phosphatase 35 (34-104) Units/L Albumin 3.3 L (3.5-5.7) g/dL Urine 05/03/19 Range/Units 15:54 Urine Color Yellow (Yellow) Urine Clarity Clear (Clear) Urine pH 7.5 (5.0-8.0) pH Units Ur Specific Prince 1.017 (1.010-1.025) Urine Protein >=300 H (Neg-Trace) mg/dL Urine Glucose (UA) Normal (Normal) mg/dL - Impressions Impressions Chest X-Ray 05/03/19 15:23 IMPRESSION: Small effusions with right lower lobe atelectasis. D/ / 05/03/2019 16:18:27 Jorden Mann MD / bcarter Interpreting Provider: Jorden Mann MD Abdomen/Pelvis CT 05/03/19 16:37 IMPRESSION: 1. Thickened right colon with evidence of pneumatosis raises concern for bowel ischemia and possible infarction. 2. Abdominal aortic aneurysm without rupture measuring 5.6 cm. 3. Ventral hernia containing mostly fat which appears thickened and a small portion of the transverse colon. This is not associated with bowel obstruction however. Diverticulosis but no acute diverticulitis. 4. Bilateral hyperdense renal nodules with the largest on the right measuring 2.8 cm and the largest on the left measuring 2.2 cm. Follow-up is recommended. 5. Findings discussed with Dr. Villanueva from the ER department on 05/03/2019 at 4:45 p.m. RECOMMENDATIONS: General surgery consult D/ /03/2019 17:04:50 Iris Klein MD / lgray Interpreting Provider: Iris Klein MD <Kin Wilkerson - Last Filed: 05/04/19 12:23> (2) AAA (abdominal aortic aneurysm) Qualifiers: Qualified Code(s): I71.4 - Abdominal aortic aneurysm, without rupture (3) CHF (congestive heart failure) Qualifiers: Heart failure type: diastolic Heart failure chronicity: chronic Qualified Code(s): I50.32 - Chronic diastolic (congestive) heart failure (4) COPD (chronic obstructive pulmonary disease) Qualifiers: COPD type: chronic bronchitis (5) Diabetes Qualifiers: Diabetes mellitus type: type 2 Diabetes mellitus complication status: with kidney complications Diabetes mellitus complication detail: with chronic kidney disease Chronic kidney disease stage: stage 3 (moderate) <Shelton Camp I - Last Filed: 05/04/19 17:06> (2) COPD (chronic obstructive pulmonary disease) Qualifiers: COPD type: chronic bronchitis (3) CHF (congestive heart failure) Qualifiers: Heart failure type: diastolic Heart failure chronicity: chronic (4) AAA (abdominal aortic aneurysm) Qualifiers: Qualified Code(s): I71.4 - Abdominal aortic aneurysm, without rupture (5) Diabetes Qualifiers: Diabetes mellitus type: type 2 Diabetes mellitus complication status: with kidney complications Diabetes mellitus complication detail: with chronic kidney disease Chronic kidney disease stage: stage 3 (moderate)
[2019-05-04] MEDS ORDERED: Dextrose Gel 15 GM/37.5 ML TUBE PO PRN ×2 (09:30)
[2019-05-04] MEDS ORDERED: Isovue-370 500 ML BOTTLE IVP ONE (09:30)
[2019-05-04] MEDS ORDERED: *HR* OxyCODONE Immed Rel 5 MG TABLET PO PRN (09:30)
[2019-05-04] MEDS ORDERED: Ondansetron 4 MG/2 ML VIAL IVP PRN (09:30)
[2019-05-04] MEDS ORDERED: Furosemide 20 MG TABLET PO SCH (09:30)
[2019-05-04] MEDS ORDERED: Acetaminophen 325 MG TABLET PO PRN (09:30)
[2019-05-04] MEDS ORDERED: Naloxone 0.4 MG/ML INJ IVP PRN (09:30)
[2019-05-04] MEDS ORDERED: *HR* Dextrose 50 % in Water (Syg) 50 ML SYRINGE IVP PRN (09:30)
[2019-05-04] MEDS ORDERED: D5% in Water 1,000 ML IVC PRN (09:30)
[2019-05-04 10:40] LABS: Mean Corpuscular HGB Conc 29.4 g/dL (31.6-35.5); Mean Corpuscular Hemoglobin 30.6 pg (28.0-33.3); Mean Platelet Volume 10.8 fL (9.4-12.4); Platelet Count 237 K/mcL (140-400); Red Blood Count 3.27 M/mcL (3.82-4.97); Red Cell Distribution Width 13.7 % (11.5-14.5); White Blood Count 7.5 K/mcL (4.3-11.1)
[2019-05-04 10:48] LABS: Prothrombin Time 11.2 Seconds (9.4-12.1)
[2019-05-04 10:51] LABS: Activated Partial Thrombo Time 31.2 Seconds (26.0-36.0)
[2019-05-04 11:01] LABS: Alanine Aminotransferase 9 Units/L (7-52); Albumin 3.4 g/dL (3.5-5.7); Albumin/Globulin Ratio 0.9 (1.1-2.2); Alkaline Phosphatase 38 Units/L (34-104); Aspartate Amino Transferase 15 Units/L (13-39); BUN/Creatinine Ratio 18 (6-26); Bilirubin,Total 0.3 mg/dL (0.3-1.0); Blood Urea Nitrogen 23 mg/dL (8-23); Calcium 8.1 mg/dL (8.6-10.3); Carbon Dioxide 34 mEq/L (23-29); Chloride 99 mEq/L (98-107); Chol/HDL Ratio 2.8 (0-4.9); Cholesterol 159 mg/dL (< 200); Globulin 3.9 g/dL (2.4-3.5); Glucose 130 mg/dL (70-105); HDL Cholesterol 57 mg/dL (40-59); LDL Cholesterol,Calculated 84 mg/dL (0-99); Magnesium 2.1 mg/dL (1.6-2.6); Osmolality,Calculated 297 (280-300); Phosphorous 4.5 mg/dL (2.7-4.5); Potassium 4.9 mEq/L (3.5-5.1); Sodium 141 mEq/L (136-145); Total Protein 7.3 g/dL (6.4-8.9); Triglycerides 91 mg/dL (< 150); Troponin I < 0.03 ng/mL (< 0.04); eGFR For African Americans 49 (> 60); eGFR For Non-African Americans 40 (> 60)
--- NOTE | 2019-05-04 13:42 | AcuteCareSurgery Progress Note ---
Date of Encounter: 05/04/19 Time of Encounter: 13:30 - Assessment and Plan (1) Incarcerated ventral hernia Current Visit: Yes Status: Acute POD #0 Exploratory laparotomy with reduction of incarcerated colon and Repair ventral umbilical hernia with mesh Clear liquid diet IV fluids- management per primary team Supportive care and pain control Abdominal binder IS every 1 hour while awake GI/DVT prophylaxis Out of bed to chair/ambulate with assistance Strict I&Os Surgery will continue to follow and assess progress (2) Diabetes mellitus Current Visit: No Status: Chronic Stable Management per primary team Qualifiers: Diabetes mellitus type: type 2 Diabetes mellitus intermodal truck driver insulin use: without intermodal truck driver use Diabetes mellitus complication status: with kidney complications Diabetes mellitus complication detail: with chronic kidney disease Chronic kidney disease stage: stage 3 (moderate) Qualified Code(s): E11.22 - Type 2 diabetes mellitus with diabetic chronic kidney disease; N18.3 - Chronic kidney disease, stage 3 (moderate) (3) Hypertension Current Visit: No Status: Chronic Management per primary team Qualifiers: Hypertension type: essential hypertension Qualified Code(s): I10 - Essential (primary) hypertension (4) CKD (chronic kidney disease) stage 3, GFR 30-59 ml/min Current Visit: No Status: Chronic Stable Strict I&O's (5) AAA (abdominal aortic aneurysm) Current Visit: Yes Status: Chronic Qualifiers: Qualified Code(s): I71.4 - Abdominal aortic aneurysm, without rupture (6) DVT prophylaxis Current Visit: No Status: Acute EPCDs to bilateral lower extremities for DVT prophylaxis Out of bed to chair and ambulate with assistance Subjective Patient reports: still having pain, pain is less, no flatus, no bowel movement, afebrile, other (Patient resting comfortably on bipap. Complaints of dry mouth and abdominal discomfort.) Objective Vital Signs - Last 8 Hours Temp Pulse Resp BP Pulse Ox 05/04/19 13:00 97.7 F 76 19 141/84 98 05/04/19 11:58 74 14 138/84 96 05/04/19 11:36 97.5 F L 76 13 144/84 96 05/04/19 11:24 12 92 05/04/19 10:30 97.2 F L 75 14 149/80 92 05/04/19 10:15 77 13 147/78 92 05/04/19 09:45 97.6 F 76 13 149/76 93 05/04/19 09:30 74 14 143/79 96 05/04/19 09:15 97.9 F 80 14 176/84 92 05/04/19 08:54 99.6 F 76 14 160/85 97 05/04/19 08:44 99.6 F 71 16 153/82 97 05/04/19 08:34 99.6 F 71 16 160/83 97 05/04/19 08:24 69 16 161/90 100 05/04/19 08:14 70 15 176/96 97 05/04/19 08:04 99.0 F 72 17 158/97 99 05/04/19 07:54 68 15 173/90 99 05/04/19 07:44 71 20 177/89 100 05/04/19 07:34 99.3 F 71 17 187/104 100 05/04/19 07:24 76 18 173/95 91 05/04/19 07:14 75 16 153/96 92 05/04/19 07:04 99.0 F 70 20 174/100 93 Intake and Output 05/03/19 05/04/19 05/04/19 23:59 07:59 15:59 Intake Total / 20 Output Total 0 / 0 720 / 795 75 / 795 Balance 20 / 20 -720 / -795 -75 / -795 Intake: IV Fluids 20 / 20 Zosyn 3.375 GM In Water for inj . (sterile) 20 ML @ 400 mls/hr IVP ONCE ONE Rx#:[id number] Oral 0 / 0 Output: Urine 0 / 0 700 / 700 Estimated Blood Loss 20 20 Urine Amount (Catheter) 75 / 75 Other: Meal npo Percent of Meal Consumed 0% Weight 113.7 kg Blood Glucose* 87 108 - General physical appearance well developed, well nourished, no distress - Eyes PERRL, normal ocular movement - ENT dry mucosa, atraumatic, normocephalic - Neck Neck exam: trachea midline - Respiratory clear to auscultation, other (patient resting comfortably on bipap) - Cardiovascular Cardiovascular exam: Present: RRR - Abdomen Abdomen: Present: soft, tender (Expected postoperative tenderness), wound (Umbilical incision with dressing intact with small amount of serosanguineous drainage noted) - Incision Incision: Present: intact, serosanguinous (Small amount) - Psychiatric oriented to person, oriented to place - Labs 05/04/19 10:01 05/04/19 10:01 Diabetes panel 05/03/19 05/04/19 Range/Units 15:10 10:01 Sodium 141 141 (136-145) mEq/L Potassium 4.5 4.9 (3.5-5.1) mEq/L Chloride 99 99 (98-107) mEq/L Carbon Dioxide 37 H 34 H (23-29) mEq/L BUN 25 H 23 (8-23) mg/dL Creatinine 1.27 H 1.27 H (0.60-1.20) mg/dL Glucose 106 H 130 H (70-105) mg/dL Calcium 8.1 L 8.1 L (8.6-10.3) mg/dL AST 12 L 15 (13-39) Units/L ALT 6 L 9 (7-52) Units/L Alkaline Phosphatase 35 38 (34-104) Units/L Albumin 3.3 L 3.4 L (3.5-5.7) g/dL Triglycerides 91 (< 150) mg/dL HDL Cholesterol 57 (40-59) mg/dL Calcium panel 05/03/19 05/04/19 Range/Units 15:10 10:01 Calcium 8.1 L 8.1 L (8.6-10.3) mg/dL Phosphorus 4.5 (2.7-4.5) mg/dL Albumin 3.3 L 3.4 L (3.5-5.7) g/dL Pituitary panel 05/03/19 05/04/19 Range/Units 15:10 10:01 Sodium 141 141 (136-145) mEq/L Potassium 4.5 4.9 (3.5-5.1) mEq/L Chloride 99 99 (98-107) mEq/L Carbon Dioxide 37 H 34 H (23-29) mEq/L BUN 25 H 23 (8-23) mg/dL Creatinine 1.27 H 1.27 H (0.60-1.20) mg/dL Glucose 106 H 130 H (70-105) mg/dL Calcium 8.1 L 8.1 L (8.6-10.3) mg/dL Adrenal panel 05/03/19 05/04/19 Range/Units 15:10 10:01 Sodium 141 141 (136-145) mEq/L Potassium 4.5 4.9 (3.5-5.1) mEq/L Chloride 99 99 (98-107) mEq/L Carbon Dioxide 37 H 34 H (23-29) mEq/L BUN 25 H 23 (8-23) mg/dL Creatinine 1.27 H 1.27 H (0.60-1.20) mg/dL Glucose 106 H 130 H (70-105) mg/dL Calcium 8.1 L 8.1 L (8.6-10.3) mg/dL Total Bilirubin 0.4 0.3 (0.3-1.0) mg/dL AST 12 L 15 (13-39) Units/L ALT 6 L 9 (7-52) Units/L Alkaline Phosphatase 35 38 (34-104) Units/L Albumin 3.3 L 3.4 L (3.5-5.7) g/dL Consult Discharge Plan - Plan Referrals: Goran Hicks MD [Primary Care Provider] - - Attending Attestation For this encounter, I have reviewed the INDUSTRIAL SAFETY ENGINEER or PA documentation, treatment plan, and medical decision making; and I have had face to face time with this patient.
[2019-05-04] MEDS: FLUoxetine 20 MG CAPSULE PO SCH ×2 (14:24→20:18)
[2019-05-04] MEDS: Famotidine 20 MG TABLET PO SCH (14:24)
[2019-05-04] MEDS: Cholecalciferol (D-3) 1,000 UNIT (25MCG) TABLET PO SCH (14:24)
[2019-05-04] MEDS: Loratadine 10 MG TABLET PO SCH (14:24)
[2019-05-04] MEDS: Insulin LISPRO 300 UNITS/3 ML VIAL SQ SCH ×3 (14:35→20:15)
--- NOTE | 2019-05-04 17:56 | Electrocardiograph Report ---
[facility] [employer] Test Date: 2019-05-03 Pat Name: Cora Pastor Department: [id number] Room: 3A12 Gender: F Referral Specialist: : [id number] Requested By: Janelle Villanueva Order Number: [id number] Reading MD: Joshua Caro Measurements Intervals Bay Rate: 88 P: 10 SC: 180 QRS: 59 QRSD: 146 T: 37 QT: 412 QTc: 499 Interpretive Statements Sinus rhythm Right bundle branch block Electronically Signed On 05-04-2019 17:55:14 EDT by Joshua Caro
[2019-05-04] MEDS: Furosemide 20 MG TABLET PO SCH (17:59)
[2019-05-04] MEDS: *HR* HYDROcodone/Acet 5/325 mg TABLET PO PRN (20:06)
--- NOTE | 2019-05-05 07:53 | Internal Med Progress Note ---
Hospitalist Progress Note - Encounter Date of Encounter: 05/05/19 - Exam Vitals: Temp Pulse Resp BP Pulse Ox 98.6 F 83 16 181/95 98 05/05/19 07:26 05/05/19 07:26 05/05/19 07:29 05/05/19 07:26 05/05/19 07:29 - Assessment and Plan (1) Incarcerated ventral hernia Current Visit: Yes Status: Acute (2) COPD (chronic obstructive pulmonary disease) Current Visit: Yes Status: Chronic (3) CHF (congestive heart failure) Current Visit: Yes Status: Chronic (4) AAA (abdominal aortic aneurysm) Current Visit: Yes Status: Chronic (5) Diabetes Current Visit: Yes Status: Chronic - Time Spent with Patient Total time spent is greater than 50% in coordination of care (as documented) at patient's floor/unit and/or counseling patient: Internal Medicine: Result - Labs CBC & Chem 7: 05/04/19 10:01 05/04/19 10:01 Labs: Short CBC 05/04/19 Range/Units 10:01 WBC 7.5 (4.3-11.1) K/mcL Hgb 10.0 L (11.5-15.4) g/dL Hct 34.0 L (35.3-44.9) % Plt Count 237 (140-400) K/mcL BMP 05/04/19 10:01 Sodium 141 Potassium 4.9 Chloride 99 Carbon Dioxide 34 H BUN 23 Creatinine 1.27 H Glucose 130 H Calcium 8.1 L Cardiac Enzymes 05/04/19 Range/Units 10:01 Troponin I < 0.03 (< 0.04) ng/mL Liver Function 05/04/19 Range/Units 10:01 Total Bilirubin 0.3 (0.3-1.0) mg/dL AST 15 (13-39) Units/L ALT 9 (7-52) Units/L Alkaline Phosphatase 38 (34-104) Units/L Albumin 3.4 L (3.5-5.7) g/dL - ABG Interpretation ABG results: PT/INR, D-dimer PT 11.2 Seconds (9.4-12.1) 05/04/19 10:01 - Impressions Impressions Chest X-Ray 05/03/19 15:23 IMPRESSION: Small effusions with right lower lobe atelectasis. D/ / 05/03/2019 16:18:27 Jorden Mann MD / bcarter Interpreting Provider: Jorden Mann MD Consult Discharge Plan - Plan Referrals: Goran Hicks MD [Primary Care Provider] - (2) COPD (chronic obstructive pulmonary disease) Qualifiers: COPD type: chronic bronchitis (3) CHF (congestive heart failure) Qualifiers: Heart failure type: diastolic Heart failure chronicity: chronic (4) AAA (abdominal aortic aneurysm) Qualifiers: Qualified Code(s): I71.4 - Abdominal aortic aneurysm, without rupture (5) Diabetes Qualifiers: Diabetes mellitus type: type 2 Diabetes mellitus complication status: with kidney complications Diabetes mellitus complication detail: with chronic kidney disease Chronic kidney disease stage: stage 3 (moderate)
[2019-05-05 07:57] LABS: Basophils % 0.4 %; Calcium 8.2 mg/dL (8.6-10.3); Immature Granulocytes % 0.3 % (0-4); Potassium 5.4 mEq/L (3.5-5.1); Red Blood Count 2.87 M/mcL (3.82-4.97); Segmented Neutrophils % 77.9 %
[2019-05-05 07:58] LABS: Eosinophils # 0.1 K/mcL (0.0-0.6); Eosinophils % 0.8 %; Hematocrit 30.6 % (35.3-44.9); Hemoglobin 8.9 g/dL (11.5-15.4); Lymphocytes # 0.5 K/mcL (0.6-4.6); Lymphocytes % 6.1 %; Mean Corpuscular HGB Conc 29.1 g/dL (31.6-35.5); Mean Corpuscular Volume 106.6 fL (83.0-100.0); Monocytes # 1.1 K/mcL (0.0-1.3); Monocytes % 14.5 %; Neutrophils # 5.8 K/mcL (1.6-8.9); Platelet Count 246 K/mcL (140-400); Red Cell Distribution Width 13.7 % (11.5-14.5); White Blood Count 7.5 K/mcL (4.3-11.1)
[2019-05-05] MEDS: Loratadine 10 MG TABLET PO SCH (08:28)
[2019-05-05] MEDS: FLUoxetine 20 MG CAPSULE PO SCH ×2 (08:28→20:33)
[2019-05-05] MEDS: Famotidine 20 MG TABLET PO SCH (08:28)
[2019-05-05] MEDS: Cholecalciferol (D-3) 1,000 UNIT (25MCG) TABLET PO SCH (08:28)
[2019-05-05] MEDS: *HR* HYDROcodone/Acet 5/325 mg TABLET PO PRN (08:28)
[2019-05-05] MEDS: Furosemide 20 MG TABLET PO SCH ×2 (08:29→18:45)
[2019-05-05] MEDS: Insulin LISPRO 300 UNITS/3 ML VIAL SQ SCH ×4 (08:30→20:31)
[2019-05-05 09:19] LABS: Platelet Estimate Normal (Normal)
[2019-05-05 09:21] LABS: Basophilic Stippling 1+ (Not Present)
[2019-05-05] MEDS ORDERED: 0.9 % Sodium Chloride 1,000 ML IVC SCH (09:30)
--- NOTE | 2019-05-05 09:30 | AcuteCareSurgery Progress Note ---
<Kayli Ramirez - Last Filed: 05/05/19 09:25> Date of Encounter: 05/05/19 Time of Encounter: 09:25 - Assessment and Plan (1) Incarcerated ventral hernia Current Visit: Yes Status: Acute Date of procedure: 05/04/19 Pre-op diagnosis: incarcerated ventral hernia with possible ischemic colon Post-op diagnosis: other (incarcerated ventral hernia without ischemic colon) Procedure: 1) Exploratory laparotomy with reduction of incarcerated colon and 2. Repair ventral umbilical hernia with mesh Complications: none Anesthesia: GETA Surgeon: Arsenio Sharma POD #1 as above. Pathology remains pending. She is recovering as expected. She is ok to d/c from a surgical perspective. D/c instructions and follow-up have been placed. Acute care surgery will sign off at this time. Thank you for allowing us to participate in Cora's care. Please call or reconsult if further questions or needs arise. Subjective Patient reports: no new complaints, feels better, pain is less, tolerating a regular diet, voiding w/o difficulty, flatus, no bowel movement, afebrile Objective Vital Signs - Last 8 Hours Temp Pulse Resp BP Pulse Ox 05/05/19 07:29 16 98 05/05/19 07:26 98.6 F 83 17 181/95 99 05/05/19 03:42 98.8 F 82 18 147/73 96 Intake and Output 05/04/19 05/05/19 05/05/19 23:59 07:59 15:59 Output Total 550 / 1345 350 / 350 Balance -550 / -325 -350 / -350 Output: Catheter 550 / 550 350 / 350 Other: Meal Dinner Percent of Meal Consumed 100% Weight 113 kg Blood Glucose* 134 102 Patient Weight 05/05/19 23:59 Weight 113 kg - General physical appearance well nourished, no distress, moderate pain (controlled with medications) - Abdomen Abdomen: Present: bowel sounds present, soft, tender (expected postoperative) Hernia: none - Incision Incision: Present: clean and dry, intact - Integumentary no rash - Musculoskeletal normal posture - Psychiatric oriented to time, oriented to person, oriented to place - Labs 05/05/19 06:48 05/05/19 06:48 Diabetes panel 05/04/19 05/05/19 Range/Units 10:01 06:48 Sodium 141 139 (136-145) mEq/L Potassium 4.9 5.4 H (3.5-5.1) mEq/L Chloride 99 98 (98-107) mEq/L Carbon Dioxide 34 H 39 H (23-29) mEq/L BUN 23 26 H (8-23) mg/dL Creatinine 1.27 H 1.49 H (0.60-1.20) mg/dL Glucose 130 H 107 H (70-105) mg/dL Calcium 8.1 L 8.2 L (8.6-10.3) mg/dL AST 15 (13-39) Units/L ALT 9 (7-52) Units/L Alkaline Phosphatase 38 (34-104) Units/L Albumin 3.4 L (3.5-5.7) g/dL Triglycerides 91 (< 150) mg/dL HDL Cholesterol 57 (40-59) mg/dL Calcium panel 05/04/19 05/05/19 Range/Units 10:01 06:48 Calcium 8.1 L 8.2 L (8.6-10.3) mg/dL Phosphorus 4.5 (2.7-4.5) mg/dL Albumin 3.4 L (3.5-5.7) g/dL Pituitary panel 05/04/19 05/05/19 Range/Units 10:01 06:48 Sodium 141 139 (136-145) mEq/L Potassium 4.9 5.4 H (3.5-5.1) mEq/L Chloride 99 98 (98-107) mEq/L Carbon Dioxide 34 H 39 H (23-29) mEq/L BUN 23 26 H (8-23) mg/dL Creatinine 1.27 H 1.49 H (0.60-1.20) mg/dL Glucose 130 H 107 H (70-105) mg/dL Calcium 8.1 L 8.2 L (8.6-10.3) mg/dL Adrenal panel 05/04/19 05/05/19 Range/Units 10:01 06:48 Sodium 141 139 (136-145) mEq/L Potassium 4.9 5.4 H (3.5-5.1) mEq/L Chloride 99 98 (98-107) mEq/L Carbon Dioxide 34 H 39 H (23-29) mEq/L BUN 23 26 H (8-23) mg/dL Creatinine 1.27 H 1.49 H (0.60-1.20) mg/dL Glucose 130 H 107 H (70-105) mg/dL Calcium 8.1 L 8.2 L (8.6-10.3) mg/dL Total Bilirubin 0.3 (0.3-1.0) mg/dL AST 15 (13-39) Units/L ALT 9 (7-52) Units/L Alkaline Phosphatase 38 (34-104) Units/L Albumin 3.4 L (3.5-5.7) g/dL Consult Discharge Plan - Plan Instructions: Open Herniorrhaphy (DC) Additional Instructions: General Surgical Discharge Instructions 1. No pushing, pulling, or lifting greater than 10 lbs for 6 weeks. 2. You may remove your dressings and shower beginning today, but no tub baths, soaking, or swimming for 2 weeks. 3. No driving for one weeks unless otherwise specified and then you may resume driving when you are off narcotics and are safe to react in a car. 4. Apply ice 20 minutes every hour that you are awake to your abdomen and Take 650 mg acetaminophen every 6 hours for discomfort. If this does not relieve discomfort, you may take the as needed Percocet. Eat a small snack with pain medication as this will help reduce the risk of nausea. Take narcotics as directed. Do not take more narcotics then directed and do not share your narcotics with any other person. Do not drink alcohol while on narcotics. You can take the Zofran/ondansetron if needed for nausea or with a dose of narcotics to prevent nausea. 5. Take stool softeners (Colace) or a water based laxative (Miralax) while taking narcotics. You may hold for loose stools. 6. Report any fevers greater than 100.5F, increase abdominal discomfort, drai nage that looks like pus, increased redness or pain at the surgical site, or any vomiting. 7. Report any pain in the calves, shortness of breath, or rapid heartbeat. 8. Follow-up in the office as directed. 9. If you were prescribed antibiotics, do not stop them without talking to your provider. Referrals: Bart Vásquez MD [Partnered Physician] - 05/24/19 8:40 am Goran Hicks MD [Primary Care Provider] - Delroy Wheat MD [Partnered Physician] - (Have patient follow up with Dr. Wheat in outpatient vascular surgery clinic in 6 weeks.) <Arsenio Perez - Last Filed: 05/05/19 13:22> Date of Encounter: 05/05/19 Time of Encounter: 09:25 - Assessment and Plan (1) Incarcerated ventral hernia Current Visit: Yes Status: Acute (2) Pneumatosis coli Current Visit: Yes Status: Acute (3) Type II diabetes mellitus Current Visit: No Status: Acute Qualifiers: Diabetes mellitus detention insulin use: with ocean transportation intermediary use Diabetes mellitus complication status: without complication Qualified Code(s): E11.9 - Type 2 diabetes mellitus without complications; Z79.4 - snf (current) use of insulin (4) COPD (chronic obstructive pulmonary disease) Current Visit: Yes Status: Chronic Qualifiers: COPD type: unspecified COPD Qualified Code(s): J44.9 - Chronic obstructive pulmonary disease, unspecified (5) AAA (abdominal aortic aneurysm) Current Visit: Yes Status: Chronic Qualifiers: Qualified Code(s): I71.4 - Abdominal aortic aneurysm, without rupture Subjective Patient reports: no new complaints, feels better, pain is less, tolerating a regular diet, voiding w/o difficulty, flatus, no bowel movement, afebrile Objective Vital Signs - Last 8 Hours Temp Pulse Resp BP Pulse Ox 05/05/19 11:38 99.1 F 84 16 118/72 97 05/05/19 10:56 95 05/05/19 07:29 16 98 05/05/19 07:26 98.6 F 83 17 181/95 99 Intake and Output 05/04/19 05/05/19 05/05/19 23:59 07:59 15:59 Output Total 550 / 1345 350 / 750 400 / 750 Balance -550 / -325 -350 / -750 -400 / -750 Output: Catheter 550 / 550 350 / 750 400 / 750 Other: Meal Dinner Percent of Meal Consumed 100% Weight 113 kg Blood Glucose* 134 94 Patient Weight 05/05/19 23:59 Weight 113 kg - General physical appearance well nourished, no distress, moderate pain - Abdomen Abdomen: Present: bowel sounds present, soft, tender Hernia: none - Incision Incision: Present: clean and dry, intact - Integumentary no rash - Musculoskeletal normal posture - Psychiatric oriented to time, oriented to person, oriented to place - Labs 05/05/19 06:48 05/05/19 06:48 Diabetes panel 05/05/19 Range/Units 06:48 Sodium 139 (136-145) mEq/L Potassium 5.4 H (3.5-5.1) mEq/L Chloride 98 (98-107) mEq/L Carbon Dioxide 39 H (23-29) mEq/L BUN 26 H (8-23) mg/dL Creatinine 1.49 H (0.60-1.20) mg/dL Glucose 107 H (70-105) mg/dL Calcium 8.2 L (8.6-10.3) mg/dL Calcium panel 05/05/19 Range/Units 06:48 Calcium 8.2 L (8.6-10.3) mg/dL Pituitary panel 05/05/19 Range/Units 06:48 Sodium 139 (136-145) mEq/L Potassium 5.4 H (3.5-5.1) mEq/L Chloride 98 (98-107) mEq/L Carbon Dioxide 39 H (23-29) mEq/L BUN 26 H (8-23) mg/dL Creatinine 1.49 H (0.60-1.20) mg/dL Glucose 107 H (70-105) mg/dL Calcium 8.2 L (8.6-10.3) mg/dL Adrenal panel 05/05/19 Range/Units 06:48 Sodium 139 (136-145) mEq/L Potassium 5.4 H (3.5-5.1) mEq/L Chloride 98 (98-107) mEq/L Carbon Dioxide 39 H (23-29) mEq/L BUN 26 H (8-23) mg/dL Creatinine 1.49 H (0.60-1.20) mg/dL Glucose 107 H (70-105) mg/dL Calcium 8.2 L (8.6-10.3) mg/dL - Attending Attestation I examined this patient and my medical decision-making was reviewed with the [employer] MIXER OPERATOR. I agree with the documented findings, disposition and treatment plan as described to the extent set forth below. POD#2 ex lap with hernia repair. Pt tolerating regular diet. Pt without new complaint. Pain is well controlled. Ambulating. Voiding. Afebrile. Post-op condiiton is satisfactory for DC home. F/U 2 weeks.
--- NOTE | 2019-05-05 13:08 | Event Note ---
Date of Encounter: 05/05/19 Time of Encounter: 13:06 Patient is an 83-year-old white female who presented with an acute abdomen. She was found to have an incarcerated ventral hernia. As part of her preoperative evaluation a CT scan was obtained. This revealed a 5.6 cm infrarenal abdominal aortic aneurysm. This was unknown to the patient. As she has multiple ongoing medical issues in particular her COPD the patient will be formally consulted as an outpatient. Please have patient follow up with me in 6 weeks as an outpatient in the vascular surgery clinic. Patient is aware that she needs have significant improvement in her pulmonary status before we would consider elective aneurysm repair.
--- NOTE | 2019-05-05 13:26 | Discharge Summary ---
<Shelton Camp I - Last Filed: 05/05/19 14:11> - NOTES TO OUTPATIENT PROVIDER Notes to Outpatient Provider: This 83 y/o pt presents to [facility] ED c/o severe abdominal pain and explosive diarrhea.Patient underwent Exploratory laparotomy with reduction of incarcerated colon and Repair ventral umbilical hernia with mesh . CT scan of abdomen : Abdominal aortic aneurysm without rupture measuring 5.6 cm.follow up with Vascular and general surgeon . Date of Encounter: 05/05/19 Time of Encounter: 08:40 - Discharge Diagnosis (1) Incarcerated ventral hernia Priority: Primary Status: Acute (2) COPD (chronic obstructive pulmonary disease) Priority: Secondary Status: Chronic Qualifiers: COPD type: unspecified COPD Qualified Code(s): J44.9 - Chronic obstructive pulmonary disease, unspecified (3) CHF (congestive heart failure) Priority: Secondary Status: Chronic Qualifiers: Heart failure type: diastolic Heart failure chronicity: chronic Qualified Code(s): I50.32 - Chronic diastolic (congestive) heart failure (4) AAA (abdominal aortic aneurysm) Priority: Secondary Status: Chronic Qualifiers: Qualified Code(s): I71.4 - Abdominal aortic aneurysm, without rupture (5) Diabetes Priority: Secondary Status: Chronic Qualifiers: Diabetes mellitus type: type 2 Diabetes mellitus complication status: with kidney complications Diabetes mellitus complication detail: with chronic kidney disease Chronic kidney disease stage: stage 3 (moderate) Qualified Code(s): E11.22 - Type 2 diabetes mellitus with diabetic chronic kidney disease; N18.3 - Chronic kidney disease, stage 3 (moderate); Z79.4 - MCC (current) use of insulin Hospital course: Ms. Pastor is a 83 year old female with PMH of CHF, COPD on 3 liter oxygen , diabetes, hyperlipidemia, hypertension presented to ED due to abdonminal swelling and tenderness . she state last Thursday she start to have some abdominal swelling and explosive diarrhea with generalized abdominal pain and hardness .Later pain start to get more localized in her lower abdomen she also nitices increase bulging redness and warm sesnsation in her usual protruded umbilical hernia site . she had nausea but no vomiting , she had chest pain localized in middle of her chest , aggravated by coughing and taking deep breath .she had no fever, no chills . no change in urination .She had a hernia repaired in the same area as the current swelling in 1983.and since then she had the protuberrence but no any abdominal pain swelling or change in bowel movements . on admission vitals showes T 100.2 , HR 89. RR20 . BP 165/81 , WBC 6. HB 9.3 , CREATININE 1.27. GLUCOSE [address] abdomen showes Thickened right colon with evidence of pneumatosis raises concern for bowel ischemia and possible infarction. Abdominal aortic aneurysm without rupture measuring 5.6 cm. , vascular and general surgeon are consulted .Patient underwent Exploratory laparotomy with reduction of incarcerated colon and Repair ventral umbilical hernia with mesh. She is recovering well post operatively , Her vitals are stable . her creatinine function is at her baseline . urine culture showed Ecoli and Proteus . Patient was placed on omnicef . vascular surgeon saw the patient and not rcommend any surgical intervention at this time . patient is stable and understand treatment and plan - Time Spent with Patient Total time spent providing and/or coordinating discharge services: - Discharge Medications Prescriptions: New HYDROcodone/Acet 5/325 mg [[place] 5-325 mg] 1 tab PO Q6HR PRN 5 Days #20 tablet PRN Reason: Moderate Pain Cefdinir [Omnicef] 300 mg PO DAILY 9 Days #9 capsule Acetaminophen [Tylenol] 650 mg PO Q6HR PRN 7 Days #28 tablet PRN Reason: Mild Pain/Fever Continued Pravastatin Sodium 10 mg PO HS Levothyroxine [Synthroid] 150 mcg PO 0630 Furosemide [Lasix] 20 mg PO BID FLUoxetine HCl [Prozac] 20 mg PO BID Aspirin Enteric Coated [Aspirin EC] 81 mg PO DAILY Ergocalciferol (VITAMIN D2) [Vitamin D2] 2,000 unit PO DAILY Cetirizine HCl [Zyrtec] 10 mg PO DAILY Budesonide [Pulmicort Flexhaler 180mcg] 1 puff IH BID Albuterol Sulfate [Proventil Inhaler] 2 puff IH Q4HR PRN PRN Reason: Shortness Of Breath Isosorbide MONOnitrate [Isosorbide Mononitrate] 10 mg PO BID Ranitidine HCl [Acid Rehabilitation Teacher] 150 mg PO DAILY Home Medications: FLUoxetine HCl [Prozac] 20 mg PO BID 05/19/16 [History] Furosemide [Lasix] 20 mg PO BID 10/03/16 [History] Levothyroxine [Synthroid] 150 mcg PO 0630 05/19/16 [History] Pravastatin Sodium 10 mg PO HS 05/19/16 [History] Aspirin Enteric Coated [Aspirin EC] 81 mg PO DAILY 11/24/16 [History] Cetirizine HCl [Zyrtec] 10 mg PO DAILY 09/20/18 [History] Ergocalciferol (VITAMIN D2) [Vitamin D2] 2,000 unit PO DAILY 09/20/18 [History] Albuterol Sulfate [Proventil Inhaler] 2 puff IH Q4HR PRN 05/03/19 [History] Budesonide [Pulmicort Flexhaler 180mcg] 1 puff IH BID 05/03/19 [History] Isosorbide MONOnitrate [Isosorbide Mononitrate] 10 mg PO BID 05/03/19 [History] Ranitidine HCl [Acid Rehabilitation Teacher] 150 mg PO DAILY 05/03/19 [History] Acetaminophen [Tylenol] 650 mg PO Q6HR PRN 7 Days #28 tablet 05/05/19 [Rx] Cefdinir [Omnicef] 300 mg PO DAILY 9 Days #9 capsule 05/05/19 [Rx] HYDROcodone/Acet 5/325 mg [[place]land 5-325 mg] 1 tab PO Q6HR PRN 5 Days #20 tablet 05/05/19 [Rx] Allergies/Adverse Reactions: Allergy/AdvReac Type Severity Reaction Status Date / Time lisinopril Allergy Swelling Verified 09/20/18 16:32 of Lip/Tongue/Throat Date of admission: 05/04/19 10:06 Primary care physician: Goran Hicks MD Consults: 05/03/19 16:46 Consult to Surgery [CONS] Stat Consulting Provider: Acute Care Surgery Reason for Consult: Possible incarcerated bowel w/ pneumatosis Time Notified: 16:46 Call Completed: Yes 05/03/19 18:15 Consult to Vascular Surgery [CONS] Stat Consulting Provider: Vascular Surgery [place] Reason for Consult: AAA >5.6cm Time Notified: 17:25 Call Completed: Yes - Constitutional Vitals: Temp Pulse Resp BP Pulse Ox 99.1 F 84 16 118/72 97 05/05/19 11:38 05/05/19 11:38 05/05/19 11:38 05/05/19 11:38 05/05/19 11:38 Exam: General: no acute distress , A&AX3 HEENT: Atraumatic, Normocephaly, sclera unicteric Neck: supple , Full ROM , trachea midline Cardiac: RRR , S1+. S2+ Lungs: decrease Breath Sounds Bilaterally, + ve Wheeze No Rales, Rhonchi Abdomen: soft , tender distended , + ve bowel sounds ,Umbilical incision with dressing intact with small amount of serosanguineous drainage noted Extremities: bilateral LL swelling and stasis dermatitis , Normal Pulses Skin : intact , Normal color Psychiatric : normal affect, normal mood Nuero : alert, normal gait, oriented X3 - Patient Status Disposition: Home, Self-Care Condition: Good Functional capacity at discharge: uses cane/walker Overall status at discharge: patient is progressing back to baseline - Discharge Instructions Instructions: Open Herniorrhaphy (DC) Follow Up With: Bart Vásquez MD [Partnered Physician] - 05/24/19 8:40 am Goran Hicks MD [Primary Care Provider] - Delroy Wheat MD [Partnered Physician] - (Have patient follow up with Dr. Wheat in outpatient vascular surgery clinic in 6 weeks.) Additional Instructions: General Surgical Discharge Instructions 1. No pushing, pulling, or lifting greater than 10 lbs for 6 weeks. 2. You may remove your dressings and shower beginning today, but no tub baths, soaking, or swimming for 2 weeks. 3. No driving for one weeks unless otherwise specified and then you may resume driving when you are off narcotics and are safe to react in a car. 4. Apply ice 20 minutes every hour that you are awake to your abdomen and Take 650 mg acetaminophen every 6 hours for discomfort. If this does not relieve discomfort, you may take the as needed Percocet. Eat a small snack with pain medication as this will help reduce the risk of nausea. Take narcotics as directed. Do not take more narcotics then directed and do not share your narcotics with any other person. Do not drink alcohol while on narcotics. You can take the Zofran/ondansetron if needed for nausea or with a dose of narcotics to prevent nausea. 5. Take stool softeners (Colace) or a water based laxative (Miralax) while taking narcotics. You may hold for loose stools. 6. Report any fevers greater than 100.5F, increase abdominal discomfort, drainage that looks like pus, increased redness or pain at the surgical site, or any vomiting. 7. Report any pain in the calves, shortness of breath, or rapid heartbeat. 8. Follow-up in the office as directed. 9. If you were prescribed antibiotics, do not stop them without talking to your provider. - Diet and Activity Activity: increase activity as tolerated Diet: diabetic diet <Kin Wilkerson - Last Filed: 05/05/19 14:31> Date of Encounter: 05/05/19 Time of Encounter: 14:25 - Discharge Diagnosis (1) Incarcerated ventral hernia Status: Acute (2) AAA (abdominal aortic aneurysm) Status: Chronic Qualifiers: Qualified Code(s): I71.4 - Abdominal aortic aneurysm, without rupture (3) CHF (congestive heart failure) Status: Chronic Qualifiers: Heart failure type: diastolic Heart failure chronicity: chronic Qualified Code(s): I50.32 - Chronic diastolic (congestive) heart failure (4) COPD (chronic obstructive pulmonary disease) Status: Chronic Qualifiers: COPD type: unspecified COPD Qualified Code(s): J44.9 - Chronic obstructive pulmonary disease, unspecified (5) Diabetes Status: Chronic Qualifiers: Diabetes mellitus type: type 2 Diabetes mellitus complication status: with kidney complications Diabetes mellitus complication detail: with chronic kidney disease Chronic kidney disease stage: stage 3 (moderate) Qualified Code(s): E11.22 - Type 2 diabetes mellitus with diabetic chronic kidney disease; N18.3 - Chronic kidney disease, stage 3 (moderate); Z79.4 - intermediate designer (current) use of insulin (6) CKD (chronic kidney disease) stage 3, GFR 30-59 ml/min Status: Chronic Hospital course: Ms. Pastor is a 83 year old female - Time Spent with Patient Total time spent providing and/or coordinating discharge services: Date of admission: 05/04/19 10:06 Primary care physician: Goran Hicks MD Consults: 05/03/19 16:46 Consult to Surgery [CONS] Stat Consulting Provider: Acute Care Surgery Reason for Consult: Possible incarcerated bowel w/ pneumatosis Time Notified: 16:46 Call Completed: Yes 05/03/19 18:15 Consult to Vascular Surgery [CONS] Stat Consulting Provider: Vascular Surgery [place] Reason for Consult: AAA >5.6cm Time Notified: 17:25 Call Completed: Yes - Constitutional Vitals: Temp Pulse Resp BP Pulse Ox 99.1 F 84 16 118/72 97 05/05/19 11:38 05/05/19 11:38 05/05/19 11:38 05/05/19 11:38 05/05/19 11:38 - Attending Attestation I saw evaluated and examined this patient and reviewed objective data including labs and my medical decision-making was reviewed with the Resident Physician. I agree with the documented findings, disposition and discharge plan as described except to any changes set forth below. We independently had [id number] contact with the patient. Patient with a history of diabetes, hypertension, COPD and chronic respiratory failure on 3 L home oxygen along with home BiPAP use, chronic kidney disease stage III was hospitalized here with abdominal pain and swelling and diagnosed with incarcerated ventral hernia. She was taken to the OR and underwent e xploratory laparotomy. She was not found to have any ischemic bowel. Hernia was reduced and repaired. She was also found to have 5.6 cm abdominal aortic aneurysm without rupture. Muscular surgery was consulted to evaluate this and they recommended formal outpatient follow-up in 6 weeks to see if patient would be a surgical candidate. She does have comorbidities including her severe COPD. Presently, she is recovering well from her exploratory laparotomy. Surgery has signed off and cleared her for discharge. Patient will be discharged home today. She did have UTI with Proteus and Escherichia coli sensitive to cephalosporins. Patient will be discharged on Omnicef to complete treatment for this. Time spent on discharge: 7 min
[2019-05-05] MEDS: Cefdinir 300 MG CAPSULE PO SCH (13:56)
--- NOTE | 2019-05-05 18:25 | Event Note ---
Date of Encounter: 05/05/19 Time of Encounter: 04:50 Patient is an 83-year-old white female who presented with an acute abdomen. She was found to have an incarcerated ventral hernia.She is recovering as expected she didnt pass bowel movement yet . She was ok to d/c from a surgical perspective. she is currently stable although patient refused to go home today as she feels she cant take care of herself since she lives alone Exam: General: no acute distress , A&AX3 HEENT: Atraumatic, Normocephaly, sclera unicteric Neck: supple , Full ROM , trachea midline Cardiac: RRR , S1+. S2+ Lungs: decrease Breath Sounds Bilaterally, + ve Wheeze No Rales, Rhonchi Abdomen: soft , tender distended , + ve bowel sounds ,Umbilical incision with dressing intact with small amount of serosanguineous drainage noted Extremities: bilateral LL swelling and stasis dermatitis , Normal Pulses Skin : intact , Normal color Psychiatric : normal affect, normal mood Nuero : alert, normal gait, oriented X3 plan : continue monitoring vitals , continue current bowel regimen , control patient pain , continue antibiotic . plan for D/C tomorrow
[2019-05-06 06:07] LABS: Red Cell Distribution Width 13.6 % (11.5-14.5)
[2019-05-06 06:09] LABS: Basophils % 0.3 %; Eosinophils # 0.2 K/mcL (0.0-0.6); Eosinophils % 2.5 %; Hematocrit 33.8 % (35.3-44.9); Hemoglobin 9.7 g/dL (11.5-15.4); Immature Granulocytes % 0.9 % (0-4); Lymphocytes # 0.4 K/mcL (0.6-4.6); Lymphocytes % 4.6 %; Mean Corpuscular HGB Conc 28.7 g/dL (31.6-35.5); Mean Corpuscular Hemoglobin 31.1 pg (28.0-33.3); Mean Corpuscular Volume 108.3 fL (83.0-100.0); Mean Platelet Volume 10.7 fL (9.4-12.4); Monocytes # 0.8 K/mcL (0.0-1.3); Neutrophils # 7.1 K/mcL (1.6-8.9); Platelet Count 255 K/mcL (140-400); Red Blood Count 3.12 M/mcL (3.82-4.97); Segmented Neutrophils % 82.7 %; White Blood Count 8.6 K/mcL (4.3-11.1)
[2019-05-06 06:24] LABS: Calcium 8.3 mg/dL (8.6-10.3)
[2019-05-06 06:34] LABS: Hypochromasia Present (Not Present)
[2019-05-06 06:35] LABS: Platelet Estimate Normal (Normal); Stomatocytes 3+ (Not Present)
[2019-05-06 07:49] VITALS: BP 160/92
[2019-05-06] MEDS: FLUoxetine 20 MG CAPSULE PO SCH (08:39)
[2019-05-06] MEDS: Cholecalciferol (D-3) 1,000 UNIT (25MCG) TABLET PO SCH (08:40)
[2019-05-06] MEDS: Cefdinir 300 MG CAPSULE PO SCH (08:40)
[2019-05-06] MEDS: Loratadine 10 MG TABLET PO SCH (08:40)
[2019-05-06] MEDS: Famotidine 20 MG TABLET PO SCH (08:40)
[2019-05-06] MEDS: Furosemide 20 MG TABLET PO SCH (08:41)
[2019-05-06] MEDS: Insulin LISPRO 300 UNITS/3 ML VIAL SQ SCH (08:41)
--- NOTE | 2019-05-06 11:17 | Physician Discharge Referral ---
Home Health/Hosp Referral Info Transfer to: Home Health Provider in Charge Post Discharge: PCP - Diagnosis (1) Incarcerated ventral hernia Priority: Primary Status: Acute (2) COPD (chronic obstructive pulmonary disease) Priority: Secondary Status: Chronic (3) CHF (congestive heart failure) Priority: Secondary Status: Chronic (4) AAA (abdominal aortic aneurysm) Priority: Secondary Status: Chronic (5) Diabetes Priority: Secondary Status: Chronic - Respiratory Orders Smoking Cessation: Smoking cessation has been advised. For more information, call the [place] [employer] Quit Line at 0-303-JGLZ-NOW. - Diet/Nutrition Diet/Nutrition Orders: Renal, No Concentrated Sweets - Services Needed Following services are medically necessary services: Nursing - Transfer Medications Prescriptions: Cefdinir [Omnicef] 300 mg PO DAILY 9 Days #9 capsule Transmission Status: Received by [facility] Oxycodone HCl/Acetaminophen [Percocet 10-325 mg Tablet] 1 each PO Q6HR 5 Days #20 tablet Prescription Printed Acetaminophen [Tylenol] 650 mg PO Q6HR PRN 7 Days #28 tablet PRN Reason: Mild Pain/Fever Transmission Status: Received by [facility] Home Medications: FLUoxetine HCl [Prozac] 20 mg PO BID 05/19/16 [History] Furosemide [Lasix] 20 mg PO BID 05/19/16 [History] Levothyroxine [Synthroid] 150 mcg PO 0630 05/19/16 [History] Pravastatin Sodium 10 mg PO HS 05/19/16 [History] Aspirin Enteric Coated [Aspirin EC] 81 mg PO DAILY 11/24/16 [History] Cetirizine HCl [Zyrtec] 10 mg PO DAILY 09/20/18 [History] Ergocalciferol (VITAMIN D2) [Vitamin D2] 2,000 unit PO DAILY 09/20/18 [History] Albuterol Sulfate [Proventil Inhaler] 2 puff IH Q4HR PRN 05/03/19 [History] Budesonide [Pulmicort Flexhaler 180mcg] 1 puff IH BID 05/03/19 [History] Isosorbide MONOnitrate [Isosorbide Mononitrate] 10 mg PO BID 05/03/19 [History] Ranitidine HCl [Acid Cutch Cleaner] 150 mg PO DAILY 05/03/19 [History] Acetaminophen [Tylenol] 650 mg PO Q6HR PRN 7 Days #28 tablet 05/05/19 [Rx] Cefdinir [Omnicef] 300 mg PO DAILY 9 Days #9 capsule 05/05/19 [Rx] Oxycodone HCl/Acetaminophen [Percocet 10-325 mg Tablet] 1 each PO Q6HR 5 Days #20 tablet 05/06/19 [Rx] Allergies/Adverse Reactions: Allergy/AdvReac Type Severity Reaction Status Date / Time lisinopril Allergy Swelling Verified 09/20/18 16:32 of Lip/Tongue/Throat Certification: Further, I certify that my clinical findings support that this patient is homebound (i.e. absences from home require considerable and taxing effort and are for medical reasons or mandaeism services or infrequently or short duration when for other reasons) because: Homebound Reason: Leaving home requires considerable and taxing effort due to condition Attestation: My signature below is to certify that this patient is under my care and that I, or nurse practitioner, or a physician's insurance sales assistant working with me, has a [id number] encounter with this patient.
--- NOTE | 2019-05-06 16:12 | Internal Med Progress Note ---
<Shelton Camp I - Last Filed: 05/06/19 16:38> Hospitalist Progress Note - Encounter Date of Encounter: 05/06/19 Time of Encounter: 10:10 - Subjective Interval History: Patient is seen and examined today . she is doing well , no SOB no chest pain , able to tolerate food , no abdominal pain , passed gases . no nausea or vomiting . she will be discharged home today - Exam Vitals: Temp Pulse Resp BP Pulse Ox 98.2 F 87 16 160/92 100 05/06/19 07:48 05/06/19 07:48 05/06/19 07:48 05/06/19 07:48 05/06/19 07:48 Exam: General: no acute distress , A&AX3 HEENT: Atraumatic, Normocephaly, sclera unicteric Neck: supple , Full ROM , trachea midline Cardiac: RRR , S1+. S2+ Lungs: decrease Breath Sounds Bilaterally, + ve Wheeze No Rales, Rhonchi Abdomen: soft , not tender , distended , + ve bowel sounds Extremities: bilateral LL swelling and stasis dermatitis , Normal Pulses Skin : intact , Normal color Psychiatric : normal affect, normal mood Nuero : alert, normal gait, oriented X3 - Assessment and Plan (1) Incarcerated ventral hernia Status: Acute Assessment and Plan: Patient underwent Exploratory laparotomy with reduction of incarcerated colon and Repair ventral umbilical hernia with mesh -Vitals stable will be discharged home today with antibiotics and pain control medication PRN (2) COPD (chronic obstructive pulmonary disease) Status: Chronic Assessment and Plan: Patient on 3 liter nasal canula at home , currently on BIPAP clinically stable not in exacerbation (3) CHF (congestive heart failure) Status: Chronic Assessment and Plan: not in exacerbation (4) AAA (abdominal aortic aneurysm) Status: Chronic Assessment and Plan: CT scan of abdomen : . Abdominal aortic aneurysm without rupture measuring 5.6 cm. patient is clinically stable and asymptomatic vascular surgery consult recommend follow up outpatient (5) Diabetes Status: Chronic Assessment and Plan: patient is a known case of diabetic not on any home med -slow SSI - Time Spent with Patient Total time spent is greater than 50% in coordination of care (as documented) at patient's floor/unit and/or counseling patient: Internal Medicine: Result - Labs CBC & Chem 7: 05/06/19 04:53 05/06/19 04:53 Labs: Short CBC 05/06/19 Range/Units 04:53 WBC 8.6 (4.3-11.1) K/mcL Hgb 9.7 L (11.5-15.4) g/dL Hct 33.8 L (35.3-44.9) % Plt Count 255 (140-400) K/mcL Neutrophils # 7.1 (1.6-8.9) K/mcL BMP 05/06/19 04:53 Sodium 142 Potassium 5.0 Chloride 97 L Carbon Dioxide 35 H BUN 28 H Creatinine 1.70 H Glucose 130 H Calcium 8.3 L - ABG Interpretation ABG results: PT/INR, D-dimer PT 11.2 Seconds (9.4-12.1) 05/04/19 10:01 Consult Discharge Plan - Plan Instructions: Diabetes Mellitus Type 2 in Adults (DC), Open Herniorrhaphy (DC), Chronic Obstructive Pulmonary Disease (DC) Additional Instructions: General Surgical Discharge Instructions 1. No pushing, pulling, or lifting greater than 10 lbs for 6 weeks. 2. You may remove your dressings and shower beginning today, but no tub baths, soaking, or swimming for 2 weeks. 3. No driving for one weeks unless otherwise specified and then you may resume driving when you are off narcotics and are safe to react in a car. 4. Apply ice 20 minutes every hour that you are awake to your abdomen and Take 650 mg acetaminophen every 6 hours for discomfort. If this does not relieve discomfort, you may take the as needed Percocet. Eat a small snack with pain medication as this will help reduce the risk of nausea. Take narcotics as directed. Do not take more narcotics then directed and do not share your narcot ics with any other person. Do not drink alcohol while on narcotics. You can take the Zofran/ondansetron if needed for nausea or with a dose of narcotics to prevent nausea. 5. Take stool softeners (Colace) or a water based laxative (Miralax) while taking narcotics. You may hold for loose stools. 6. Report any fevers greater than 100.5F, increase abdominal discomfort, drainage that looks like pus, increased redness or pain at the surgical site, or any vomiting. 7. Report any pain in the calves, shortness of breath, or rapid heartbeat. 8. Follow-up in the office as directed. 9. If you were prescribed antibiotics, do not stop them without talking to your provider. Referrals: Bart Vásquez MD [Partnered Physician] - 05/24/19 8:40 am Goran Hicks MD [Primary Care Provider] - (Web request. Office will call patient with date and time of appointment. Thank you) Delroy Wheat MD [Partnered Physician] - 06/15/19 9:45 am (Have patient follow up with Dr. Wheat in outpatient vascular surgery clinic in 6 weeks.) Prescriptions: Cefdinir [Omnicef] 300 mg PO DAILY 9 Days #9 capsule Transmission Status: Received by [facility] Oxycodone HCl/Acetaminophen [Percocet 10-325 mg Tablet] 1 each PO Q6HR 5 Days #20 tablet Prescription Printed Acetaminophen [Tylenol] 650 mg PO Q6HR PRN 7 Days #28 tablet PRN Reason: Mild Pain/Fever Transmission Status: Received by [facility] <Kin Wilkerson - Last Filed: 05/06/19 22:43> Hospitalist Progress Note - Encounter Date of Encounter: 05/06/19 Time of Encounter: 09:00 - Exam Vitals: Temp Pulse Resp BP Pulse Ox 98.2 F 87 16 160/92 100 05/06/19 07:48 05/06/19 07:48 05/06/19 07:48 05/06/19 07:48 05/06/19 07:48 - Assessment and Plan (1) Incarcerated ventral hernia Status: Acute (2) AAA (abdominal aortic aneurysm) Status: Chronic (3) CHF (congestive heart failure) Status: Chronic (4) COPD (chronic obstructive pulmonary disease) Status: Chronic (5) Diabetes Status: Chronic (6) CKD (chronic kidney disease) stage 3, GFR 30-59 ml/min Status: Chronic - Time Spent with Patient Total time spent is greater than 50% in coordination of care (as documented) at patient's floor/unit and/or counseling patient: Internal Medicine: Result - Labs CBC & Chem 7: 05/06/19 04:53 05/06/19 04:53 Labs: Short CBC 05/06/19 Range/Units 04:53 WBC 8.6 (4.3-11.1) K/mcL Hgb 9.7 L (11.5-15.4) g/dL Hct 33.8 L (35.3-44.9) % Plt Count 255 (140-400) K/mcL Neutrophils # 7.1 (1.6-8.9) K/mcL BMP 05/06/19 04:53 Sodium 142 Potassium 5.0 Chloride 97 L Carbon Dioxide 35 H BUN 28 H Creatinine 1.70 H Glucose 130 H Calcium 8.3 L - ABG Interpretation ABG results: PT/INR, D-dimer PT 11.2 Seconds (9.4-12.1) 05/04/19 10:01 - Attending Attestation I saw evaluated and examined this patient and reviewed objective data including labs and my medical decision-making was reviewed with the Resident Physician, Shelton Camp. I agree with the documented findings, disposition and treatment plan as described except to any changes set forth below. We independently had [id number] contact with the patient. _ <Shelton Camp I - Last Filed: 05/06/19 16:38> (2) COPD (chronic obstructive pulmonary disease) Qualifiers: COPD type: unspecified COPD Qualified Code(s): J44.9 - Chronic obstructive pulmonary disease, unspecified (3) CHF (congestive heart failure) Qualifiers: Heart failure type: diastolic Heart failure chronicity: chronic Qualified Code(s): I50.32 - Chronic diastolic (congestive) heart failure (4) AAA (abdominal aortic aneurysm) Qualifiers: Qualified Code(s): I71.4 - Abdominal aortic aneurysm, without rupture (5) Diabetes Qualifiers: Diabetes mellitus type: type 2 Diabetes mellitus complication status: with kidney complications Diabetes mellitus complication detail: with chronic kidney disease Chronic kidney disease stage: stage 3 (moderate) <Kin Wilkerson - Last Filed: 05/06/19 22:43> (2) AAA (abdominal aortic aneurysm) Qualifiers: Qualified Code(s): I71.4 - Abdominal aortic aneurysm, without rupture (3) CHF (congestive heart failure) Qualifiers: Heart failure type: diastolic Heart failure chronicity: chronic Qualified Code(s): I50.32 - Chronic diastolic (congestive) heart failure (4) COPD (chronic obstructive pulmonary disease) Qualifiers: COPD type: unspecified COPD Qualified Code(s): J44.9 - Chronic obstructive pulmonary disease, unspecified (5) Diabetes Qualifiers: Diabetes mellitus type: type 2 Diabetes mellitus complication status: with kidney complications Diabetes mellitus complication detail: with chronic kidney disease Chronic kidney disease stage: stage 3 (moderate)
== END 2019-05-06 13:42 | disposition home or self-care (01) | DRG 345 ==
LOC: 3ANU 14:45 → EMEROOARM 14:45 → SUATTDRO 17:22 → 3ANU 17:52
PROVIDERS: ADMIT Internal Medicine; ATTEND Internal Medicine